=== PATIENT | female | born 1935 | race Caucasian/White ===

== ENCOUNTER → 2016-09-13 | Outpatient (CLI) | payer MEDICARE ==
[2016-09-13 12:56] LABS: Basophils % (A) 0 %; CH 30.6; CHCM 32.6; Eosinophils # (A) 0.5 k/uL (0-0.7); Eosinophils % (A) 7 %; HDW 2.84; HGB 13.4 gm/dL (11.4-16.0); Luc # (Auto) 0.17; Luc % (Auto) 2; Lymphocytes # (A) 2.9 k/uL (1.0-4.8); Lymphocytes % (A) 38 %; MCH 30.2 pg (25.0-35.0); MCV 94.4 fL (80.0-100.0); Mean Platelet Volume 7.4; Monocytes # (A) 0.5 k/uL (0-1.0); Monocytes % (A) 6 %; Neutrophils # (A) 3.5 k/uL (1.3-7.7); Neutrophils % (A) 46 %; RBC 4.44 m/uL (3.80-5.40); WBC 7.7 k/uL (3.8-10.6); WBC (Perox) 7.49
[2016-09-13 13:12] LABS: ALT 44 U/L (9-52); AST 44 U/L (14-36); Alkaline Phosphatase 81 U/L (38-126); Anion Gap 9 mmol/L; Blood Urea Nitrogen 12 mg/dL (7-17); Calcium 9.5 mg/dL (8.4-10.2); Carbon Dioxide 31 mmol/L (22-30); Chloride 104 mmol/L (98-107); Cholesterol 264 mg/dL (<200); Glucose 112 mg/dL (74-99); HDL Cholesterol 65 mg/dL (40-60); Non-African American GFR(MDRD) 53 (>60 ml/min/1.73 sqM); Potassium 3.4 mmol/L (3.5-5.1); Sodium 144 mmol/L (137-145); Total Bilirubin 0.5 mg/dL (0.2-1.3); Total Protein 7.5 g/dL (6.3-8.2); Triglycerides 211 mg/dL (<150)
[2016-09-13 13:15] LABS: Rheumatoid Factor, Qnt <9 IU/mL (<12)
[2016-09-13 14:01] LABS: Erythrocyte Sedimentation Rate 25 mm/hr (0-20)
== END | disposition home or self-care (01) ==
LOC: LABWHC1 12:06
PROVIDERS: ATTEND Internal Medicine
DX: E78.5 Hyperlipidemia, unspecified (principal); I10 Essential (primary) hypertension; M19.90 Unspecified osteoarthritis, unspecified site
CPT/HCPCS: 36415; 80053; 80061; 84439; 84443; 85025; 85610; 85652; 86038; 86431

== ENCOUNTER → 2016-11-18 | Outpatient (CLI) | payer MEDICARE ==
--- NOTE | 2016-11-18 15:48 | US ---
EXAMINATION TYPE: US abdomen complete DATE OF EXAM: 11/18/2016 2:48 PM COMPARISON: Exams 25 July 2014 ultrasound abdomen CLINICAL HISTORY: RUQ pain R10.11. Abdomen pain and nausea, bloating. EXAM MEASUREMENTS: Liver Length: 16.7 cm Gallbladder Wall: 0.2 cm CBD: 0.4 cm Spleen: n/a Right Kidney: 9.2 x 4.4 x 4.5 cm Left Kidney: 9.3 x 4.8 x 5.2 cm TECHNOLOGIST IMPRESSION: Technically difficult and limited study due to patient body habitus Pancreas: visualized portions wnl, limited by overlying midline bowel gas Liver: visualized portions show a coarse echotexture, limited by rib shadowing and overlying bowel g as Gallbladder: wnl Evidence for sonographic Flores's sign: yes CBD: visualized portions wnl, limited by overlying bowel gas Spleen: obscured by overlying bowel gas Right Kidney: 0.6cm echogenic focus inferior pole of questionable significance Left Kidney: wnl Upper IVC: wnl Abd Aorta: visualized portions wnl, limited by overlying midline bowel gas There is no ascites. IMPRESSION: Exam is markedly limited. May be fatty infiltration of the liver versus hepatocellular disease. Echog enic focus within the right kidney may represent normal medullary fat.
== END | disposition home or self-care (01) ==
LOC: RADUSWWP 14:12
DX: R10.11 Right upper quadrant pain (principal)
CPT/HCPCS: 76700

== ENCOUNTER → 2017-09-15 | Outpatient (CLI) | payer MEDICARE ==
[2017-09-15 12:01] LABS: INR 1.7 (<1.2); Prothrombin Time 15.3 sec (9.0-12.0)
[2017-09-15 12:06] LABS: Calcium 9.4 mg/dL (8.4-10.2); Total Bilirubin 0.5 mg/dL (0.2-1.3); Total Protein 7.4 g/dL (6.3-8.2)
[2017-09-15 12:14] LABS: T4, Free (Free Thyroxine) 0.75 ng/dL (0.78-2.19)
[2017-09-15 12:19] LABS: Basophils % (A) 0 %; Eosinophils # (A) 0.6 k/uL (0-0.7); Eosinophils % (A) 9 %; HCT 42.3 % (34.0-46.0); HGB 13.3 gm/dL (11.4-16.0); Hypochromasia Slight; Lymphocytes # (A) 3.4 k/uL (1.0-4.8); Lymphocytes % (A) 47 %; MCH 28.8 pg (25.0-35.0); MCHC 31.4 g/dL (31.0-37.0); MCV 91.8 fL (80.0-100.0); Mean Platelet Volume 7.6; Monocytes # (A) 0.5 k/uL (0-1.0); Monocytes % (A) 7 %; Neutrophils # (A) 2.5 k/uL (1.3-7.7); Neutrophils % (A) 35 %; Platelet Count 265 k/uL (150-450); RDW 15.7 % (11.5-15.5); WBC 7.2 k/uL (3.8-10.6)
== END | disposition home or self-care (01) ==
LOC: LABWHC1 11:00
PROVIDERS: ATTEND Internal Medicine
DX: E78.5 Hyperlipidemia, unspecified (principal); I10 Essential (primary) hypertension; R53.1 Weakness; I26.99 Other pulmonary embolism without acute cor pulmonale
CPT/HCPCS: 36415; 80053; 80061; 82607; 84439; 84443; 85025; 85610

== ENCOUNTER → 2018-01-23 | Outpatient (CLI) | payer MEDICARE ==
[2018-01-23 11:02] LABS: INR 3.3 (<1.2); Prothrombin Time 29.5 sec (9.0-12.0)
[2018-01-23 11:06] LABS: Calcium 9.3 mg/dL (8.4-10.2); Potassium 3.6 mmol/L (3.5-5.1)
[2018-01-23 11:23] LABS: T4, Free (Free Thyroxine) 0.95 ng/dL (0.78-2.19)
== END | disposition home or self-care (01) ==
LOC: LABWHC1 10:22
PROVIDERS: ATTEND Internal Medicine
DX: E03.9 Hypothyroidism, unspecified (principal); K58.9 Irritable bowel syndrome, unspecified; I10 Essential (primary) hypertension; J45.909 Unspecified asthma, uncomplicated; Z86.2 Personal history of diseases of the blood and blood-forming organs and certain disorders involving the immune mechanism
CPT/HCPCS: 36415; 80048; 84439; 84443; 85610

== ENCOUNTER → 2018-06-05 | Outpatient (CLI) | payer MEDICARE ==
[2018-06-05 16:30] LABS: Basophils % (A) 0 %; Eosinophils # (A) 0.3 k/uL (0-0.7); Eosinophils % (A) 4 %; HCT 42.3 % (34.0-46.0); HGB 13.2 gm/dL (11.4-16.0); Lymphocytes # (A) 3.8 k/uL (1.0-4.8); Lymphocytes % (A) 47 %; MCHC 31.2 g/dL (31.0-37.0); MCV 89.6 fL (80.0-100.0); Mean Platelet Volume 7.4; Monocytes # (A) 0.5 k/uL (0-1.0); Monocytes % (A) 6 %; Neutrophils # (A) 3.3 k/uL (1.3-7.7); Neutrophils % (A) 41 %; Platelet Count 320 k/uL (150-450); RBC 4.72 m/uL (3.80-5.40); RDW 14.6 % (11.5-15.5); WBC 8.2 k/uL (3.8-10.6)
[2018-06-05 18:50] LABS: Erythrocyte Sedimentation Rate 30 mm/hr (0-20)
[2018-06-06 04:10] LABS: Rheumatoid Factor <4 IU/mL (0-15)
== END ==
LOC: LABWHC1 15:25
PROVIDERS: ATTEND Internal Medicine
DX: M31.6 Other giant cell arteritis (principal)
CPT/HCPCS: 36415; 85025; 85652; 86038; 86235; 86431

== ENCOUNTER 2018-07-14 12:41 | Emergency (ER) | payer MEDICARE ==
--- NOTE | 2018-07-14 13:28 | ED ---
General Adult HPI - General Chief complaint: Recheck/Abnormal Lab/Rx Stated complaint: Hemorrhage from inside Time Seen by Provider: 07/14/18 12:51 Source: patient, RN notes reviewed Mode of arrival: ambulatory Limitations: no limitations - History of Present Illness Initial comments: 83-year-old female presents emergency department presents emergency Department chief complaint of elevated INR. Patient states she had lab work done yesterday which showed an INR 5. She did not take her dose last night with states that she's continued to have a headache so they're concerned that she may have some bleeding. Patient was sent here for evaluation. Patient states is diffuse headache for one week states that she just feels ill. She initially was told that maybe some sinus issues was started on prednisone. Patient denies fever, chills, neck pain or neck stiffness. Denies any abdominal pain, chest pain or shortness of breath. Patient states she is on Coumadin for blood clots in which she has been on this in the past. Patient has no dysuria no hematuria denies any melena or hematochezia. - Related Data Home Medications Medication Instructions Recorded Confirmed Acetaminophen with Codeine 1 tab PO Q4H PRN 06/14/14 11/29/15 [Tylenol w/codeine #3] Budesonide-Formot 160-4.5 Mcg 2 puff INHALATION RT-BID PRN 06/14/14 11/29/15 [Symbicort 160-4.5 Mcg Inhaler] Potassium Chloride [Klor-Con 20] 20 meq PO DAILY 06/14/14 11/29/15 FLUoxetine HCL [Fluoxetine HCl] 20 mg PO DAILY 07/18/15 11/29/15 Metolazone [Zaroxolyn] 2.5 mg PO DAILY PRN 07/18/15 11/29/15 Multivitamins, Thera [Multivitamin 1 tab PO DAILY 07/18/15 11/29/15 (formulary)] Clotrimazole/Betamethasone Dip 1 applic TOPICAL BID 11/29/15 11/29/15 [Lotrisone Cream] Propylene Glycol/Peg 400/Pf 1 drop BOTH EYES DAILY PRN 11/29/15 11/29/15 [Systane 0.3-0.4% Eye Drops] Previous Rx's Medication Instructions Recorded Rivaroxaban [Xarelto] 15 mg PO BID-W/MEALS #42 tab 12/02/15 amLODIPine [Norvasc] 5 mg PO BID #60 tab 12/02/15 Allergies Allergy/AdvReac Type Severity Reaction Status Date / Time iodine AdvReac Anaphylaxis Verified 07/14/18 12:50 morphine AdvReac Hallucinati Verified 07/14/18 12:50 ons TAPE Allergy Rash/Hives Uncoded 07/14/18 12:50 Review of Systems ROS Statement: Those systems with pertinent positive or pertinent negative responses have been documented in the HPI. ROS Other: All systems not noted in ROS Statement are negative. Past Medical History Past Medical History: Asthma, GERD/Reflux, Hyperlipidemia, Hypertension, Liver Disease, Osteoarthritis (OA), Pneumonia, Pulmonary Embolus (PE) Additional Past Medical History / Comment(s): Chronic asthma, bilateral pulmonary embolism diagnosed in 2010 and she was taken off the coumadin by Dr Andersen, pneumonia's, IBS, colitis, esophageal stricture, hepatitis B infection 1971, hiatal hernia, history of Chowdary's palsy, severe osteoarthritis, DJD, cervical pain, seasonal allergies and sinus problems. History of Any Multi-Drug Resistant Organisms: None Reported Past Surgical History: Appendectomy, Section, Hernia Repair, Joint Replacement, Tonsillectomy, Tubal Ligation Additional Past Surgical History / Comment(s): 07/25/15 Total R shoulderin , cataracts bilaterally, x 2, hiatal hernia repair, EGDs, esophageal dilations, colonoscopy, bronchoscopies, pain clinic procedures. Past Anesthesia/Blood Transfusion Reactions: No Reported Reaction Past Psychological History: No Psychological Hx Reported Smoking Status: Former smoker Past Alcohol Use History: Rare Past Drug Use History: None Reported - Past Family History Daughter(s) Family Medical History: Coronary Artery Disease (CAD) (in the mother and she had also CABG), Diabetes Mellitus, Deep Vein Thrombosis (DVT) (in the mother) Brother(s) Family Medical History: CVA/TIA Mother Family Medical History: Coronary Artery Disease (CAD), Diabetes Mellitus Additional Family Medical History / Comment(s): cabg Father Family Medical History: No Reported History General Exam Limitations: no limitations General appearance: alert, in no apparent distress Head exam: Present: atraumatic, normocephalic, normal inspection Eye exam: Present: normal appearance, PERRL (Slightly sluggish left), EOMI. Absent: scleral icterus, conjunctival injection, periorbital swelling ENT exam: Present: normal exam, normal oropharynx, mucous membranes moist Neck exam: Present: normal inspection, full ROM. Absent: tenderness, meningismus, lymphadenopathy Respiratory exam: Present: normal lung sounds bilaterally. Absent: respiratory distress, wheezes, rales, rhonchi, stridor Cardiovascular Exam: Present: regular rate, normal rhythm, normal heart sounds. Absent: systolic murmur, diastolic murmur, rubs, gallop, clicks Neurological exam: Present: alert, oriented X3, CN II-XII intact, reflexes normal, other (Finger to nose intact bilaterally without shooting). Absent: motor sensory deficit Skin exam: Present: warm, dry, intact, normal color. Absent: rash Course Vital Signs 07/14/18 12:48 Temperature 98.3 F Pulse Rate 76 Respiratory 20 Rate Blood Pressure 149/78 O2 Sat by Pulse 98 Oximetry Medical Decision Making - Medical Decision Making 83-year-old female presents emergency Department chief complaint of elevated INR and a headache. CT was obtained no acute intracranial hemorrhage. CT has been consistent for 1 week. Patient has no neurological deficits. Patient has an INR of 4.7 down from 5 yesterday. Patient will hold her Coumadin for 2 more days and have her recheck. Patient has no noted bleeding. She has no abdominal pain. No melena med she is a. Patient has been bleeding of her gums and no abnormal bruising at this time. We did discuss strict return parameters. - Lab Data Result diagrams: 07/14/18 13:15 07/14/18 13:15 Lab Results 07/14/18 07/14/18 07/14/18 Range/Units 13:15 13:15 13:15 WBC 8.3 (3.8-10.6) k/uL RBC 4.45 (3.80-5.40) m/uL Hgb 12.8 (11.4-16.0) gm/dL Hct 38.5 (34.0-46.0) % MCV 86.5 (80.0-100.0) fL MCH 28.7 (25.0-35.0) pg MCHC 33.2 (31.0-37.0) g/dL RDW 15.2 (11.5-15.5) % Plt Count 229 (150-450) k/uL Neutrophils % 37 % Lymphocytes % 52 % Monocytes % 6 % Eosinophils % 2 % Basophils % 0 % Neutrophils # 3.1 (1.3-7.7) k/uL Lymphocytes # 4.3 (1.0-4.8) k/uL Monocytes # 0.5 (0-1.0) k/uL Eosinophils # 0.2 (0-0.7) k/uL Basophils # 0.0 (0-0.2) k/uL PT 41.9 H (9.0-12.0) sec INR 4.7 H (<1.2) Sodium 139 (137-145) mmol/L Potassium 3.3 L (3.5-5.1) mmol/L Chloride 106 (98-107) mmol/L Carbon Dioxide 27 (22-30) mmol/L Anion Gap 6 mmol/L BUN 18 H (7-17) mg/dL Creatinine 0.87 (0.52-1.04) mg/dL Est GFR (CKD-EPI)AfAm 72 (>60 ml/min/1.73 sqM) Est GFR (CKD-EPI)NonAf 63 (>60 ml/min/1.73 sqM) Glucose 106 H (74-99) mg/dL Calcium 8.9 (8.4-10.2) mg/dL Disposition Clinical Impression: Warfarin-induced coagulopathy, Headache Disposition: HOME SELF-CARE Condition: Stable Instructions: Elevated INR (ED) Additional Instructions: Please return to the Emergency Department if symptoms worsen or any other concerns. Hold Coumadin for 2 days and have recheck. Is patient prescribed a controlled substance at d/c from ED?: No Referrals: González Andersen MD [Primary Care Provider] - 1-2 days Time of Disposition: 14:08
[2018-07-14 13:39] LABS: Basophils % (A) 0 %; Eosinophils # (A) 0.2 k/uL (0-0.7); Eosinophils % (A) 2 %; HCT 38.5 % (34.0-46.0); HGB 12.8 gm/dL (11.4-16.0); INR 4.7 (<1.2); Lymphocytes # (A) 4.3 k/uL (1.0-4.8); Lymphocytes % (A) 52 %; MCH 28.7 pg (25.0-35.0); MCHC 33.2 g/dL (31.0-37.0); MCV 86.5 fL (80.0-100.0); Mean Platelet Volume 7.3; Monocytes # (A) 0.5 k/uL (0-1.0); Monocytes % (A) 6 %; Neutrophils # (A) 3.1 k/uL (1.3-7.7); Neutrophils % (A) 37 %; Platelet Count 229 k/uL (150-450); Prothrombin Time 41.9 sec (9.0-12.0); RBC 4.45 m/uL (3.80-5.40); RDW 15.2 % (11.5-15.5); WBC 8.3 k/uL (3.8-10.6)
[2018-07-14 13:46] LABS: Calcium 8.9 mg/dL (8.4-10.2); Potassium 3.3 mmol/L (3.5-5.1)
--- NOTE | 2018-07-14 13:55 | CT ---
EXAMINATION TYPE: CT brain wo con DATE OF EXAM: 07/14/2018 HISTORY: Pt had abnormal INR results, sent by physician. Prior in PACS. No contrast. Headache per ord er. CT DLP: 976.4 mGycm. Automated Exposure Control for Dose Reduction was Utilized. TECHNIQUE: CT scan of the head is performed without contrast. COMPARISON: CT brain September 23, 2014. FINDINGS: There is no acute intracranial hemorrhage or midline shift identified. There is diffuse v entricular and sulcal prominence consistent with diffuse age-related cerebral atrophy. There is low- attenuation in the periventricular white matter consistent with chronic small vessel ischemic change. The globes are intact and the visualized sinuses are clear. IMPRESSION: No acute intracranial hemorrhage or midline shift. There is mild diffuse age-related ce rebral atrophy and advanced probable chronic small vessel ischemic change redemonstrated. No signifi cant change from prior CT.
[2018-07-14 14:36] VITALS: BP 134/75; PULSE 68; RESP 18; TEMP 97.1
== END 2018-07-14 14:36 | disposition home or self-care (01) ==
LOC: EC 12:41
DX: D68.9 Coagulation defect, unspecified (principal); T45.515A Adverse effect of anticoagulants, initial encounter; R51 Headache; J45.909 Unspecified asthma, uncomplicated; I10 Essential (primary) hypertension; M19.90 Unspecified osteoarthritis, unspecified site; Z79.01 Long term (current) use of anticoagulants; Z79.899 Other long term (current) drug therapy; Z88.5 Allergy status to narcotic agent; Z91.048 Other nonmedicinal substance allergy status; Z87.891 Personal history of nicotine dependence; Z96.611 Presence of right artificial shoulder joint; Z86.711 Personal history of pulmonary embolism
CPT/HCPCS: 36415; 70450; 80048; 85025; 85610; 99284

== ENCOUNTER 2018-09-14 11:38 | Day surgery (SDC) | payer MEDICARE ==
[2018-09-04 13:14] VITALS: BMI 28.8
[~2018-09-14 11:38] MED LIST: LACTATED RINGERS 1,000 ML IV SCH
[2018-09-14 12:01] VITALS: TEMP 98.2
[2018-09-14] MEDS ORDERED: PROPOFOL 10 MG/ML 20 ML VIAL IV ONE (12:15)
[2018-09-14] MEDS ORDERED: LIDOCAINE 1% INJ 10MG/ML (20 ML MDV) ONE (12:15)
[2018-09-14] MEDS ORDERED: GLYCOPYRROLATE 0.2 MG/ML 2 ML VIAL ONE (12:15)
[2018-09-14] MEDS ORDERED: LACTATED RINGERS 1,000 ML IV ONE (12:33)
--- NOTE | 2018-09-14 12:41 | P.PCN ---
Date of Procedure: 09/14/18 Procedure(s) Performed: Procedure: Esophagogastroduodenoscopy and biopsy. Preoperative diagnosis: Dysphagia. Postoperative diagnosis: 1. Hiatal hernia and esophagitis with no strictures or obstructing to the advancement of the endoscope. 2. Antral gastritis. 3. Multiple biopsies obtained from the antrum and esophagus. Preparation and sedation: Was provided by anesthesia. Brief clinical history: The patient is an 83-year-old female who is scheduled for this evaluation the cause of issues with dysphagia. She had an upper endoscopy in 2013 that revealed evidence of eosinophilic esophagitis on biopsies. The patient has history of asthma and reflux. This evaluation is to assess for possible strictures or other pathology. Procedure: With the patient on her left lateral decubitus position and after informed consent and adequate sedation, I passed the Olympus-GIF 190 video upper endoscope through the cricopharyngeus down the esophagus. GE junction was around 36 cm from the incisors and there was a hiatal hernia measuring around 2 cm. The esophagus showed multiple punctated erosions and superficial ulcerations consistent with LA grade C esophagitis. There were no restricting strictures. The endoscope was then passed into the stomach which was insufflated with air and inspected in detail including the retroflex view in the cardia. There was mottling and erythema in the antrum and an isolated erosion or 2 but no ulcers or bleeding. Pyloric channel, duodenal bulb, post bulbar area and descending duodenum appeared within normal limits. I obtained biopsies from the antrum and esophagus then the endoscope was withdrawn. No dilation was indicated on this exam today. The patient tolerated the procedure well. Plan: The patient was reassured. She will follow-up with you as planned and I will see her in follow-up and make additional recommendations based on her course and biopsy results.
[2018-09-14 13:31] VITALS: BP 151/83; PULSE 81; RESP 20
== END 2018-09-14 13:59 | disposition home or self-care (01) ==
LOC: ORWHC2ENDO 11:38
DX: K29.50 Unspecified chronic gastritis without bleeding (principal); K20.0 Eosinophilic esophagitis; K44.9 Diaphragmatic hernia without obstruction or gangrene; R13.10 Dysphagia, unspecified; K21.9 Gastro-esophageal reflux disease without esophagitis; M19.90 Unspecified osteoarthritis, unspecified site; K58.9 Irritable bowel syndrome, unspecified; Z86.711 Personal history of pulmonary embolism; Z86.19 Personal history of other infectious and parasitic diseases; J45.909 Unspecified asthma, uncomplicated; K76.9 Liver disease, unspecified; I10 Essential (primary) hypertension; E78.5 Hyperlipidemia, unspecified; Z86.718 Personal history of other venous thrombosis and embolism; Z79.01 Long term (current) use of anticoagulants; Z79.51 Long term (current) use of inhaled steroids; Z79.899 Other long term (current) drug therapy; Z88.5 Allergy status to narcotic agent; Z91.048 Other nonmedicinal substance allergy status; Z91.09 Other allergy status, other than to drugs and biological substances
CPT/HCPCS: 88305; 43239; J2001; J2704

== ENCOUNTER → 2018-11-26 | Outpatient (CLI) | payer MEDICARE ==
[2018-11-26 12:39] LABS: Prothrombin Time 19.8 sec (9.0-12.0)
[2018-11-26 12:54] LABS: Basophils % (A) 1 %; Eosinophils # (A) 0.5 k/uL (0-0.7); Eosinophils % (A) 8 %; HCT 41.9 % (34.0-46.0); Hypochromasia Slight; Lymphocytes # (A) 3.2 k/uL (1.0-4.8); Lymphocytes % (A) 48 %; MCH 28.1 pg (25.0-35.0); MCHC 31.1 g/dL (31.0-37.0); MCV 90.6 fL (80.0-100.0); Mean Platelet Volume 6.9; Monocytes # (A) 0.4 k/uL (0-1.0); Monocytes % (A) 6 %; Neutrophils # (A) 2.4 k/uL (1.3-7.7); Neutrophils % (A) 36 %; Platelet Count 290 k/uL (150-450); RBC 4.63 m/uL (3.80-5.40); RDW 15.9 % (11.5-15.5); WBC 6.8 k/uL (3.8-10.6)
[2018-11-26 18:55] LABS: Albumin 4.3 g/dL (3.80-4.90); Albumin/Globulin Ratio 1.48 (1.60-3.17); Anion Gap 6.6 mmol/L (4.00-12.00); Calcium 9.3 mg/dL (8.7-10.3); Carbon Dioxide 27.4 mmol/L (21.6-31.8); Globulin 2.9 g/dL (1.6-3.3); Potassium 3.9 mmol/L (3.5-5.5); Total Bilirubin 0.3 mg/dL (0.3-1.2); Total Protein 7.2 g/dL (6.2-8.2)
[2018-11-26 20:52] LABS: T4, Free (Free Thyroxine) 0.8 ng/dL (0.80-1.80)
== END | disposition home or self-care (01) ==
LOC: LABWHC1 11:30
PROVIDERS: ATTEND Internal Medicine
DX: R53.1 Weakness (principal); I26.99 Other pulmonary embolism without acute cor pulmonale; R53.83 Other fatigue; Z51.81 Encounter for therapeutic drug level monitoring; Z79.01 Long term (current) use of anticoagulants
CPT/HCPCS: 36415; 80053; 82607; 84439; 84443; 85025; 85610

== ENCOUNTER 2019-04-24 15:47 | Emergency (ER) | payer MEDICARE ==
[2019-04-24] MEDS ORDERED: IPRATROPIUM-ALBUTEROL 3 ML NEB INHALATION STA (16:07)
[2019-04-24] MEDS ORDERED: methylPREDNISolone SOD SUCCI 125 MG/2 ML VIAL IV STA (16:08)
--- NOTE | 2019-04-24 16:11 | ED ---
URI HPI - General Chief Complaint: Upper Respiratory Infection Stated Complaint: Sob/cough Time Seen by Provider: 04/24/19 16:06 Source: patient, RN notes reviewed, old records reviewed Mode of arrival: ambulatory Limitations: no limitations - History of Present Illness Initial Comments: This is an 83-year-old female the ER for evaluation. Patient presents today for shortness of breath has history of asthma history of COPD recent travel history [place] current fevers. Nurse sick contacts. No significant recent hospitalizations. No chest pain MD Complaint: cough, nasal congestion -: days(s) Severity: mild Severity scale (1-10): 3 Consistency: constant Improves With: nothing Worsens With: nothing Associated Symptoms: fever, myalgias, nasal congestion, cough Treatments Prior to Arrival: none - Related Data Home Medications Medication Instructions Recorded Confirmed Multivitamin,Therapeutic [Thera] 1 tab PO DAILY 07/14/18 04/24/19 amLODIPine [Norvasc] 5 mg PO DAILY 07/14/18 04/24/19 Budesonide-Formot 160-4.5 Mcg 2 puff INHALATION RT-BID 09/04/18 04/24/19 [Symbicort 160-4.5 Mcg Inhaler] Warfarin [Coumadin] 2.5 mg PO TH 09/04/18 04/24/19 Albuterol Nebulized [Ventolin 2.5 mg INHALATION RT-Q6H PRN 04/24/19 04/24/19 Nebulized] Oxybutynin Chloride 5 mg PO BID 04/24/19 04/24/19 Warfarin [Coumadin] 5 mg PO SUMOTUWESA 04/24/19 04/24/19 Previous Rx's Medication Instructions Recorded Albuterol Nebulized [Ventolin 2.5 mg INHALATION Q4H #25 nebu 04/24/19 Nebulized] Albuterol Sulfate [Proair Hfa] 1 - 2 puff INHALATION Q4H PRN #1 04/24/19 inhaler Azithromycin [Zithromax Z-pack] 0 mg PO DIRECTED #1 pack 04/24/19 predniSONE 50 mg PO DAILY #5 tab 04/24/19 Allergies Allergy/AdvReac Type Severity Reaction Status Date / Time iodine Allergy Anaphylaxis Verified 04/24/19 17:23 morphine AdvReac Hallucinati Verified 04/24/19 17:23 ons TAPE Allergy Rash/Hives Uncoded 09/04/18 13:02 Review of Systems ROS Statement: Those systems with pertinent positive or pertinent negative responses have been documented in the HPI. ROS Other: All systems not noted in ROS Statement are negative. Past Medical History Past Medical History: Asthma, GERD/Reflux, GI Bleed, Hyperlipidemia, Hypertension, Liver Disease, Osteoarthritis (OA), Pneumonia, Pulmonary Embolus (PE) Additional Past Medical History / Comment(s): bilateral pulmonary embolism 2010, IBS, colitis, esophageal stricture, hepatitis B infection 1971, hiatal hernia, history of Chowdary's palsy, severe osteoarthritis, sinus problems. poor circulation in eliseo feet, GI bleed years ago History of Any Multi-Drug Resistant Organisms: None Reported Past Surgical History: Appendectomy, Section, Hernia Repair, Hysterectomy, Joint Replacement, Tonsillectomy, Tubal Ligation Additional Past Surgical History / Comment(s): Rt shoulder replacement, cataracts bilaterally, x 2, hiatal hernia repair, EGDs with esophageal dilations, colonoscopy, bronchoscopies Past Anesthesia/Blood Transfusion Reactions: Motion Sickness Past Psychological History: No Psychological Hx Reported Smoking Status: Never smoker Past Alcohol Use History: None Reported Past Drug Use History: None Reported - Past Family History Daughter(s) Family Medical History: Coronary Artery Disease (CAD), Diabetes Mellitus, Deep Vein Thrombosis (DVT) Brother(s) Family Medical History: CVA/TIA Mother Family Medical History: Deep Vein Thrombosis (DVT) Additional Family Medical History / Comment(s): . Father Family Medical History: No Reported History General Exam Limitations: no limitations General appearance: alert, in no apparent distress Head exam: Present: atraumatic, normocephalic, normal inspection Eye exam: Present: normal appearance, PERRL, EOMI. Absent: scleral icterus, conjunctival injection, periorbital swelling ENT exam: Present: normal exam, mucous membranes moist Neck exam: Present: normal inspection. Absent: tenderness, meningismus, lympha denopathy Respiratory exam: Present: wheezes. Absent: respiratory distress, rales, rhonchi, stridor Cardiovascular Exam: Present: regular rate, normal rhythm, normal heart sounds. Absent: systolic murmur, diastolic murmur, rubs, gallop, clicks GI/Abdominal exam: Present: soft, normal bowel sounds. Absent: distended, tend erness, guarding, rebound, rigid Extremities exam: Present: normal inspection, full ROM, normal capillary refill. Absent: tenderness, pedal edema, joint swelling, calf tenderness Back exam: Present: normal inspection Neurological exam: Present: alert, oriented X3, CN II-XII intact Psychiatric exam: Present: normal affect, normal mood Skin exam: Present: warm, dry, intact, normal color. Absent: rash Course Vital Signs 04/24/19 04/24/19 04/24/19 15:51 16:29 16:41 Temperature 98 F Pulse Rate 81 80 83 Respiratory 18 Rate Blood Pressure 172/77 O2 Sat by Pulse 96 Oximetry 04/24/19 04/24/19 17:32 17:44 Temperature Pulse Rate 80 82 Respiratory Rate Blood Pressure O2 Sat by Pulse Oximetry Medical Decision Making - Medical Decision Making 83 female the ER for evaluation cough congestion shortness of breath mild asthma exacerbation. Patient can be discharged home - Lab Data Result diagrams: 04/24/19 16:15 04/24/19 16:15 Lab Results 04/24/19 04/24/19 04/24/19 Range/Units 16:15 16:15 16:15 WBC 8.6 (3.8-10.6) k/uL RBC 4.46 (3.80-5.40) m/uL Hgb 13.0 (11.4-16.0) gm/dL Hct 39.8 (34.0-46.0) % MCV 89.2 (80.0-100.0) fL MCH 29.2 (25.0-35.0) pg MCHC 32.8 (31.0-37.0) g/dL RDW 16.5 H (11.5-15.5) % Plt Count 311 (150-450) k/uL Neutrophils % 82 % Lymphocytes % 13 % Monocytes % 3 % Eosinophils % 1 % Basophils % 0 % Neutrophils # 7.0 (1.3-7.7) k/uL Lymphocytes # 1.1 (1.0-4.8) k/uL Monocytes # 0.3 (0-1.0) k/uL Eosinophils # 0.1 (0-0.7) k/uL Basophils # 0.0 (0-0.2) k/uL Anisocytosis Slight PT (9.0-12.0) sec INR (<1.2) APTT (22.0-30.0) sec Sodium 142 (137-145) mmol/L Potassium 3.3 L (3.5-5.1) mmol/L Chloride 107 (98-107) mmol/L Carbon Dioxide 26 (22-30) mmol/L Anion Gap 9 mmol/L BUN 16 (7-17) mg/dL Creatinine 1.09 H (0.52-1.04) mg/dL Est GFR (CKD-EPI)AfAm 55 (>60 ml/min/1.73 sqM) Est GFR (CKD-EPI)NonAf 48 (>60 ml/min/1.73 sqM) Glucose 136 H (74-99) mg/dL Calcium 9.0 (8.4-10.2) mg/dL Magnesium 1.8 (1.6-2.3) mg/dL Total Bilirubin 0.3 (0.2-1.3) mg/dL AST 54 H (14-36) U/L ALT 48 (9-52) U/L Alkaline Phosphatase 76 (38-126) U/L Creatine Kinase 163 H (30-135) U/L Troponin I (0.000-0.034) ng/mL NT-Pro-B Natriuret Pep 228 pg/mL Total Protein 7.5 (6.3-8.2) g/dL Albumin 4.1 (3.5-5.0) g/dL 04/24/19 04/24/19 Range/Units 16:15 16:15 WBC (3.8-10.6) k/uL RBC (3.80-5.40) m/uL Hgb (11.4-16.0) gm/dL Hct (34.0-46.0) % MCV (80.0-100.0) fL MCH (25.0-35.0) pg MCHC (31.0-37.0) g/dL RDW (11.5-15.5) % Plt Count (150-450) k/uL Neutrophils % % Lymphocytes % % Monocytes % % Eosinophils % % Basophils % % Neutrophils # (1.3-7.7) k/uL Lymphocytes # (1.0-4.8) k/uL Monocytes # (0-1.0) k/uL Eosinophils # (0-0.7) k/uL Basophils # (0-0.2) k/uL Anisocytosis PT 20.6 H (9.0-12.0) sec INR 2.1 H (<1.2) APTT 26.7 (22.0-30.0) sec Sodium (137-145) mmol/L Potassium (3.5-5.1) mmol/L Chloride (98-107) mmol/L Carbon Dioxide (22-30) mmol/L Anion Gap mmol/L BUN (7-17) mg/dL Creatinine (0.52-1.04) mg/dL Est GFR (CKD-EPI)AfAm (>60 ml/min/1.73 sqM) Est GFR (CKD-EPI)NonAf (>60 ml/min/1.73 sqM) Glucose (74-99) mg/dL Calcium (8.4-10.2) mg/dL Magnesium (1.6-2.3) mg/dL Total Bilirubin (0.2-1.3) mg/dL AST (14-36) U/L ALT (9-52) U/L Alkaline Phosphatase (38-126) U/L Creatine Kinase (30-135) U/L Troponin I <0.012 (0.000-0.034) ng/mL NT-Pro-B Natriuret Pep pg/mL Total Protein (6.3-8.2) g/dL Albumin (3.5-5.0) g/dL - EKG Data -: EKG Interpreted by Me (EKG shows sinus rhythm rate of 73, WI 170, QRS 80, QTC 464) - Radiology Data Radiology results: report reviewed (cxr negative for acute disease), image revi ewed Disposition Clinical Impression: Asthmatic bronchitis Disposition: HOME SELF-CARE Condition: Good Instructions (If sedation given, give patient instructions): Asthma (ED), COPD (Chronic Obstructive Pulmonary Disease) (ED) Prescriptions: predniSONE 50 mg PO DAILY #5 tab Albuterol Sulfate [Proair Hfa] 1 - 2 puff INHALATION Q4H PRN #1 inhaler PRN Reason: Shortness Of Breath Albuterol Nebulized [Ventolin Nebulized] 2.5 mg INHALATION Q4H #25 nebu Azithromycin [Zithromax Z-pack] 0 mg PO DIRECTED #1 pack Is patient prescribed a controlled substance at d/c from ED?: No Referrals: Rochelle,Aliza, MD [STAFF PHYSICIAN] - 1-2 days
[2019-04-24 16:24] LABS: Anisocytosis Slight; Basophils % (A) 0 %; Eosinophils # (A) 0.1 k/uL (0-0.7); Eosinophils % (A) 1 %; HCT 39.8 % (34.0-46.0); Lymphocytes # (A) 1.1 k/uL (1.0-4.8); Lymphocytes % (A) 13 %; MCH 29.2 pg (25.0-35.0); MCHC 32.8 g/dL (31.0-37.0); MCV 89.2 fL (80.0-100.0); Mean Platelet Volume 7.4; Monocytes # (A) 0.3 k/uL (0-1.0); Monocytes % (A) 3 %; Neutrophils % (A) 82 %; Platelet Count 311 k/uL (150-450); RBC 4.46 m/uL (3.80-5.40); RDW 16.5 % (11.5-15.5); WBC 8.6 k/uL (3.8-10.6)
[2019-04-24 16:35] LABS: INR 2.1 (<1.2); Partial Thromboplastin Time 26.7 sec (22.0-30.0); Prothrombin Time 20.6 sec (9.0-12.0)
[2019-04-24 16:37] LABS: Albumin 4.1 g/dL (3.5-5.0); Magnesium 1.8 mg/dL (1.6-2.3); Potassium 3.3 mmol/L (3.5-5.1); Total Bilirubin 0.3 mg/dL (0.2-1.3); Total Protein 7.5 g/dL (6.3-8.2)
--- NOTE | 2019-04-24 17:01 | XR ---
EXAMINATION TYPE: XR chest 2V DATE OF EXAM: 04/24/2019 COMPARISON: 11/26/2018 HISTORY: Cough and short of breath TECHNIQUE: Frontal and lateral views of the chest are obtained. FINDINGS: Heart size is normal. Lungs are clear infiltrate. There is rounded density at the left betsy phragm related to small diaphragmatic hernia that contains fat evident on the CT scan of 11/29/2015. T here are surgical clips at the gastroesophageal junction. There is small hiatal hernia. There is no heart failure. There is no pleural effusion. Bony thorax is intact. IMPRESSION: No active cardiopulmonary disease. No change.
[2019-04-24] MEDS ORDERED: ALBUTEROL NEBULIZED 2.5 MG/3 ML INHALATION STA (17:22)
[2019-04-24] MEDS ORDERED: SODIUM CHLORIDE 0.9% 500 ML 500 ML IV STA (17:22)
[2019-04-24] MEDS ORDERED: IPRATROPIUM 0.5 MG/2.5 ML NEBU INHALATION STA (17:22)
[2019-04-24] MEDS ORDERED: ACET/COD 240MG/24MG LIQ 10 ML SYRG PO ONE (17:23)
[2019-04-24 18:29] VITALS: BP 152/73; PULSE 72; RESP 17; TEMP 98.7
== END 2019-04-24 18:20 | disposition home or self-care (01) ==
LOC: EC 15:47
DX: J45.909 Unspecified asthma, uncomplicated (principal); I10 Essential (primary) hypertension; M19.90 Unspecified osteoarthritis, unspecified site; Z79.01 Long term (current) use of anticoagulants; Z79.51 Long term (current) use of inhaled steroids; Z79.899 Other long term (current) drug therapy; Z88.5 Allergy status to narcotic agent; Z91.048 Other nonmedicinal substance allergy status; Z96.611 Presence of right artificial shoulder joint; Z86.711 Personal history of pulmonary embolism
CPT/HCPCS: 36415; 94640 ×2; 83880; 80053; 82550; 83735; 84484; 85025; 85610; 85730; 71046; 99285; 96374; 96361; J2930; 93005

== ENCOUNTER 2020-02-24 19:46 | Emergency (ER) | payer MEDICARE ==
[2020-02-24 19:55] VITALS: TEMP 98.8
[2020-02-24 21:02] LABS: Basophils % (A) 0 %; Eosinophils # (A) 0.6 k/uL (0-0.7); Eosinophils % (A) 8 %; HCT 36.9 % (34.0-46.0); HGB 11.8 gm/dL (11.4-16.0); Hypochromasia Slight; Lymphocytes # (A) 2.9 k/uL (1.0-4.8); Lymphocytes % (A) 38 %; MCH 27.7 pg (25.0-35.0); MCHC 32.1 g/dL (31.0-37.0); MCV 86.4 fL (80.0-100.0); Mean Platelet Volume 7.7; Monocytes # (A) 0.4 k/uL (0-1.0); Monocytes % (A) 5 %; Neutrophils # (A) 3.4 k/uL (1.3-7.7); Neutrophils % (A) 45 %; Platelet Count 254 k/uL (150-450); RBC 4.27 m/uL (3.80-5.40); RDW 15.3 % (11.5-15.5); WBC 7.5 k/uL (3.8-10.6)
[2020-02-24 21:10] LABS: INR 1.6 (<1.2); Partial Thromboplastin Time 25.2 sec (22.0-30.0); Prothrombin Time 15.7 sec (9.0-12.0)
[2020-02-24 21:11] LABS: Albumin 3.9 g/dL (3.5-5.0); Calcium 9.1 mg/dL (8.4-10.2); Potassium 3.1 mmol/L (3.5-5.1); Total Bilirubin 0.2 mg/dL (0.2-1.3); Total Protein 7.2 g/dL (6.3-8.2)
--- NOTE | 2020-02-24 21:35 | US ---
EXAMINATION TYPE: US venous doppler duplex LE LT DATE OF EXAM: 02/24/2020 9:20 PM COMPARISON: US CLINICAL HISTORY: Left leg swelling and pain. Left leg swelling and pain. Hx PE. Patient on coumadin. SIDE PERFORMED: Left TECHNIQUE: The lower extremity deep venous system is examined utilizing real time linear array sonog yolis with graded compression, doppler sonography and color-flow sonography. VESSELS IMAGED: External Iliac Vein (EIV) Common Femoral Vein Deep Femoral Vein Greater Saphenous Vein * Femoral Vein Popliteal Vein Small Saphenous Vein * Proximal Calf Veins (* superficial vessels) Left Leg: There appear to be internal echoes along the cespedes of the mid segment of the femoral vein. This vein appears to compress completely and show color flow. Possible thrombus. No evidence of DVT in remaining vessels imaged. 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 No evidence of acute deep vein thrombosis.
[2020-02-24] MEDS ORDERED: POTASSIUM CHLORIDE ER 20 MEQ TAB.ER PO STA (21:43)
--- NOTE | 2020-02-24 22:11 | ED ---
General Adult HPI - General Source: patient Mode of arrival: ambulatory Limitations: no limitations <Rosalie Shoemaker - Last Filed: 02/25/20 01:08> <Maricarmen Darnell - Last Filed: 02/28/20 01:13> - General Chief complaint: Extremity Problem,Nontraumatic Stated complaint: Leg Swelling/Pain Time Seen by Provider: 02/24/20 20:21 - History of Present Illness Initial comments: 84-year-old female patient presents to the emergency department today for evaluation of bilateral lower extremity swelling. Patient states that the swelling worsened over the last 24 hours. States that she is having some pain to the left posterior knee as well. Patient does have history of pulmonary embolisms and does take Coumadin. States she did have her INR checked yesterday and was fine. Denies any numbness or tingling in the legs. Denies any fever or chills. Denies any redness over the legs. She denies any orthopnea, dry cough, or increased shortness of breath. Patient does take Lasix on Friday, Friday, and Friday. Patient denies any recent rash, chest pain, abdominal pain, nausea, vomiting, diarrhea, constipation, back pain, numbness, tingling, dizziness, weakness, hematuria, dysuria, urinary urgency, urinary frequency, headache, visual changes, or any other complaints. (Rosalie Shoemaker) - Related Data Home Medications Medication Instructions Recorded Confirmed Multivitamin,Therapeutic [Thera] 1 tab PO DAILY 07/14/18 04/24/19 amLODIPine [Norvasc] 5 mg PO DAILY 07/14/18 04/24/19 Budesonide-Formot 160-4.5 Mcg 2 puff INHALATION RT-BID 09/04/18 04/24/19 [Symbicort 160-4.5 Mcg Inhaler] Warfarin [Coumadin] 2.5 mg PO TH 09/04/18 04/24/19 Albuterol Nebulized [Ventolin 2.5 mg INHALATION RT-Q6H PRN 04/24/19 04/24/19 Nebulized] Oxybutynin Chloride 5 mg PO BID 04/24/19 04/24/19 Warfarin [Coumadin] 5 mg PO SUMOTUWESA 04/24/19 04/24/19 Previous Rx's Medication Instructions Recorded Albuterol Nebulized [Ventolin 2.5 mg INHALATION Q4H #25 nebu 04/24/19 Nebulized] Albuterol Sulfate [Proair Hfa] 1 - 2 puff INHALATION Q4H PRN #1 04/24/19 inhaler Azithromycin [Zithromax Z-pack] 0 mg PO DIRECTED #1 pack 04/24/19 predniSONE 50 mg PO DAILY #5 tab 04/24/19 Allergies Allergy/AdvReac Type Severity Reaction Status Date / Time iodine Allergy Anaphylaxis Verified 02/24/20 19:55 morphine AdvReac Hallucinati Verified 02/24/20 19:55 ons TAPE Allergy Rash/Hives Uncoded 02/24/20 19:55 Review of Systems ROS Other: All systems not noted in ROS Statement are negative. <Rosalie Shoemaker - Last Filed: 02/25/20 01:08> ROS Other: All systems not noted in ROS Statement are negative. <Maricarmen Darnell - Last Filed: 02/28/20 01:13> ROS Statement: Those systems with pertinent positive or pertinent negative responses have been documented in the HPI. Past Medical History Past Medical History: Asthma, GERD/Reflux, GI Bleed, Hyperlipidemia, Hypertension, Liver Disease, Osteoarthritis (OA), Pneumonia, Pulmonary Embolus (PE) Additional Past Medical History / Comment(s): bilateral pulmonary embolism 2010, IBS, colitis, esophageal stricture, hepatitis B infection 1971, hiatal hernia, history of Hcowdary's palsy, severe osteoarthritis, sinus problems. poor cir culation in eliseo feet, GI bleed years ago History of Any Multi-Drug Resistant Organisms: None Reported Past Surgical History: Appendectomy, Section, Hernia Repair, Hysterectomy, Joint Replacement, Tonsillectomy, Tubal Ligation Additional Past Surgical History / Comment(s): Rt shoulder replacement, cataracts bilaterally, x 2, hiatal hernia repair, EGDs with esophageal dilations, colonoscopy, bronchoscopies Past Anesthesia/Blood Transfusion Reactions: Motion Sickness Past Psychological History: No Psychological Hx Reported Smoking Status: Never smoker Past Alcohol Use History: Occasional Past Drug Use History: None Reported - Past Family History Daughter(s) Family Medical History: Coronary Artery Disease (CAD), Diabetes Mellitus, Deep Vein Thrombosis (DVT) Brother(s) Family Medical History: CVA/TIA Mother Family Medical History: Deep Vein Thrombosis (DVT) Additional Family Medical History / Comment(s): . Father Family Medical History: No Reported History <Rosalie Shoemaker Last Filed: 02/25/20 01:08> General Exam Limitations: no limitations General appearance: alert, in no apparent distress, other (This is a well- developed, well-nourished adult female patient in no acute distress. Vital signs upon presentation are temperature 98.8F, pulse 83, respirations 22, blood pressure 181/89, pulse ox 96% on room air.) Eye exam: Present: normal appearance, PERRL, EOMI. Absent: scleral icterus, conjunctival injection, periorbital swelling ENT exam: Present: normal exam, normal oropharynx, mucous membranes moist Respiratory exam: Present: normal lung sounds bilaterally. Absent: respiratory distress, wheezes, rales, rhonchi, stridor Cardiovascular Exam: Present: regular rate, normal rhythm, normal heart sounds. Absent: systolic murmur, diastolic murmur, rubs, gallop, clicks GI/Abdominal exam: Present: soft, normal bowel sounds. Absent: distended, tenderness, guarding, rebound, rigid Extremities exam: Present: full ROM, normal capillary refill, other (There is generalized swelling of the bilateral lower extremities. They are equal in size . Edema is nonpitting. There is no erythema. Skin is warm and dry. Cap refills less than 3 seconds. Pedal and posttibial pulses are 2+ and equal bilaterally.). Absent: normal inspection, tenderness, pedal edema, joint swelling, calf tenderness Neurological exam: Present: alert, oriented X3, CN II-XII intact Psychiatric exam: Present: normal affect, normal mood Skin exam: Present: warm, dry, intact, normal color. Absent: rash <Rosalie Shoemaker - Last Filed: 02/25/20 01:08> Course Vital Signs 02/24/20 02/24/20 19:51 21:30 Temperature 98.8 F Pulse Rate 83 90 Respiratory 22 18 Rate Blood Pressure 181/89 150/83 O2 Sat by Pulse 96 99 Oximetry Medical Decision Making - Lab Data Result diagrams: 02/24/20 20:50 02/24/20 20:50 - Radiology Data Radiology results: report reviewed, image reviewed <Rosalie Shoemaker - Last Filed: 02/25/20 01:08> - Lab Data Result diagrams: 02/24/20 20:50 02/24/20 20:50 <Maricarmen Darnell - Last Filed: 02/28/20 01:13> - Medical Decision Making 84-year-old female patient presents to the emergency department today for evaluation of bilateral lower extremity swelling. She is reporting left posterior knee pain. Physical examination did reveal swelling of the bilateral lower extremities, no erythema noted. Edema is nonpitting. Labs reviewed and revealed normal white blood cell count. Decreased potassium. Normal BNP. INR is 1.6. Ultrasound of the left lower extremity was obtained and showed evidence for chronic DVT in the femoral vein but no other evidence for acute DVT. We did replace patient's potassium. I did discuss her chronic DVT with her. She is instructed to contact her physician for further instructions regarding her INR. She is instructed to take additional Lasix Friday and Friday and contact her physician on Friday morning for further instructions. She is educated regarding elevation of her legs. Return parameters were discussed in detail. She verbalizes understanding and agrees with this plan. (Rosalie Shoemaker) I was available for consultation in the emergency department. The history and physical exam were done by the midlevel provider. I was consulted for this patients care. I reviewed the case with the midlevel provider and based on their presentation of the patient, I agree with the assessment, medical decision making and plan of care as documented. Chart was dictated using [employer] dictation software. Attempts were made to correct any dictation errors however some typographical errors may persist. Patient was seen during a national state of emergency due to the Covid-19 pandemic. (Maricarmen Darnell) - Lab Data Lab Results 02/24/20 02/24/20 02/24/20 Range/Units 20:50 20:50 20:50 WBC 7.5 (3.8-10.6) k/uL RBC 4.27 (3.80-5.40) m/uL Hgb 11.8 (11.4-16.0) gm/dL Hct 36.9 (34.0-46.0) % MCV 86.4 (80.0-100.0) fL MCH 27.7 (25.0-35.0) pg MCHC 32.1 (31.0-37.0) g/dL RDW 15.3 (11.5-15.5) % Plt Count 254 (150-450) k/uL Neutrophils % 45 % Lymphocytes % 38 % Monocytes % 5 % Eosinophils % 8 % Basophils % 0 % Neutrophils # 3.4 (1.3-7.7) k/uL Lymphocytes # 2.9 (1.0-4.8) k/uL Monocytes # 0.4 (0-1.0) k/uL Eosinophils # 0.6 (0-0.7) k/uL Basophils # 0.0 (0-0.2) k/uL Hypochromasia Slight PT 15.7 H (9.0-12.0) sec INR 1.6 H (<1.2) APTT 25.2 (22.0-30.0) sec Sodium 138 (137-145) mmol/L Potassium 3.1 L (3.5-5.1) mmol/L Chloride 105 (98-107) mmol/L Carbon Dioxide 26 (22-30) mmol/L Anion Gap 7 mmol/L BUN 13 (7-17) mg/dL Creatinine 0.85 (0.52-1.04) mg/dL Est GFR (CKD-EPI)AfAm 74 (>60 ml/min/1.73 sqM) Est GFR (CKD-EPI)NonAf 64 (>60 ml/min/1.73 sqM) Glucose 125 H (74-99) mg/dL Calcium 9.1 (8.4-10.2) mg/dL Total Bilirubin 0.2 (0.2-1.3) mg/dL AST 36 (14-36) U/L ALT 20 (4-34) U/L Alkaline Phosphatase 78 (38-126) U/L NT-Pro-B Natriuret Pep pg/mL Total Protein 7.2 (6.3-8.2) g/dL Albumin 3.9 (3.5-5.0) g/dL 02/24/20 Range/Units 20:50 WBC (3.8-10.6) k/uL RBC (3.80-5.40) m/uL Hgb (11.4-16.0) gm/dL Hct (34.0-46.0) % MCV (80.0-100.0) fL MCH (25.0-35.0) pg MCHC (31.0-37.0) g/dL RDW (11.5-15.5) % Plt Count (150-450) k/uL Neutrophils % % Lymphocytes % % Monocytes % % Eosinophils % % Basophils % % Neutrophils # (1.3-7.7) k/uL Lymphocytes # (1.0-4.8) k/uL Monocytes # (0-1.0) k/uL Eosinophils # (0-0.7) k/uL Basophils # (0-0.2) k/uL Hypochromasia PT (9.0-12.0) sec INR (<1.2) APTT (22.0-30.0) sec Sodium (137-145) mmol/L Potassium (3.5-5.1) mmol/L Chloride (98-107) mmol/L Carbon Dioxide (22-30) mmol/L Anion Gap mmol/L BUN (7-17) mg/dL Creatinine (0.52-1.04) mg/dL Est GFR (CKD-EPI)AfAm (>60 ml/min/1.73 sqM) Est GFR (CKD-EPI)NonAf (>60 ml/min/1.73 sqM) Glucose (74-99) mg/dL Calcium (8.4-10.2) mg/dL Total Bilirubin (0.2-1.3) mg/dL AST (14-36) U/L ALT (4-34) U/L Alkaline Phosphatase (38-126) U/L NT-Pro-B Natriuret Pep 128 pg/mL Total Protein (6.3-8.2) g/dL Albumin (3.5-5.0) g/dL - Radiology Data Ultrasound venous Doppler duplex of the left lower extremity is obtained. Report was reviewed in its entirety. Impression by Dr. Gordon shows evidence of limited chronic the pain thrombosis in the femoral vein. No evidence of acute deep pain thrombosis. 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 Take an additional Lasix on Friday and Friday. Call your doctor first thing Friday for further instructions regarding your Lasix and Coumadin, your INR was 1.6. Follow-up with your doctor for recheck as soon as possible. Return to the emergency department immediately for any new, worsening, or concerning symptoms. Referrals: González Andersen MD [Primary Care Provider] - 1-2 days
[2020-02-24 22:34] VITALS: BP 150/83; PULSE 90; RESP 18
== END 2020-02-24 22:34 | disposition home or self-care (01) ==
LOC: EC 19:46
DX: I82.512 Chronic embolism and thrombosis of left femoral vein (principal); I10 Essential (primary) hypertension; M19.90 Unspecified osteoarthritis, unspecified site; J45.909 Unspecified asthma, uncomplicated; Z79.51 Long term (current) use of inhaled steroids; Z79.01 Long term (current) use of anticoagulants; Z79.899 Other long term (current) drug therapy; Z88.5 Allergy status to narcotic agent; Z91.048 Other nonmedicinal substance allergy status; Z96.611 Presence of right artificial shoulder joint; Z86.711 Personal history of pulmonary embolism
CPT/HCPCS: 36415; 80053; 83880; 85025; 85610; 85730; 99284

== ENCOUNTER 2020-03-17 10:38 | Outpatient (CLI) | payer MEDICARE | END 2020-03-17 12:47 | disposition home or self-care (01) | LOC: LABWHC1 10:38 | PROVIDERS: ATTEND Internal Medicine | DX: Z53.9 Procedure and treatment not carried out, unspecified reason (principal) ==

== ENCOUNTER → 2020-03-22 | Outpatient (CLI) | payer MEDICARE ==
[2020-03-22 11:50] LABS: Basophils % (A) 1 %; Eosinophils # (A) 0.6 k/uL (0-0.7); Eosinophils % (A) 7 %; HCT 40.2 % (34.0-46.0); HGB 12.2 gm/dL (11.4-16.0); Hypochromasia Slight; Lymphocytes # (A) 2.9 k/uL (1.0-4.8); Lymphocytes % (A) 37 %; MCH 25.8 pg (25.0-35.0); MCHC 30.4 g/dL (31.0-37.0); MCV 84.9 fL (80.0-100.0); Mean Platelet Volume 7.6; Monocytes # (A) 0.6 k/uL (0-1.0); Monocytes % (A) 8 %; Neutrophils # (A) 3.6 k/uL (1.3-7.7); Neutrophils % (A) 45 %; Platelet Count 248 k/uL (150-450); RBC 4.73 m/uL (3.80-5.40); RDW 15.5 % (11.5-15.5); WBC 7.9 k/uL (3.8-10.6)
[2020-03-22 20:15] LABS: INR 1.54 (0.90-1.11); Prothrombin Time 16.2 sec (9.9-11.9)
[2020-03-22 20:48] LABS: African American GFR (CKD) 60.8 (60.0-200.0); Albumin 3.9 g/dL (3.80-4.90); Albumin/Globulin Ratio 1.5 (1.60-3.17); Anion Gap 9.4 mmol/L (4.00-12.00); Calcium 9.2 mg/dL (8.7-10.3); Carbon Dioxide 28.6 mmol/L (21.6-31.8); Chol/HDL Ratio 4.44; Globulin 2.6 g/dL (1.6-3.3); LDL Cholesterol,Calculated 134.2 mg/dL (0.0-131.0); Non-African American GFR(CKD) 52.4 (60.0-200.0); Potassium 3.8 mmol/L (3.5-5.5); Total Bilirubin 0.4 mg/dL (0.3-1.2); Total Protein 6.5 g/dL (6.2-8.2); VLDL Calculation 44.8 mg/dL (5.00-40.00)
== END | disposition home or self-care (01) ==
LOC: LABWHC1 11:11
PROVIDERS: ATTEND Internal Medicine
DX: Z00.00 Encounter for general adult medical examination without abnormal findings (principal); J45.909 Unspecified asthma, uncomplicated; I10 Essential (primary) hypertension; Z86.718 Personal history of other venous thrombosis and embolism; K58.9 Irritable bowel syndrome, unspecified; E03.9 Hypothyroidism, unspecified; I27.81 Cor pulmonale (chronic); I26.99 Other pulmonary embolism without acute cor pulmonale
CPT/HCPCS: 36415; 80053; 80061; 84439; 84443; 85025; 85610

== ENCOUNTER → 2021-02-27 | Outpatient (CLI) | payer MEDICARE ==
[2021-02-27 16:06] LABS: Basophils # (A) 0.02 X 10*3/uL (0.00-0.10); Basophils % (A) 0.2 %; Eosinophils # (A) 0.36 X 10*3/uL (0.04-0.35); Eosinophils % (A) 4.3 %; HCT 32.8 % (37.2-46.3); HGB 10.2 g/dL (12.0-15.0); Lymphocytes # (A) 2.72 X 10*3/uL (0.90-5.00); Lymphocytes % (A) 32.5 %; MCH 24.9 pg (27.0-32.0); MCHC 31.1 g/dL (32.0-37.0); MCV 80.2 fL (80.0-97.0); Mean Platelet Volume 11.3 fL (9.5-12.2); Monocytes # (A) 0.72 X 10*3/uL (0.20-1.00); Monocytes % (A) 8.6 %; Neutrophils # (A) 4.53 X 10*3/uL (1.80-7.70); Neutrophils % (A) 54.2 %; Platelet Count 285 X 10*3/uL (140-440); RBC 4.09 X 10*6/uL (4.10-5.20); WBC 8.37 X 10*3/uL (4.50-10.00)
[2021-02-27 16:53] LABS: INR 8.83 (0.90-1.11); Prothrombin Time 83.5 sec (9.9-11.9)
[2021-02-28 00:37] LABS: African American GFR (CKD) 43.9 (60.0-200.0); Albumin 3.9 g/dL (3.80-4.90); Albumin/Globulin Ratio 1.34 (1.60-3.17); Anion Gap 11.6 mmol/L (4.00-12.00); BUN/Creat Ratio 17.69 Ratio (12.00-20.00); Calcium 8.7 mg/dL (8.7-10.3); Carbon Dioxide 22.4 mmol/L (21.6-31.8); Chol/HDL Ratio 4.3; Globulin 2.9 g/dL (1.6-3.3); LDL Cholesterol,Calculated 115.2 mg/dL (0.0-131.0); Non-African American GFR(CKD) 37.9 (60.0-200.0); Potassium 2.9 mmol/L (3.5-5.5); T4, Free (Free Thyroxine) 0.9 ng/dL (0.80-1.80); Total Bilirubin 0.2 mg/dL (0.2-1.2); Total Protein 6.8 g/dL (6.2-8.2); VLDL Calculation 29.8 mg/dL (5.00-40.00)
== END | disposition home or self-care (01) ==
LOC: LABWHC1 08:41
PROVIDERS: ATTEND Internal Medicine
DX: Z00.00 Encounter for general adult medical examination without abnormal findings (principal); Z87.09 Personal history of other diseases of the respiratory system
CPT/HCPCS: 36415; 80053; 80061; 83036; 84439; 84443; 85025; 85610

== ENCOUNTER 2021-03-23 05:35 | Emergency (ER) | payer MEDICARE ==
[2021-03-23 05:41] VITALS: TEMP 97.7
[2021-03-23] MEDS ORDERED: MORPHINE SULFATE 2 MG/ML SYRINGE IVP STA (06:11)
[2021-03-23] MEDS ORDERED: HYDROmorphone 0.5 MG/0.5 ML SYRINGE IVP STA (06:13)
[2021-03-23] MEDS ORDERED: methylPREDNISolone SOD SUCCI 125 MG/2 ML VIAL IV STA (06:17)
[2021-03-23] MEDS ORDERED: diphenhydrAMINE 50 MG/ML 1 ML VIAL IVP STA (06:17)
--- NOTE | 2021-03-23 06:20 | ED ---
General Adult HPI - General Chief complaint: Fall Stated complaint: Fall, LT rib pain Time Seen by Provider: 03/23/21 06:00 Source: patient Mode of arrival: ambulatory Limitations: no limitations - History of Present Illness Initial comments: 85-year-old female with a past medical history of asthma, GERD, GI bleed, hyperlipidemia, hypertension, PE currently on Coumadin presents to the emergency room for a chief complaint of fall. Patient fell out of bed about 3:30 AM onto her left side. Patient states she is having pain in the left chest wall and side. Patient did not hit her head. No loss of consciousness. Patient denies any extremity injury. States that standing actually improves the pain. Patient has no other complaints at this time including shortness of breath, chest pain, abdominal pain, nausea or vomiting, headache, or visual changes. - Related Data Home Medications Medication Instructions Recorded Confirmed Multivitamin,Therapeutic [Thera] 1 tab PO DAILY 07/14/18 04/24/19 amLODIPine [Norvasc] 5 mg PO DAILY 07/14/18 04/24/19 Budesonide-Formot 160-4.5 Mcg 2 puff INHALATION RT-BID 09/04/18 04/24/19 [Symbicort 160-4.5 Mcg Inhaler] Warfarin [Coumadin] 2.5 mg PO TH 09/04/18 04/24/19 Albuterol Nebulized [Ventolin 2.5 mg INHALATION RT-Q6H PRN 04/24/19 04/24/19 Nebulized] Oxybutynin Chloride 5 mg PO BID 04/24/19 04/24/19 Warfarin [Coumadin] 5 mg PO SUMOTUWESA 04/24/19 04/24/19 Previous Rx's Medication Instructions Recorded Albuterol Nebulized [Ventolin 2.5 mg INHALATION Q4H #25 nebu 04/24/19 Nebulized] Albuterol Sulfate [Proair Hfa] 1 - 2 puff INHALATION Q4H PRN #1 04/24/19 inhaler Azithromycin [Zithromax Z-pack (6 0 mg PO DIRECTED #1 pack 04/24/19 tabs)] predniSONE 50 mg PO DAILY #5 tab 04/24/19 Cephalexin [Keflex] 500 mg PO Q6HR 10 Days #40 cap 03/23/21 Allergies Allergy/AdvReac Type Severity Reaction Status Date / Time iodine Allergy Anaphylaxis Verified 03/23/21 05:41 morphine AdvReac Hallucinati Verified 03/23/21 05:41 ons TAPE Allergy Rash/Hives Uncoded 03/23/21 05:41 Review of Systems ROS Statement: Those systems with pertinent positive or pertinent negative responses have been documented in the HPI. ROS Other: All systems not noted in ROS Statement are negative. Past Medical History Past Medical History: Asthma, GERD/Reflux, GI Bleed, Hyperlipidemia, Hypertension, Liver Disease, Osteoarthritis (OA), Pneumonia, Pulmonary Embolus (PE) Additional Past Medical History / Comment(s): bilateral pulmonary embolism 2010, IBS, colitis, esophageal stricture, hepatitis B infection 1971, hiatal hernia, history of Chowdary's palsy, severe osteoarthritis, sinus problems. poor circulation in eliseo feet, GI bleed years ago History of Any Multi-Drug Resistant Organisms: None Reported Past Surgical History: Appendectomy, Section, Hernia Repair, Hysterectomy, Joint Replacement, Tonsillectomy, Tubal Ligation Additional Past Surgical History / Comment(s): Rt shoulder replacement, cataracts bilaterally, x 2, hiatal hernia repair, EGDs with esophageal dilations, colonoscopy, bronchoscopies Past Anesthesia/Blood Transfusion Reactions: Motion Sickness Past Psychological History: No Psychological Hx Reported Smoking Status: Never smoker Past Alcohol Use History: Occasional Past Drug Use History: None Reported - Past Family History Daughter(s) Family Medical History: Coronary Artery Disease (CAD), Diabetes Mellitus, Deep Vein Thrombosis (DVT) Brother(s) Family Medical History: CVA/TIA Mother Family Medical History: Deep Vein Thrombosis (DVT) Additional Family Medical History / Comment(s): . Father Family Medical History: No Reported History General Exam Limitations: no limitations General appearance: alert, in no apparent distress Head exam: Present: atraumatic, normocephalic, normal inspection Eye exam: Present: normal appearance, PERRL, EOMI. Absent: scleral icterus, conjunctival injection, periorbital swelling ENT exam: Present: normal exam, mucous membranes moist Neck exam: Present: normal inspection, full ROM. Absent: tenderness, meningism us, lymphadenopathy Respiratory exam: Present: normal lung sounds bilaterally, chest wall tenderness (L-Sided chest wall tenderness. Minimal ecchymosis of the left ribs.). A bsent: respiratory distress, wheezes, rales, rhonchi, stridor Cardiovascular Exam: Present: regular rate, normal rhythm, normal heart sounds. Absent: systolic murmur, diastolic murmur, rubs, gallop, clicks GI/Abdominal exam: Present: soft, normal bowel sounds. Absent: distended, tenderness, guarding, rebound, rigid Back exam: Absent: CVA tenderness (R), CVA tenderness (L) Course Vital Signs 03/23/21 03/23/21 05:37 07:57 Temperature 97.7 F Pulse Rate 70 62 Respiratory 20 17 Rate Blood Pressure 174/77 177/77 O2 Sat by Pulse 97 98 Oximetry - Reevaluation(s) Reevaluation #1: 03/23/21 06:21 Patient seen at 604 on my arrival to the emergency room. Subsequently seen immediately by Dr. Win. Medical Decision Making - Medical Decision Making Vitals are stable. Patient is well-appearing. Patient is ambulatory and states her pain is better with standing. Patient does have tenderness to the left side of the chest wall. Minimal ecchymosis present. CBC unremarkable hemoglobin is stable. INR 2.8, therapeutic for PE. CMP does show mild hypokalemia, replaced orally. Urinalysis does not show any evidence of blood however there is evidence of infection, patient will be treated. Given a dose of IV antibiotics here in the emergency room. CT brain and C-spine shows no acute fracture or intracranial hemorrhage. CT abdomen and pelvis shows an acute fracture of the lateral left ninth rib. Incidental finding of esophagus fluid- filled, discussed with patient as well as distended gallbladder. - Lab Data Result diagrams: 03/23/21 06:28 03/23/21 06:28 Lab Results 03/23/21 03/23/21 03/23/21 Range/Units 06:27 06:28 06:28 WBC 8.3 (3.8-10.6) k/uL RBC 4.09 (3.80-5.40) m/uL Hgb 10.7 L (11.4-16.0) gm/dL Hct 32.5 L (34.0-46.0) % MCV 79.3 L (80.0-100.0) fL MCH 26.1 (25.0-35.0) pg MCHC 32.9 (31.0-37.0) g/dL RDW 17.4 H (11.5-15.5) % Plt Count 285 (150-450) k/uL MPV 8.4 Neutrophils % 41 % Lymphocytes % 43 % Monocytes % 6 % Eosinophils % 7 % Basophils % 0 % Neutrophils # 3.4 (1.3-7.7) k/uL Lymphocytes # 3.6 (1.0-4.8) k/uL Monocytes # 0.5 (0-1.0) k/uL Eosinophils # 0.6 (0-0.7) k/uL Basophils # 0.0 (0-0.2) k/uL Hypochromasia Slight Anisocytosis Slight Microcytosis Slight PT 27.1 H (9.0-12.0) sec INR 2.8 H (<1.2) APTT 30.4 H (22.0-30.0) sec Sodium (137-145) mmol/L Potassium (3.5-5.1) mmol/L Chloride (98-107) mmol/L Carbon Dioxide (22-30) mmol/L Anion Gap mmol/L BUN (7-17) mg/dL Creatinine (0.52-1.04) mg/dL Est GFR (CKD-EPI)AfAm (>60 ml/min/1.73 sqM) Est GFR (CKD-EPI)NonAf (>60 ml/min/1.73 sqM) Glucose (74-99) mg/dL POC Glucose (mg/dL) 110 H (75-99) mg/dL POC Glu Cable Installer Repairer Helper ID Gregoria Orellana Calcium (8.4-10.2) mg/dL Total Bilirubin (0.2-1.3) mg/dL AST (14-36) U/L ALT (4-34) U/L Alkaline Phosphatase (38-126) U/L Total Protein (6.3-8.2) g/dL Albumin (3.5-5.0) g/dL Urine Color Urine Appearance (Clear) Urine pH (5.0-8.0) Ur Specific [place] (1.001-1.035) Urine Protein (Negative) Urine Glucose (UA) (Negative) Urine Ketones (Negative) Urine Blood (Negative) Urine Nitrite (Negative) Urine Bilirubin (Negative) Urine Urobilinogen (<2.0) mg/dL Ur Leukocyte Esterase (Negative) Urine WBC (0-5) /hpf Urine WBC Clumps (None) /hpf Ur Squamous Epith Cells (0-4) /hpf Urine Mucus (None) /hpf Blood Type Blood Type Confirm Blood Type Recheck Bld Type Recheck Status Antibody Screen Spec Expiration Date 03/23/21 03/23/21 03/23/21 Range/Units 06:28 06:28 06:28 WBC (3.8-10.6) k/uL RBC (3.80-5.40) m/uL Hgb (11.4-16.0) gm/dL Hct (34.0-46.0) % MCV (80.0-100.0) fL MCH (25.0-35.0) pg MCHC (31.0-37.0) g/dL RDW (11.5-15.5) % Plt Count (150-450) k/uL MPV Neutrophils % % Lymphocytes % % Monocytes % % Eosinophils % % Basophils % % Neutrophils # (1.3-7.7) k/uL Lymphocytes # (1.0-4.8) k/uL Monocytes # (0-1.0) k/uL Eosinophils # (0-0.7) k/uL Basophils # (0-0.2) k/uL Hypochromasia Anisocytosis Microcytosis PT (9.0-12.0) sec INR (<1.2) APTT (22.0-30.0) sec Sodium 138 (137-145) mmol/L Potassium 3.2 L (3.5-5.1) mmol/L Chloride 102 (98-107) mmol/L Carbon Dioxide 27 (22-30) mmol/L Anion Gap 9 mmol/L BUN 13 (7-17) mg/dL Creatinine 1.03 (0.52-1.04) mg/dL Est GFR (CKD-EPI)AfAm 58 (>60 ml/min/1.73 sqM) Est GFR (CKD-EPI)NonAf 50 (>60 ml/min/1.73 sqM) Glucose 116 H (74-99) mg/dL POC Glucose (mg/dL) (75-99) mg/dL POC Glu Cable Installer Repairer Helper ID Calcium 9.2 (8.4-10.2) mg/dL Total Bilirubin 0.2 (0.2-1.3) mg/dL AST 40 H (14-36) U/L ALT 20 (4-34) U/L Alkaline Phosphatase 97 (38-126) U/L Total Protein 7.4 (6.3-8.2) g/dL Albumin 4.1 (3.5-5.0) g/dL Urine Color Light Yellow Urine Appearance Cloudy H (Clear) Urine pH 5.5 (5.0-8.0) Ur Specific [place] 1.015 (1.001-1.035) Urine Protein Negative (Negative) Urine Glucose (UA) Negative (Negative) Urine Ketones Negative (Negative) Urine Blood Negative (Negative) Urine Nitrite Negative (Negative) Urine Bilirubin Negative (Negative) Urine Urobilinogen <2.0 (<2.0) mg/dL Ur Leukocyte Esterase Large H (Negative) Urine WBC 182 H (0-5) /hpf Urine WBC Clumps Many H (None) /hpf Ur Squamous Epith Cells 1 (0-4) /hpf Urine Mucus Rare H (None) /hpf Blood Type B Positive Blood Type Confirm Blood Type Recheck No Previous Record Bld Type Recheck Status CABO Indicated Antibody Screen NEGATIVE Spec Expiration Date 03/26/2021 - 232703/23/21 Range/Units 07:03 WBC (3.8-10.6) k/uL RBC (3.80-5.40) m/uL Hgb (11.4-16.0) gm/dL Hct (34.0-46.0) % MCV (80.0-100.0) fL MCH (25.0-35.0) pg MCHC (31.0-37.0) g/dL RDW (11.5-15.5) % Plt Count (150-450) k/uL MPV Neutrophils % % Lymphocytes % % Monocytes % % Eosinophils % % Basophils % % Neutrophils # (1.3-7.7) k/uL Lymphocytes # (1.0-4.8) k/uL Monocytes # (0-1.0) k/uL Eosinophils # (0-0.7) k/uL Basophils # (0-0.2) k/uL Hypochromasia Anisocytosis Microcytosis PT (9.0-12.0) sec INR (<1.2) APTT (22.0-30.0) sec Sodium (137-145) mmol/L Potassium (3.5-5.1) mmol/L Chloride (98-107) mmol/L Carbon Dioxide (22-30) mmol/L Anion Gap mmol/L BUN (7-17) mg/dL Creatinine (0.52-1.04) mg/dL Est GFR (CKD-EPI)AfAm (>60 ml/min/1.73 sqM) Est GFR (CKD-EPI)NonAf (>60 ml/min/1.73 sqM) Glucose (74-99) mg/dL POC Glucose (mg/dL) (75-99) mg/dL POC Glu Cable Installer Repairer Helper ID Calcium (8.4-10.2) mg/dL Total Bilirubin (0.2-1.3) mg/dL AST (14-36) U/L ALT (4-34) U/L Alkaline Phosphatase (38-126) U/L Total Protein (6.3-8.2) g/dL Albumin (3.5-5.0) g/dL Urine Color Urine Appearance (Clear) Urine pH (5.0-8.0) Ur Specific [place] (1.001-1.035) Urine Protein (Negative) Urine Glucose (UA) (Negative) Urine Ketones (Negative) Urine Blood (Negative) Urine Nitrite (Negative) Urine Bilirubin (Negative) Urine Urobilinogen (<2.0) mg/dL Ur Leukocyte Esterase (Negative) Urine WBC (0-5) /hpf Urine WBC Clumps (None) /hpf Ur Squamous Epith Cells (0-4) /hpf Urine Mucus (None) /hpf Blood Type Blood Type Confirm B Positive Blood Type Recheck Bld Type Recheck Status Antibody Screen Spec Expiration Date Disposition Clinical Impression: Fall, Left rib fracture, UTI (urinary tract infection) Disposition: HOME SELF-CARE Condition: Good Instructions (If sedation given, give patient instructions): Urinary Tract Infection in Women (ED), Rib Fracture (ED) Additional Instructions: Take Tylenol for pain. Pain is severe take Tylenol 3. Use incentive spirometer. Take antibiotic as directed. Follow-up with your doctor soon as possible. Return to the emergency room for worsening symptoms such as pain, fever/cough, shortness of breath, or any other concerning symptoms. Prescriptions: Cephalexin [Keflex] 500 mg PO Q6HR 10 Days #40 cap Is patient prescribed a controlled substance at d/c from ED?: No Referrals: González Andersen MD [Primary Care Provider] - 1-2 days Time of Disposition: 08:40
[2021-03-23 06:41] LABS: Glucose,Whole Blood 110 mg/dL (75-99)
[2021-03-23 06:45] LABS: Anisocytosis Slight; Basophils % (A) 0 %; Eosinophils # (A) 0.6 k/uL (0-0.7); Eosinophils % (A) 7 %; HCT 32.5 % (34.0-46.0); HGB 10.7 gm/dL (11.4-16.0); Hypochromasia Slight; Lymphocytes # (A) 3.6 k/uL (1.0-4.8); Lymphocytes % (A) 43 %; MCH 26.1 pg (25.0-35.0); MCHC 32.9 g/dL (31.0-37.0); MCV 79.3 fL (80.0-100.0); Mean Platelet Volume 8.4; Microcytosis Slight; Monocytes # (A) 0.5 k/uL (0-1.0); Monocytes % (A) 6 %; Neutrophils # (A) 3.4 k/uL (1.3-7.7); Neutrophils % (A) 41 %; Platelet Count 285 k/uL (150-450); RBC 4.09 m/uL (3.80-5.40); RDW 17.4 % (11.5-15.5); WBC 8.3 k/uL (3.8-10.6)
[2021-03-23 06:52] LABS: Albumin 4.1 g/dL (3.5-5.0); Calcium 9.2 mg/dL (8.4-10.2); Potassium 3.2 mmol/L (3.5-5.1); Total Bilirubin 0.2 mg/dL (0.2-1.3); Total Protein 7.4 g/dL (6.3-8.2)
[2021-03-23 06:59] LABS: INR 2.8 (<1.2); Partial Thromboplastin Time 30.4 sec (22.0-30.0); Prothrombin Time 27.1 sec (9.0-12.0)
--- NOTE | 2021-03-23 07:14 | XR ---
EXAMINATION TYPE: XR chest 1V portable DATE OF EXAM: 03/23/2021 COMPARISON: 04/24/2019 HISTORY: Fell out of bed with left-sided pain TECHNIQUE: Single frontal view of the chest is obtained. FINDINGS: There is no focal air space opacity, pleural effusion, or pneumothorax seen. The cardiac silhouette size is within normal limits. The osseous structures are intact. IMPRESSION: No acute process.
--- NOTE | 2021-03-23 07:29 | CT ---
EXAMINATION TYPE: CT brain syl carranza DATE OF EXAM: 03/23/2021 COMPARISON: 07/14/2018 HISTORY: Fall CT DLP: 1360.6 mGycm Automated exposure control for dose reduction was used. TECHNIQUE: CT scan of the head and cervical spine are performed without contrast. FINDINGS: There is no acute intracranial hemorrhage, mass effect, or midline shift identified. The ventricles and sulci are enlarged, most with age-related cortical atrophy. There is periventricular and subcortical white matter disease which is nonspecific but most commonly seen with chronic small v essel ischemic disease. The globes are intact and the visualized sinuses are clear. There is partial opacification of the left maxillary sinus no known gallbladder Cervical spine: Vertebral body heights are preserved. There is mild anterolisthesis of C3 on 4 and C4 on 5 measuring approximately 3 mm at each level. There is mild anterolisthesis of C6 on 7 and C7 on T1 measuring bong roximately 5 mm. There is reversal of the normal cervical lordosis. Multilevel endplate degenerative changes and osteoarthritic changes are seen in the cervical spine. IMPRESSION: 1. There is no acute fracture or dislocation evident in the cervical spine. 2. No acute intracranial hemorrhage, mass effect, or midline shift is seen. 3. Chronic changes, as described.
--- NOTE | 2021-03-23 07:42 | CT ---
EXAMINATION TYPE: CT ChestAbdPelvis w con DATE OF EXAM: 03/23/2021 COMPARISON: 11/29/2015 HISTORY: Fall, left rib pain CT DLP: 1236 mGycm Automated exposure control for dose reduction was used. CONTRAST: CT scan of the chest, abdomen and pelvis is performed without Oral Contrast and with IV Contrast, pat ient injected with 80 mL of Isovue 300. FINDINGS: LUNGS: The lungs are grossly clear, there is no concerning parenchymal mass or nodule identified. T here is no pleural effusion or pneumothorax seen. The tracheobronchial tree is patent. MEDIASTINUM: There are no greater than 1 cm hilar or mediastinal lymph nodes. No pericardial effusi on is seen. Atherosclerotic calcifications are present. OTHER: There is a fluid-filled esophagus which can predispose to aspiration with surgical clips at t he gastroesophageal junction. Left-sided Bochdalek hernia is present. LIVER/GB: The liver is unremarkable. The gallbladder is distended. PANCREAS: No significant abnormality is seen. SPLEEN: No significant abnormality is seen. ADRENALS: No significant abnormality is seen. KIDNEYS: No significant abnormality is seen. BOWEL: No significant abnormality is seen. LYMPH NODES: No greater than 1 cm abdominal or pelvic lymph nodes are appreciated. OSSEOUS STRUCTURES: Degenerative changes are seen in the bones. There is a fracture of the lateral le ft ninth rib. Patient is status post right shoulder replacement which creates streak artifact. There is mild anterolisthesis of L5 on S1. OTHER: None IMPRESSION: 1. Acute fracture of the lateral left ninth rib. 2. The esophagus is fluid-filled which can predispose to aspiration with surgical clips at the gastro esophageal junction. 3. Distended gallbladder, of uncertain etiology. 4. Chronic changes, as described.
[2021-03-23 07:58] VITALS: BP 177/77; PULSE 62; RESP 17
[2021-03-23 08:11] LABS: Appearance,Urine Cloudy (Clear); Bilirubin,Urine Negative (Negative); Blood,Urine Negative (Negative); Color,Urine Light Yellow; Glucose,Urine (UA) Negative (Negative); Ketones,Urine Negative (Negative); Leukocyte Esterase,Urine Large (Negative); Mucus,Urine Rare /hpf; Nitrite,Urine Negative (Negative); PH, Urine 5.5 (5.0-8.0); Protein,Urine Negative (Negative); Specific Gravity,Urine 1.015 (1.001-1.035); Squamous Epithelial Cell,Urine 1 /hpf (0-4); Urobilinogen,Urine <2.0 mg/dL (<2.0); WBC,Urine 182 /hpf (0-5)
[2021-03-23] MEDS ORDERED: amLODIPine 5 MG TAB PO STA (08:14)
[2021-03-23] MEDS ORDERED: POTASSIUM CHLORIDE ER 20 MEQ TAB.ER PO STA (08:38)
[2021-03-23] MEDS ORDERED: cefTRIAXone IN SWFI 1,000 MG/10 ML SYRINGE IVP STA (08:38)
[2021-03-23] MEDS ORDERED: ACET/COD 300 MG/30 MG STARTER PACK 6 TAB BTL PO STA (08:49)
[2021-03-23] MEDS ORDERED: FAMOTIDINE 20 MG/2 ML VIAL IV SCH (09:00)
== END 2021-03-23 09:30 | disposition home or self-care (01) ==
LOC: EC 05:35
DX: S22.32XA Fracture of one rib, left side, initial encounter for closed fracture (principal); N39.0 Urinary tract infection, site not specified; J45.909 Unspecified asthma, uncomplicated; I10 Essential (primary) hypertension; Z79.899 Other long term (current) drug therapy; Z91.09 Other allergy status, other than to drugs and biological substances; Z79.51 Long term (current) use of inhaled steroids; Z88.5 Allergy status to narcotic agent; Z79.01 Long term (current) use of anticoagulants; W06.XXXA Fall from bed, initial encounter; Y92.009 Unspecified place in unspecified non-institutional (private) residence as the place of occurrence of the external cause
CPT/HCPCS: 36415; 86900; 86901; 80053; 85025; 85610; 85730; 86850; 81001; 87086; 71045; 72125; 70450; 71260; 74177; 96374; 96375; 99285; J1200; J2930; J0696; J1170; Q9967; 87077; 87186

== ENCOUNTER → 2021-04-02 | Outpatient (CLI) | payer MEDICARE ==
[2021-04-02 18:49] LABS: Basophils # (A) 0.02 X 10*3/uL (0.00-0.10); Basophils % (A) 0.2 %; Eosinophils # (A) 0.19 X 10*3/uL (0.04-0.35); Eosinophils % (A) 1.9 %; HCT 32.5 % (37.2-46.3); HGB 9.9 g/dL (12.0-15.0); Lymphocytes # (A) 3.72 X 10*3/uL (0.90-5.00); Lymphocytes % (A) 37.4 %; MCH 24.6 pg (27.0-32.0); MCHC 30.5 g/dL (32.0-37.0); MCV 80.8 fL (80.0-97.0); Mean Platelet Volume 11.3 fL (9.5-12.2); Monocytes % (A) 9.1 %; Neutrophils # (A) 5.07 X 10*3/uL (1.80-7.70); Platelet Count 363 X 10*3/uL (140-440); RBC 4.02 X 10*6/uL (4.10-5.20); RDW 18.6 % (11.5-14.5); WBC 9.94 X 10*3/uL (4.50-10.00)
== END | disposition home or self-care (01) ==
LOC: LABWHC1 14:04
PROVIDERS: ATTEND Internal Medicine
DX: D64.9 Anemia, unspecified (principal)
CPT/HCPCS: 36415; 85025

== ENCOUNTER → 2021-04-06 | Outpatient (CLI) | payer MEDICARE ==
[2021-04-07 05:05] LABS: % Iron Saturation 6.48 (12.00-45.00)
== END | disposition home or self-care (01) ==
LOC: LABWHC1 11:56
PROVIDERS: ATTEND Internal Medicine
DX: D64.9 Anemia, unspecified (principal)
CPT/HCPCS: 36415; 82728; 83540; 83550

== ENCOUNTER → 2021-04-19 | Outpatient (CLI) | payer MEDICARE ==
[2021-04-19 20:13] LABS: Basophils # (A) 0.03 X 10*3/uL (0.00-0.10); Basophils % (A) 0.4 %; Eosinophils # (A) 0.42 X 10*3/uL (0.04-0.35); Eosinophils % (A) 6.3 %; HCT 27.3 % (37.2-46.3); HGB 8.3 g/dL (12.0-15.0); Lymphocytes # (A) 4.07 X 10*3/uL (0.90-5.00); Lymphocytes % (A) 60.9 %; MCH 25.6 pg (27.0-32.0); MCHC 30.4 g/dL (32.0-37.0); MCV 84.3 fL (80.0-97.0); Mean Platelet Volume 10.9 fL (9.5-12.2); Monocytes # (A) 0.58 X 10*3/uL (0.20-1.00); Monocytes % (A) 8.7 %; Neutrophils # (A) 1.57 X 10*3/uL (1.80-7.70); Neutrophils % (A) 23.6 %; Platelet Count 390 X 10*3/uL (140-440); RBC 3.24 X 10*6/uL (4.10-5.20); RDW 18.6 % (11.5-14.5); WBC 6.68 X 10*3/uL (4.50-10.00)
== END | disposition home or self-care (01) ==
LOC: LABWHC1 13:59
PROVIDERS: ATTEND Internal Medicine
DX: D64.9 Anemia, unspecified (principal)
CPT/HCPCS: 36415; 85025

== ENCOUNTER 2021-05-08 09:15 | Day surgery (SDC) | payer MEDICARE ==
[2021-05-07 10:28] VITALS: BMI 26.2
[2021-05-08 10:06] VITALS: TEMP 97.4
[2021-05-08] MEDS ORDERED: PROPOFOL 10 MG/ML 20 ML VIAL IV ONE (10:39)
[2021-05-08] MEDS ORDERED: LIDOCAINE 1% INJ 10MG/ML (20 ML MDV) ONE (10:39)
[2021-05-08] MEDS ORDERED: GLYCOPYRROLATE 0.2 MG/ML 2 ML VIAL ONE (10:39)
--- NOTE | 2021-05-08 10:43 | P.GSHP ---
History of Present Illness H&P Date: 05/08/21 Chief Complaint: Anemia, blood in stool Patient recently found to be anemic. Hemoglobin 9.9, iron low at 21. Patient had a stool test which showed occult blood. Patient does not have any visible rectal bleeding or melena. No abdominal pain. Mild dysphagia at times. His tory of hiatal hernia. Last EGD 2018, last colonoscopy 2013. Past Medical History Past Medical History: Asthma, GERD/Reflux, GI Bleed, Hyperlipidemia, Hyperten dawn, Liver Disease, Osteoarthritis (OA), Pneumonia, Pulmonary Embolus (PE) Additional Past Medical History / Comment(s): bilateral pulmonary embolism 2010, IBS, colitis, esophageal stricture, hepatitis B infection 1971, hiatal hernia, history of Chowdary's palsy, severe osteoarthritis, sinus problems. poor circulation in eliseo feet, GI bleed years ago History of Any Multi-Drug Resistant Organisms: None Reported Past Surgical History: Appendectomy, Section, Hernia Repair, Hysterectomy, Joint Replacement, Tonsillectomy, Tubal Ligation Additional Past Surgical History / Comment(s): Rt shoulder replacement, cataracts bilaterally, x 2, hiatal hernia repair, EGDs with esophageal dilations, colonoscopy, bronchoscopies Past Anesthesia/Blood Transfusion Reactions: Motion Sickness Smoking Status: Never smoker - Past Family History Daughter(s) Family Medical History: Coronary Artery Disease (CAD), Diabetes Mellitus, Deep Vein Thrombosis (DVT) Brother(s) Family Medical History: CVA/TIA Mother Family Medical History: Deep Vein Thrombosis (DVT) Additional Family Medical History / Comment(s): . Father Family Medical History: No Reported History Medications and Allergies Home Medications Medication Instructions Recorded Confirmed Type Multivitamin,Therapeutic [Thera] 1 tab PO DAILY 07/14/18 05/07/21 History Budesonide-Formot 160-4.5 Mcg 2 puff INHALATION RT-BID 09/04/18 05/07/21 History [Symbicort 160-4.5 Mcg Inhaler] predniSONE 50 mg PO DAILY #5 tab 04/24/19 05/07/21 Rx Losartan-Hctz 50-12.5 mg [Hyzaar 1 tab PO DAILY 05/07/21 05/07/21 History 50-12.5] Lovastatin [Mevacor] 20 mg PO DAILY 05/07/21 05/07/21 History Allergies Allergy/AdvReac Type Severity Reaction Status Date / Time iodine Allergy Anaphylaxis Verified 05/08/21 09:52 morphine AdvReac Hallucinati Verified 05/08/21 09:52 ons TAPE Allergy SKIN Uncoded 05/08/21 09:52 BLISTERS Surgical - Exam Vital Signs Temp Pulse Resp BP Pulse Ox 97.4 F L 85 17 160/69 97 05/08/21 10:02 05/08/21 10:02 05/08/21 10:02 05/08/21 10:02 05/08/21 10:02 Physical exam: General: Well-developed, well-nourished HEENT: Normocephalic, sclerae nonicteric Abdomen: Nontender, nondistended Extremities: No edema Neuro: Alert and oriented Assessment and Plan (1) Blood in stool Narrative/Plan: Will proceed with upper and lower endoscopy Current Visit: Yes Status: Acute Code(s): K92.1 - MELENA SNOMED Code(s): 204688673
--- NOTE | 2021-05-08 11:06 | P.PCN ---
Date of Procedure: 05/08/21 Procedure(s) Performed: PREOPERATIVE DIAGNOSIS: Dysphagia, anemia, blood in stool POSTOPERATIVE DIAGNOSIS: Minimal gastritis, small hiatal hernia, diverticulosis PROCEDURE: 1. EGD with biopsy 2. Colonoscopy ANESTHESIA: MAC SURGEON: Selvin Posadas M.D. SPECIMENS: Antrum ENDOSCOPIC PROCEDURE: The patient was on the endoscopy table in the left decubitus position. The Olympus gastroscope was inserted into the oropharynx and passed under direct visualization to the region of the third portion of the duodenum. From that point the scope was slowly withdrawn inspecting all surfaces carefully. There were no neoplastic inflammatory or polypoid lesions throughout the duodenum. The pylorus was widely patent. The stomach was carefully inspected. There was minimal gastritis present. A biopsy of the antrum took place to rule out H. pylori. Retroflexion revealed a small sliding hiatal hernia. There was no stricture formation seen throughout the esophagus or inflammatory changes. The patient was kept on the endoscopy table in the left decubitus position. The Olympus colonoscope was inserted into the anus and passed under direct visualization to the base of the cecum. The appendiceal orifice was visualized. From that point the scope was slowly withdrawn inspecting all surfaces caref ully. There were no neoplastic inflammatory or polypoid lesions throughout the cecum, ascending, transverse, descending, sigmoid and rectum. There was mild scattered diverticulosis noted. Digital rectal examination was normal. The patient was taken to the recovery room in stable condition per anesthesia guidelines. RECOMMENDATIONS: Await biopsy results. Continue anemia workup.
[2021-05-08 11:29] VITALS: BP 155/72; PULSE 78; RESP 18
== END 2021-05-08 11:51 | disposition home or self-care (01) ==
LOC: ORWHC2ENDO 09:15
PROVIDERS: ATTEND Surgery
DX: K29.50 Unspecified chronic gastritis without bleeding (principal); K44.9 Diaphragmatic hernia without obstruction or gangrene; D64.9 Anemia, unspecified; K92.1 Melena; K57.90 Diverticulosis of intestine, part unspecified, without perforation or abscess without bleeding; K22.2 Esophageal obstruction; E78.5 Hyperlipidemia, unspecified; I10 Essential (primary) hypertension; M19.90 Unspecified osteoarthritis, unspecified site; Z86.711 Personal history of pulmonary embolism; Z79.899 Other long term (current) drug therapy; Z88.5 Allergy status to narcotic agent; Z91.041 Radiographic dye allergy status; Z86.19 Personal history of other infectious and parasitic diseases; Z86.718 Personal history of other venous thrombosis and embolism; K21.9 Gastro-esophageal reflux disease without esophagitis; K58.9 Irritable bowel syndrome, unspecified
CPT/HCPCS: 88305; 45378; 43239; J2001; J2704

== ENCOUNTER → 2021-06-25 | Outpatient (CLI) | payer MEDICARE | END | disposition home or self-care (01) | LOC: LABWHC1 12:50 | PROVIDERS: ATTEND Internal Medicine | DX: Z53.9 Procedure and treatment not carried out, unspecified reason (principal) ==

== ENCOUNTER → 2021-08-29 | Outpatient (CLI) | payer MEDICARE ==
[2021-08-29 18:16] LABS: Basophils # (A) 0.04 X 10*3/uL (0.00-0.10); Basophils % (A) 0.5 %; Eosinophils # (A) 0.43 X 10*3/uL (0.04-0.35); Eosinophils % (A) 5.7 %; HGB 9.3 g/dL (12.0-15.0); Lymphocytes % (A) 45.2 %; MCHC 29.1 g/dL (32.0-37.0); Mean Platelet Volume 10.7 fL (9.5-12.2); Monocytes # (A) 0.69 X 10*3/uL (0.20-1.00); Monocytes % (A) 9.2 %; Neutrophils # (A) 2.95 X 10*3/uL (1.80-7.70); Neutrophils % (A) 39.1 %; Platelet Count 353 X 10*3/uL (140-440); RBC 4.05 X 10*6/uL (4.10-5.20); RDW 19.9 % (11.5-14.5); WBC 7.53 X 10*3/uL (4.50-10.00)
== END | disposition home or self-care (01) ==
LOC: LABWHC1 11:18
PROVIDERS: ATTEND Internal Medicine
DX: D50.9 Iron deficiency anemia, unspecified (principal)
CPT/HCPCS: 36415; 85025

== ENCOUNTER → 2021-09-13 | Outpatient (CLI) | payer MEDICARE ==
--- NOTE | 2021-09-13 13:03 | XR ---
EXAMINATION TYPE: XR Hip Complete 2 views RT, XR femur 2 views RT DATE OF EXAM: 09/13/2021 Comparison: None Clinical History: 86-year-old female M25.551 R hip pain Findings: Right hip: Mild marginal spurring at the right hip. Some enthesopathy or corticated densities noted at the anter ior-inferior iliac spine and also at the anterior superior iliac spine. No acute fracture, subluxatio n, dislocation. Right femur: There is tricompartmental degenerative change of the knee, probably at least moderate at the medial a nd patellofemoral compartments. If knee pain, dedicated imaging can be performed. Otherwise, no acute fracture. Vascular calcifications. IMPRESSION: 1. Right hip: Some densities at both the ASIS and AIIS suggesting either chronic tendinopathy or sequ maverick of prior avulsion injuries. Mild degenerative change of the right hip. No acute osseous abnormali ty seen. 2. Right femur: Tricompartmental OA, probably moderate in the medial and patellofemoral compartments. No acute osseous abnormality seen.
== END | disposition home or self-care (01) ==
LOC: RADXRMAIN 12:02
PROVIDERS: ATTEND Internal Medicine
DX: M16.11 Unilateral primary osteoarthritis, right hip (principal)
CPT/HCPCS: 73502

== ENCOUNTER → 2021-12-04 | Outpatient (CLI) | payer MEDICARE ==
[2021-12-04 17:23] LABS: Basophils # (A) 0.02 X 10*3/uL (0.00-0.10); Basophils % (A) 0.3 %; Eosinophils # (A) 0.76 X 10*3/uL (0.04-0.35); Eosinophils % (A) 10.3 %; HCT 34.2 % (37.2-46.3); HGB 9.9 g/dL (12.0-15.0); Immature Grans, Automated 0.3 %; Lymphocytes # (A) 3.28 X 10*3/uL (0.90-5.00); Lymphocytes % (A) 44.3 %; MCH 23.5 pg (27.0-32.0); MCHC 28.9 g/dL (32.0-37.0); Mean Platelet Volume 10.7 fL (9.5-12.2); Monocytes # (A) 0.74 X 10*3/uL (0.20-1.00); NRBC Per 100 WBC 0 /100 WBCS (0.0-0.0); Neutrophils # (A) 2.59 X 10*3/uL (1.80-7.70); Neutrophils % (A) 34.8 %; Platelet Count 363 X 10*3/uL (140-440); RBC 4.22 X 10*6/uL (4.10-5.20); WBC 7.41 X 10*3/uL (4.50-10.00)
[2021-12-04 17:45] LABS: ALT 12 U/L (8-44); AST 23 U/L (13-35); African American GFR (CKD) 59.9 (60.0-200.0); Albumin/Globulin Ratio 1.21 (1.60-3.17); Alkaline Phosphatase 77 U/L (41-126); Blood Urea Nitrogen 9.7 mg/dL (9.0-27.0); Calcium 9.2 mg/dL (8.7-10.3); Carbon Dioxide 25.6 mmol/L (20.0-27.5); Chloride 103 mmol/L (96-109); Chol/HDL Ratio 4.19 Ratio; Globulin 3.3 g/dL (1.6-3.3); Glucose 99 mg/dL (70-110); Non-African American GFR(CKD) 51.7 (60.0-200.0); Potassium 3.5 mmol/L (3.5-5.5); Sodium 139 mmol/L (135-145); Total Protein 7.3 g/dL (6.2-8.2)
== END | disposition home or self-care (01) ==
LOC: LABWHC1 10:06
PROVIDERS: ATTEND Internal Medicine
DX: E78.5 Hyperlipidemia, unspecified (principal); I10 Essential (primary) hypertension
CPT/HCPCS: 36415; 80053; 80061; 84439; 84443; 85025

== ENCOUNTER 2022-03-26 17:48 | Emergency (ER) | payer MEDICARE ==
[2022-03-26 18:10] VITALS: RESP 16
--- NOTE | 2022-03-26 19:20 | CT ---
EXAMINATION TYPE: CT brain syl wo con DATE OF EXAM: 03/26/2022 COMPARISON: 03/23/2021 HISTORY: fal CT DLP: combined DLP 1157.9 mGycm Automated exposure control for dose reduction was used. Images obtained of the brain and cervical spine with no contrast. There is mild diffuse cerebral cortical atrophy. There is patchy hypodensity in the periventricular w fernando matter. There is no mass effect or midline shift. No sign of intracranial hemorrhage. The calvar ium is intact. Skull base is intact. The cervical vertebra have fairly normal spacing and alignment for the patient's age. No compression fracture. There is small posterior disc herniation at C4-5 and C5-6. The facet joints are intact. Pre vertebral soft tissues are intact. No cervical paraspinal mass. There is ligamentous calcification po steriorly in the spinal canal. IMPRESSION: Cerebral atrophy and chronic small vessel ischemia. No acute intracranial abnormality. Spondylotic mild changes in the cervical spine. No fractures seen
--- NOTE | 2022-03-26 19:25 | CT ---
EXAMINATION TYPE: CT facial bones wo con DATE OF EXAM: 03/26/2022 COMPARISON: None HISTORY: fall CT DLP: combined DLP 1157.9 mGycm Automated exposure control for dose reduction was used. Images obtained from the bottom of the mandible to the top of the frontal sinuses with no contrast. The mandibular ring is intact. Temporomandibular joints appear intact. The zygomatic arches appear no rmal. The maxilla is intact. Nasal bone is intact. There is no evidence of orbital blowout fracture. Orbital margins are intact. No retro-orbital mass. There is fairly normal aeration of the paranasal s inuses. IMPRESSION: No evidence of acute traumatic injury of the facial bones. There is some soft tissue edema anterior to the maxilla at the base of the nose.
--- NOTE | 2022-03-26 19:43 | ED ---
Head Injury HPI - General Chief complaint: Head Injury Stated complaint: Fell, Hit face and lost consciousness Time Seen by Provider: 03/26/22 18:14 Source: patient Mode of arrival: ambulatory Limitations: no limitations - History of Present Illness Initial comments: Patient is an 86-year-old female presenting with chief complaint of fall with head injury. Patient states that she was in her kitchen when she turned around and tripped, she landed on her face. She is complaining of tenderness around the nose and eyes. Patient states that she is not currently on blood thinners, she stopped blood thinners about 9 months ago. Patient states that she is unsure if she lost consciousness. She denies any nausea, vomiting, vision or hearing changes, neck pain or stiffness, chest pain, shortness of breath, numbness, tingling, weakness. - Related Data Home Medications Medication Instructions Recorded Confirmed Multivitamin,Therapeutic [Thera] 1 tab PO DAILY 07/14/18 03/26/22 Budesonide-Formot 160-4.5 Mcg 2 puff INHALATION RT-BID 09/04/18 03/26/22 [Symbicort 160-4.5 Mcg Inhaler] Losartan-Hctz 50-12.5 mg [Hyzaar 1 tab PO DAILY 05/07/21 03/26/22 50-12.5] FLUoxetine HCL 20 mg PO DAILY 03/26/22 03/26/22 Furosemide [Lasix] 10 mg PO DAILY PRN 03/26/22 03/26/22 predniSONE 5 mg PO DAILY 03/26/22 03/26/22 Allergies/Adverse reactions: Allergies Allergy/AdvReac Type Severity Reaction Status Date / Time iodine Allergy Anaphylaxis Verified 03/26/22 19:47 morphine AdvReac Hallucinati Verified 03/26/22 19:47 ons TAPE Allergy SKIN Uncoded 03/26/22 18:06 BLISTERS Review of Systems ROS Statement: Those systems with pertinent positive or pertinent negative responses have been documented in the HPI. ROS Other: All systems not noted in ROS Statement are negative. Past Medical History Past Medical History: Asthma, GERD/Reflux, GI Bleed, Hyperlipidemia, Hypertension, Liver Disease, Osteoarthritis (OA), Pneumonia, Pulmonary Embolus (PE) Additional Past Medical History / Comment(s): bilateral pulmonary embolism 2010, IBS, colitis, esophageal stricture, hepatitis B infection 1971, hiatal hernia, history of Chowdary's palsy, severe osteoarthritis, sinus problems. poor circulation in eliseo feet, GI bleed years ago History of Any Multi-Drug Resistant Organisms: None Reported Past Surgical History: Appendectomy, Section, Hernia Repair, Hysterectomy, Joint Replacement, Tonsillectomy, Tubal Ligation Additional Past Surgical History / Comment(s): Rt shoulder replacement, cataracts bilaterally, x 2, hiatal hernia repair, EGDs with esophageal dilations, colonoscopy, bronchoscopies Past Anesthesia/Blood Transfusion Reactions: Motion Sickness Past Psychological History: No Psychological Hx Reported Smoking Status: Never smoker Past Alcohol Use History: Occasional Past Drug Use History: None Reported - Past Family History Daughter(s) Family Medical History: Coronary Artery Disease (CAD), Diabetes Mellitus, Deep Vein Thrombosis (DVT) Brother(s) Family Medical History: CVA/TIA Mother Family Medical History: Deep Vein Thrombosis (DVT) Additional Family Medical History / Comment(s): . Father Family Medical History: No Reported History General Exam Limitations: no limitations General appearance: alert, in no apparent distress Head exam: Present: normocephalic, normal inspection, other (There is swelling and an abrasion on the bridge of the nose) Eye exam: Present: PERRL, EOMI, periorbital swelling, periorbital tenderness. Absent: scleral icterus Neck exam: Present: normal inspection, full ROM. Absent: tenderness Respiratory exam: Present: normal lung sounds bilaterally. Absent: respiratory distress, wheezes, rales, rhonchi, stridor Cardiovascular Exam: Present: regular rate, normal rhythm, normal heart sounds. Absent: systolic murmur, diastolic murmur, rubs, gallop, clicks Extremities exam: Present: normal inspection, full ROM Neurological exam: Present: alert, oriented X3, CN II-XII intact Expanded Patient oriented to: Present: person, place, time Speech: Present: fluid speech Cranial nerves: EOM's Intact: Normal, Facial Sensation: Normal Cerebellar function: Finger to Nose: Normal, Heel to East: Normal Sensory exam: Upper Extremity Light Touch: Normal, Lower Extremity Light Touch: Normal Motor strength exam: RUE: 5, LUE: 5, RLE: 5, LLE: 5 Eye Response: (4) open spontaneously Motor Response: (6) obeys commands Verbal Response: (5) oriented [place] Total: 15 Psychiatric exam: Present: normal affect, normal mood Skin exam: Present: warm, dry, intact, normal color. Absent: rash Course Vital Signs 03/26/22 03/26/22 03/26/22 18:06 20:15 20:47 Temperature 98.0 F 97.6 F Pulse Rate 73 77 75 Respiratory 16 16 16 Rate Blood Pressure 152/80 194/78 194/73 O2 Sat by Pulse 95 95 96 Oximetry 03/26/22 21:38 Temperature Pulse Rate 76 Respiratory 16 Rate Blood Pressure 180/78 O2 Sat by Pulse 96 Oximetry Medical Decision Making - Medical Decision Making Patient is an 86-year-old female presenting with chief complaint of head injury after tripping and landing on her face in her kitchen. On examination there is tenderness and swelling around the eyes and nose, as well as an abrasion on the nose. Neuro exam shows no focal deficits. CT of the brain and C-spine and facial bones without contrast shows no acute fracture, dislocation, or intracranial process. Patient was given 12.5 mg losartan PO for blood pressure control at discharge. Follow-up with PCP in one to 2 days. Report back to ER with any new or worsening symptoms. I discussed return parameters answered all questions. Patient conveyed verbal understanding and agreed to the plan. I discussed this case with my attending Dr. Matt. Disposition Clinical Impression: Facial abrasion, Head injury Disposition: HOME SELF-CARE Condition: Good Instructions (If sedation given, give patient instructions): Head Injury (ED), Facial Contusion (ED) Additional Instructions: Follow-up with PCP in one to 2 days. Report back to ER with any new or worsening symptoms. Take Motrin and Tylenol as needed for pain control. Icing will help control pain and swelling. Is patient prescribed a controlled substance at d/c from ED?: No Referrals: González Andersen MD [Primary Care Provider] - 1-2 days Time of Disposition: 19:43
[2022-03-26 20:16] VITALS: TEMP 97.6
[2022-03-26] MEDS ORDERED: LOSARTAN 25 MG TAB PO STA (20:37)
[2022-03-26 21:41] VITALS: BP 180/78; PULSE 76
== END 2022-03-26 21:42 | disposition home or self-care (01) ==
LOC: EC 17:48
DX: S00.81XA Abrasion of other part of head, initial encounter (principal); J45.909 Unspecified asthma, uncomplicated; E78.5 Hyperlipidemia, unspecified; I10 Essential (primary) hypertension; M19.90 Unspecified osteoarthritis, unspecified site; Z72.89 Other problems related to lifestyle; Z91.041 Radiographic dye allergy status; Z88.5 Allergy status to narcotic agent; Z91.048 Other nonmedicinal substance allergy status; W01.0XXA Fall on same level from slipping, tripping and stumbling without subsequent striking against object, initial encounter; Y92.090 Kitchen in other non-institutional residence as the place of occurrence of the external cause; Z79.899 Other long term (current) drug therapy
CPT/HCPCS: 70450; 70486; 72125; 99284

== ENCOUNTER → 2022-09-16 | Outpatient (CLI) | payer MEDICARE ==
[2022-09-16 18:45] LABS: ALT 12 U/L (8-44); AST 28 U/L (13-35); African American GFR (CKD) 54.2 (60.0-200.0); Albumin 3.4 g/dL (3.8-4.9); Albumin/Globulin Ratio 1.02 (1.60-3.17); Alkaline Phosphatase 55 U/L (41-126); BUN/Creat Ratio 12.22 Ratio (12.00-20.00); Blood Urea Nitrogen 13.2 mg/dL (9.0-27.0); Calcium 9.3 mg/dL (8.7-10.3); Carbon Dioxide 26.6 mmol/L (20.0-27.5); Chloride 106 mmol/L (96-109); Chol/HDL Ratio 4.42 Ratio; Globulin 3.3 g/dL (1.6-3.3); Glucose 81 mg/dL (70-110); LDL Cholesterol,Calculated 124.8 mg/dL (0.0-131.0); Non-African American GFR(CKD) 46.8 (60.0-200.0); Potassium 3.4 mmol/L (3.5-5.5); Sodium 143 mmol/L (135-145); Total Protein 6.8 g/dL (6.2-8.2)
[2022-09-16 18:51] LABS: Basophils # (A) 0.01 X 10*3/uL (0.00-0.10); Basophils % (A) 0.2 %; Eosinophils # (A) 0.26 X 10*3/uL (0.04-0.35); Eosinophils % (A) 4.3 %; HCT 38.2 % (37.2-46.3); HGB 11.6 g/dL (12.0-15.0); Immature Grans, Automated 0.2 %; Lymphocytes # (A) 2.41 X 10*3/uL (0.90-5.00); Lymphocytes % (A) 39.8 %; MCH 26.5 pg (27.0-32.0); MCHC 30.4 g/dL (32.0-37.0); MCV 87.4 fL (80.0-97.0); Mean Platelet Volume 11.4 fL (9.5-12.2); Monocytes # (A) 0.43 X 10*3/uL (0.20-1.00); Monocytes % (A) 7.1 %; NRBC Per 100 WBC 0 /100 WBCS (0.0-0.0); Neutrophils # (A) 2.93 X 10*3/uL (1.80-7.70); Neutrophils % (A) 48.4 %; Platelet Count 271 X 10*3/uL (140-440); RBC 4.37 X 10*6/uL (4.10-5.20); RDW 18.1 % (11.5-14.5); WBC 6.05 X 10*3/uL (4.50-10.00)
== END | disposition home or self-care (01) ==
LOC: LABWHC1 11:59
PROVIDERS: ATTEND Internal Medicine
DX: Z00.00 Encounter for general adult medical examination without abnormal findings (principal)
CPT/HCPCS: 36415; 80053; 80061; 84439; 84443; 85025

== ENCOUNTER 2023-01-23 04:08 | Inpatient (IN) | payer MEDICARE ==
[2023-01-23 05:07] LABS: Albumin 3.3 g/dL (3.5-5.0); Calcium 8.4 mg/dL (8.4-10.2); Magnesium 1.7 mg/dL (1.6-2.3); Total Bilirubin 0.7 mg/dL (0.2-1.3); Total Protein 6.8 g/dL (6.3-8.2)
[2023-01-23 05:11] LABS: Basophils % (A) 0 %; Eosinophils # (A) 0.1 k/uL (0-0.7); Eosinophils % (A) 1 %; HCT 33.5 % (34.0-46.0); HGB 10.5 gm/dL (11.4-16.0); Hypochromasia Moderate; Lymphocytes # (A) 1.8 k/uL (1.0-4.8); Lymphocytes % (A) 20 %; MCH 25.9 pg (25.0-35.0); MCHC 31.3 g/dL (31.0-37.0); MCV 82.7 fL (80.0-100.0); Mean Platelet Volume 8.6; Monocytes # (A) 0.4 k/uL (0-1.0); Monocytes % (A) 5 %; Neutrophils # (A) 6.5 k/uL (1.3-7.7); Neutrophils % (A) 73 %; Platelet Count 295 k/uL (150-450); RBC 4.05 m/uL (3.80-5.40); RDW 15.9 % (11.5-15.5); WBC 8.9 k/uL (3.8-10.6)
--- NOTE | 2023-01-23 05:12 | ED ---
General Adult HPI - General Chief complaint: Shortness of Breath Stated complaint: SOB Time Seen by Provider: 01/23/23 04:19 Source: patient, EMS Mode of arrival: EMS - History of Present Illness Initial comments: This is an 87-year-old female who presents emergency department via EMS for increasing shortness of breath. The patient stated that over the last 2-3 days she has had intermittent shortness of breath but was worse tonight. The patient a past medical history including hypertension and asthma and did not have any past medical history including CHF. The patient did however take Lasix. The patient on arrival was not any acute distress but was having mild tachypnea. The patient denied any nausea, vomiting, fevers and chills. - Related Data Home Medications Medication Instructions Recorded Confirmed Multivitamin,Therapeutic [Thera] 1 tab PO DAILY 07/14/18 03/26/22 Budesonide-Formot 160-4.5 Mcg 2 puff INHALATION RT-BID 09/04/18 03/26/22 [Symbicort 160-4.5 Mcg Inhaler] Losartan-Hctz 50-12.5 mg [Hyzaar 1 tab PO DAILY 05/07/21 03/26/22 50-12.5] Furosemide [Lasix] 10 mg PO DAILY PRN 03/26/22 03/26/22 RX: FLUoxetine HCL 20 mg PO DAILY 03/26/22 03/26/22 RX: predniSONE 5 mg PO DAILY 03/26/22 03/26/22 Previous Rx's Medication Instructions Recorded Amoxic-Pot Clav 875-125Mg 1 tab PO Q12HR 7 Days #14 tab 11/11/22 [Augmentin 875-125] methylPREDNISolone Dose Pack 4 mg PO DIRECTED #1 packet 11/11/22 [Medrol Dose Pack] Allergies Allergy/AdvReac Type Severity Reaction Status Date / Time iodine Allergy Anaphylaxis Verified 03/26/22 19:47 morphine AdvReac Hallucinati Verified 03/26/22 19:47 ons TAPE Allergy SKIN Uncoded 03/26/22 18:06 BLISTERS Review of Systems ROS Statement: Those systems with pertinent positive or pertinent negative responses have been documented in the HPI. ROS Other: All systems not noted in ROS Statement are negative. Past Medical History Past Medical History: Asthma, GERD/Reflux, GI Bleed, Hyperlipidemia, Hypertension, Liver Disease, Osteoarthritis (OA), Pneumonia, Pulmonary Embolus (PE) Additional Past Medical History / Comment(s): bilateral pulmonary embolism 2010, IBS, colitis, esophageal stricture, hepatitis B infection 1971, hiatal hernia, history of Chowdary's palsy, severe osteoarthritis, sinus problems. poor circulation in eliseo feet, GI bleed years ago History of Any Multi-Drug Resistant Organisms: None Reported Past Surgical History: Appendectomy, Section, Hernia Repair, Hysterectomy, Joint Replacement, Tonsillectomy, Tubal Ligation Additional Past Surgical History / Comment(s): Rt shoulder replacement, cataracts bilaterally, x 2, hiatal hernia repair, EGDs with esophageal dilations, colonoscopy, bronchoscopies Past Anesthesia/Blood Transfusion Reactions: Motion Sickness Past Psychological History: No Psychological Hx Reported Smoking Status: Never smoker Past Alcohol Use History: Rare Past Drug Use History: None Reported - Past Family History Daughter(s) Family Medical History: Coronary Artery Disease (CAD), Diabetes Mellitus, Deep Vein Thrombosis (DVT) Brother(s) Family Medical History: CVA/TIA Mother Family Medical History: Deep Vein Thrombosis (DVT) Additional Family Medical History / Comment(s): . Father Family Medical History: No Reported History General Exam Limitations: no limitations General appearance: alert, in distress (In mild respiratory distress) Head exam: Present: atraumatic, normocephalic, normal inspection Eye exam: Present: normal appearance, PERRL Pupils: Present: normal accommodation ENT exam: Present: normal exam, normal oropharynx, mucous membranes moist Neck exam: Present: normal inspection, full ROM Respiratory exam: Present: normal lung sounds bilaterally Cardiovascular Exam: Present: regular rate, normal rhythm, normal heart sounds GI/Abdominal exam: Present: soft, normal bowel sounds Extremities exam: Present: normal inspection, full ROM, pedal edema Back exam: Present: normal inspection, full ROM Neurological exam: Present: alert, oriented X3, CN II-XII intact Psychiatric exam: Present: normal affect, normal mood Skin exam: Present: warm, dry Course Vital Signs 01/23/23 01/23/23 01/23/23 04:11 04:15 06:00 Temperature 97.9 F Pulse Rate 96 87 Respiratory 24 28 H 16 Rate Blood Pressure 145/100 145/95 O2 Sat by Pulse 95 97 Oximetry EKG Findings - EKG Comments: EKG Findings:: An EKG was obtained and was interpreted by myself showing a rate of 91, MI interval 173, QRS duration of 151 and QTC of 470. This EKG showed a normal sinus rhythm with a left bundle branch block. This was new compared to her previous EKG that was done in 2019. There was however no ST segment elevations or depressions noted. Medical Decision Making - Medical Decision Making Was pt. sent in by a medical professional or institution (ADRYAN Santana, PE TEACHER, urgent care, hospital, or alf...) When possible be specific @ -No Did you speak to anyone other than the patient for history (EMS, parent, family, police, friend...)? What history was obtained from this source @ -No Did you review nursing and triage notes (agree or disagree)? Why? @ -I reviewed and agree with nursing and triage notes Were old charts reviewed (outside hosp., previous admission, EMS record, old EKG, old radiological studies, urgent care reports/EKG's, alf records)? Report findings @ -No old charts were reviewed Differential Diagnosis (chest pain, altered mental status, abdominal pain women, abdominal pain men, vaginal bleeding, weakness, fever, dyspnea, syncope, headache, dizziness, GI bleed, back pain, seizure, CVA, palpatations, mental health)? @ -ACS, CHF exacerbation, pneumonia EKG interpreted by me (3pts min.). @ -As above X-rays interpreted by me (1pt min.). @ -Chest x-ray was obtained however was to pending at this time. CT interpreted by me (1pt min.). @ -None done U/S interpreted by me (1pt. min.). @ -None done What testing was considered but not performed or refused? (CT, X-rays, U/S, labs)? Why? @ -None What meds were considered but not given or refused? Why? @ -None Did you discuss the management of the patient with other professionals (professionals i.e. ADRYAN Santana, PE TEACHER, lab, RT, psych nurse, social human services assistants, hotel maintenance technician, teacher, safety officer, case filler)? Give summary @ -Yes, admitting physician was contacted regarding patient admission. Was smoking cessation discussed for >3mins.? @ -No Was critical care preformed (if so, how long)? @ -No Were there social determinants of health that impacted care today? How? (Homelessness, low income, unemployed, alcoholism, drug addiction, transportation, low edu. Level, literacy, decrease access to med. care, penitentiary, rehab)? @ -No Was there de-escalation of care discussed even if they declined (Discuss DNR or withdrawal of care, Hospice)? DNR status @ -No What co-morbidities impacted this encounter? (DM, HTN, Smoking, COPD, CAD, Canc er, CVA, ARF, Chemo, Hep., AIDS, mental health diagnosis, sleep apnea, morbid obesity)? @ -Hypertension, asthma Was patient admitted / discharged? Hospital course, mention meds given and route, prescriptions, significant lab abnormalities, going to OR and other pertinent info. @ -The patient was seen and evaluated emergency department. On physical exam, the patient was resting in bed in mild shortness of breath. Vital signs admission were stable. Laboratory workup was obtained that showed an elevated troponin as well as elevated proBNP. Chest x-ray was to pending at this time. Due to the patient's significant elevations in the setting of shortness of breath, the patient was started on a heparin drip as well as given Lasix. Due to the sinus, the patient will be admitted for further workup and evaluation. The patient was agreeable to this and all of her questions were answered appropriately. The patient was admitted in stable condition. Undiagnosed new problem with uncertain prognosis? @ -No Drug Therapy requiring intensive monitoring for toxicity (Heparin, Nitro, Insulin, Cardizem)? @ -Heparin Were any procedures done? @ -No Diagnosis/symptom? @ -NSTEMI, CHF exas Acute, or Chronic, or Acute on Chronic? @ -Acute Uncomplicated (without systemic symptoms) or Complicated (systemic symptoms)? @ -Complicated Side effects of treatment? @ -No Exacerbation, Progression, or Severe Exacerbation? @ -No Poses a threat to life or bodily function? How? (Chest pain, USA, NH, pneumonia, PE, COPD, DKA, ARF, appy, cholecystitis, CVA, Diverticulitis, Homicidal, Suicidal, threat to staff... and all critical care pts) @ -Yes, worsening fluid overload and CHF as well as NSTEMI can lead to permanent damage and possible . - Lab Data Result diagrams: 01/23/23 04:36 01/23/23 04:36 Lab Results 01/23/23 01/23/23 01/23/23 Range/Units 04:36 04:36 04:36 WBC 8.9 (3.8-10.6) k/uL RBC 4.05 (3.80-5.40) m/uL Hgb 10.5 L (11.4-16.0) gm/dL Hct 33.5 L (34.0-46.0) % MCV 82.7 (80.0-100.0) fL MCH 25.9 (25.0-35.0) pg MCHC 31.3 (31.0-37.0) g/dL RDW 15.9 H (11.5-15.5) % Plt Count 295 (150-450) k/uL MPV 8.6 Neutrophils % 73 % Lymphocytes % 20 % Monocytes % 5 % Eosinophils % 1 % Basophils % 0 % Neutrophils # 6.5 (1.3-7.7) k/uL Lymphocytes # 1.8 (1.0-4.8) k/uL Monocytes # 0.4 (0-1.0) k/uL Eosinophils # 0.1 (0-0.7) k/uL Basophils # 0.0 (0-0.2) k/uL Hypochromasia Moderate Sodium 136 L (137-145) mmol/L Potassium 3.0 L (3.5-5.1) mmol/L Chloride 101 (98-107) mmol/L Carbon Dioxide 23 (22-30) mmol/L Anion Gap 12 mmol/L BUN 24 H (7-17) mg/dL Creatinine 0.90 (0.52-1.04) mg/dL Est GFR (CKD-EPI)AfAm 68 (>60 ml/min/1.73 sqM) Est GFR (CKD-EPI)NonAf 59 (>60 ml/min/1.73 sqM) Glucose 115 H (74-99) mg/dL Calcium 8.4 (8.4-10.2) mg/dL Magnesium 1.7 (1.6-2.3) mg/dL Total Bilirubin 0.7 (0.2-1.3) mg/dL AST 38 H (14-36) U/L ALT 32 (4-34) U/L Alkaline Phosphatase 81 (38-126) U/L Troponin I 0.100 H* (0.000-0.034) ng/mL NT-Pro-B Natriuret Pep pg/mL Total Protein 6.8 (6.3-8.2) g/dL Albumin 3.3 L (3.5-5.0) g/dL Lipase 61 (23-300) U/L 01/23/23 Range/Units 04:36 WBC (3.8-10.6) k/uL RBC (3.80-5.40) m/uL Hgb (11.4-16.0) gm/dL Hct (34.0-46.0) % MCV (80.0-100.0) fL MCH (25.0-35.0) pg MCHC (31.0-37.0) g/dL RDW (11.5-15.5) % Plt Count (150-450) k/uL MPV Neutrophils % % Lymphocytes % % Monocytes % % Eosinophils % % Basophils % % Neutrophils # (1.3-7.7) k/uL Lymphocytes # (1.0-4.8) k/uL Monocytes # (0-1.0) k/uL Eosinophils # (0-0.7) k/uL Basophils # (0-0.2) k/uL Hypochromasia Sodium (137-145) mmol/L Potassium (3.5-5.1) mmol/L Chloride (98-107) mmol/L Carbon Dioxide (22-30) mmol/L Anion Gap mmol/L BUN (7-17) mg/dL Creatinine (0.52-1.04) mg/dL Est GFR (CKD-EPI)AfAm (>60 ml/min/1.73 sqM) Est GFR (CKD-EPI)NonAf (>60 ml/min/1.73 sqM) Glucose (74-99) mg/dL Calcium (8.4-10.2) mg/dL Magnesium (1.6-2.3) mg/dL Total Bilirubin (0.2-1.3) mg/dL AST (14-36) U/L ALT (4-34) U/L Alkaline Phosphatase (38-126) U/L Troponin I (0.000-0.034) ng/mL NT-Pro-B Natriuret Pep 97368 pg/mL Total Protein (6.3-8.2) g/dL Albumin (3.5-5.0) g/dL Lipase (23-300) U/L Disposition Clinical Impression: NSTEMI (non-ST elevated myocardial infarction), CHF (congestive heart failure) Disposition: ADMITTED IP TO THIS [facility] Condition: Stable Is patient prescribed a controlled substance at d/c from ED?: No Time of Disposition: 06:00 Decision to Admit Reason: Admit from EC Decision Date: 01/23/23 Decision Time: 06:00
[2023-01-23] MEDS ORDERED: fentaNYL (PF) 50 MCG/ML 2 ML AMP IVP STA (05:16)
[2023-01-23] MEDS ORDERED: HEPARIN SODIUM 1,000 UN/ML (10ML VL) IV PRN (06:01)
[2023-01-23] MEDS ORDERED: HEPARIN SODIUM 1,000 UN/ML (10ML VL) IV ONE (06:01)
[2023-01-23] MEDS ORDERED: NALOXONE 0.4 MG/ML 1 ML VIAL IV PRN (06:02)
[2023-01-23] MEDS ORDERED: FUROSEMIDE 10 MG/ML 4 ML VIAL IV STA (06:02)
[2023-01-23] MEDS: HEPARIN SOD,PORK IN 0.45% NACL 25,000 UNIT in 0.45% NACL 1 250ML.BAG IV SCH (06:20)
--- NOTE | 2023-01-23 07:14 | XR ---
EXAMINATION TYPE: XR chest 2V DATE OF EXAM: 01/23/2023 COMPARISON: 12/23/2022 HISTORY: 87-year-old female with chest pain TECHNIQUE: AP and lateral views FINDINGS: Right shoulder requested. Heart mildly enlarged. Small leftward in the right pleural effusions increa sing from prior. Increasing patchy left mid and lower lung opacity. Calcification throughout the aort a. IMPRESSION: 1. Mild cardiomegaly, interstitial changes, increasing small bilateral pleural effusions. Correlate f or CHF with pulmonary vascular congestion. 2. Increasing patchy opacities left mid and lower lung could represent developing pulmonary edema or pneumonia.
[2023-01-23 08:19] LABS: INR 1.3 (<1.2); Partial Thromboplastin Time 52.7 sec (22.0-30.0)
[2023-01-23] MEDS ORDERED: POTASSIUM CHLORIDE ER 20 MEQ TAB.ER PO SCH (08:45)
[2023-01-23] MEDS ORDERED: POTASSIUM CHLORIDE ER 20 MEQ TAB.ER PO STA (10:07)
--- NOTE | 2023-01-23 12:44 | CA ---
Transthoracic Echo Report Name: Chase Min Age: 87 Gender: F : 1935 Exam Date: 01/23/2023 10:25 Exam Location: [place] [facility] Ht (in): Wt (lb): Ordering Physician: Milan Guzman MD ([id number]) Attending/Referring Phys: Megan RAMIREZ Tail Board Man Jai Rocha Procedure CPT: Indications: CHF/positive trop Cardiac Hx: Elevated Troponin Technical Quality: Fair Contrast 1: Total Dose (mL): Contrast 2: Total Dose (mL): MEASUREMENTS (Male / Female) Normal Values 2D ECHO LV Diastolic Diameter PLAX 4.6 cm 4.2 - 5.9 / 3.9 - 5.3 cm LV Systolic Diameter PLAX 3.6 cm IVS Diastolic Thickness 1.5 cm 0.6 - 1.0 / 0.6 - 0.9 cm LVPW Diastolic Thickness 1.2 cm 0.6 - 1.0 / 0.6 - 0.9 cm LV Relative Wall Thickness 0.6 RV Internal Dim ED PLAX 2.4 cm LVOT Diameter 1.7 cm Aortic Root Diameter 2.7 cm LA Systolic Diameter LX 2.2 cm 3.0 - 4.0 / 2.7 - 3.8 cm LV Diastolic Volume MOD BP 82.8 cm??? 67 - 155 / 56 - 104 cm??? LV Systolic Volume MOD BP 56.5 cm??? 22 - 58 / 19 - 49 cm??? LV Ejection Fraction MOD BP 31.8 % >= 55 % LV Diastolic Volume MOD 4C 79.9 cm??? LV Systolic Volume MOD 4C 56.6 cm??? LV Ejection Fraction MOD 4C 29.2 % LV Diastolic Length 4C 7.0 cm LV Systolic Length 4C 6.4 cm LV Diastolic Volume MOD 2C 85.1 cm??? LV Systolic Volume MOD 2C 51.3 cm??? LV Ejection Fraction MOD 2C 39.7 % LV Diastolic Length 2C 7.1 cm LV Systolic Length 2C 5.8 cm DOPPLER AV Peak Velocity 143.7 cm/s AV Peak Gradient 8.3 mmHg MR Peak Velocity 569.3 cm/s MR Peak Gradient 129.6 mmHg Mitral E Point Velocity 112.3 cm/s Mitral A Point Velocity 116.6 cm/s Mitral E to A Ratio 1.0 MV Deceleration Time 179.8 ms MV E' Velocity 3.3 cm/s Mitral E to MV E' Ratio 34.1 TR Peak Velocity 351.0 cm/s TR Peak Gradient 49.3 mmHg Right Ventricular Systolic Press 60.4 mmHg FINDINGS Left Ventricle Left ventricular ejection fraction is estimated at 20-25 %. Right Ventricle Normal right ventricular size. Severe pulmonary hypertension. RVSP= 75mmhg Right Atrium Normal right atrial size. Left Atrium Left atrial dilatation. Mitral Valve Moderate mitral annular calcification. Severe mitral regurgitation. Aortic Valve Aortic valve not well visualized. Thickened aortic valve without stenosis. Tricuspid Valve Structurally normal tricuspid valve. Moderate tricuspid regurgitation. [id number] tricuspid regurgitation. Pulmonic Valve Pulmonic valve not well visualized. Mild pulmonic regurgitation. Pericardium Normal pericardium. Aorta Normal size aortic root and proximal ascending aorta. CONCLUSIONS Left ventricle is at upper limits of normal with the global severe decrease in contractility estimated ejection fraction of about 20-25%. There is mitral annular calcification and aortic valve sclerosis without stenosis. There is severe mitral and tricuspid regurgitation with severe pulmonary hypertension no pericardial effusion Previewed by: Dr. Julianna Pedroza MD (Electronically Signed) Final Date: 23 Jan 2023 12:43
--- NOTE | 2023-01-23 13:22 | P.CNPUL ---
History of Present Illness Consult date: 01/23/23 Requesting physician: Aliza Byrd Reason for consult: dyspnea, abnormal CXR/CT Chief complaint: Chest pain, shortness of breath History of present illness: This is a very pleasant 87-year-old female patient with a known history of moderate persistent chronic bronchial asthma, hypertension, hyperlipidemia, gastroesophageal reflux disease, pulmonary embolism, colitis, esophageal stricture with previous dilatations. Nonsmoker. She presented here to the emergency room early this morning with complaints of shortness of breath and chest discomfort. Chest x-ray revealed mild cardiomegaly with interstitial changes and small bilateral pleural effusions and pulmonary vascular congestion. Increasing patchy opacities in the left mid and lower lung representing pulmonary edema or possibly pneumonia. EKG reveals sinus arrhythmia with left bundle branch block. White count 8.9. Hemoglobin 10.5. Platelets 295. INR 1.3. Sodium 136. Potassium 3.0. Bicarb 23. BUN 24. Creatinine 0.90. G lucose 115. AST 38. ALT 32. Troponin 0.100. NT proBNP 13,300. She is seen in consultation in the emergency department. Currently sitting up in a stretcher. Awake and alert in no acute distress. She is maintaining O2 saturations in the mid 90s on room air. She is afebrile. Hemodynamically s table. Echocardiogram reveals severely impaired left ventricular systolic function with ejection fraction 20-25%. There is also severe pulmonary hypertension with an RVSP of 75 mmHg. Severe mitral regurgitation. Moderate to severe tricuspid regurgitation. She's been initiated on a heparin drip. On IV Lasix 40 mg every 8 hours. Potassium being replaced. Review of Systems REVIEW OF SYSTEMS: CONSTITUTIONAL: Denies any recent significant weight loss or weight gain. EYES: Denies change in vision. EARS, NOSE, MOUTH, THROAT: Denies headaches, denies sore throat. CARDIOVASCULAR: Positive for chest pain, palpitations no syncopal episodes. RESPIRATORY: Positive for shortness of breath, cough, congestion no hemoptysis. GASTROINTESTINAL: Denies change in appetite, denies abdominal pain GENITOURINARY: Denies hematuria, denies infections. MUSKULOSKELETAL: Denies pain, denies swelling. INTEGUMENTARY: Denies rash, denies eczema. NEUROLOGICAL: Denies recent memory loss, no recent seizure activity. PSYCHIATRIC: Denies anxiety, denies depression. HEMATOLOGIC/LYMPHATIC: Denies anemia, denies enlarged lymph nodes. Past Medical History Past Medical History: Asthma, GERD/Reflux, GI Bleed, Hyperlipidemia, Hypertension, Liver Disease, Osteoarthritis (OA), Pneumonia, Pulmonary Embolus (PE) Additional Past Medical History / Comment(s): bilateral pulmonary embolism 2010, IBS, colitis, esophageal stricture, hepatitis B infection 1971, hiatal hernia, history of Chowdary's palsy, severe osteoarthritis, sinus problems. poor circulation in eliseo feet, GI bleed years ago History of Any Multi-Drug Resistant Organisms: None Reported Past Surgical History: Appendectomy, Section, Hernia Repair, Hysterectomy, Joint Replacement, Tonsillectomy, Tubal Ligation Additional Past Surgical History / Comment(s): Rt shoulder replacement, cataracts bilaterally, x 2, hiatal hernia repair, EGDs with esophageal dilations, colonoscopy, bronchoscopies Past Anesthesia/Blood Transfusion Reactions: Motion Sickness Past Psychological History: No Psychological Hx Reported Smoking Status: Never smoker Past Alcohol Use History: Rare Past Drug Use History: None Reported - Past Family History Daughter(s) Family Medical History: Coronary Artery Disease (CAD), Diabetes Mellitus, Deep Vein Thrombosis (DVT) Brother(s) Family Medical History: CVA/TIA Mother Family Medical History: Deep Vein Thrombosis (DVT) Additional Family Medical History / Comment(s): . Father Family Medical History: No Reported History Medications and Allergies Home Medications Medication Instructions Recorded Confirmed Type Budesonide-Formot 160-4.5 Mcg 2 puff INHALATION RT-BID 09/04/18 01/23/23 History [Symbicort 160-4.5 Mcg Inhaler] Furosemide [Lasix] 20 mg PO DAILY 03/26/22 01/23/23 History Albuterol Inhaler [Ventolin Hfa 2 puff INHALATION RT-QID PRN 01/23/23 01/23/23 History Inhaler] Losartan/Hydrochlorothiazide 1 tab PO DAILY 01/23/23 01/23/23 History [Hyzaar 100-25 Tablet] Allergies Allergy/AdvReac Type Severity Reaction Status Date / Time adhesive tape Allergy skin Verified 01/23/23 11:16 blisters iodine Allergy Anaphylaxis Verified 01/23/23 11:16 morphine AdvReac Hallucinati Verified 01/23/23 11:16 ons Physical Exam Vitals: Vital Signs Temp Pulse Resp BP Pulse Ox 01/23/23 09:54 98.1 F 84 24 148/84 97 01/23/23 06:00 87 16 145/95 97 01/23/23 04:15 28 H 01/23/23 04:11 97.9 F 96 24 145/100 95 Intake and Output 01/22/23 01/23/23 01/23/23 22:59 06:59 14:59 Output Total 1000 Balance -1000 Output: Urine 1000 Other: Weight 60.781 kg GENERAL EXAM: Alert, anxious, frail 87-year-old female, on room air, fairly comfortable in no apparent distress. HEAD: Normocephalic. EYES: Normal reaction of pupils, equal size. NOSE: Clear with pink turbinates. THROAT: No erythema or exudates. NECK: No masses, no JVD. CHEST: No chest wall deformity. LUNGS: Equal air entry with crackles in the bilateral bases. CVS: S1 and S2 normal with an audible murmur, regular rhythm. ABDOMEN: No hepatosplenomegaly, normal bowel sounds, no guarding or rigidity. SPINE: No scoliosis or deformity SKIN: No rashes CENTRAL NERVOUS SYSTEM: No focal deficits, tone is normal in all 4 extremities. EXTREMITIES: There is no peripheral edema. No clubbing, no cyanosis. Peripheral pulses are intact. Results - Laboratory Findings CBC and BMP: 01/23/23 04:36 01/23/23 04:36 PT/INR, D-dimer PT 13.0 sec (9.0-12.0) H 01/23/23 07:15 INR 1.3 (<1.2) H 01/23/23 07:15 Abnormal lab findings: Abnormal Labs 01/23/23 01/23/23 01/23/23 04:36 04:36 04:36 Hgb 10.5 L Hct 33.5 L RDW 15.9 H PT INR APTT Sodium 136 L Potassium 3.0 L BUN 24 H Glucose 115 H AST 38 H Troponin I 0.100 H* Albumin 3.3 L 01/23/23 07:15 Hgb Hct RDW PT 13.0 H INR 1.3 H APTT 52.7 H Sodium Potassium BUN Glucose AST Troponin I Albumin - Diagnostic Findings Chest x-ray: image reviewed Assessment and Plan Assessment: Chest discomfort and shortness of breath secondary to an acute exacerbation of systolic congestive heart failure in a patient found to have severely impaired left ventricular systolic function ejection fraction of 20% along with severe mitral and tricuspid regurgitation with severe pulmonary hypertension with an RSVP of 75 mmHg. Troponin leak, and initiated on a heparin drip Bilateral pleural effusions left greater than right Hypokalemia, potassium being replaced Left lower extremity edema History of moderate persistent chronic bronchial asthma Hyperlipidemia Hypertension Osteoarthritis Previous history of bilateral pulmonary embolism in 2010 History of GI bleed and has been off anticoagulation since 2020 and declined to resume History of esophageal strictures with previous dilatation Plan: The patient was seen and evaluated Chest x-ray, echocardiogram, labs reviewed Continue with IV Lasix 40 mg every 8 hours Continue heparin drip Obtain an ultrasound of the chest Obtain Doppler of the lower extremities Resume her Symbicort, Ventolin HFA Prognosis is guarded We will continue to follow and make further recommendations based on her clinical status I have personally seen and examined the patient, performed the documentation and the assessment and plan as written. Number of minutes spent on the visit: 20.
[2023-01-23] MEDS: FUROSEMIDE 10 MG/ML 4 ML VIAL IV SCH ×2 (13:34→22:19)
--- NOTE | 2023-01-23 15:47 | US ---
EXAMINATION TYPE: US venous doppler duplex LE DATE OF EXAM: 01/23/2023 10:22 AM COMPARISON: NONE CLINICAL INDICATION: Female, 87 years old with history of Edema; pitting edema bilat, rt lower leg pa in SIDE PERFORMED: Bilateral TECHNIQUE: The lower extremity deep venous system is examined utilizing real time linear array sonog yolis with graded compression, doppler sonography and color-flow sonography. VESSELS IMAGED: Common Femoral Vein Deep Femoral Vein Greater Saphenous Vein * Femoral Vein Popliteal Vein Small Saphenous Vein * Proximal Calf Veins (* superficial vessels) Right Leg: Negative for DVT Left Leg: Negative for DVT IMPRESSION: No evidence for DVT within the bilateral lower extremities imaged from the groin to the knees. Somewh at limited assessment of the upper calf veins due to presence of pitting edema.
--- NOTE | 2023-01-23 15:49 | US ---
EXAMINATION TYPE: US chest DATE OF EXAM: 01/23/2023 COMPARISON: Radiograph earlier today CLINICAL INDICATION: Female, 87 years old with history of Left pleural effusion; difficulty breathing , pleural effusion TECHNIQUE: Targeted ultrasound of the posterior lower bilateral hemithoraces EXAM MEASUREMENTS: Right Pleural Effusion pocket size: 1 cm Right skin surface to fluid distance: Not assessed due to small size Left Pleural Effusion pocket size: 7.7 cm Left skin surface to fluid distance: 2.8 cm Left side marked for possible thoracentesis outside the dept. Pulmonologists are able to review the images in the patient?s EMR. IMPRESSIONS: Small to moderate left pleural effusion and trace on the right.
[2023-01-23] MEDS ORDERED: ALBUTEROL NEBULIZED 2.5 MG/3 ML INHALATION PRN (16:12)
--- NOTE | 2023-01-23 17:09 | P.HPIM ---
History of Present Illness H&P Date: 01/23/23 Chase Min, is an 87-year-old female, who presented to [facility] emergency room with a chief complaint of worsening shortness of breath She was evaluated in the emergency room vital examination on presentation revealed a temperature of 97.9 pulse 96 respiration 24 blood pressure 145/100 pulse ox 95% on room air Laboratory data revealed a white blood count of 8.9 hemoglobin 10.5 platelet count 295 sodium 136 potassium 3.0 chloride 101 CO2 23 BUN 24 creatinine 0.9 AST 38 ALT 32 troponin 0.1 Testing in the emergency room revealed EKG done in the emergency room revealed sinus rhythm with occasional PVC left bundle branch block, chest x-ray done in the emergency room revealed mild cardiomegaly and increasing patchy opacity in the left mid and lower lung. Patient was admitted to medical floor for further evaluation and treatment, cardiology consultation and pulmonary consultation were requested. Past Medical History Past Medical History: Asthma, GERD/Reflux, GI Bleed, Hyperlipidemia, Hypertension, Liver Disease, Osteoarthritis (OA), Pneumonia, Pulmonary Embolus (PE) Additional Past Medical History / Comment(s): bilateral pulmonary embolism 2010, IBS, colitis, esophageal stricture, hepatitis B infection 1971, hiatal hernia, history of Chowdary's palsy, severe osteoarthritis, sinus problems. poor circulation in eliseo feet, GI bleed years ago History of Any Multi-Drug Resistant Organisms: None Reported Past Surgical History: Appendectomy, Section, Hernia Repair, Hysterectomy, Joint Replacement, Tonsillectomy, Tubal Ligation Additional Past Surgical History / Comment(s): Rt shoulder replacement, cataracts bilaterally, x 2, hiatal hernia repair, EGDs with esophageal dilations, colonoscopy, bronchoscopies Past Anesthesia/Blood Transfusion Reactions: Motion Sickness Past Psychological History: No Psychological Hx Reported Smoking Status: Never smoker Past Alcohol Use History: Rare Past Drug Use History: None Reported - Past Family History Daughter(s) Family Medical History: Coronary Artery Disease (CAD), Diabetes Mellitus, Deep Vein Thrombosis (DVT) Brother(s) Family Medical History: CVA/TIA Mother Family Medical History: Deep Vein Thrombosis (DVT) Additional Family Medical History / Comment(s): . Father Family Medical History: No Reported History Medications and Allergies Home Medications Medication Instructions Recorded Confirmed Type Budesonide-Formot 160-4.5 Mcg 2 puff INHALATION RT-BID 09/04/18 01/23/23 History [Symbicort 160-4.5 Mcg Inhaler] Furosemide [Lasix] 20 mg PO DAILY 03/26/22 01/23/23 History Albuterol Inhaler [Ventolin Hfa 2 puff INHALATION RT-QID PRN 01/23/23 01/23/23 History Inhaler] Losartan/Hydrochlorothiazide 1 tab PO DAILY 01/23/23 01/23/23 History [Hyzaar 100-25 Tablet] Allergies Allergy/AdvReac Type Severity Reaction Status Date / Time adhesive tape Allergy skin Verified 01/23/23 11:16 blisters iodine Allergy Anaphylaxis Verified 01/23/23 11:16 morphine AdvReac Hallucinati Verified 01/23/23 11:16 ons Physical Exam Vitals: Vital Signs Temp Pulse Resp BP Pulse Ox 01/23/23 06:00 87 16 145/95 97 01/23/23 04:15 28 H 01/23/23 04:11 97.9 F 96 24 145/100 95 Intake and Output 01/22/23 01/23/23 01/23/23 22:59 06:59 14:59 Other: Weight 60.781 kg In general patient is alert and oriented x 3 in no distress HEENT head normocephalic and atraumatic Neck is supple no JVD no goiter no lymphadenopathy no carotid bruit Chest examination reveals a scattered crackles bilaterally no wheezing Cardiac exam reveals regular heart sounds S1 and S2 no gallops no murmurs Abdomen is soft nontender no organomegaly with normal bowel sounds Extremity exam reveals mild lower extremity edema left worse than right no cyanosis or clubbing Neurological examination reveals no gross focal deficits Results CBC & Chem 7: 01/23/23 04:36 01/23/23 04:36 Labs: Abnormal Lab Results - Last 24 Hours (Table) 01/23/23 01/23/23 01/23/23 Range/Units 04:36 04:36 04:36 Hgb 10.5 L (11.4-16.0) gm/dL Hct 33.5 L (34.0-46.0) % RDW 15.9 H (11.5-15.5) % PT (9.0-12.0) sec INR (<1.2) APTT (22.0-30.0) sec Sodium 136 L (137-145) mmol/L Potassium 3.0 L (3.5-5.1) mmol/L BUN 24 H (7-17) mg/dL Glucose 115 H (74-99) mg/dL AST 38 H (14-36) U/L Troponin I 0.100 H* (0.000-0.034) ng/mL Albumin 3.3 L (3.5-5.0) g/dL 01/23/23 Range/Units 07:15 Hgb (11.4-16.0) gm/dL Hct (34.0-46.0) % RDW (11.5-15.5) % PT 13.0 H (9.0-12.0) sec INR 1.3 H (<1.2) APTT 52.7 H (22.0-30.0) sec Sodium (137-145) mmol/L Potassium (3.5-5.1) mmol/L BUN (7-17) mg/dL Glucose (74-99) mg/dL AST (14-36) U/L Troponin I (0.000-0.034) ng/mL Albumin (3.5-5.0) g/dL Assessment and Plan Plan: Shortness of breath, likely related to acute exacerbation of congestive heart failure Chest discomfort was elevated troponin, likely non-ST elevation myocardial infarction, patient was started on IV heparin cardiology consultation was requested Bilateral pleural effusion Hypokalemia on presentation Left lower extremity edema lower extremity venous Doppler was ordered Underlying history of hypertension Underlying history of hyperlipidemia Underlying history of osteoarthritis Remote history of pulmonary embolism History of gastrointestinal bleeding History of esophageal stricture, with previous history of dilatation At this time patient is admitted to telemetry floor Home medications reviewed and reordered She was started on IV heparin and IV Lasix Echocardiogram ordered Cardiology and pulmonary consultation requested Will follow closely
[2023-01-23] MEDS: POTASSIUM CHLORIDE ER 20 MEQ TAB.ER PO SCH ×2 (17:15→23:44)
[2023-01-23] MEDS: SYMBICORT 160-4.5 MCG INHALER INHALATION SCH (20:05)
--- NOTE | 2023-01-23 20:59 | CONS ---
CONSULTATION CHIEF COMPLAINT: Shortness of breath. HISTORY OF PRESENT ILLNESS: Chase is an 87-year-old lady with history of asthma, who presented to hospital with progressively worsening shortness of breath of 3 days' duration. She also had bilateral moderate leg edema. The patient was taking Lasix, but her symptoms have gotten worse. She presents to hospital and is admitted. She does not have any chest pain. There is no history of PND or orthopnea. Her history is significant for hypertension, dyslipidemia, arthritis, and prior history of pulmonary embolism. An EKG on this admission revealed sinus rhythm with left bundle-branch block. Her troponin is elevated at 0.1. BNP is elevated at 13,300, and hemoglobin is 10. Chest x-ray on this admission revealed changes consistent with congestive heart failure. The patient's clinical presentation is consistent with a combination of exacerbation of asthma and her underlying congestive heart failure. I will obtain a 2D echo to evaluate her LV function. PAST MEDICAL HISTORY: Significant for asthma and hypertension. CURRENT MEDICATIONS: Include: 1. Medrol Dosepak. 2. Hyzaar. 3. Lasix. 4. Augmentin. ALLERGIES: 1. Iodine. 2. Morphine. 3. Tape. FAMILY HISTORY: Negative for premature coronary artery disease. SOCIAL HISTORY: Negative for current smoking, EtOH abuse, or drug abuse. REVIEW OF SYSTEMS: HEENT: Unremarkable. CARDIAC: As described above. RESPIRATORY: As described above. GI: Negative. GENITOURINARY: Negative. ALLERGY/IMMUNOLOGY: Negative. SKIN: Negative. MUSCULOSKELETAL: Significant for arthritis. PSYCHOSOCIAL: Negative. DERM: Negative. CONSTITUTIONAL: Negative. ONCOLOGICAL: Negative. FINANCIAL PLANNING CONSULTANT: Negative. Rest of the system review is not relevant. PHYSICAL EXAMINATION: GENERAL: The patient is comfortable at rest. VITAL SIGNS: Stable. CHEST: Reveals bilateral wheezing. HEART: Reveals first and second heart sounds and systolic murmur at the apex. ABDOMEN: Soft. EXTREMITIES: Exam of extremities reveals moderate bilateral pitting edema. Peripheral pulses are palpable. LABORATORY DATA: Show a hemoglobin of 10.5, platelet count is 295. Potassium is low at 3, creatinine is 0.9. BNP is elevated. ASSESSMENT: 1. Acute exacerbation of chronic congestive heart failure. 2. Exacerbation of asthma. PLAN: I will obtain a 2D echo to evaluate her LV function. Treat the patient with intravenous diuretics. Give her a dose of 40 mEq of potassium now and 20 mEq t.i.d., to go with the Barry. BASHIR / ROSLYNN: [id number] /
--- NOTE | 2023-01-24 03:28 | CONS ---
CONSULTATION CHIEF COMPLAINT: Shortness of breath. HISTORY OF PRESENT ILLNESS: Chase is an 87-year-old lady with history of COPD, hypertension, dyslipidemia, prior history of pulmonary embolism, who presented to hospital complaining of shortness of breath and chest discomfort. She has a combination of CHF and COPD exacerbations and is currently being treated for the same. She may also have possible pneumonia. EKG shows sinus rhythm with left bundle-branch block. An echocardiogram revealed severe LV systolic dysfunction with ejection fraction 125%. Labs showed that the troponin is elevated as is the BNP. We only have one set of troponin and subsequent tropes have not been done. The patient is being treated with intravenous heparin and IV Lasix, which I am going to continue. We will resume the losartan. PAST MEDICAL HISTORY: Significant for COPD, hypertension, dyslipidemia, and congestive heart failure. MEDICATIONS: As charted. ALLERGIES: As charted. FAMILY HISTORY: Negative for premature coronary artery disease. SOCIAL HISTORY: Negative for current smoking, EtOH abuse or drug abuse. REVIEW OF SYSTEMS: A review of systems has been performed, pertinence are as documented. PHYSICAL EXAMINATION: GENERAL: She appears comfortable at rest. VITAL SIGNS: Stable. CHEST: Reveals bilateral rhonchi and diminished air entry at the bases. HEART: Reveals first and second heart sounds and systolic murmur at the left lower sternal border. ABDOMEN: Soft. EXTREMITIES: Reveals 1+ edema bilaterally. LABS: Show a hemoglobin of 10.5, platelet count is 295, creatinine is 0.9. BNP is elevated. ASSESSMENT: 1. Acute onset congestive heart failure, probably systolic. 2. COPD exacerbation. 3. Elevated troponin, rule out myocardial infarction. PLAN: Will follow serially troponins. Continue the IV heparin. We will decide on further course of action based on how her symptoms evolve and what happens to her troponin. MMODL / IJN: [id number] /
[2023-01-24] MEDS: FUROSEMIDE 10 MG/ML 4 ML VIAL IV SCH ×3 (06:01→20:17)
[2023-01-24 07:09] LABS: Anisocytosis Slight; Basophils % (A) 0 %; Eosinophils % (A) 0 %; HCT 35.5 % (34.0-46.0); HGB 11.1 gm/dL (11.4-16.0); Hypochromasia Moderate; Lymphocytes % (A) 18 %; MCH 26.1 pg (25.0-35.0); MCHC 31.2 g/dL (31.0-37.0); MCV 83.8 fL (80.0-100.0); Mean Platelet Volume 9.3; Monocytes # (A) 0.5 k/uL (0-1.0); Monocytes % (A) 4 %; Neutrophils # (A) 8.7 k/uL (1.3-7.7); Neutrophils % (A) 77 %; Platelet Count 289 k/uL (150-450); RBC 4.24 m/uL (3.80-5.40); RDW 16.3 % (11.5-15.5); WBC 11.3 k/uL (3.8-10.6)
[2023-01-24 07:25] LABS: INR 1.2 (<1.2); Prothrombin Time 12.7 sec (9.0-12.0)
[2023-01-24] MEDS: SYMBICORT 160-4.5 MCG INHALER INHALATION SCH ×2 (07:56→21:14)
[2023-01-24] MEDS: LOSARTAN-HCTZ 50-12.5 MG 1 EACH TAB PO SCH (08:23)
[2023-01-24] MEDS: ASPIRIN 81 MG PO SCH (08:32)
[2023-01-24] MEDS: ISOSORBIDE MONONITRATE ER 30 MG TAB.ER.24H PO SCH (08:32)
--- NOTE | 2023-01-24 09:29 | P.PN ---
Subjective Progress Note Date: 01/24/23 Chase Min, is an 87-year-old female, who presented to [facility] emergency room with a chief complaint of worsening shortness of breath She was evaluated in the emergency room vital examination on presentation revealed a temperature of 97.9 pulse 96 respiration 24 blood pressure 145/100 pulse ox 95% on room air Laboratory data revealed a white blood count of 8.9 hemoglobin 10.5 platelet count 295 sodium 136 potassium 3.0 chloride 101 CO2 23 BUN 24 creatinine 0.9 AST 38 ALT 32 troponin 0.1 Testing in the emergency room revealed EKG done in the emergency room revealed sinus rhythm with occasional PVC left bundle branch block, chest x-ray done in the emergency room revealed mild cardiomegaly and increasing patchy opacity in the left mid and lower lung. Patient was admitted to medical floor for further evaluation and treatment, cardiology consultation and pulmonary consultation were requested. On 01/24/2023 patient is alert and oriented 3 currently resting in the inte nsive care unit. 2-D echo was completed showing global severe decrease in contractility estimated ejection fraction about 20-25%. Patient remains on IV heparin and IV Lasix. Cardiology and pulmonary services are following. Ultrasound completed for pleural effusion showing a small to moderate left pleural effusion and trace on the right. Current vital signs temp 98, heart rate 92, respiratory rate 18, blood pressure 124/87, pulse ox 98% on room air Objective - Vital Signs Vital signs: Vital Signs Temp 98 F 01/24/23 08:00 Pulse 92 01/24/23 08:00 Resp 18 01/24/23 08:00 BP 124/87 01/24/23 08:00 Pulse Ox 98 01/24/23 08:00 FiO2 Intake & Output 01/23/23 01/24/23 01/24/23 18:59 06:59 18:59 Intake Total 189.766 Output Total 1800 625 Balance -1800 -625 189.766 Intake: Intake, IV Titration 189.766 Amount Heparin Sod,Pork in 0.45% 189.766 NaCl 25,000 unit In 0.45 % NaCl 1 250ml.bag @ 12 UNITS/KG/HR 7.294 mls/hr IV .Q24H [facility] Rx#: [id number] Output: Urine 1800 625 - Exam In general patient is alert and oriented x 3 in no distress HEENT head normocephalic and atraumatic Neck is supple no JVD no goiter no lymphadenopathy no carotid bruit Chest examination reveals a scattered crackles bilaterally no wheezing Cardiac exam reveals regular heart sounds S1 and S2 no gallops no murmurs Abdomen is soft nontender no organomegaly with normal bowel sounds Extremity exam reveals mild lower extremity edema left worse than right no cyanosis or clubbing Neurological examination reveals no gross focal deficits - Labs CBC & Chem 7: 01/24/23 05:37 01/23/23 04:36 Labs: Abnormal Lab Results - Last 24 Hours (Table) 01/23/23 01/23/23 01/24/23 Range/Units 17:38 23:33 05:37 WBC 11.3 H (3.8-10.6) k/uL Hgb 11.1 L (11.4-16.0) gm/dL RDW 16.3 H (11.5-15.5) % Neutrophils # 8.7 H (1.3-7.7) k/uL PT (9.0-12.0) sec INR (<1.2) Troponin I 0.101 H* 0.084 H* (0.000-0.034) ng/mL 01/24/23 01/24/23 Range/Units 05:37 05:37 WBC (3.8-10.6) k/uL Hgb (11.4-16.0) gm/dL RDW (11.5-15.5) % Neutrophils # (1.3-7.7) k/uL PT 12.7 H (9.0-12.0) sec INR 1.2 H (<1.2) Troponin I 0.058 H* (0.000-0.034) ng/mL Assessment and Plan Assessment: Shortness of breath, likely related to acute exacerbation of congestive heart failure New-onset decreased EF 20-25%. Cardiology services following Chest discomfort was elevated troponin, likely non-ST elevation myocardial infarction, patient was started on IV heparin cardiology consultation was requested Bilateral pleural effusion Hypokalemia on presentation Left lower extremity edema. Venous Doppler negative for DVT Underlying history of hypertension Underlying history of hyperlipidemia Underlying history of osteoarthritis Remote history of pulmonary embolism History of gastrointestinal bleeding History of esophageal stricture, with previous history of dilatation At this time patient is admitted to telemetry floor Home medications reviewed and reordered She was started on IV heparin and IV Lasix Cardiology and pulmonary consultation requested Will follow closely
[2023-01-24 10:51] LABS: Albumin 3.3 g/dL (3.5-5.0); Calcium 8.5 mg/dL (8.4-10.2); Potassium 3.2 mmol/L (3.5-5.1); Total Bilirubin 1.1 mg/dL (0.2-1.3); Total Protein 6.8 g/dL (6.3-8.2)
--- NOTE | 2023-01-24 11:00 | CONS ---
CONSULTATION HISTORY OF PRESENT ILLNESS: Chase is an 87-year-old lady who has a history of COPD, hypertension, dyslipidemia, and has severe LV systolic dysfunction, presented to hospital with COPD exacerbation, chest pain, and has mild troponin elevation suggestive of acute [id number] elevation NE. At the time of my evaluation this morning, she appears comfortable at rest and her chest discomfort has resolved. Shortness of breath has improved. PHYSICAL EXAMINATION: VITAL SIGNS: Heart rate is 90 beats per minute. Blood pressure is 124/80, respiratory rate 18, O2 saturation is 98% on room air. CHEST: Reveals good air entry bilaterally. HEART: Reveals first and second heart sounds and a systolic murmur at the left lower sternal border. ABDOMEN: Soft. EXTREMITIES: Revealed mild edema bilaterally. LABORATORY DATA: Labs show that the hemoglobin is 11.1. Troponin is elevated but flat across at 0.1, 0.1, 0.08, and 0.05, and BNP is elevated. ASSESSMENT AND PLAN: 1. Acute onset systolic heart failure. 2. Elevated troponin, probably due to a combination of congestive heart failure and chronic obstructive pulmonary disease exacerbations and [id number] elevation myocardial infarction. The patient has severe LV systolic dysfunction on the echocardiogram and also has severe pulmonary hypertension with RV systolic pressure of 70 mm. We will manage her with optimal medical therapy at this time with aspirin, intravenous heparin, IV Lasix, LUKE inhibitors, and nitrates. Check a lipid profile and start her on statin. If patient has persistent chest discomfort, we might consider doing invasive angiography on her. I will leave her on heparin for another day. MMODL / IJN: [id number] /
--- NOTE | 2023-01-24 11:24 | P.PN ---
Subjective Progress Note Date: 01/24/23 Chase Min, is an 87-year-old female, who presented to [facility] emergency room with a chief complaint of worsening shortness of breath She was evaluated in the emergency room vital examination on presentation revealed a temperature of 97.9 pulse 96 respiration 24 blood pressure 145/100 pulse ox 95% on room air Laboratory data revealed a white blood count of 8.9 hemoglobin 10.5 platelet count 295 sodium 136 potassium 3.0 chloride 101 CO2 23 BUN 24 creatinine 0.9 AST 38 ALT 32 troponin 0.1 Testing in the emergency room revealed EKG done in the emergency room revealed sinus rhythm with occasional PVC left bundle branch block, chest x-ray done in the emergency room revealed mild cardiomegaly and increasing patchy opacity in the left mid and lower lung. Patient was admitted to medical floor for further evaluation and treatment, cardiology consultation and pulmonary consultation were requested. On 01/24/2023 patient was seen and examined on the telemetry floor she is alert and oriented 3 in no apparent distress, she is still complaining of shortness of breath otherwise she denies any complaints there is no fever or chills no headache or dizziness no chest pain no cough no nausea or vomiting no abdominal pain no diarrhea no blood in the stools no burning with urination no frequency or urgency and no hematuria. 2-D echo was completed showing global severe decre ase in contractility estimated ejection fraction about 20-25%. Patient remains on IV heparin and IV Lasix. Cardiology and pulmonary services are following. Ultrasound completed for pleural effusion showing a small to moderate left pleural effusion and trace on the right. Current vital signs temp 98, heart rate 92, respiratory rate 18, blood pressure 124/87, pulse ox 98% on room air Objective - Vital Signs Vital signs: Vital Signs Temp 98 F 01/24/23 08:00 Pulse 92 01/24/23 08:00 Resp 18 01/24/23 08:00 BP 124/87 01/24/23 08:00 Pulse Ox 98 01/24/23 08:00 FiO2 Intake & Output 01/23/23 01/24/23 01/24/23 18:59 06:59 18:59 Intake Total 189.766 Output Total 1800 625 Balance -1800 -625 189.766 Intake: Intake, IV Titration 189.766 Amount Heparin Sod,Pork in 0.45% 189.766 NaCl 25,000 unit In 0.45 % NaCl 1 250ml.bag @ 12 UNITS/KG/HR 7.294 mls/hr IV .Q24H [facility] Rx#: [id number] Output: Urine 1800 625 - Exam In general patient is alert and oriented x 3 in no distress HEENT head normocephalic and atraumatic Neck is supple no JVD no goiter no lymphadenopathy no carotid bruit Chest examination reveals a scattered crackles bilaterally no wheezing Cardiac exam reveals regular heart sounds S1 and S2 no gallops no murmurs Abdomen is soft nontender no organomegaly with normal bowel sounds Extremity exam reveals mild lower extremity edema left worse than right no cyanosis or clubbing Neurological examination reveals no gross focal deficits - Labs CBC & Chem 7: 01/24/23 05:37 01/24/23 09:26 Labs: Abnormal Lab Results - Last 24 Hours (Table) 01/23/23 01/23/23 01/24/23 Range/Units 17:38 23:33 05:37 WBC 11.3 H (3.8-10.6) k/uL Hgb 11.1 L (11.4-16.0) gm/dL RDW 16.3 H (11.5-15.5) % Neutrophils # 8.7 H (1.3-7.7) k/uL PT (9.0-12.0) sec INR (<1.2) Potassium (3.5-5.1) mmol/L Chloride (98-107) mmol/L BUN (7-17) mg/dL Glucose (74-99) mg/dL AST (14-36) U/L ALT (4-34) U/L Troponin I 0.101 H* 0.084 H* (0.000-0.034) ng/mL Albumin (3.5-5.0) g/dL 01/24/23 01/24/23 01/24/23 Range/Units 05:37 05:37 09:26 WBC (3.8-10.6) k/uL Hgb (11.4-16.0) gm/dL RDW (11.5-15.5) % Neutrophils # (1.3-7.7) k/uL PT 12.7 H (9.0-12.0) sec INR 1.2 H (<1.2) Potassium 3.2 L (3.5-5.1) mmol/L Chloride 97 L (98-107) mmol/L BUN 21 H (7-17) mg/dL Glucose 156 H (74-99) mg/dL AST 51 H (14-36) U/L ALT 45 H (4-34) U/L Troponin I 0.058 H* (0.000-0.034) ng/mL Albumin 3.3 L (3.5-5.0) g/dL Assessment and Plan Plan: Shortness of breath, related to acute exacerbation of systolic congestive heart failure Chest discomfort was elevated troponin, related to non-ST elevation myocardial infarction, patient was started on IV heparin cardiology consultation was requested Bilateral pleural effusion, pulmonary following, chest ultrasound done, small pleural effusions , thoracentesis is not indicated. per pulmonary. Hypokalemia on presentation, correcting Left lower extremity edema lower extremity venous Doppler was ordered Underlying history of hypertension Underlying history of hyperlipidemia Underlying history of osteoarthritis Remote history of pulmonary embolism History of gastrointestinal bleeding History of esophageal stricture, with previous history of dilatation At this time patient is admitted to telemetry floor Home medications reviewed and reordered She was started on IV heparin and IV Lasix Echocardiogram ordered results reviewed, reveals severe decrease in contractility with ejection fraction of 20-25% with severe mitral and tricuspid regurgitation and severe pulmonary hypertension. Cardiology and pulmonary consultation requested Will follow closely
[2023-01-24] MEDS: POTASSIUM CHLORIDE ER 20 MEQ TAB.ER PO SCH ×3 (13:59→23:28)
--- NOTE | 2023-01-24 14:25 | P.PN ---
Subjective Progress Note Date: 01/24/23 Principal diagnosis: Acute onset systolic congestive heart failure This is a very pleasant 87-year-old female patient with a known history of moderate persistent chronic bronchial asthma, hypertension, hyperlipidemia, gastroesophageal reflux disease, pulmonary embolism, colitis, esophageal stricture with previous dilatations. Nonsmoker. She presented here to the emergency room early this morning with complaints of shortness of breath and chest discomfort. Chest x-ray revealed mild cardiomegaly with interstitial changes and small bilateral pleural effusions and pulmonary vascular congestion. Increasing patchy opacities in the left mid and lower lung representing pulmo nary edema or possibly pneumonia. EKG reveals sinus arrhythmia with left bundle branch block. White count 8.9. Hemoglobin 10.5. Platelets 295. INR 1.3. Sodium 136. Potassium 3.0. Bicarb 23. BUN 24. Creatinine 0.90. Glucose 115. AST 38. ALT 32. Troponin 0.100. NT proBNP 13,300. She is seen in consultation in the emergency department. Currently sitting up in a stretcher. Awake and alert in no acute distress. She is maintaining O2 saturations in the mid 90s on room air. She is afebrile. Hemodynamically stable. Echocardiogram reveals severely impaired left ventricular systolic function with ejection fraction 20-25%. There is also severe pulmonary hypertension with an RVSP of 75 mmHg. Severe mitral regurgitation. Moderate to severe tricuspid regurgitation. She's been initiated on a heparin drip. On IV Lasix 40 mg every 8 hours. Potassium being replaced. Reevaluated today on 01/24/2023, patient remains in the ER, patient is feeling better today, breathing easier, does not seem to be in any distress, remains on heparin, she is on room air with O2 sat shave 98%. Blood pressure is stable, O2 sat is 98%, and her heart rate is 92 respirations 18. Patient is still on diuretics as per cardiology, ultrasound of the chest did show evidence of good sized left-sided pleural effusion, however considering the patient is on heparin and she is responding to diuretics, will hold on thoracentesis and if no improvement with medical treatment then will recommend thoracentesis. WBC count today is 11.3 hemoglobin is 11.1 her INR is normal. Electrolytes are normal except for low potassium of 3.2. Troponins were noted to be elevated but seems to be trending down at present echocardiogram showed severe LV dysfunction and pulmonary hypertension. Objective - Vital Signs Vital signs: Vital Signs Temp 98 F 01/24/23 08:00 Pulse 92 01/24/23 08:00 Resp 18 01/24/23 08:00 BP 124/87 01/24/23 08:00 Pulse Ox 98 01/24/23 08:00 FiO2 Intake & Output 01/23/23 01/24/23 01/24/23 18:59 06:59 18:59 Intake Total 240 429.766 Output Total 1800 625 Balance -1560 -625 429.766 Intake: Intake, IV Titration 189.766 Amount Heparin Sod,Pork in 0.45% 189.766 NaCl 25,000 unit In 0.45 % NaCl 1 250ml.bag @ 12 UNITS/KG/HR 7.294 mls/hr IV .Q24H [facility] Rx#: [id number] Oral 240 240 Output: Urine 1800 625 - Exam Physical Exam: Revealed a 87-year-old female in no distress Head: Atraumatic normocephalic. HEENT:[Neck is supple.] [No neck masses.] [No thyromegaly.] [No JVD.] Dry mucous membranes are noted. Chest: [Diminished breath sounds at the left base and dullness. Cardiac Exam: [Normal S1 and S2, no S3 gallop, 2/6 systolic murmur thought the precordium. Abdomen: [Soft, nontender, no megaly, no rebound, no guarding, normal bowel sounds.] Extremities: [No clubbing, trace of bipedal edema, no cyanosis.] Neurological Exam: [No focal neurologic deficit.] Alert and oriented 3 Psychiatric: Normal mood, affect and normal mental status examination. Skin: No rashes - Labs CBC & Chem 7: 01/24/23 05:37 01/24/23 09:26 Labs: Abnormal Lab Results - Last 24 Hours (Table) 01/23/23 01/23/23 01/24/23 Range/Units 17:38 23:33 05:37 WBC 11.3 H (3.8-10.6) k/uL Hgb 11.1 L (11.4-16.0) gm/dL RDW 16.3 H (11.5-15.5) % Neutrophils # 8.7 H (1.3-7.7) k/uL PT (9.0-12.0) sec INR (<1.2) Potassium (3.5-5.1) mmol/L Chloride (98-107) mmol/L BUN (7-17) mg/dL Glucose (74-99) mg/dL AST (14-36) U/L ALT (4-34) U/L Troponin I 0.101 H* 0.084 H* (0.000-0.034) ng/mL Albumin (3.5-5.0) g/dL 01/24/23 01/24/23 01/24/23 Range/Units 05:37 05:37 09:26 WBC (3.8-10.6) k/uL Hgb (11.4-16.0) gm/dL RDW (11.5-15.5) % Neutrophils # (1.3-7.7) k/uL PT 12.7 H (9.0-12.0) sec INR 1.2 H (<1.2) Potassium 3.2 L (3.5-5.1) mmol/L Chloride 97 L (98-107) mmol/L BUN 21 H (7-17) mg/dL Glucose 156 H (74-99) mg/dL AST 51 H (14-36) U/L ALT 45 H (4-34) U/L Troponin I 0.058 H* (0.000-0.034) ng/mL Albumin 3.3 L (3.5-5.0) g/dL Assessment and Plan Assessment: Impression: Acute systolic congestive heart failure, new onset Severe pulmonary hypertension with severe mitral regurgitation and LV dysfunction Left-sided pleural effusion may require thoracentesis if no improvement with diuretics Troponin leak, possible non-ST elevation myocardial infarction Bipedal edema, most likely secondary to cor pulmonale History of moderate persistent chronic bronchial asthma Dyslipidemia Benign essential hypertension History of GI bleeding back in 2020 History of esophageal strictures and previous dilatation. Recommendation: Continue diuretics Continue bronchodilators Continue heparin for now as per cardiology. Consider left-sided thoracentesis if no improvement with diuretics Consider cutting down on the Lasix in the next 24 hours We will continue to follow. Prognosis is guarded. Time with Patient: Less than 30
[2023-01-24] MEDS: HEPARIN SOD,PORK IN 0.45% NACL 25,000 UNIT in 0.45% NACL 1 250ML.BAG IV SCH (17:21)
[2023-01-24] MEDS: ACETAMINOPHEN TAB 325 MG TAB PO PRN (18:42)
[2023-01-25] MEDS: FUROSEMIDE 10 MG/ML 4 ML VIAL IV SCH (05:42)
[2023-01-25] MEDS: HEPARIN SOD,PORK IN 0.45% NACL 25,000 UNIT in 0.45% NACL 1 250ML.BAG IV SCH (05:43)
[2023-01-25 07:34] LABS: Anisocytosis Slight; Basophils % (A) 0 %; Eosinophils # (A) 0.1 k/uL (0-0.7); Eosinophils % (A) 1 %; HCT 35.6 % (34.0-46.0); HGB 11.1 gm/dL (11.4-16.0); Hypochromasia Marked; Lymphocytes % (A) 22 %; MCH 26.4 pg (25.0-35.0); MCHC 31.3 g/dL (31.0-37.0); MCV 84.5 fL (80.0-100.0); Mean Platelet Volume 8.9; Monocytes # (A) 0.3 k/uL (0-1.0); Monocytes % (A) 4 %; Neutrophils # (A) 6.4 k/uL (1.3-7.7); Neutrophils % (A) 72 %; Platelet Count 237 k/uL (150-450); RBC 4.21 m/uL (3.80-5.40); RDW 16.1 % (11.5-15.5); WBC 8.9 k/uL (3.8-10.6)
[2023-01-25 07:38] LABS: Albumin 2.9 g/dL (3.5-5.0); Calcium 8.5 mg/dL (8.4-10.2); Total Bilirubin 0.9 mg/dL (0.2-1.3); Total Protein 6.2 g/dL (6.3-8.2)
[2023-01-25] MEDS: SYMBICORT 160-4.5 MCG INHALER INHALATION SCH ×2 (08:26→20:47)
[2023-01-25] MEDS: LOSARTAN-HCTZ 50-12.5 MG 1 EACH TAB PO SCH (09:15)
[2023-01-25] MEDS: ISOSORBIDE MONONITRATE ER 30 MG TAB.ER.24H PO SCH (09:15)
[2023-01-25] MEDS: POTASSIUM CHLORIDE ER 20 MEQ TAB.ER PO SCH ×5 (09:15→23:40)
[2023-01-25] MEDS: ASPIRIN 81 MG PO SCH (09:15)
[2023-01-25] MEDS ORDERED: Potassium Replacement Protocol 1 EACH MISC MISCELLANE PRN (09:22)
[2023-01-25] MEDS: ACETAMINOPHEN TAB 325 MG TAB PO PRN ×2 (10:33→21:07)
--- NOTE | 2023-01-25 10:53 | P.PN ---
Subjective Progress Note Date: 01/25/23 Chase Min, is an 87-year-old female, who presented to [facility] emergency room with a chief complaint of worsening shortness of breath She was evaluated in the emergency room vital examination on presentation revealed a temperature of 97.9 pulse 96 respiration 24 blood pressure 145/100 pulse ox 95% on room air Laboratory data revealed a white blood count of 8.9 hemoglobin 10.5 platelet count 295 sodium 136 potassium 3.0 chloride 101 CO2 23 BUN 24 creatinine 0.9 AST 38 ALT 32 troponin 0.1 Testing in the emergency room revealed EKG done in the emergency room revealed sinus rhythm with occasional PVC left bundle branch block, chest x-ray done in the emergency room revealed mild cardiomegaly and increasing patchy opacity in the left mid and lower lung. Patient was admitted to medical floor for further evaluation and treatment, cardiology consultation and pulmonary consultation were requested. On 01/24/2023 patient was seen and examined on the telemetry floor she is alert and oriented 3 in no apparent distress, she is still complaining of shortness of breath otherwise she denies any complaints there is no fever or chills no headache or dizziness no chest pain no cough no nausea or vomiting no abdominal pain no diarrhea no blood in the stools no burning with urination no frequency or urgency and no hematuria. 2-D echo was completed showing global severe decre ase in contractility estimated ejection fraction about 20-25%. Patient remains on IV heparin and IV Lasix. Cardiology and pulmonary services are following. Ultrasound completed for pleural effusion showing a small to moderate left pleural effusion and trace on the right. Current vital signs temp 98, heart rate 92, respiratory rate 18, blood pressure 124/87, pulse ox 98% on room air On 01/25/2023 patient was seen and examined on the telemetry floor she is alert and oriented 3 in no apparent distress, she is still complaining of chest tightness and shortness of breath otherwise she denies any complaints there is no fever or chills no headache or dizziness no cough no nausea or vomiting no abdominal pain no diarrhea no blood in the stools no burning with urination no frequency or urgency and no hematuria. At this time patient is improving gradually, cardiology and pulmonary are following. Prognosis remains guarded. Today I am adding Ensure 1 can 3 times a day and adding physical therapy and occupational therapy, will follow closely Objective - Vital Signs Vital signs: Vital Signs Temp 97.7 F 01/25/23 08:10 Pulse 73 01/25/23 08:10 Resp 18 01/25/23 08:10 BP 132/66 01/25/23 08:10 Pulse Ox 96 01/25/23 08:10 FiO2 Intake & Output 01/24/23 01/25/23 01/25/23 18:59 06:59 18:59 Intake Total 610.000 120 Output Total 700 1100 Balance -90.000 -1100 120 Weight 60.781 kg 60.7 kg Intake: Intake, IV Titration 250.000 Amount Heparin Sod,Pork in 0.45% 250.000 NaCl 25,000 unit In 0.45 % NaCl 1 250ml.bag @ 12 UNITS/KG/HR 7.294 mls/hr IV .Q24H [facility] Rx#: [id number] Oral 360 120 Output: Urine 700 1100 Other: Voiding Method External Catheter - Exam In general patient is alert and oriented x 3 in no distress HEENT head normocephalic and atraumatic Neck is supple no JVD no goiter no lymphadenopathy no carotid bruit Chest examination reveals a scattered crackles bilaterally no wheezing Cardiac exam reveals regular heart sounds S1 and S2 no gallops no murmurs Abdomen is soft nontender no organomegaly with normal bowel sounds Extremity exam reveals mild lower extremity edema left worse than right no cyanosis or clubbing Neurological examination reveals no gross focal deficits - Labs CBC & Chem 7: 01/25/23 06:43 01/25/23 06:43 Labs: Abnormal Lab Results - Last 24 Hours (Table) 01/24/23 01/24/23 01/25/23 Range/Units 09:26 23:52 06:43 Hgb 11.1 L (11.4-16.0) gm/dL RDW 16.1 H (11.5-15.5) % APTT 53.3 H (22.0-30.0) sec Sodium (137-145) mmol/L Potassium 3.2 L (3.5-5.1) mmol/L Chloride 97 L (98-107) mmol/L Carbon Dioxide (22-30) mmol/L BUN 21 H (7-17) mg/dL Glucose 156 H (74-99) mg/dL AST 51 H (14-36) U/L ALT 45 H (4-34) U/L Total Protein (6.3-8.2) g/dL Albumin 3.3 L (3.5-5.0) g/dL 01/25/23 01/25/23 Range/Units 06:43 06:43 Hgb (11.4-16.0) gm/dL RDW (11.5-15.5) % APTT 57.2 H (22.0-30.0) sec Sodium 135 L (137-145) mmol/L Potassium 3.0 L (3.5-5.1) mmol/L Chloride 95 L (98-107) mmol/L Carbon Dioxide 36 H (22-30) mmol/L BUN 25 H (7-17) mg/dL Glucose (74-99) mg/dL AST 45 H (14-36) U/L ALT 43 H (4-34) U/L Total Protein 6.2 L (6.3-8.2) g/dL Albumin 2.9 L (3.5-5.0) g/dL Assessment and Plan Plan: Shortness of breath, related to acute exacerbation of systolic congestive heart failure Chest discomfort was elevated troponin, related to non-ST elevation myocardial infarction, patient was started on IV heparin cardiology consultation was requested Bilateral pleural effusion, pulmonary following, chest ultrasound done, small pleural effusions , thoracentesis is not indicated. per pulmonary. Hypokalemia on presentation, correcting Left lower extremity edema lower extremity venous Doppler was ordered Underlying history of hypertension Underlying history of hyperlipidemia Underlying history of osteoarthritis Remote history of pulmonary embolism History of gastrointestinal bleeding History of esophageal stricture, with previous history of dilatation At this time patient is admitted to telemetry floor Home medications reviewed and reordered She was started on IV heparin and IV Lasix Echocardiogram ordered results reviewed, reveals severe decrease in contractility with ejection fraction of 20-25% with severe mitral and tricuspid regurgitation and severe pulmonary hypertension. Cardiology and pulmonary consultation requested Will follow closely
--- NOTE | 2023-01-25 13:23 | P.PN ---
Subjective Progress Note Date: 01/25/23 This is a very pleasant 87-year-old female patient with a known history of moderate persistent chronic bronchial asthma, hypertension, hyperlipidemia, gastroesophageal reflux disease, pulmonary embolism, colitis, esophageal stricture with previous dilatations. Nonsmoker. She presented here to the emergency room early this morning with complaints of shortness of breath and chest discomfort. Chest x-ray revealed mild cardiomegaly with interstitial changes and small bilateral pleural effusions and pulmonary vascular congestion. Increasing patchy opacities in the left mid and lower lung representing pulmonary edema or possibly pneumonia. EKG reveals sinus arrhythmia with left bundle branch block. White count 8.9. Hemoglobin 10.5. Platelets 295. INR 1.3. Sodium 136. Potassium 3.0. Bicarb 23. BUN 24. Creatinine 0.90. Glucose 115. AST 38. ALT 32. Troponin 0.100. NT proBNP 13,300. She is seen in consultation in the emergency department. Currently sitting up in a stretcher. Awake and alert in no acute distress. She is maintaining O2 saturations in the mid 90s on room air. She is afebrile. Hemodynamically stable. Echocardiogram reveals severely impaired left ventricular systolic function with ejection fraction 20-25%. There is also severe pulmonary hypertension with an RVSP of 75 mmHg. Severe mitral regurgitation. Moderate to severe tricuspid regurgitation. She's been initiated on a heparin drip. On IV Lasix 40 mg every 8 hours. Potassium being replaced. Reevaluated today on 01/24/2023, patient remains in the ER, patient is feeling better today, breathing easier, does not seem to be in any distress, remains on heparin, she is on room air with O2 sat shave 98%. Blood pressure is stable, O2 sat is 98%, and her heart rate is 92 respirations 18. Patient is still on diuretics as per cardiology, ultrasound of the chest did show evidence of good sized left-sided pleural effusion, however considering the patient is on heparin and she is responding to diuretics, will hold on thoracentesis and if no improvement with medical treatment then will recommend thoracentesis. WBC count today is 11.3 hemoglobin is 11.1 her INR is normal. Electrolytes are normal except for low potassium of 3.2. Troponins were noted to be elevated but seems to be trending down at present echocardiogram showed severe LV dysfunction and pulmonary hypertension. The patient is seen today 01/25/2023 in follow-up on the selective care unit. She is currently awake and alert in no acute distress. Maintaining O2 saturations in the 90s on room air. She's been afebrile. Hemodynamically stable. White count 8.9. Hemoglobin 11.1. Platelets 237. Sodium 135. Potassium 3.0. Bicarb 36. BUN 25. Creatinine 0.91. AST 45. ALT 43. She is continued on Symbicort, albuterol, diuretics. Currently in a -1.1 L balance. Heparin drip discontinued. Currently on subcu heparin for DVT prophylaxis. Objective - Vital Signs Vital signs: Vital Signs Temp 97.7 F 01/25/23 08:10 Pulse 73 01/25/23 08:10 Resp 18 01/25/23 08:10 BP 132/66 01/25/23 08:10 Pulse Ox 96 01/25/23 08:10 FiO2 Intake & Output 01/24/23 01/25/23 01/25/23 18:59 06:59 18:59 Intake Total 610.000 240 Output Total 700 1100 Balance -90.000 -1100 240 Weight 60.781 kg 60.7 kg Intake: Intake, IV Titration 250.000 Amount Heparin Sod,Pork in 0.45% 250.000 NaCl 25,000 unit In 0.45 % NaCl 1 250ml.bag @ 12 UNITS/KG/HR 7.294 mls/hr IV .Q24H [facility] Rx#: [id number] Oral 360 240 Output: Urine 700 1100 Other: Voiding Method External Catheter - Exam GENERAL EXAM: Alert, pleasant 87-year-old female, on room air, comfortable in no apparent distress. HEAD: Normocephalic. EYES: Normal reaction of pupils, equal size. NOSE: Clear with pink turbinates. THROAT: No erythema or exudates. NECK: No masses, no JVD. CHEST: No chest wall deformity. LUNGS: Equal air entry with faint crackles in the posterior bases. CVS: S1 and S2 normal with an audible murmur, regular rhythm. ABDOMEN: No hepatosplenomegaly, normal bowel sounds, no guarding or rigidity. SPINE: No scoliosis or deformity SKIN: No rashes CENTRAL NERVOUS SYSTEM: No focal deficits, tone is normal in all 4 extremities. EXTREMITIES: There is 1+ peripheral edema. No clubbing, no cyanosis. Peripheral pulses are intact. - Labs CBC & Chem 7: 01/25/23 06:43 01/25/23 06:43 Labs: Abnormal Lab Results - Last 24 Hours (Table) 01/24/23 01/25/23 01/25/23 Range/Units 23:52 06:43 06:43 Hgb 11.1 L (11.4-16.0) gm/dL RDW 16.1 H (11.5-15.5) % APTT 53.3 H (22.0-30.0) sec Sodium 135 L (137-145) mmol/L Potassium 3.0 L (3.5-5.1) mmol/L Chloride 95 L (98-107) mmol/L Carbon Dioxide 36 H (22-30) mmol/L BUN 25 H (7-17) mg/dL AST 45 H (14-36) U/L ALT 43 H (4-34) U/L Total Protein 6.2 L (6.3-8.2) g/dL Albumin 2.9 L (3.5-5.0) g/dL 01/25/23 Range/Units 06:43 Hgb (11.4-16.0) gm/dL RDW (11.5-15.5) % APTT 57.2 H (22.0-30.0) sec Sodium (137-145) mmol/L Potassium (3.5-5.1) mmol/L Chloride (98-107) mmol/L Carbon Dioxide (22-30) mmol/L BUN (7-17) mg/dL AST (14-36) U/L ALT (4-34) U/L Total Protein (6.3-8.2) g/dL Albumin (3.5-5.0) g/dL Assessment and Plan Assessment: Acute exacerbation of systolic congestive heart failure in a patient found to have severely impaired left ventricular systolic function ejection fraction of 20% along with severe mitral and tricuspid regurgitation with severe pulmonary hypertension with an RSVP of 75 mmHg. Troponin leak, initially on a heparin drip Bilateral pleural effusions left greater than right Hypokalemia, potassium being replaced Left lower extremity edema History of moderate persistent chronic bronchial asthma Hyperlipidemia Hypertension Osteoarthritis Previous history of bilateral pulmonary embolism in 2010 History of GI bleed and has been off anticoagulation since 2020 and declined to resume History of esophageal strictures with previous dilatation Plan: The patient was seen and evaluated Medications and labs reviewed Transitioned to oral diuretics Transitioned to heparin subcu Continue Symbicort, Ventolin HFA Prognosis is guarded We will continue to follow I have personally seen and examined the patient, performed the documentation and the assessment and plan as written. Number of minutes spent on the visit: 10.
--- NOTE | 2023-01-25 13:47 | P.PN ---
Subjective Progress Note Date: 01/25/23 History of present illness: This is an 87-year-old female with past medical history of COPD, hypertension, dyslipidemia, severe LV systolic dysfunction presented to the hospital with COPD exacerbation, chest pain, mild troponin elevation suggestive of acute non-ST elevated myocardial infarction. Patient is currently on medical management with no plan for cardiac intervention. Patient does complain of chest pain in the left upper chest area which is very tender to touch. She is on a heparin drip. EF 20-25%, severe mitral and tricuspid regurgitation, severe pulmonary hypertension Physical examination: Gen: This is an 87-year-old female. She is resting in bed and appears to be comfortable and in no acute distress VS: reviewed HEENT: Head is atraumatic, normocephalic. Pupils equal, round. Sclerae is anicteric. NECK: Supple. No JVD. . LUNGS: Clear to auscultation. No wheezes or rhonchi. No intercostal retractions. HEART: First and second heart sounds, systolic murmur at the left sternal border. Left-sided chest wall tenderness ABDOMEN: Soft No tenderness. EXTREMITIES: Minimal pedal edema. No calf tenderness. NEUROLOGICAL: Patient is awake, alert and oriented x3. Assessment: Acute systolic heart failure Elevated troponin secondary to heart failure, COPD exacerbation and non-ST elevated myocardial infarction. Severe LV systolic dysfunction Severe pulmonary hypertension Plan: Continue current cardiac medications including Imdur, Lopressor, aspirin Add atorvastatin Discontinue IV heparin drip and start subcu heparin Transition IV Lasix to oral 40 mg twice daily If patient has persistent chest discomfort might consider invasive angiography. At this time no plan for any other invasive procedures. Further recommendations to follow based upon clinical course Thank you kindly for this consultation. Nurse practitioner note has been reviewed, I agree with documented findings and plan of care. Patient was seen and examined. Objective - Vital Signs Vital signs: Vital Signs Temp 97.7 F 01/25/23 08:10 Pulse 73 01/25/23 08:10 Resp 18 01/25/23 08:10 BP 132/66 01/25/23 08:10 Pulse Ox 96 01/25/23 08:10 FiO2 Intake & Output 01/24/23 01/25/23 01/25/23 18:59 06:59 18:59 Intake Total 610.000 120 Output Total 700 1100 Balance -90.000 -1100 120 Weight 60.781 kg 60.7 kg Intake: Intake, IV Titration 250.000 Amount Heparin Sod,Pork in 0.45% 250.000 NaCl 25,000 unit In 0.45 % NaCl 1 250ml.bag @ 12 UNITS/KG/HR 7.294 mls/hr IV .Q24H [facility] Rx#: [id number] Oral 360 120 Output: Urine 700 1100 Other: Voiding Method External Catheter - Labs CBC & Chem 7: 01/25/23 06:43 01/25/23 06:43 Labs: Abnormal Lab Results - Last 24 Hours (Table) 01/24/23 01/24/23 01/25/23 Range/Units 09:26 23:52 06:43 Hgb 11.1 L (11.4-16.0) gm/dL RDW 16.1 H (11.5-15.5) % APTT 53.3 H (22.0-30.0) sec Sodium (137-145) mmol/L Potassium 3.2 L (3.5-5.1) mmol/L Chloride 97 L (98-107) mmol/L Carbon Dioxide (22-30) mmol/L BUN 21 H (7-17) mg/dL Glucose 156 H (74-99) mg/dL AST 51 H (14-36) U/L ALT 45 H (4-34) U/L Total Protein (6.3-8.2) g/dL Albumin 3.3 L (3.5-5.0) g/dL 01/25/23 01/25/23 Range/Units 06:43 06:43 Hgb (11.4-16.0) gm/dL RDW (11.5-15.5) % APTT 57.2 H (22.0-30.0) sec Sodium 135 L (137-145) mmol/L Potassium 3.0 L (3.5-5.1) mmol/L Chloride 95 L (98-107) mmol/L Carbon Dioxide 36 H (22-30) mmol/L BUN 25 H (7-17) mg/dL Glucose (74-99) mg/dL AST 45 H (14-36) U/L ALT 43 H (4-34) U/L Total Protein 6.2 L (6.3-8.2) g/dL Albumin 2.9 L (3.5-5.0) g/dL
[2023-01-25] MEDS: FUROSEMIDE 40 MG TAB PO SCH (16:11)
[2023-01-25] MEDS: ATORVASTATIN 40 MG TAB PO SCH (21:08)
[2023-01-25] MEDS: HEPARIN SODIUM,PORCINE/PF 5,000 UNIT/0.5 ML SYRINGE SQ SCH (21:08)
[2023-01-25] MEDS: METOPROLOL TARTRATE 12.5 MG TAB PO SCH (21:10)
[2023-01-26] MEDS: SYMBICORT 160-4.5 MCG INHALER INHALATION SCH ×2 (08:31→21:29)
[2023-01-26] MEDS: HEPARIN SODIUM,PORCINE/PF 5,000 UNIT/0.5 ML SYRINGE SQ SCH ×2 (09:22→22:07)
[2023-01-26] MEDS: POTASSIUM CHLORIDE ER 20 MEQ TAB.ER PO SCH ×2 (09:23→15:54)
[2023-01-26] MEDS: LOSARTAN-HCTZ 50-12.5 MG 1 EACH TAB PO SCH (09:23)
[2023-01-26] MEDS: METOPROLOL TARTRATE 12.5 MG TAB PO SCH ×2 (09:23→22:07)
[2023-01-26] MEDS: FUROSEMIDE 40 MG TAB PO SCH ×2 (09:23→15:54)
[2023-01-26] MEDS: ASPIRIN 81 MG PO SCH (09:23)
[2023-01-26] MEDS: ISOSORBIDE MONONITRATE ER 30 MG TAB.ER.24H PO SCH (09:23)
[2023-01-26] MEDS ORDERED: Potassium Replacement Protocol 1 EACH MISC MISCELLANE PRN (09:41)
--- NOTE | 2023-01-26 10:39 | P.PN ---
Subjective Progress Note Date: 01/26/23 Chase Min, is an 87-year-old female, who presented to [facility] emergency room with a chief complaint of worsening shortness of breath She was evaluated in the emergency room vital examination on presentation revealed a temperature of 97.9 pulse 96 respiration 24 blood pressure 145/100 pulse ox 95% on room air Laboratory data revealed a white blood count of 8.9 hemoglobin 10.5 platelet count 295 sodium 136 potassium 3.0 chloride 101 CO2 23 BUN 24 creatinine 0.9 AST 38 ALT 32 troponin 0.1 Testing in the emergency room revealed EKG done in the emergency room revealed sinus rhythm with occasional PVC left bundle branch block, chest x-ray done in the emergency room revealed mild cardiomegaly and increasing patchy opacity in the left mid and lower lung. Patient was admitted to medical floor for further evaluation and treatment, cardiology consultation and pulmonary consultation were requested. On 01/24/2023 patient was seen and examined on the telemetry floor she is alert and oriented 3 in no apparent distress, she is still complaining of shortness of breath otherwise she denies any complaints there is no fever or chills no headache or dizziness no chest pain no cough no nausea or vomiting no abdominal pain no diarrhea no blood in the stools no burning with urination no frequency or urgency and no hematuria. 2-D echo was completed showing global severe decre ase in contractility estimated ejection fraction about 20-25%. Patient remains on IV heparin and IV Lasix. Cardiology and pulmonary services are following. Ultrasound completed for pleural effusion showing a small to moderate left pleural effusion and trace on the right. Current vital signs temp 98, heart rate 92, respiratory rate 18, blood pressure 124/87, pulse ox 98% on room air On 01/25/2023 patient was seen and examined on the telemetry floor she is alert and oriented 3 in no apparent distress, she is still complaining of chest tightness and shortness of breath otherwise she denies any complaints there is no fever or chills no headache or dizziness no cough no nausea or vomiting no abdominal pain no diarrhea no blood in the stools no burning with urination no frequency or urgency and no hematuria. At this time patient is improving gradually, cardiology and pulmonary are following. Prognosis remains guarded. Today I am adding Ensure 1 can 3 times a day and adding physical therapy and occupational therapy, will follow closely. On 01/26/2023 patient was seen and examined on the telemetry floor she is alert and oriented 3 in no apparent distress she is still complaining of chest tightness and shortness of breath with any activity otherwise she denies any complaints there is no fever or chills no headache or dizziness no nausea or vomiting no abdominal pain no diarrhea no blood in the stools no burning with urination no frequency or urgency and no hematuria. Objective - Vital Signs Vital signs: Vital Signs Temp 97.8 F 01/26/23 04:00 Pulse 69 01/26/23 04:00 Resp 20 01/26/23 04:00 BP 105/58 01/26/23 04:00 Pulse Ox 100 01/26/23 08:33 FiO2 Intake & Output 01/25/23 01/26/23 01/26/23 18:59 06:59 18:59 Intake Total 960 Output Total 700 400 Balance 260 -400 Weight 60.2 kg Intake: Oral 960 Output: Urine 700 400 Other: Voiding Method External Catheter External Catheter # Voids 1 # Bowel Movements 1 - Exam In general patient is alert and oriented x 3 in no distress HEENT head normocephalic and atraumatic Neck is supple no JVD no goiter no lymphadenopathy no carotid bruit Chest examination reveals a scattered crackles bilaterally no wheezing Cardiac exam reveals regular heart sounds S1 and S2 no gallops no murmurs Abdomen is soft nontender no organomegaly with normal bowel sounds Extremity exam reveals mild lower extremity edema left worse than right no cyano sis or clubbing Neurological examination reveals no gross focal deficits - Labs CBC & Chem 7: 01/25/23 06:43 01/25/23 06:43 Assessment and Plan Plan: Shortness of breath, related to acute exacerbation of systolic congestive heart failure Chest discomfort was elevated troponin, related to non-ST elevation myocardial infarction, patient was started on IV heparin cardiology consultation was requested Bilateral pleural effusion, pulmonary following, chest ultrasound done, small pleural effusions , thoracentesis is not indicated. per pulmonary. Hypokalemia on presentation, correcting Left lower extremity edema lower extremity venous Doppler was ordered Underlying history of hypertension Underlying history of hyperlipidemia Underlying history of osteoarthritis Remote history of pulmonary embolism History of gastrointestinal bleeding History of esophageal stricture, with previous history of dilatation At this time patient is admitted to telemetry floor Home medications reviewed and reordered She was started on IV heparin and IV Lasix Echocardiogram ordered results reviewed, reveals severe decrease in contractility with ejection fraction of 20-25% with severe mitral and tricuspid regurgitation and severe pulmonary hypertension. Cardiology and pulmonary consultation requested Will follow closely
[2023-01-26 11:17] LABS: ALT 42 U/L (4-34); AST 36 U/L (14-36); African American GFR (CKD) 26 (>60 ml/min/1.73 sqM); Albumin 2.9 g/dL (3.5-5.0); Alkaline Phosphatase 88 U/L (38-126); Blood Urea Nitrogen 38 mg/dL (7-17); Calcium 8.7 mg/dL (8.4-10.2); Chloride 93 mmol/L (98-107); Glucose 123 mg/dL (74-99); Non-African American GFR(CKD) 23 (>60 ml/min/1.73 sqM); Potassium 4.1 mmol/L (3.5-5.1); Sodium 135 mmol/L (137-145); Total Bilirubin 0.4 mg/dL (0.2-1.3); Total Protein 6.2 g/dL (6.3-8.2)
[2023-01-26 11:20] LABS: Anisocytosis Slight; Basophils % (A) 0 %; Eosinophils # (A) 0.1 k/uL (0-0.7); Eosinophils % (A) 1 %; HCT 38.2 % (34.0-46.0); HGB 11.7 gm/dL (11.4-16.0); Hypochromasia Marked; Lymphocytes # (A) 1.2 k/uL (1.0-4.8); Lymphocytes % (A) 14 %; MCHC 30.6 g/dL (31.0-37.0); MCV 84.9 fL (80.0-100.0); Monocytes # (A) 0.4 k/uL (0-1.0); Monocytes % (A) 4 %; Neutrophils # (A) 6.7 k/uL (1.3-7.7); Neutrophils % (A) 79 %; Platelet Count 236 k/uL (150-450); RDW 16.1 % (11.5-15.5); WBC 8.5 k/uL (3.8-10.6)
[2023-01-26 11:24] LABS: Anion Gap 6 mmol/L
[2023-01-26 11:46] LABS: Carbon Dioxide 36 mmol/L (22-30)
[2023-01-26] MEDS: ACETAMINOPHEN TAB 325 MG TAB PO PRN ×2 (11:58→22:07)
--- NOTE | 2023-01-26 12:50 | P.PN ---
Subjective Progress Note Date: 01/26/23 This is a very pleasant 87-year-old female patient with a known history of moderate persistent chronic bronchial asthma, hypertension, hyperlipidemia, gastroesophageal reflux disease, pulmonary embolism, colitis, esophageal stricture with previous dilatations. Nonsmoker. She presented here to the emergency room early this morning with complaints of shortness of breath and chest discomfort. Chest x-ray revealed mild cardiomegaly with interstitial changes and small bilateral pleural effusions and pulmonary vascular congestion. Increasing patchy opacities in the left mid and lower lung representing pulmonary edema or possibly pneumonia. EKG reveals sinus arrhythmia with left bundle branch block. White count 8.9. Hemoglobin 10.5. Platelets 295. INR 1.3. Sodium 136. Potassium 3.0. Bicarb 23. BUN 24. Creatinine 0.90. Glucose 115. AST 38. ALT 32. Troponin 0.100. NT proBNP 13,300. She is seen in consultation in the emergency department. Currently sitting up in a stretcher. Awake and alert in no acute distress. She is maintaining O2 saturations in the mid 90s on room air. She is afebrile. Hemodynamically stable. Echocardiogram reveals severely impaired left ventricular systolic function with ejection fraction 20-25%. There is also severe pulmonary hypertension with an RVSP of 75 mmHg. Severe mitral regurgitation. Moderate to severe tricuspid regurgitation. She's been initiated on a heparin drip. On IV Lasix 40 mg every 8 hours. Potassium being replaced. Reevaluated today on 01/24/2023, patient remains in the ER, patient is feeling better today, breathing easier, does not seem to be in any distress, remains on heparin, she is on room air with O2 sat shave 98%. Blood pressure is stable, O2 sat is 98%, and her heart rate is 92 respirations 18. Patient is still on diuretics as per cardiology, ultrasound of the chest did show evidence of good sized left-sided pleural effusion, however considering the patient is on heparin and she is responding to diuretics, will hold on thoracentesis and if no improvement with medical treatment then will recommend thoracentesis. WBC count today is 11.3 hemoglobin is 11.1 her INR is normal. Electrolytes are normal except for low potassium of 3.2. Troponins were noted to be elevated but seems to be trending down at present echocardiogram showed severe LV dysfunction and pulmonary hypertension. The patient is seen today 01/25/2023 in follow-up on the selective care unit. She is currently awake and alert in no acute distress. Maintaining O2 saturations in the 90s on room air. She's been afebrile. Hemodynamically stable. White count 8.9. Hemoglobin 11.1. Platelets 237. Sodium 135. Potassium 3.0. Bicarb 36. BUN 25. Creatinine 0.91. AST 45. ALT 43. She is continued on Symbicort, albuterol, diuretics. Currently in a -1.1 L balance. Heparin drip discontinued. Currently on subcu heparin for DVT prophylaxis. The patient is seen today 01/26/2023 in follow-up on the selective care unit. S he is currently resting comfortably in bed. Awake and alert in no acute distress. Be a bit easier today compared to yesterday. She is maintaining O2 saturations in the 90s on 2 L/m per nasal cannula. Afebrile. Hemodynamically stable. White count 8.5. Hemoglobin 11.7. Platelets 236. Sodium 135. Potassium 4.1. Bicarb 36. BUN 38. Creatinine 1.97. Glucose 123. She is continued on albuterol, Symbicort. Heparin for DVT prophylaxis. Currently on oral diuretics. Remains in a negative balance. Objective - Vital Signs Vital signs: Vital Signs Temp 97.9 F 01/26/23 12:00 Pulse 71 01/26/23 12:00 Resp 18 01/26/23 12:00 BP 113/70 01/26/23 12:00 Pulse Ox 97 01/26/23 12:00 FiO2 Intake & Output 01/25/23 01/26/23 01/26/23 18:59 06:59 18:59 Intake Total 960 240 Output Total 700 400 Balance 260 -400 240 Weight 60.2 kg Intake: Oral 960 240 Output: Urine 700 400 Other: Voiding Method External Catheter External Catheter External Catheter # Voids 1 # Bowel Movements 1 - Exam GENERAL EXAM: Alert, 87-year-old female, on 2 L nasal cannula, comfortable in no apparent distress. HEAD: Normocephalic. EYES: Normal reaction of pupils, equal size. NOSE: Clear with pink turbinates. THROAT: No erythema or exudates. NECK: No masses, no JVD. CHEST: No chest wall deformity. LUNGS: Equal air entry with faint crackles in the posterior bases. CVS: S1 and S2 normal with an audible murmur, regular rhythm. ABDOMEN: No hepatosplenomegaly, normal bowel sounds, no guarding or rigidity. SPINE: No scoliosis or deformity SKIN: No rashes CENTRAL NERVOUS SYSTEM: No focal deficits, tone is normal in all 4 extremities. EXTREMITIES: There is 1+ peripheral edema. No clubbing, no cyanosis. Peripheral pulses are intact. - Labs CBC & Chem 7: 01/26/23 10:15 01/26/23 10:15 Labs: Abnormal Lab Results - Last 24 Hours (Table) 01/26/23 01/26/23 Range/Units 10:15 10:15 MCHC 30.6 L (31.0-37.0) g/dL RDW 16.1 H (11.5-15.5) % Sodium 135 L (137-145) mmol/L Chloride 93 L (98-107) mmol/L Carbon Dioxide 36 H (22-30) mmol/L BUN 38 H (7-17) mg/dL Creatinine 1.97 H (0.52-1.04) mg/dL Glucose 123 H (74-99) mg/dL ALT 42 H (4-34) U/L Total Protein 6.2 L (6.3-8.2) g/dL Albumin 2.9 L (3.5-5.0) g/dL Assessment and Plan Assessment: Acute exacerbation of systolic congestive heart failure in a patient found to have severely impaired left ventricular systolic function ejection fraction of 20% along with severe mitral and tricuspid regurgitation with severe pulmonary hypertension with an RSVP of 75 mmHg. Troponin leak, initially on a heparin drip Bilateral pleural effusions left greater than right Hypokalemia, potassium being replaced Left lower extremity edema History of moderate persistent chronic bronchial asthma Hyperlipidemia Hypertension Osteoarthritis Previous history of bilateral pulmonary embolism in 2010 History of GI bleed and has been off anticoagulation since 2020 and declined to resume History of esophageal strictures with previous dilatation Plan: The patient was seen and evaluated Medications and labs reviewed Continued on oral diuretics Continue Symbicort, Ventolin HFA Prognosis is guarded We will continue to follow I have personally seen and examined the patient, performed the documentation and the assessment and plan as written. Number of minutes spent on the visit: 10.
--- NOTE | 2023-01-26 13:03 | P.PN ---
Subjective Progress Note Date: 01/26/23 History of present illness: This is an 87-year-old female with past medical history of COPD, hypertension, dyslipidemia, severe LV systolic dysfunction presented to the hospital with COPD exacerbation, chest pain, mild troponin elevation suggestive of acute non-ST elevated myocardial infarction. Patient is currently on medical management with no plan for cardiac intervention. Patient does complain of chest pain in the left upper chest area which is very tender to touch. She is on a heparin drip. EF 20-25%, severe mitral and tricuspid regurgitation, severe pulmonary hypertension 01/26 Patient is seen today in follow-up. Yesterday we took her off IV heparin drip and place her on subcu and also change IV Lasix to oral. She has no lower extremity edema. Heart rate is in the 60s and 70s, blood pressure 105/58. Physical examination: Gen: This is an 87-year-old female. She is resting in bed and appears to be comfortable and in no acute distress VS: reviewed HEENT: Head is atraumatic, normocephalic. Pupils equal, round. Sclerae is anicteric. NECK: Supple. No JVD. . LUNGS: Clear to auscultation. No wheezes or rhonchi. No intercostal retractions. HEART: First and second heart sounds, systolic murmur at the left sternal border. Left-sided chest wall tenderness ABDOMEN: Soft No tenderness. EXTREMITIES: Minimal pedal edema. No calf tenderness. NEUROLOGICAL: Patient is awake, alert and oriented x3. Assessment: Acute systolic heart failure Elevated troponin secondary to heart failure, COPD exacerbation and non-ST elevated myocardial infarction. Severe LV systolic dysfunction Severe pulmonary hypertension Plan: Continue current cardiac medications including Imdur, Lopressor, aspirin and statin Continue subcu heparin Continue Lasix oral 40 mg twice daily If patient has persistent chest discomfort might consider invasive angiography. At this time no plan for any other invasive procedures. Further recommendations to follow based upon clinical course Thank you kindly for this consultation. Nurse practitioner note has been reviewed, I agree with documented findings and plan of care. Patient was seen and examined. Objective - Vital Signs Vital signs: Vital Signs Temp 97.8 F 01/26/23 04:00 Pulse 69 01/26/23 04:00 Resp 20 01/26/23 04:00 BP 105/58 01/26/23 04:00 Pulse Ox 100 01/26/23 08:33 FiO2 Intake & Output 01/25/23 01/26/23 01/26/23 18:59 06:59 18:59 Intake Total 960 Output Total 700 400 Balance 260 -400 Weight 60.2 kg Intake: Oral 960 Output: Urine 700 400 Other: Voiding Method External Catheter External Catheter # Voids 1 # Bowel Movements 1 - Labs CBC & Chem 7: 01/26/23 10:15 01/26/23 10:15
[2023-01-26] MEDS: ATORVASTATIN 40 MG TAB PO SCH (22:06)
[2023-01-26 22:36] LABS: Chol/HDL Ratio 3.94 Ratio; LDL Cholesterol,Calculated 120.6 mg/dL (0.0-131.0)
[2023-01-27] MEDS: POTASSIUM CHLORIDE ER 20 MEQ TAB.ER PO SCH ×4 (00:40→23:12)
[2023-01-27] MEDS: FUROSEMIDE 40 MG TAB PO SCH ×2 (07:36→15:28)
[2023-01-27] MEDS: LOSARTAN-HCTZ 50-12.5 MG 1 EACH TAB PO SCH (07:36)
[2023-01-27] MEDS: ISOSORBIDE MONONITRATE ER 30 MG TAB.ER.24H PO SCH (07:36)
[2023-01-27] MEDS: ASPIRIN 81 MG PO SCH (07:36)
[2023-01-27] MEDS: METOPROLOL TARTRATE 12.5 MG TAB PO SCH ×2 (07:36→21:33)
[2023-01-27] MEDS: HEPARIN SODIUM,PORCINE/PF 5,000 UNIT/0.5 ML SYRINGE SQ SCH ×2 (07:37→21:33)
[2023-01-27 07:53] LABS: Anisocytosis Slight; Basophils % (A) 0 %; Eosinophils # (A) 0.1 k/uL (0-0.7); Eosinophils % (A) 1 %; HCT 40.9 % (34.0-46.0); HGB 12.5 gm/dL (11.4-16.0); Hypochromasia Marked; Lymphocytes # (A) 1.8 k/uL (1.0-4.8); Lymphocytes % (A) 22 %; MCHC 30.5 g/dL (31.0-37.0); MCV 85.4 fL (80.0-100.0); Mean Platelet Volume 8.8; Monocytes # (A) 0.3 k/uL (0-1.0); Monocytes % (A) 4 %; Neutrophils % (A) 71 %; Platelet Count 274 k/uL (150-450); RBC 4.79 m/uL (3.80-5.40); RDW 16.1 % (11.5-15.5); WBC 8.4 k/uL (3.8-10.6)
[2023-01-27 08:09] LABS: Albumin 3.4 g/dL (3.5-5.0); Calcium 9.5 mg/dL (8.4-10.2); Potassium 4.8 mmol/L (3.5-5.1); Total Bilirubin 0.6 mg/dL (0.2-1.3); Total Protein 7.1 g/dL (6.3-8.2)
[2023-01-27] MEDS: SYMBICORT 160-4.5 MCG INHALER INHALATION SCH ×2 (09:26→20:03)
--- NOTE | 2023-01-27 11:52 | P.PN ---
Subjective Progress Note Date: 01/27/23 History of present illness: This is an 87-year-old female with past medical history of COPD, hypertension, dyslipidemia, severe LV systolic dysfunction presented to the hospital with COPD exacerbation, chest pain, mild troponin elevation suggestive of acute non-ST elevated myocardial infarction. Patient is currently on medical management with no plan for cardiac intervention. Patient does complain of chest pain in the left upper chest area which is very tender to touch. She is on a heparin drip. EF 20-25%, severe mitral and tricuspid regurgitation, severe pulmonary hypertension 01/26 Patient is seen today in follow-up. Yesterday we took her off IV heparin drip and place her on subcu and also change IV Lasix to oral. She has no lower extremity edema. Heart rate is in the 60s and 70s, blood pressure 105/58. 01/27 Patient denies any concerns today. She denies any chest pain or shortness of breath. She is found sitting up in a recliner and appears to be comfortable. Repeat blood work reveals hemoglobin of 12.5. Sodium 136, BUN 41 creatinine 1.96. AST 39, ALT 45. Heart rate is in the 70s and 80s, blood pressure 113/67, pulse ox 98% on 2 L nasal cannula. Telemetry has been sinus rhythm. Physical examination: Gen: This is an 87-year-old female. She is resting in bed and appears to be comfortable and in no acute distress VS: reviewed HEENT: Head is atraumatic, normocephalic. Pupils equal, round. Sclerae is anicteric. NECK: Supple. No JVD. . LUNGS: Clear to auscultation. No wheezes or rhonchi. No intercostal retractions. HEART: First and second heart sounds, systolic murmur at the left sternal border. Left-sided chest wall tenderness ABDOMEN: Soft No tenderness. EXTREMITIES: Minimal pedal edema. No calf tenderness. NEUROLOGICAL: Patient is awake, alert and oriented x3. Assessment: Acute systolic heart failure Elevated troponin secondary to heart failure, COPD exacerbation and non-ST elevated myocardial infarction. Severe LV systolic dysfunction Severe pulmonary hypertension Plan: Continue current cardiac medications including Imdur, Lopressor, aspirin and statin Continue subcu heparin Continue Lasix oral 40 mg twice daily If patient has persistent chest discomfort might consider invasive angiography. At this time no plan for any other invasive procedures. Further recommendations to follow based upon clinical course Thank you kindly for this consultation. Nurse practitioner note has been reviewed, I agree with documented findings and plan of care. Patient was seen and examined. Objective - Vital Signs Vital signs: Vital Signs Temp 97.5 F L 01/27/23 04:00 Pulse 71 01/27/23 04:00 Resp 18 01/27/23 04:00 BP 102/60 01/27/23 04:00 Pulse Ox 96 01/27/23 04:00 FiO2 Intake & Output 01/26/23 01/27/23 01/27/23 18:59 06:59 18:59 Intake Total 480 Output Total 400 Balance 480 -400 Weight 60 kg Intake: Oral 480 Output: Urine 400 Other: Voiding Method External Catheter External Catheter # Voids 1 # Bowel Movements 1 - Labs CBC & Chem 7: 01/27/23 07:27 01/27/23 07:27 Labs: Abnormal Lab Results - Last 24 Hours (Table) 01/26/23 01/26/23 01/27/23 Range/Units 10:15 10:15 07:27 MCHC 30.6 L 30.5 L (31.0-37.0) g/dL RDW 16.1 H 16.1 H (11.5-15.5) % Sodium 135 L (137-145) mmol/L Chloride 93 L (98-107) mmol/L Carbon Dioxide 36 H (22-30) mmol/L BUN 38 H (7-17) mg/dL Creatinine 1.97 H (0.52-1.04) mg/dL Glucose 123 H (74-99) mg/dL ALT 42 H (4-34) U/L Total Protein 6.2 L (6.3-8.2) g/dL Albumin 2.9 L (3.5-5.0) g/dL
--- NOTE | 2023-01-27 13:09 | P.PN ---
Subjective Progress Note Date: 01/27/23 Principal diagnosis: Shortness of breath. This is a very pleasant 87-year-old female patient with a known history of moderate persistent chronic bronchial asthma, hypertension, hyperlipidemia, gastroesophageal reflux disease, pulmonary embolism, colitis, esophageal stricture with previous dilatations. Nonsmoker. She presented here to the emergency room early this morning with complaints of shortness of breath and chest discomfort. Chest x-ray revealed mild cardiomegaly with interstitial changes and small bilateral pleural effusions and pulmonary vascular congestion. Increasing patchy opacities in the left mid and lower lung representing pulmonary edema or possibly pneumonia. EKG reveals sinus arrhythmia with left bundle branch block. White count 8.9. Hemoglobin 10.5. Platelets 295. INR 1.3. Sodium 136. Potassium 3.0. Bicarb 23. BUN 24. Creatinine 0.90. Glucose 115. AST 38. ALT 32. Troponin 0.100. NT proBNP 13,300. She is seen in consultation in the emergency department. Currently sitting up in a stretcher. Awake and alert in no acute distress. She is maintaining O2 saturations in the mid 90s on room air. She is afebrile. Hemodynamically stable. Echocardiogram reveals severely impaired left ventricular systolic function with ejection fraction 20-25%. There is also severe pulmonary hypertension with an RVSP of 75 mmHg. Severe mitral regurgitation. Moderate to severe tricuspid regurgitation. She's been initiated on a heparin drip. On IV Lasix 40 mg every 8 hours. Potassium being replaced. Reevaluated today on 01/24/2023, patient remains in the ER, patient is feeling better today, breathing easier, does not seem to be in any distress, remains on heparin, she is on room air with O2 sat shave 98%. Blood pressure is stable, O2 sat is 98%, and her heart rate is 92 respirations 18. Patient is still on diuretics as per cardiology, ultrasound of the chest did show evidence of good sized left-sided pleural effusion, however considering the patient is on heparin and she is responding to diuretics, will hold on thoracentesis and if no improvement with medical treatment then will recommend thoracentesis. WBC count today is 11.3 hemoglobin is 11.1 her INR is normal. Electrolytes are normal except for low potassium of 3.2. Troponins were noted to be elevated but seems to be trending down at present echocardiogram showed severe LV dysfunction and pulmonary hypertension. The patient is seen today 01/25/2023 in follow-up on the selective care unit. She is currently awake and alert in no acute distress. Maintaining O2 saturations in the 90s on room air. She's been afebrile. Hemodynamically stable. White count 8.9. Hemoglobin 11.1. Platelets 237. Sodium 135. Potassium 3.0. Bicarb 36. BUN 25. Creatinine 0.91. AST 45. ALT 43. She is continued on Symbicort, albuterol, diuretics. Currently in a -1.1 L balance. Heparin drip discontinued. Currently on subcu heparin for DVT prophylaxis. The patient is seen today 01/26/2023 in follow-up on the selective care unit. She is currently resting comfortably in bed. Awake and alert in no acute distress. Be a bit easier today compared to yesterday. She is maintaining O2 saturations in the 90s on 2 L/m per nasal cannula. Afebrile. Hemodynamically stable. White count 8.5. Hemoglobin 11.7. Platelets 236. Sodium 135. Potassium 4.1. Bicarb 36. BUN 38. Creatinine 1.97. Glucose 123. She is continued on albuterol, Symbicort. Heparin for DVT prophylaxis. Currently on oral diuretics. Remains in a negative balance. Progress note dated 01/27/2023. The patient is seen today in room 369. She's currently on oxygen at 2 L. She was admitted with a diagnosis of both COPD exacerbation, and CHF. She is clinically doing better. She is much less short of breath. Labs today include a white count 8.4, hemoglobin 12.5, hematocrit 40.9, platelet count 274,000. Sodium 136, potassium 4.8, chlorides 94, CO2 34, BUN 41, and creatinine 1.96. Objective - Vital Signs Vital signs: Vital Signs Temp 97.8 F 01/27/23 11:39 Pulse 72 01/27/23 11:39 Resp 18 01/27/23 11:39 BP 113/67 01/27/23 11:39 Pulse Ox 98 01/27/23 11:39 FiO2 Intake & Output 01/26/23 01/27/23 01/27/23 18:59 06:59 18:59 Intake Total 480 240 Output Total 400 575 Balance 480 -400 -335 Weight 60 kg Intake: Oral 480 240 Output: Urine 400 575 Other: Voiding Method External Catheter External Catheter External Catheter # Voids 1 # Bowel Movements 1 - Exam No acute distress, oriented 3. No obvious respiratory distress. Currently on 2 L of oxygen. No conversational dyspnea. HEENT examination is grossly unremarkable. Mucous membranes are moist. No oral lesions. Neck supple. Full range of motion. No adenopathy thyromegaly or neck vein distention. Cardiovascular examination reveals regular rhythm rate. S1-S2 normal. No S3 or S4. A soft systolic murmurs noted. Heart rate 81 bpm. Lungs reveal bibasilar crackles. No wheezes noted. No rhonchi noted. Saturations are in the mid 90s on 2 L. Abdomen soft bowel sounds are heard. No masses or tenderness. Extremities are intact. No cyanosis or clubbing. Mild edema noted. Skin is without rash or lesion. Neurologic examination is brief but nonfocal. - Labs CBC & Chem 7: 01/27/23 07:27 01/27/23 07:27 Labs: Abnormal Lab Results - Last 24 Hours (Table) 01/27/23 01/27/23 Range/Units 07:27 07:27 MCHC 30.5 L (31.0-37.0) g/dL RDW 16.1 H (11.5-15.5) % Sodium 136 L (137-145) mmol/L Chloride 94 L (98-107) mmol/L Carbon Dioxide 34 H (22-30) mmol/L BUN 41 H (7-17) mg/dL Creatinine 1.96 H (0.52-1.04) mg/dL Glucose 105 H (74-99) mg/dL AST 39 H (14-36) U/L ALT 45 H (4-34) U/L Albumin 3.4 L (3.5-5.0) g/dL Assessment and Plan Assessment: Acute exacerbation of systolic congestive heart failure in a patient found to have severely impaired left ventricular systolic function ejection fraction of 20% along with severe mitral and tricuspid regurgitation with severe pulmonary hypertension with an RSVP of 75 mmHg. Troponin leak, initially on a heparin drip. Bilateral pleural effusions left greater than right. Hypokalemia. Left lower extremity edema. History of moderate persistent chronic bronchial asthma. Hyperlipidemia. Hypertension. Osteoarthritis. Previous history of bilateral pulmonary embolism in 2010. History of GI bleed and has been off anticoagulation since 2020 and declined to resume. History of esophageal strictures with previous dilatation. Plan: Plan dated 01/27/2023. The patient is interviewed and examined, in room 369. She's currently on 2 L of oxygen. She's not manifesting any overt signs of respiratory failure. Labs, x- rays, medications are all reviewed. She continues on Symbicort and Ventolin HFA. She also continues on other medications including oral diuretics. Prognosis is certainly guarded. We will continue to follow and make recommendations along the way. Time with Patient: Less than 30
[2023-01-27] MEDS: ATORVASTATIN 40 MG TAB PO SCH (21:33)
[2023-01-28] MEDS: ISOSORBIDE MONONITRATE ER 30 MG TAB.ER.24H PO SCH (08:31)
[2023-01-28] MEDS: POTASSIUM CHLORIDE ER 20 MEQ TAB.ER PO SCH ×2 (08:31→15:37)
[2023-01-28] MEDS: FUROSEMIDE 40 MG TAB PO SCH ×2 (08:32→15:37)
[2023-01-28] MEDS: ASPIRIN 81 MG PO SCH (08:32)
[2023-01-28] MEDS: METOPROLOL TARTRATE 12.5 MG TAB PO SCH (08:32)
[2023-01-28] MEDS: HEPARIN SODIUM,PORCINE/PF 5,000 UNIT/0.5 ML SYRINGE SQ SCH (08:32)
[2023-01-28] MEDS: LOSARTAN-HCTZ 50-12.5 MG 1 EACH TAB PO SCH (08:32)
[2023-01-28] MEDS: SYMBICORT 160-4.5 MCG INHALER INHALATION SCH (09:26)
--- NOTE | 2023-01-28 11:10 | P.PN ---
Subjective Progress Note Date: 01/28/23 History of present illness: This is an 87-year-old female with past medical history of COPD, hypertension, dyslipidemia, severe LV systolic dysfunction presented to the hospital with COPD exacerbation, chest pain, mild troponin elevation suggestive of acute non-ST elevated myocardial infarction. Patient is currently on medical management with no plan for cardiac intervention. Patient does complain of chest pain in the left upper chest area which is very tender to touch. She is on a heparin drip. EF 20-25%, severe mitral and tricuspid regurgitation, severe pulmonary hypertension 01/26 Patient is seen today in follow-up. Yesterday we took her off IV heparin drip and place her on subcu and also change IV Lasix to oral. She has no lower extremity edema. Heart rate is in the 60s and 70s, blood pressure 105/58. 01/27 Patient denies any concerns today. She denies any chest pain or shortness of breath. She is found sitting up in a recliner and appears to be comfortable. Repeat blood work reveals hemoglobin of 12.5. Sodium 136, BUN 41 creatinine 1.96. AST 39, ALT 45. Heart rate is in the 70s and 80s, blood pressure 113/67, pulse ox 98% on 2 L nasal cannula. Telemetry has been sinus rhythm. 01/28 Patient is seen today in follow-up. She denies chest pain or shortness of breath. She has been on all oral medications. Blood pressure 110/72, heart rate in the 80s. Telemetry is sinus rhythm. Physical examination: Gen: This is an 87-year-old female. She is resting in bed and appears to be comfortable and in no acute distress VS: reviewed HEENT: Head is atraumatic, normocephalic. Pupils equal, round. Sclerae is anicteric. NECK: Supple. No JVD. . LUNGS: Slight crackles in the bases. No intercostal retractions. HEART: First and second heart sounds, systolic murmur at the left sternal border. Left-sided chest wall tenderness ABDOMEN: Soft No tenderness. EXTREMITIES: Minimal pedal edema. No calf tenderness. NEUROLOGICAL: Patient is awake, alert and oriented x3. Assessment: Acute systolic heart failure Elevated troponin secondary to heart failure, COPD exacerbation and non-ST elevated myocardial infarction. Severe LV systolic dysfunction Severe pulmonary hypertension Plan: Continue current cardiac medications including Imdur, Lopressor, aspirin and statin Continue subcu heparin Continue Lasix oral 40 mg twice daily Further recommendations to follow based upon clinical course Thank you kindly for this consultation. Nurse practitioner note has been reviewed, I agree with documented findings and plan of care. Patient was seen and examined. Objective - Vital Signs Vital signs: Vital Signs Temp 97.6 F 01/28/23 04:00 Pulse 81 01/28/23 04:00 Resp 18 01/28/23 04:00 BP 102/58 01/28/23 04:00 Pulse Ox 98 01/28/23 04:00 FiO2 Intake & Output 01/27/23 01/28/23 01/28/23 18:59 06:59 18:59 Intake Total 1017 Output Total 1025 1000 Balance -8 -1000 Weight 58.7 kg Intake: Oral 1017 Output: Urine 1025 1000 Other: Voiding Method External Catheter External Catheter # Voids 1 - Labs CBC & Chem 7: 01/27/23 07:27 01/27/23 07:27 Labs: Abnormal Lab Results - Last 24 Hours (Table) 01/27/23 01/27/23 Range/Units 07:27 07:27 MCHC 30.5 L (31.0-37.0) g/dL RDW 16.1 H (11.5-15.5) % Sodium 136 L (137-145) mmol/L Chloride 94 L (98-107) mmol/L Carbon Dioxide 34 H (22-30) mmol/L BUN 41 H (7-17) mg/dL Creatinine 1.96 H (0.52-1.04) mg/dL Glucose 105 H (74-99) mg/dL AST 39 H (14-36) U/L ALT 45 H (4-34) U/L Albumin 3.4 L (3.5-5.0) g/dL
--- NOTE | 2023-01-28 11:34 | P.PN ---
Subjective Progress Note Date: 01/28/23 This is a very pleasant 87-year-old female patient with a known history of moderate persistent chronic bronchial asthma, hypertension, hyperlipidemia, gastroesophageal reflux disease, pulmonary embolism, colitis, esophageal stricture with previous dilatations. Nonsmoker. She presented here to the emergency room early this morning with complaints of shortness of breath and chest discomfort. Chest x-ray revealed mild cardiomegaly with interstitial changes and small bilateral pleural effusions and pulmonary vascular congestion. Increasing patchy opacities in the left mid and lower lung representing pulmonary edema or possibly pneumonia. EKG reveals sinus arrhythmia with left bundle branch block. White count 8.9. Hemoglobin 10.5. Platelets 295. INR 1.3. Sodium 136. Potassium 3.0. Bicarb 23. BUN 24. Creatinine 0.90. Glucose 115. AST 38. ALT 32. Troponin 0.100. NT proBNP 13,300. She is seen in consultation in the emergency department. Currently sitting up in a stretcher. Awake and alert in no acute distress. She is maintaining O2 saturations in the mid 90s on room air. She is afebrile. Hemodynamically stable. Echocardiogram reveals severely impaired left ventricular systolic function with ejection fraction 20-25%. There is also severe pulmonary hypertension with an RVSP of 75 mmHg. Severe mitral regurgitation. Moderate to severe tricuspid regurgitation. She's been initiated on a heparin drip. On IV Lasix 40 mg every 8 hours. Potassium being replaced. Reevaluated today on 01/24/2023, patient remains in the ER, patient is feeling better today, breathing easier, does not seem to be in any distress, remains on heparin, she is on room air with O2 sat shave 98%. Blood pressure is stable, O2 sat is 98%, and her heart rate is 92 respirations 18. Patient is still on diuretics as per cardiology, ultrasound of the chest did show evidence of good sized left-sided pleural effusion, however considering the patient is on heparin and she is responding to diuretics, will hold on thoracentesis and if no improvement with medical treatment then will recommend thoracentesis. WBC count today is 11.3 hemoglobin is 11.1 her INR is normal. Electrolytes are normal except for low potassium of 3.2. Troponins were noted to be elevated but seems to be trending down at present echocardiogram showed severe LV dysfunction and pulmonary hypertension. The patient is seen today 01/25/2023 in follow-up on the selective care unit. She is currently awake and alert in no acute distress. Maintaining O2 saturations in the 90s on room air. She's been afebrile. Hemodynamically stable. White count 8.9. Hemoglobin 11.1. Platelets 237. Sodium 135. Potassium 3.0. Bicarb 36. BUN 25. Creatinine 0.91. AST 45. ALT 43. She is continued on Symbicort, albuterol, diuretics. Currently in a -1.1 L balance. Heparin drip discontinued. Currently on subcu heparin for DVT prophylaxis. The patient is seen today 01/26/2023 in follow-up on the selective care unit. S he is currently resting comfortably in bed. Awake and alert in no acute distress. Be a bit easier today compared to yesterday. She is maintaining O2 saturations in the 90s on 2 L/m per nasal cannula. Afebrile. Hemodynamically stable. White count 8.5. Hemoglobin 11.7. Platelets 236. Sodium 135. Potassium 4.1. Bicarb 36. BUN 38. Creatinine 1.97. Glucose 123. She is continued on albuterol, Symbicort. Heparin for DVT prophylaxis. Currently on oral diuretics. Remains in a negative balance. The patient is seen today 01/28/2023 in follow-up on the selective care unit. She is up ambulating with assistance. Awake and alert in no acute distress. Maintaining O2 saturations in the 90s on room air. She is continued on albuterol HFA, Symbicort. Heparin for DVT prophylaxis. Oral diuretics. Currently in a -1 L balance. Objective - Vital Signs Vital signs: Vital Signs Temp 98 F 01/28/23 08:00 Pulse 80 01/28/23 08:00 Resp 18 01/28/23 08:00 BP 110/72 01/28/23 08:00 Pulse Ox 98 01/28/23 08:00 FiO2 Intake & Output 01/27/23 01/28/23 01/28/23 18:59 06:59 18:59 Intake Total 1017 240 Output Total 1025 1000 300 Balance - Weight 58.7 kg Intake: Oral 1017 240 Output: Urine 1025 1000 300 Other: Voiding Method External Catheter External Catheter External Catheter # Voids 1 - Exam GENERAL EXAM: Alert, 87-year-old female, on room air, comfortable in no apparent distress. HEAD: Normocephalic. EYES: Normal reaction of pupils, equal size. NOSE: Clear with pink turbinates. THROAT: No erythema or exudates. NECK: No masses, no JVD. CHEST: No chest wall deformity. LUNGS: Equal air entry with faint crackles in the posterior bases. CVS: S1 and S2 normal with an audible murmur, regular rhythm. ABDOMEN: No hepatosplenomegaly, normal bowel sounds, no guarding or rigidity. SPINE: No scoliosis or deformity SKIN: No rashes CENTRAL NERVOUS SYSTEM: No focal deficits, tone is normal in all 4 extremities. EXTREMITIES: There is 1+ peripheral edema. No clubbing, no cyanosis. Peripheral pulses are intact. - Labs CBC & Chem 7: 01/27/23 07:27 01/27/23 07:27 Assessment and Plan Assessment: Acute exacerbation of systolic congestive heart failure in a patient found to have severely impaired left ventricular systolic function ejection fraction of 20% along with severe mitral and tricuspid regurgitation with severe pulmonary hypertension with an RSVP of 75 mmHg. Troponin leak, initially on a heparin drip being followed by cardiology Bilateral pleural effusions left greater than right Hypokalemia, potassium being replaced, improved currently at 4.8 Acute kidney injury Left lower extremity edema History of moderate persistent chronic bronchial asthma Hyperlipidemia Hypertension Osteoarthritis Previous history of bilateral pulmonary embolism in 2010 History of GI bleed and has been off anticoagulation since 2020 and declined to resume History of esophageal strictures with previous dilatation Plan: The patient was seen and evaluated Medications reviewed Continue current treatment plan Stable and on room air Prognosis is guarded We will continue to follow I have personally seen and examined the patient, performed the documentation and the assessment and plan as written. Number of minutes spent on the visit: 10.
[2023-01-28 12:46] VITALS: RESP 20
--- NOTE | 2023-01-28 15:04 | P.PN ---
Subjective Progress Note Date: 01/27/23 Chase Min, is an 87-year-old female, who presented to [facility] emergency room with a chief complaint of worsening shortness of breath She was evaluated in the emergency room vital examination on presentation revealed a temperature of 97.9 pulse 96 respiration 24 blood pressure 145/100 pulse ox 95% on room air Laboratory data revealed a white blood count of 8.9 hemoglobin 10.5 platelet count 295 sodium 136 potassium 3.0 chloride 101 CO2 23 BUN 24 creatinine 0.9 AST 38 ALT 32 troponin 0.1 Testing in the emergency room revealed EKG done in the emergency room revealed sinus rhythm with occasional PVC left bundle branch block, chest x-ray done in the emergency room revealed mild cardiomegaly and increasing patchy opacity in the left mid and lower lung. Patient was admitted to medical floor for further evaluation and treatment, cardiology consultation and pulmonary consultation were requested. On 01/24/2023 patient was seen and examined on the telemetry floor she is alert and oriented 3 in no apparent distress, she is still complaining of shortness of breath otherwise she denies any complaints there is no fever or chills no headache or dizziness no chest pain no cough no nausea or vomiting no abdominal pain no diarrhea no blood in the stools no burning with urination no frequency or urgency and no hematuria. 2-D echo was completed showing global severe decre ase in contractility estimated ejection fraction about 20-25%. Patient remains on IV heparin and IV Lasix. Cardiology and pulmonary services are following. Ultrasound completed for pleural effusion showing a small to moderate left pleural effusion and trace on the right. Current vital signs temp 98, heart rate 92, respiratory rate 18, blood pressure 124/87, pulse ox 98% on room air On 01/25/2023 patient was seen and examined on the telemetry floor she is alert and oriented 3 in no apparent distress, she is still complaining of chest tightness and shortness of breath otherwise she denies any complaints there is no fever or chills no headache or dizziness no cough no nausea or vomiting no abdominal pain no diarrhea no blood in the stools no burning with urination no frequency or urgency and no hematuria. At this time patient is improving gradually, cardiology and pulmonary are following. Prognosis remains guarded. Today I am adding Ensure 1 can 3 times a day and adding physical therapy and occupational therapy, will follow closely. On 01/26/2023 patient was seen and examined on the telemetry floor she is alert and oriented 3 in no apparent distress she is still complaining of chest tightness and shortness of breath with any activity otherwise she denies any complaints there is no fever or chills no headache or dizziness no nausea or vomiting no abdominal pain no diarrhea no blood in the stools no burning with urination no frequency or urgency and no hematuria. On 01/27/2023 patient is alert and oriented 3 in no apparent distress she is still complaining of chest tightness and shortness of breath with any activity otherwise she denies any complaints there is no fever or chills no headache or dizziness no nausea or vomiting no abdominal pain no diarrhea no blood in the stools no burning with urination no frequency or urgency and no hematuria. Objective - Vital Signs Vital signs: Vital Signs Temp 97.5 F L 01/27/23 04:00 Pulse 71 01/27/23 04:00 Resp 18 01/27/23 04:00 BP 102/60 01/27/23 04:00 Pulse Ox 96 01/27/23 04:00 FiO2 Intake & Output 01/26/23 01/27/23 01/27/23 18:59 06:59 18:59 Intake Total 480 Output Total 400 Balance 480 -400 Weight 60 kg Intake: Oral 480 Output: Urine 400 Other: Voiding Method External Catheter External Catheter # Voids 1 # Bowel Movements 1 - Exam In general patient is alert and oriented x 3 in no distress HEENT head normocephalic and atraumatic Neck is supple no JVD no goiter no lymphadenopathy no carotid bruit Chest examination reveals a scattered crackles bilaterally no wheezing Cardiac exam reveals regular heart sounds S1 and S2 no gallops no murmurs Abdomen is soft nontender no organomegaly with normal bowel sounds Extremity exam reveals mild lower extremity edema left worse than right no cyanosis or clubbing Neurological examination reveals no gross focal deficits - Labs CBC & Chem 7: 01/27/23 07:27 01/27/23 07:27 Labs: Abnormal Lab Results - Last 24 Hours (Table) 01/26/23 01/26/23 Range/Units 10:15 10:15 MCHC 30.6 L (31.0-37.0) g/dL RDW 16.1 H (11.5-15.5) % Sodium 135 L (137-145) mmol/L Chloride 93 L (98-107) mmol/L Carbon Dioxide 36 H (22-30) mmol/L BUN 38 H (7-17) mg/dL Creatinine 1.97 H (0.52-1.04) mg/dL Glucose 123 H (74-99) mg/dL ALT 42 H (4-34) U/L Total Protein 6.2 L (6.3-8.2) g/dL Albumin 2.9 L (3.5-5.0) g/dL Assessment and Plan Plan: Shortness of breath, related to acute exacerbation of systolic congestive heart failure Chest discomfort was elevated troponin, related to non-ST elevation myocardial infarction, patient was started on IV heparin cardiology consultation was requested Bilateral pleural effusion, pulmonary following, chest ultrasound done, small pleural effusions , thoracentesis is not indicated. per pulmonary. Hypokalemia on presentation, correcting Left lower extremity edema lower extremity venous Doppler was ordered Underlying history of hypertension Underlying history of hyperlipidemia Underlying history of osteoarthritis Remote history of pulmonary embolism History of gastrointestinal bleeding History of esophageal stricture, with previous history of dilatation At this time patient is admitted to telemetry floor Home medications reviewed and reordered She was started on IV heparin and IV Lasix Echocardiogram ordered results reviewed, reveals severe decrease in contractility with ejection fraction of 20-25% with severe mitral and tricuspid regurgitation and severe pulmonary hypertension. Cardiology and pulmonary consultation requested Will follow closely
[2023-01-28 15:18] VITALS: BMI 22.9
[2023-01-28 15:55] VITALS: BP 91/59; PULSE 78; TEMP 97.6
--- NOTE | 2023-01-28 16:52 | P.DS ---
Providers Date of admission: 01/23/23 06:04 Expected date of discharge: 01/28/23 Attending physician: Aliza Byrd Consults: 01/23/23 06:02 Consult Physician Routine Consulting Provider: [facility] Consult Reason/Comments: NSTEMI, CHF exas Do you want consulting provider notified?: Yes, Notify in am 01/23/23 08:41 Consult Physician Routine Consulting Provider: Johanny Juarez Consult Reason/Comments: shortness of breath Do you want consulting provider notified?: Yes Primary care physician: Aliza [facility] Course: Diagnosis on discharge: Shortness of breath, related to acute exacerbation of systolic congestive heart failure Chest discomfort was elevated troponin, related to non-ST elevation myocardial infarction, patient was started on IV heparin cardiology consultation was requested Bilateral pleural effusion, pulmonary following, chest ultrasound done, small pleural effusions , thoracentesis is not indicated. per pulmonary. Hypokalemia on presentation, correcting Left lower extremity edema lower extremity venous Doppler was ordered Underlying history of hypertension Underlying history of hyperlipidemia Underlying history of osteoarthritis Remote history of pulmonary embolism History of gastrointestinal bleeding History of esophageal stricture, with previous history of dilatation Hospital course: Chase Min, is an 87-year-old female, who presented to [facility] emergency room with a chief complaint of worsening shortness of breath She was evaluated in the emergency room vital examination on presentation revealed a temperature of 97.9 pulse 96 respiration 24 blood pressure 145/100 pulse ox 95% on room air Laboratory data revealed a white blood count of 8.9 hemoglobin 10.5 platelet count 295 sodium 136 potassium 3.0 chloride 101 CO2 23 BUN 24 creatinine 0.9 AST 38 ALT 32 troponin 0.1 Testing in the emergency room revealed EKG done in the emergency room revealed sinus rhythm with occasional PVC left bundle branch block, chest x-ray done in the emergency room revealed mild cardiomegaly and increasing patchy opacity in the left mid and lower lung. Patient was admitted to medical floor for further evaluation and treatment, cardiology consultation and pulmonary consultation were requested. On 01/24/2023 patient was seen and examined on the telemetry floor she is alert and oriented 3 in no apparent distress, she is still complaining of shortness of breath otherwise she denies any complaints there is no fever or chills no headache or dizziness no chest pain no cough no nausea or vomiting no abdominal pain no diarrhea no blood in the stools no burning with urination no frequency or urgency and no hematuria. 2-D echo was completed showing global severe decrease in contractility estimated ejection fraction about 20-25%. Patient remains on IV heparin and IV Lasix. Cardiology and pulmonary services are following. Ultrasound completed for pleural effusion showing a small to moderate left pleural effusion and trace on the right. Current vital signs temp 98, heart rate 92, respiratory rate 18, blood pressure 124/87, pulse ox 98% on room air On 01/25/2023 patient was seen and examined on the telemetry floor she is alert and oriented 3 in no apparent distress, she is still complaining of chest tightness and shortness of breath otherwise she denies any complaints there is no fever or chills no headache or dizziness no cough no nausea or vomiting no abdominal pain no diarrhea no blood in the stools no burning with urination no frequency or urgency and no hematuria. At this time patient is improving gradually, cardiology and pulmonary are following. Prognosis remains guarded. Today I am adding Ensure 1 can 3 times a day and adding physical therapy and occupational therapy, will follow closely. On 01/26/2023 patient was seen and examined on the telemetry floor she is alert and oriented 3 in no apparent distress she is still complaining of chest tightness and shortness of breath with any activity otherwise she denies any complaints there is no fever or chills no headache or dizziness no nausea or vomiting no abdominal pain no diarrhea no blood in the stools no burning with urination no frequency or urgency and no hematuria. On 01/27/2023 patient is alert and oriented 3 in no apparent distress she is still complaining of chest tightness and shortness of breath with any activity otherwise she denies any complaints there is no fever or chills no headache or dizziness no nausea or vomiting no abdominal pain no diarrhea no blood in the stools no burning with urination no frequency or urgency and no hematuria. On 01/28/2023 patient was seen and examined on the telemetry floor she is alert and oriented 3 in no apparent distress, she is feeling better today she denies any chest pain chest tightness or shortness of breath, she is saturating well on room air, there is no fever or chills no headache or dizziness no chest pain no shortness of breath no cough no nausea or vomiting no abdominal pain no diarrhea and no urinary symptoms. She was evaluated by pulmonary and cardiology and was cleared for discharge. Patient will be discharged to home today, she will be followed in our office within 1 week. Patient Condition at Discharge: Stable Plan - Discharge Summary Discharge Rx Participant: No New Discharge Prescriptions: New Isosorbide Mononitrate ER [Imdur] 30 mg PO DAILY tab Furosemide [Lasix] 40 mg PO BID@0900,1600 tab Atorvastatin [Lipitor] 40 mg PO HS tab Metoprolol Tartrate [Lopressor] 12.5 mg PO BID tab Aspirin 81 mg PO DAILY tab Potassium Chloride ER [K-Dur 20] 20 meq PO Q8HR tab Continue Budesonide-Formot 160-4.5 Mcg [Symbicort 160-4.5 Mcg Inhaler] 2 puff INHALATION RT-BID Losartan/Hydrochlorothiazide [Hyzaar 100-25 Tablet] 1 tab PO DAILY Albuterol Inhaler [Ventolin Hfa Inhaler] 2 puff INHALATION RT-QID PRN PRN Reason: Shortness Of Breath Discontinued Furosemide [Lasix] 20 mg PO DAILY Discharge Medication List Budesonide-Formot 160-4.5 Mcg [Symbicort 160-4.5 Mcg Inhaler] 2 puff INHALATION RT-BID 09/04/18 [History] Albuterol Inhaler [Ventolin Hfa Inhaler] 2 puff INHALATION RT-QID PRN 01/23/23 [History] Losartan/Hydrochlorothiazide [Hyzaar 100-25 Tablet] 1 tab PO DAILY 01/23/23 [History] Aspirin 81 mg PO DAILY tab 01/28/23 [Rx] Atorvastatin [Lipitor] 40 mg PO HS tab 01/28/23 [Rx] Furosemide [Lasix] 40 mg PO BID@0900,1600 tab 01/28/23 [Rx] Isosorbide Mononitrate ER [Imdur] 30 mg PO DAILY tab 01/28/23 [Rx] Metoprolol Tartrate [Lopressor] 12.5 mg PO BID tab 01/28/23 [Rx] Potassium Chloride ER [K-Dur 20] 20 meq PO Q8HR tab 01/28/23 [Rx] Follow up Appointment(s)/Referral(s): Abraham Khan MD [STAFF PHYSICIAN] - 1 Week (patient to make own bong) Aliza Byrd MD [Primary Care Provider] - 1 Week (patient to make own bong) Patient Instructions/Handouts: Heart Attack (DC), Heart Failure (DC)
== END 2023-01-28 17:17 | disposition home health service (06) | DRG 280 ==
LOC: EC 04:08 → 3SCARD 06:04
PROVIDERS: ADMIT Internal Medicine; ATTEND Internal Medicine
DX: I21.4 Non-ST elevation (NSTEMI) myocardial infarction (principal); I50.23 Acute on chronic systolic (congestive) heart failure; J44.1 Chronic obstructive pulmonary disease with (acute) exacerbation; N17.9 Acute kidney failure, unspecified; E78.5 Hyperlipidemia, unspecified; E87.6 Hypokalemia; I11.0 Hypertensive heart disease with heart failure; I08.1 Rheumatic disorders of both mitral and tricuspid valves; J45.40 Moderate persistent asthma, uncomplicated; I27.20 Pulmonary hypertension, unspecified; I44.7 Left bundle-branch block, unspecified; M19.90 Unspecified osteoarthritis, unspecified site; Z96.611 Presence of right artificial shoulder joint; Z79.51 Long term (current) use of inhaled steroids; Z79.899 Other long term (current) drug therapy; Z86.711 Personal history of pulmonary embolism; Z82.49 Family history of ischemic heart disease and other diseases of the circulatory system
CPT/HCPCS: 36415; 71046; 76604; 80053; 80061; 83690; 83735; 83880; 84484; 85025; 85610; 85730; 93005; 93306; 93970; 94640; 94760; 96365; 96366; 96375; 96376; 99285

== ENCOUNTER 2023-01-29 09:40 | Inpatient (IN) | payer MEDICARE ==
[2023-01-29] MEDS ORDERED: NITROGLYCERIN SL TABS 0.4 MG TAB SUBLINGUAL STA (10:14)
[2023-01-29] MEDS ORDERED: ASPIRIN 325 MG TAB PO STA (10:14)
--- NOTE | 2023-01-29 10:34 | ED ---
Chest Pain HPI - General Chief Complaint: Chest Pain Stated Complaint: Chest pain Time Seen by Provider: 01/29/23 10:03 Source: EMS Mode of arrival: EMS Limitations: no limitations - History of Present Illness Initial Comments: Patient is a 87-year-old female presenting to the emergency room via EMS with complaints of chest pain sided and pressure-like currently rating her pain a 7 out of 10 with associated shortness of breath with exertion, headache and nausea without vomiting. She was recently hospitalized for similar symptoms and was treated for acute congestive heart failure. There was consideration by cardiology for cardiac catheterization but one was not performed at that time. Her echocardiogram was updated revealing severe LV dysfunction with an ejection fraction of 20-25%. She was discharged approximately 24 hours ago. She reports that several hours after being discharged home her chest pain resumed. She states that she was feeling well when she left the hospital. She denies any shortness of breath at rest, abdominal pain, orthopnea, diaphoresis, headache, fevers or chills. 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 - Related Data Home Medications Medication Instructions Recorded Confirmed Budesonide-Formot 160-4.5 Mcg 2 puff INHALATION RT-BID 09/04/18 01/29/23 [Symbicort 160-4.5 Mcg Inhaler] Albuterol Inhaler [Ventolin Hfa 2 puff INHALATION RT-QID PRN 01/23/23 01/29/23 Inhaler] Losartan/Hydrochlorothiazide 1 tab PO DAILY 01/23/23 01/29/23 [Hyzaar 100-25 Tablet] Previous Rx's Medication Instructions Recorded Aspirin 81 mg PO DAILY tab 01/28/23 Atorvastatin [Lipitor] 40 mg PO HS tab 01/28/23 Furosemide [Lasix] 40 mg PO BID@0900,1600 tab 01/28/23 Isosorbide Mononitrate ER [Imdur] 30 mg PO DAILY tab 01/28/23 Metoprolol Tartrate [Lopressor] 12.5 mg PO BID tab 01/28/23 Potassium Chloride ER [K-Dur 20] 20 meq PO Q8HR tab 01/28/23 Allergies Allergy/AdvReac Type Severity Reaction Status Date / Time adhesive tape Allergy skin Verified 01/29/23 11:44 blisters iodine Allergy Anaphylaxis Verified 01/29/23 11:44 morphine AdvReac Hallucinati Verified 01/29/23 11:44 ons Review of Systems ROS Statement: Those systems with pertinent positive or pertinent negative responses have been documented in the HPI. ROS Other: All systems not noted in ROS Statement are negative. Past Medical History Past Medical History: Asthma, GERD/Reflux, GI Bleed, Hyperlipidemia, Hypertension, Liver Disease, Osteoarthritis (OA), Pneumonia, Pulmonary Embolus (PE) Additional Past Medical History / Comment(s): bilateral pulmonary embolism 2010, IBS, colitis, esophageal stricture, hepatitis B infection 1971, hiatal hernia, history of Chowdary's palsy, severe osteoarthritis, sinus problems. poor circulation in eliseo feet, GI bleed years ago History of Any Multi-Drug Resistant Organisms: None Reported Past Surgical History: Appendectomy, Section, Hernia Repair, Hysterectomy, Joint Replacement, Tonsillectomy, Tubal Ligation Additional Past Surgical History / Comment(s): Rt shoulder replacement, cataracts bilaterally, x 2, hiatal hernia repair, EGDs with esophageal dilations, colonoscopy, bronchoscopies Past Anesthesia/Blood Transfusion Reactions: Motion Sickness Past Psychological History: No Psychological Hx Reported Smoking Status: Never smoker - Past Family History Daughter(s) Family Medical History: Coronary Artery Disease (CAD), Diabetes Mellitus, Deep Vein Thrombosis (DVT) Brother(s) Family Medical History: CVA/TIA Mother Family Medical History: Deep Vein Thrombosis (DVT) Additional Family Medical History / Comment(s): . Father Family Medical History: No Reported History General Exam - General Exam Comments Initial Comments: GENERAL: No acute distress, well developed, well nourished. HEENT: Normocephalic, atraumatic. Pupils equal, round, reactive to light. Lips dry. LUNGS: No respiratory distress. Diminished bibasilar otherwise clear to auscultation, no adventitious sounds, no use of accessory muscles. HEART: Regular rate and rhythm with systolic murmur III/ no rub or gallop. ABDOMEN: Normal bowel sounds. Soft, non-tender, non-distended. BACK: Normal inspection. EXTREMITIES: Bilateral lower extremity edema to left greater than right. No tenderness. Moves all extremities. NEUROLOGIC: Alert & oriented x 3. CN II-XII grossly intact. PSYCHIATRIC: Normal affect and behavior. DERMATOLOGIC: Skin intact, without rashes or lesions noted. Limitations: no limitations Course Vital Signs 01/29/23 01/29/23 01/29/23 09:44 11:36 13:40 Temperature 98.3 F Pulse Rate 98 88 85 Respiratory 19 18 18 Rate Blood Pressure 130/76 115/66 108/61 O2 Sat by Pulse 95 97 98 Oximetry 01/29/23 15:14 Temperature Pulse Rate 83 Respiratory 18 Rate Blood Pressure 103/83 O2 Sat by Pulse 94 L Oximetry Chest Pain MDM - MDM Was pt. sent in by a medical professional or institution (, PA, LEGAL COORDINATOR, urgent care, hospital, or correction...) When possible be specific @ -No Did you speak to anyone other than the patient for history (EMS, parent, family, police, friend...)? What history was obtained from this source @ -Yes, spoke with daughter Joana at the bedside regarding details of present illness and past medical history including most recent hospitalization. Did you review nursing and triage notes (agree or disagree)? Why? @ -I reviewed and agree with nursing and triage notes Were old charts reviewed (outside hosp., previous admission, EMS record, old EKG, old radiological studies, urgent care reports/EKG's, correction records)? Report findings @ -Yes, I reviewed previous EKG on file from 01/23/2023, echocardiogram 01/23/2023 cardiology consult 01/24/2023 and discharge summary. Differential Diagnosis (chest pain, altered mental status, abdominal pain women, abdominal pain men, vaginal bleeding, weakness, fever, dyspnea, syncope, headache, dizziness, GI bleed, back pain, seizure, CVA, palpatations, mental health, musculoskeletal)? @ -Differential Chest Pain: Stable Angina, Unstable Angina, STEMI, NSTEMI Aortic Dissection, Pneumothorax, Musculoskeletal, Esophageal Spasm GERD, Cholecystitis, Pancreatitis, Zoster, this is not meant to be an all-inclusive list. EKG interpreted by me (3pts min.). @ -Sinus rhythm with occasional PACs, left bundle branch block, ventricular rate 91 bpm, WA interval 174 ms, QRS duration 145 ms, QT/QTC 388/437 ms, PRT axes 7, 30, 189. X-rays interpreted by me (1pt min.). @ -Chest x-ray two-view: left pleural effusion with left atelectasis unchanged from most recent x-ray. CT interpreted by me (1pt min.). @ -None done U/S interpreted by me (1pt. min.). @ -None done What testing was considered but not performed or refused? (CT, X-rays, U/S, labs)? Why? @ -None What meds were considered but not given or refused? Why? @ -Morphine considered for chest pain but deferred due to adverse effects/"ALLERGY." Did you discuss the management of the patient with other professionals (professionals i.e. Dr., PA, LEGAL COORDINATOR, lab, RT, psych nurse, social service director, wind turbine engineer, teacher, chief information officer, correctional case records supervisor)? Give summary @ -Yes spoke with Dr. Rochelle sol regarding patient's presentation, workup and recommendation for admission and reevaluation by cardiology. He is accepting of admission and denies any further orders at this time. Was smoking cessation discussed for >3mins.? @ -No Was critical care preformed (if so, how long)? @ -No Were there social determinants of health that impacted care today? How? (Homelessness, low income, unemployed, alcoholism, drug addiction, transportati on, low edu. Level, literacy, decrease access to med. care, custodial, rehab)? @ -No Was there de-escalation of care discussed even if they declined (Discuss DNR or withdrawal of care, Hospice)? DNR status @ -No What co-morbidities impacted this encounter? (DM, HTN, Smoking, COPD, CAD, Cancer, CVA, ARF, Chemo, Hep., AIDS, mental health diagnosis, sleep apnea, morbid obesity)? @ -Hypertension, dyslipidemia and severe LV systolic dysfunction ejection fraction from 01/23/2003 20-25%. Was patient admitted / discharged? Hospital course, mention meds given and route, prescriptions, significant lab abnormalities, going to OR and other pertinent info. @ -87-year-old female presenting to the emergency room complaints of left-sided pressure-like chest pain with associated headache, nausea and shortness of breath with exertion. Recent hospitalization for chest pain and CHF exacerbation. Cardiac catheterization considered during last hospitalization but not completed. Will start workup for ACS with EKG, chest x-ray, CBC, CMP, troponin and magnesium. Will give aspirin and nitroglycerin and apply 2 L nasal cannula for chest pain; morphine deferred due to stated ALLERGY. EKG was sinus rhythm with PACs and left bundle branch block will await laboratory studies to determine need for initiation of heparinization therapy. Laboratory study results CBC increase in white blood cell count to 10.8 with neutrophils elevated 8.4. CMP shows electrolyte abnormalities. Magnesium 1.4 will replete with 2 g of magnesium renal function impaired BUN 44 creatinine 1.1 near renal function from discharge yesterday. Liver enzymes slightly elevated 45 AST, ALP 41 alkaline phosphate normal sodium and chloride low sodium 135, chloride 90 carbon dioxide elevated 34. Troponin indeterminate at 0.022 still trending down downward from hospitalization earlier in the week. Chest x-ray shows left pleural effusion with left atelectasis unchanged from most recent x- ray. Chest pain resolved with nitroglycerin, aspirin and Zofran. Above findings discussed with patient advised given most recent hospitalization with cardiology and recommending possible angiography will plan for admission. With low and downward trending troponin will hold heparinization at this time and defer anticoagulation to primary care provider and cardiology team. Spoke with Dr. Byrd patient's primary care provider regarding return to the emergency room for chest pain, workup and recommendations of admission with reconsult cardiology. He is agreeable to this plan and denies any further orders at this time. Will admit patient in stable condition to medical surgical unit with telemetry for further evaluation and treatment of chest pain under Dr. Byrd. Undiagnosed new problem with uncertain prognosis? @ -No Drug Therapy requiring intensive monitoring for toxicity (Heparin, Nitro, Insulin, Cardizem)? @ -No Were any procedures done? @ -No Diagnosis/symptom? @ -Chest pain Acute, or Chronic, or Acute on Chronic? @ -Acute Uncomplicated (without systemic symptoms) or Complicated (systemic symptoms)? @ -Complicated Side effects of treatment? @ -No Exacerbation, Progression, or Severe Exacerbation? @ -No Poses a threat to life or bodily function? How? (Chest pain, [place], PR, pneumonia, PE, COPD, DKA, ARF, appy, cholecystitis, CVA, Diverticulitis, Homicidal, Suicidal, threat to staff... and all critical care pts) @ -Chest pain with known cardiovascular disease and severe systolic dysfunction at risk for cardiac arrhythmia and myocardial infarction. Case discussed with Dr. Darnell. Disposition Clinical Impression: Chest pain Disposition: ADMITTED IP TO THIS HOSP Condition: Stable Is patient prescribed a controlled substance at d/c from ED?: No Referrals: Aliza Byrd MD [STAFF PHYSICIAN] - 1-2 days Time of Disposition: 12:21
[2023-01-29] MEDS ORDERED: ONDANSETRON 4 MG/2 ML VIAL IVP STA (10:35)
[2023-01-29 11:30] LABS: Basophils % (A) 0 %; Eosinophils # (A) 0.1 k/uL (0-0.7); Eosinophils % (A) 1 %; HCT 39.8 % (34.0-46.0); HGB 12.4 gm/dL (11.4-16.0); Hypochromasia Moderate; Lymphocytes # (A) 1.8 k/uL (1.0-4.8); Lymphocytes % (A) 17 %; MCH 25.4 pg (25.0-35.0); Mean Platelet Volume 8.3; Monocytes # (A) 0.3 k/uL (0-1.0); Monocytes % (A) 3 %; Neutrophils # (A) 8.4 k/uL (1.3-7.7); Neutrophils % (A) 78 %; Platelet Count 241 k/uL (150-450); RBC 4.86 m/uL (3.80-5.40); WBC 10.8 k/uL (3.8-10.6)
[2023-01-29 11:48] LABS: Albumin 3.3 g/dL (3.5-5.0); Calcium 9.3 mg/dL (8.4-10.2); Magnesium 1.4 mg/dL (1.6-2.3); Total Bilirubin 0.7 mg/dL (0.2-1.3); Total Protein 7.3 g/dL (6.3-8.2)
[2023-01-29 11:51] LABS: INR 1.1 (<1.2); Prothrombin Time 11.1 sec (9.0-12.0)
[2023-01-29 12:00] LABS: Partial Thromboplastin Time 19.8 sec (22.0-30.0)
--- NOTE | 2023-01-29 12:07 | XR ---
EXAMINATION TYPE: XR chest 2V DATE OF EXAM: 01/29/2023 COMPARISON: Chest x-ray January 23, 2023 HISTORY: Chest pain. TECHNIQUE: Frontal and lateral views of the chest are obtained. FINDINGS: Cardiomegaly is redemonstrated with small to moderate size left pleural effusion and assoc iated left basilar opacity. Underlying mass is not excluded. Right lung remains clear. Surgical clips near the central diaphragm are redemonstrated. Surgical changes right shoulder is partially imaged. IMPRESSION: Persistent cardiomegaly with small to moderate size left pleural effusion and associated left mid to lower lung atelectasis and/or infiltrate. No significant change from recent x-ray.
[2023-01-29] MEDS: MAGNESIUM SULFATE-D5W PMX 1 GM in DEXTROSE/WATER 1 100ML.BAG IVPB SCH ×2 (12:08→13:39)
[2023-01-29] MEDS ORDERED: NALOXONE 0.4 MG/ML 1 ML VIAL IV PRN (12:21)
[2023-01-29] MEDS: ACETAMINOPHEN TAB 325 MG TAB PO PRN ×2 (14:45→21:02)
--- NOTE | 2023-01-29 16:04 | P.HPIM ---
History of Present Illness H&P Date: 01/29/23 Chase Min, is an 87-year-old female who presented to [facility] emergency room with a chief complaint of left-sided chest pain. Patient was admitted recently with similar symptoms on 01/23/2023, she was discharged on 01/28/2023. During that admission she had evidence of non-ST elevation myocardial infarction and evidence of acute exacerbation of systolic congestive heart failure, with evidence of cardiomyopathy with ejection fraction of 20-25%. Patient was treated medically and was discharged home yesterday, she returned today with worsening chest pain. She was evaluated in the emergency room vital examination on presentation revealed a temperature of 98.3 pulse 98 respiration 19 and blood pressure 130/76 pulse ox 95% on room air Laboratory data revealed a white blood count of 10.8 hemoglobin 12.4 platelet count 241 sodium 135 potassium 4.0 chloride 90 CO2 34 BUN 44 creatinine 1.51 troponin level was 0.0-2 AST and ALT are slightly elevated at 45 and 41 Testing in the emergency room revealed EKG done in the emergency room revealed sinus rhythm with left bundle branch block, chest x-ray done in the emergency room revealed cardiomegaly with small to moderate-sized left pleural effusion and associated left mid to lower lung atelectasis or infiltrate. Patient was admitted to medical floor for further evaluation and treatment. Past medical history is significant for recent history of non-ST elevation myocardial infarction, recent admission was acute systolic congestive heart failure exacerbation, cardiomyopathy with ejection fraction of 20-25%, underly ing history of hypertension,, underlying history of hyperlipidemia, underlying history of osteoarthritis, underlying history of COPD, underlying history of esophageal stricture, underlying history of gastrointestinal bleeding, remote history of pulmonary embolism On review of systems patient was seen and examined in the emergency room she is alert and oriented 3 in no apparent distress there is no fever or chills no headache or dizziness she is still complaining of left sided chest pain no shor tness of breath no cough no palpitation no nausea or vomiting no abdominal pain no diarrhea no blood in the stools no burning with urination no frequency or urgency and no hematuria. Past Medical History Past Medical History: Asthma, GERD/Reflux, GI Bleed, Hyperlipidemia, Hypertension, Liver Disease, Osteoarthritis (OA), Pneumonia, Pulmonary Embolus (PE) Additional Past Medical History / Comment(s): bilateral pulmonary embolism 2010, IBS, colitis, esophageal stricture, hepatitis B infection 1971, hiatal hernia, history of Chowdary's palsy, severe osteoarthritis, sinus problems. poor circulation in eliseo feet, GI bleed years ago History of Any Multi-Drug Resistant Organisms: None Reported Past Surgical History: Appendectomy, Section, Hernia Repair, Hysterectomy, Joint Replacement, Tonsillectomy, Tubal Ligation Additional Past Surgical History / Comment(s): Rt shoulder replacement, cataracts bilaterally, x 2, hiatal hernia repair, EGDs with esophageal dilations, colonoscopy, bronchoscopies Past Anesthesia/Blood Transfusion Reactions: Motion Sickness Past Psychological History: No Psychological Hx Reported Smoking Status: Never smoker - Past Family History Daughter(s) Family Medical History: Coronary Artery Disease (CAD), Diabetes Mellitus, Deep Vein Thrombosis (DVT) Brother(s) Family Medical History: CVA/TIA Mother Family Medical History: Deep Vein Thrombosis (DVT) Additional Family Medical History / Comment(s): . Father Family Medical History: No Reported History Medications and Allergies Home Medications Medication Instructions Recorded Confirmed Type Budesonide-Formot 160-4.5 Mcg 2 puff INHALATION RT-BID 09/04/18 01/29/23 History [Symbicort 160-4.5 Mcg Inhaler] Albuterol Inhaler [Ventolin Hfa 2 puff INHALATION RT-QID PRN 01/23/23 01/29/23 History Inhaler] Losartan/Hydrochlorothiazide 1 tab PO DAILY 01/23/23 01/29/23 History [Hyzaar 100-25 Tablet] Aspirin 81 mg PO DAILY tab 01/28/23 01/29/23 Rx Atorvastatin [Lipitor] 40 mg PO HS tab 01/28/23 01/29/23 Rx Furosemide [Lasix] 40 mg PO BID@0900,1600 tab 01/28/23 01/29/23 Rx Isosorbide Mononitrate ER [Imdur] 30 mg PO DAILY tab 01/28/23 01/29/23 Rx Metoprolol Tartrate [Lopressor] 12.5 mg PO BID tab 01/28/23 01/29/23 Rx Potassium Chloride ER [K-Dur 20] 20 meq PO Q8HR tab 01/28/23 01/29/23 Rx Allergies Allergy/AdvReac Type Severity Reaction Status Date / Time adhesive tape Allergy skin Verified 01/29/23 11:44 blisters iodine Allergy Anaphylaxis Verified 01/29/23 11:44 morphine AdvReac Hallucinati Verified 01/29/23 11:44 ons Physical Exam Vitals: Vital Signs Temp Pulse Resp BP Pulse Ox 01/29/23 15:14 83 18 103/83 94 L 01/29/23 13:40 85 18 108/61 98 01/29/23 11:36 88 18 115/66 97 01/29/23 09:44 98.3 F 98 19 130/76 95 Intake and Output 01/29/23 01/29/23 01/29/23 06:59 14:59 22:59 Other: Weight 59.874 kg In general patient is alert and oriented x 3 in no distress HEENT head normocephalic and atraumatic Neck is supple no JVD no goiter no lymphadenopathy no carotid bruit Chest examination is clear to auscultation no crackles no wheezing Cardiac exam reveals regular heart sounds S1 and S2 no gallops no murmurs Abdomen is soft nontender no organomegaly with normal bowel sounds Extremity exam reveals no edema no cyanosis or clubbing Neurological examination reveals no gross focal deficits Results CBC & Chem 7: 01/29/23 11:15 01/29/23 11:15 Labs: Abnormal Lab Results - Last 24 Hours (Table) 01/29/23 01/29/23 01/29/23 Range/Units 11:15 11:15 11:15 WBC 10.8 H (3.8-10.6) k/uL RDW 16.0 H (11.5-15.5) % Neutrophils # 8.4 H (1.3-7.7) k/uL APTT 19.8 L (22.0-30.0) sec Sodium 135 L (137-145) mmol/L Chloride 90 L (98-107) mmol/L Carbon Dioxide 34 H (22-30) mmol/L BUN 44 H (7-17) mg/dL Creatinine 1.51 H (0.52-1.04) mg/dL Glucose 104 H (74-99) mg/dL Magnesium 1.4 L (1.6-2.3) mg/dL AST 45 H (14-36) U/L ALT 41 H (4-34) U/L Albumin 3.3 L (3.5-5.0) g/dL Assessment and Plan Plan: New episodes of chest pain Recent non-ST elevation myocardial infarction Recent admission was acute exacerbation of congestive heart failure 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 Underlying history of COPD Underlying history of hypertension Underlying history of hyperlipidemia Underlying history of osteoarthritis Previous history of esophageal stricture with history of dilatation Previous history of gastrointestinal bleeding Remote history of pulmonary embolism At this time patient will be readmitted to telemetry floor Home medications reviewed and reordered Cardiology consultation requested For DVT prophylaxis subcu Lovenox Prognosis is guarded will follow closely
[2023-01-30] MEDS: ACETAMINOPHEN TAB 325 MG TAB PO PRN ×4 (03:02→19:42)
[2023-01-30] MEDS ORDERED: IPRATROPIUM-ALBUTEROL 3 ML NEB INHALATION PRN (03:16)
--- NOTE | 2023-01-30 04:46 | P.CNPUL ---
History of Present Illness Consult date: 01/30/23 Reason for consult: chest pain, pleural effusion Chief complaint: Left-sided chest pain History of present illness: I am seeing this patient in new consultation today 01/30/2023 in the emergency room for left sided pleuritic chest pain and effusion. Patient is a 87-year-old white female with past medical history significant for moderate persistent chronic bronchial asthma, hypertension, hyperlipidemia, gastroesophageal reflux disease, pulmonary embolism, colitis, esophageal stricture with previous dilatations, and is a nonsmoker. Patient came back to the emergency room yesterday morning after being just discharged the day prior. Patient was admitted back on January 23 for a non-ST elevation MN and exacerbation of systolic congestive heart failure. She did have a small to moderate left pleural effusion at that time measuring 7.7 cm, and no thoracentesis was performed due to the patient being on heparin. Her symptoms ultimately improved, and she was discharged back to her assisted living center. Apparently, the patient's chest pain worsened after discharge, and she came back to the emergency room. Patient is is currently sitting up on the stretcher, on 2 L nasal cannula, in no acute distress. The left-sided chest pain is painful to palpation and exacerbated by coughing. There is some associated shortness of breath especially on exertion. She denies any infectious symptoms such as fever, chills, cough, hemoptysis. Chest x-ray from yesterday shows persistent cardiomegaly with small to moderate size left pleural effusion and associated left mid to lower lung atelectasis and/or infiltrate, without significant change from previous chest x-ray. Patient's echocardiogram done on her recent admission showed a markedly decreased ejection fraction of 20-25% severe pulmonary hypertension with an RVSP of 75 mmHg, moderate to severe tricuspid regurgitation, and severe mitral regurgitation. CBC from yesterday shows a WBC count of 10.8, hemoglobin 12.4, hematocrit 39.8, platelets 241. BMP shows a sodium 135, potassium 4, chloride 90, serum CO2 34, BUN 44, creatinine 1.51, glucose 104. Troponin was low at 0.022. EKG shows sinus rhythm with a left bundle-branch block. Vital signs are stable at this time. Review of Systems REVIEW OF SYSTEMS: CONSTITUTIONAL: Denies any recent significant weight loss or weight gain. EYES: Denies change in vision. EARS, NOSE, MOUTH, THROAT: Denies headaches, denies sore throat. CARDIOVASCULAR: Denies palpitations or syncopal episodes. Admits left-sided chest pain is reproducible with palpation and coughing. RESPIRATORY: Denies cough, congestion or hemoptysis. Admits shortness of breath especially with exertion GASTROINTESTINAL: Denies change in appetite, abdominal pain, nausea and vomiting, or diarrhea GENITOURINARY: Denies hematuria, denies infections. MUSKULOSKELETAL: Denies pain, denies swelling. INTEGUMENTARY: Denies rash, denies eczema. NEUROLOGICAL: Denies recent memory loss, no recent seizure activity. PSYCHIATRIC: Denies anxiety, denies depression. HEMATOLOGIC/LYMPHATIC: Denies anemia, denies enlarged lymph node Past Medical History Past Medical History: Asthma, GERD/Reflux, GI Bleed, Hyperlipidemia, Hypertension, Liver Disease, Osteoarthritis (OA), Pneumonia, Pulmonary Embolus (PE) Additional Past Medical History / Comment(s): bilateral pulmonary embolism 2010, IBS, colitis, esophageal stricture, hepatitis B infection 1971, hiatal hernia, history of Chowdary's palsy, severe osteoarthritis, sinus problems. poor circulation in eliseo feet, GI bleed years ago History of Any Multi-Drug Resistant Organisms: None Reported Past Surgical History: Appendectomy, Section, Hernia Repair, Hysterectomy, Joint Replacement, Tonsillectomy, Tubal Ligation Additional Past Surgical History / Comment(s): Rt shoulder replacement, ca taracts bilaterally, x 2, hiatal hernia repair, EGDs with esophageal dilations, colonoscopy, bronchoscopies Past Anesthesia/Blood Transfusion Reactions: Motion Sickness Past Psychological History: No Psychological Hx Reported Smoking Status: Never smoker - Past Family History Daughter(s) Family Medical History: Coronary Artery Disease (CAD), Diabetes Mellitus, Deep Vein Thrombosis (DVT) Brother(s) Family Medical History: CVA/TIA Mother Family Medical History: Deep Vein Thrombosis (DVT) Additional Family Medical History / Comment(s): . Father Family Medical History: No Reported History Medications and Allergies Home Medications Medication Instructions Recorded Confirmed Type Budesonide-Formot 160-4.5 Mcg 2 puff INHALATION RT-BID 09/04/18 01/29/23 History [Symbicort 160-4.5 Mcg Inhaler] Albuterol Inhaler [Ventolin Hfa 2 puff INHALATION RT-QID PRN 01/23/23 01/29/23 History Inhaler] Losartan/Hydrochlorothiazide 1 tab PO DAILY 01/23/23 01/29/23 History [Hyzaar 100-25 Tablet] Aspirin 81 mg PO DAILY tab 01/28/23 01/29/23 Rx Atorvastatin [Lipitor] 40 mg PO HS tab 01/28/23 01/29/23 Rx Furosemide [Lasix] 40 mg PO BID@0900,1600 tab 01/28/23 01/29/23 Rx Isosorbide Mononitrate ER [Imdur] 30 mg PO DAILY tab 01/28/23 01/29/23 Rx Metoprolol Tartrate [Lopressor] 12.5 mg PO BID tab 01/28/23 01/29/23 Rx Potassium Chloride ER [K-Dur 20] 20 meq PO Q8HR tab 01/28/23 01/29/23 Rx Allergies Allergy/AdvReac Type Severity Reaction Status Date / Time adhesive tape Allergy skin Verified 01/29/23 11:44 blisters iodine Allergy Anaphylaxis Verified 01/29/23 11:44 morphine AdvReac Hallucinati Verified 01/29/23 11:44 ons Physical Exam Vitals: Vital Signs Temp Pulse Resp BP Pulse Ox 01/30/23 02:05 77 18 113/70 96 01/30/23 01:00 77 18 113/70 96 01/30/23 00:00 74 21 109/65 94 L 01/29/23 20:50 81 18 114/53 98 01/29/23 18:41 84 18 104/59 99 01/29/23 16:36 84 18 96/63 98 01/29/23 15:14 83 18 103/83 94 L 01/29/23 13:40 85 18 108/61 98 01/29/23 11:36 88 18 115/66 97 01/29/23 09:44 98.3 F 98 19 130/76 95 Intake and Output 01/29/23 01/29/23 01/30/23 14:59 22:59 06:59 Other: Weight 59.874 kg GENERAL EXAM: Alert, 87-year-old white female, comfortable in no apparent distress. HEAD: Normocephalic and atraumatic EYES: Normal reaction of pupils, equal size. NOSE: Clear with pink turbinates. THROAT: No erythema or exudates. NECK: No masses, no JVD. CHEST: No chest wall deformity. LUNGS: Equal air entry with diminished left basilar lung sounds and inspiratory crackles. No wheezes or rhonchi. On 2 L nasal cannula. No conversational dyspnea or accessory muscle use.. CVS: S1 and S2 normal with no audible murmur, regular rhythm. No extra heart sounds ABDOMEN: No hepatosplenomegaly, active bowel sounds, no guarding or rigidity. SPINE: No scoliosis or deformity SKIN: No rashes CENTRAL NERVOUS SYSTEM: No focal deficits, tone is normal in all 4 extremities. EXTREMITIES: There is no peripheral edema, clubbing, or cyanosis. Peripheral pulses are intact. Results - Laboratory Findings CBC and BMP: 01/29/23 11:15 01/29/23 11:15 PT/INR, D-dimer PT 11.1 sec (9.0-12.0) 01/29/23 11:15 INR 1.1 (<1.2) 01/29/23 11:15 Abnormal lab findings: Abnormal Labs 01/29/23 01/29/23 01/29/23 11:15 11:15 11:15 WBC 10.8 H RDW 16.0 H Neutrophils # 8.4 H APTT 19.8 L Sodium 135 L Chloride 90 L Carbon Dioxide 34 H BUN 44 H Creatinine 1.51 H Glucose 104 H Magnesium 1.4 L AST 45 H ALT 41 H Albumin 3.3 L - Diagnostic Findings Chest x-ray: image reviewed Assessment and Plan Assessment: Chest pain, possibly pleuritic in nature. ECG shows persistent left bundle branch block. Troponin 0.022. Chest x-ray shows persistent cardiomegaly with small to moderate size left pleural effusion and associated left mid to lower lung atelectasis without significant change from most recent x-ray. Persistent left-sided pleural effusion Acute exacerbation of systolic congestive heart failure, on recent echocardiogram found to have severely impaired left ventricular systolic function ejection fraction of 20% along with severe mitral and tricuspid regurgitation with severe pulmonary hypertension with an RSVP of 75 mmHg. Acute hypoxic respiratory failure secondary to above, currently on 2 L nasal cannula Acute kidney injury, creatinine 1.51 Recent non-ST elevation MN Moderate persistent chronic bronchial asthma, stable Hyperlipidemia Hypertension Osteoarthritis Previous history of bilateral pulmonary embolism in 2010 History of GI bleed and has been off anticoagulation since 2020 and declined to resume History of esophageal strictures with previous dilatation Plan: Medications, labs, chest x-ray reviewed Continue supplemental oxygen to maintain oxygen saturation 92% or greater Start the patient on a combination of bronchodilators and Symbicort inhaler Patient may be candidate for thoracentesis on this admission, not anticoagulated. Will discuss with Dr. Kirkland We will continue to follow I have personally seen and examined the patient, performed the documentation and the assessment and plan as written. Number of minutes spent on the visit:20 Time with Patient: Greater than 30
--- NOTE | 2023-01-30 08:28 | US ---
EXAMINATION TYPE: US chest DATE OF EXAM: 01/30/2023 COMPARISON: Correlation radiograph 01/29/2023 CLINICAL INDICATION: Female, 87 years old with history of left pleural effusion; Left pleural effusio n TECHNIQUE: Targeted ultrasound of the posterior lower bilateral hemithoraces EXAM MEASUREMENTS: Right Pleural Effusion pocket size: no fluid visualized at this time Left Pleural Effusion pocket size: 7.3 cm - appears loculated with multiple thin septations Left skin surface to fluid distance: 2.7 cm Right side NOT marked for possible thoracentesis outside the dept. Left side marked for possible thoracentesis outside the dept. Pulmonologists are able to review the images in the patient?s EMR. IMPRESSIONS: Small to moderate sized mildly complex-appearing left pleural effusion.
[2023-01-30] MEDS: IPRATROPIUM-ALBUTEROL 3 ML NEB INHALATION SCH ×4 (09:39→19:37)
[2023-01-30] MEDS: SYMBICORT 160-4.5 MCG INHALER INHALATION SCH ×2 (09:40→19:37)
--- NOTE | 2023-01-30 11:25 | P.CRDCN ---
History of Present Illness Consult date: 01/30/23 Chief complaint: Chest discomfort History of present illness: This is an 87-year-old female patient who is known to worsen service from before with a past medical history significant for recently diagnosed as of cardiomyopathy was EF around 25% based on echo was performed in January 2023 as well as E echo showed valvular abnormalities with severe mitral regurgitation and severe pulmonary hypertension and severe tricuspid regurgitation. Beside that the patient does have hypertension and dyslipidemia and chronic kidney disease and chronic obstructive pulmonary disease/chronic hypoxic respiratory failure. She also does have history of persistent left pleural effusion. She was admitted to the hospital recently with a chest discomfort and mildly abnormal troponin which was managed medically. At that point she underwent a further investigation including the echo with elbow finding. She presented to the hospital again this time was chest discomfort. The discomfort is on the left side of the chest as a dull/sharp kind of discomfort with radiation to the back. Beside that she was more short of breath. Further investigation was performed including an electrocardiogram which revealed sinus mechanism was L BBB. The first set of troponin came in to be abnormal at 0.22. NT proBNP was not checked. Chest x-ray showed findings consistent of cardiomegaly as well as left small to medium sized pleural effusion. The patient was seen by the pulmonary service. She underwent an ultrasound of the chest and does confirm the small to medium sized left pleural effusion and the pulmonary service believed that the patient might benefit from thoracocentesis. No prior coronary angiogram was performed to evaluate the etiology of the cardiomyopathy. She was on medical treatment for cardiomyopathy. No history of coronary artery disease or coronary revascularization she does have multiple risk factors including hypertension and dyslipidemia. The examination is remarkable for regular rhythm with distant heart sounds and systolic murmur at the apical area as well as diminished breathing sounds bilaterally but mostly on the left side. No lower extremity edema noted Assessment Recurrent left pleural effusion Severe cardiomyopathy, etiology is unknown at this point, ischemic versus nonischemic. 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 Also acute coronary syndrome to be ruled out. Severe CAD also to be ruled out. Follow-up with the serial cardiac enzymes I believe the patient benefit from coronary angiogram down the line Maximize medical treatment for cardiomyopathy Start the patient on small dose of IV diuretics including for a semi-20 mg twice a day Follow-up with the patient Past Medical History Past Medical History: Asthma, GERD/Reflux, GI Bleed, Hyperlipidemia, Hypertension, Liver Disease, Osteoarthritis (OA), Pneumonia, Pulmonary Embolus (PE) Additional Past Medical History / Comment(s): bilateral pulmonary embolism 2010, IBS, colitis, esophageal stricture, hepatitis B infection 1971, hiatal hernia, history of Chowdary's palsy, severe osteoarthritis, sinus problems. poor circulation in eliseo feet, GI bleed years ago History of Any Multi-Drug Resistant Organisms: None Reported Past Surgical History: Appendectomy, Section, Hernia Repair, Hysterectomy, Joint Replacement, Tonsillectomy, Tubal Ligation Additional Past Surgical History / Comment(s): Rt shoulder replacement, cataracts bilaterally, x 2, hiatal hernia repair, EGDs with esophageal dilations, colonoscopy, bronchoscopies Past Anesthesia/Blood Transfusion Reactions: Motion Sickness Past Psychological History: No Psychological Hx Reported Smoking Status: Never smoker - Past Family History Daughter(s) Family Medical History: Coronary Artery Disease (CAD), Diabetes Mellitus, Deep Vein Thrombosis (DVT) Brother(s) Family Medical History: CVA/TIA Mother Family Medical History: Deep Vein Thrombosis (DVT) Additional Family Medical History / Comment(s): . Father Family Medical History: No Reported History Medications and Allergies Home Medications Medication Instructions Recorded Confirmed Type Budesonide-Formot 160-4.5 Mcg 2 puff INHALATION RT-BID 09/04/18 01/29/23 History [Symbicort 160-4.5 Mcg Inhaler] Albuterol Inhaler [Ventolin Hfa 2 puff INHALATION RT-QID PRN 01/23/23 01/29/23 History Inhaler] Losartan/Hydrochlorothiazide 1 tab PO DAILY 01/23/23 01/29/23 History [Hyzaar 100-25 Tablet] Aspirin 81 mg PO DAILY tab 01/28/23 01/29/23 Rx Atorvastatin [Lipitor] 40 mg PO HS tab 01/28/23 01/29/23 Rx Furosemide [Lasix] 40 mg PO BID@0900,1600 tab 01/28/23 01/29/23 Rx Isosorbide Mononitrate ER [Imdur] 30 mg PO DAILY tab 01/28/23 01/29/23 Rx Metoprolol Tartrate [Lopressor] 12.5 mg PO BID tab 01/28/23 01/29/23 Rx Potassium Chloride ER [K-Dur 20] 20 meq PO Q8HR tab 01/28/23 01/29/23 Rx Allergies Allergy/AdvReac Type Severity Reaction Status Date / Time adhesive tape Allergy skin Verified 01/29/23 11:44 blisters iodine Allergy Anaphylaxis Verified 01/29/23 11:44 morphine AdvReac Hallucinati Verified 01/29/23 11:44 ons Physical Exam Vitals: Vital Signs Pulse Resp BP Pulse Ox 01/30/23 09:44 84 01/30/23 09:34 78 01/30/23 05:59 95 01/30/23 05:57 78 01/30/23 05:00 75 22 110/59 94 L 01/30/23 04:00 80 22 109/60 94 L 01/30/23 02:05 77 18 113/70 96 01/30/23 01:00 77 18 113/70 96 01/30/23 00:00 74 21 109/65 94 L 01/29/23 20:50 81 18 114/53 98 01/29/23 18:41 84 18 104/59 99 01/29/23 16:36 84 18 96/63 98 01/29/23 15:14 83 18 103/83 94 L 01/29/23 13:40 85 18 108/61 98 01/29/23 11:36 88 18 115/66 97 Intake and Output 01/29/23 01/30/23 01/30/23 22:59 06:59 14:59 Other: Weight 59.874 kg 56.4 kg Results 01/29/23 11:15 01/29/23 11:15 Cardiac Enzymes 01/29/23 01/29/23 Range/Units 11:15 11:15 AST 45 H (14-36) U/L Troponin I 0.022 (0.000-0.034) ng/mL Coagulation 01/29/23 Range/Units 11:15 PT 11.1 (9.0-12.0) sec APTT 19.8 L (22.0-30.0) sec CBC 01/29/23 Range/Units 11:15 WBC 10.8 H (3.8-10.6) k/uL RBC 4.86 (3.80-5.40) m/uL Hgb 12.4 (11.4-16.0) gm/dL Hct 39.8 (34.0-46.0) % Plt Count 241 (150-450) k/uL Comprehensive Metabolic Panel 01/29/23 Range/Units 11:15 Sodium 135 L (137-145) mmol/L Potassium 4.0 (3.5-5.1) mmol/L Chloride 90 L (98-107) mmol/L Carbon Dioxide 34 H (22-30) mmol/L BUN 44 H (7-17) mg/dL Creatinine 1.51 H (0.52-1.04) mg/dL Glucose 104 H (74-99) mg/dL Calcium 9.3 (8.4-10.2) mg/dL AST 45 H (14-36) U/L ALT 41 H (4-34) U/L Alkaline Phosphatase 95 (38-126) U/L Total Protein 7.3 (6.3-8.2) g/dL Albumin 3.3 L (3.5-5.0) g/dL Current Medications Generic Name Dose Route Start Last Admin Trade Name Freq PRN Reason Stop Dose Admin Acetaminophen 650 mg 01/29/23 14:36 01/30/23 08:05 Acetaminophen Tab 325 Mg Tab PO 650 mg Q6HR PRN Administration Breakthrough Pain Albuterol/Ipratropium 3 ml 01/30/23 03:16 01/30/23 05:55 Ipratropium-Albuterol 3 Ml Neb INHALATION 3 ml RT-Q2H PRN Administration Shortness Of Breath Or Wheezing Albuterol/Ipratropium 3 ml 01/30/23 08:00 01/30/23 09:39 Ipratropium-Albuterol 3 Ml Neb INHALATION 3 ml RT-QID RACIEL Administration Budesonide/Formoterol Fumarate 2 puff 01/30/23 08:00 01/30/23 09:40 Symbicort 160-4.5 Mcg Inhaler INHALATION 2 puff RT-BID RACIEL Administration Naloxone HCl 0.2 mg 01/29/23 12:21 Naloxone 0.4 Mg/Ml 1 Ml Vial IV Q2M PRN Opioid Reversal Intake and Output 01/29/23 01/30/23 01/30/23 22:59 06:59 14:59 Other: Weight 59.874 kg 56.4 kg 01/29/23 11:15 01/29/23 11:15
[2023-01-30] MEDS ORDERED: ALBUTEROL NEBULIZED 2.5 MG/3 ML INHALATION PRN (14:52)
[2023-01-30] MEDS: ISOSORBIDE MONONITRATE ER 30 MG TAB.ER.24H PO SCH (15:46)
[2023-01-30] MEDS: POTASSIUM CHLORIDE ER 20 MEQ TAB.ER PO SCH (15:46)
[2023-01-30] MEDS: ASPIRIN 81 MG PO SCH (15:46)
[2023-01-30] MEDS: FUROSEMIDE 40 MG TAB PO SCH (15:47)
[2023-01-30] MEDS: LOSARTAN-HCTZ 50-12.5 MG 1 EACH TAB PO SCH (17:01)
--- NOTE | 2023-01-30 17:14 | P.PN ---
Subjective Progress Note Date: 01/30/23 Chase Min, is an 87-year-old female who presented to [facility] emergency room with a chief complaint of left-sided chest pain. Patient was admitted recently with similar symptoms on 01/23/2023, she was discharged on 01/28/2023. During that admission she had evidence of non-ST elevation myocardial infarction and evidence of acute exacerbation of systolic congestive heart failure, with evidence of cardiomyopathy with ejection fraction of 20-25%. Patient was treated medically and was discharged home yesterday, she returned today with worsening chest pain. She was evaluated in the emergency room vital examination on presentation revealed a temperature of 98.3 pulse 98 respiration 19 and blood pressure 130/76 pulse ox 95% on room air Laboratory data revealed a white blood count of 10.8 hemoglobin 12.4 platelet count 241 sodium 135 potassium 4.0 chloride 90 CO2 34 BUN 44 creatinine 1.51 troponin level was 0.0-2 AST and ALT are slightly elevated at 45 and 41 Testing in the emergency room revealed EKG done in the emergency room revealed sinus rhythm with left bundle branch block, chest x-ray done in the emergency room revealed cardiomegaly with small to moderate-sized left pleural effusion and associated left mid to lower lung atelectasis or infiltrate. Patient was admitted to medical floor for further evaluation and treatment. Past medical history is significant for recent history of non-ST elevation myocardial infarction, recent admission was acute systolic congestive heart failure exacerbation, cardiomyopathy with ejection fraction of 20-25%, underlying history of hypertension,, underlying history of hyperlipidemia, underlying history of osteoarthritis, underlying history of COPD, underlying history of esophageal stricture, underlying history of gastrointestinal bleeding, remote history of pulmonary embolism On review of systems patient was seen and examined in the emergency room she is alert and oriented 3 in no apparent distress there is no fever or chills no headache or dizziness she is still complaining of left sided chest pain no shortness of breath no cough no palpitation no nausea or vomiting no abdominal pain no diarrhea no blood in the stools no burning with urination no frequency or urgency and no hematuria. On 01/30/2023 patient was seen and examined in the ICU, she is alert and oriented 3 in no apparent distress, she is still complaining of chest pain and shortness of breath and occasional cough otherwise she denies any complaints there is no fever or chills no headache or dizziness no nausea or vomiting no abdominal pain no diarrhea no blood in the stools no burning with urination no frequency or urgency and no hematuria. She is scheduled for thoracentesis today. Prognosis is guarded will continue to follow closely. Objective - Vital Signs Vital signs: Vital Signs Temp 98.3 F 01/29/23 09:44 Pulse 84 01/30/23 09:44 Resp 22 01/30/23 05:00 BP 110/59 01/30/23 05:00 Pulse Ox 95 01/30/23 05:59 FiO2 Intake & Output 01/29/23 01/30/23 01/30/23 18:59 06:59 18:59 Weight 59.874 kg 56.4 kg - Exam In general patient is alert and oriented x 3 in no distress HEENT head normocephalic and atraumatic Neck is supple no JVD no goiter no lymphadenopathy no carotid bruit Chest examination is clear to auscultation no crackles no wheezing Cardiac exam reveals regular heart sounds S1 and S2 no gallops no murmurs Abdomen is soft nontender no organomegaly with normal bowel sounds Extremity exam reveals no edema no cyanosis or clubbing Neurological examination reveals no gross focal deficits - Labs CBC & Chem 7: 01/29/23 11:15 01/29/23 11:15 Labs: Abnormal Lab Results - Last 24 Hours (Table) 01/29/23 01/29/23 01/29/23 Range/Units 11:15 11:15 11:15 WBC 10.8 H (3.8-10.6) k/uL RDW 16.0 H (11.5-15.5) % Neutrophils # 8.4 H (1.3-7.7) k/uL APTT 19.8 L (22.0-30.0) sec Sodium 135 L (137-145) mmol/L Chloride 90 L (98-107) mmol/L Carbon Dioxide 34 H (22-30) mmol/L BUN 44 H (7-17) mg/dL Creatinine 1.51 H (0.52-1.04) mg/dL Glucose 104 H (74-99) mg/dL Magnesium 1.4 L (1.6-2.3) mg/dL AST 45 H (14-36) U/L ALT 41 H (4-34) U/L Albumin 3.3 L (3.5-5.0) g/dL Assessment and Plan Plan: New episodes of chest pain Recent non-ST elevation myocardial infarction Recent admission was acute exacerbation of congestive heart failure 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 Underlying history of COPD Underlying history of hypertension Underlying history of hyperlipidemia Underlying history of osteoarthritis Previous history of esophageal stricture with history of dilatation Previous history of gastrointestinal bleeding Remote history of pulmonary embolism At this time patient will be readmitted to telemetry floor Home medications reviewed and reordered Cardiology consultation requested For DVT prophylaxis subcu Lovenox Prognosis is guarded will follow closely
[2023-01-30] MEDS: HYDROmorphone 0.5 MG/0.5 ML SYRINGE IVP PRN (17:22)
--- NOTE | 2023-01-30 18:34 | CA ---
Transthoracic Echo Report Name: Chase Min Age: 87 Gender: F : 1935 Exam Date: 01/30/2023 10:13 Exam Location: [facility] Ht (in): 63 Wt (lb): 124 Ordering Physician: Abraham Khan MD ([id number]) Attending/Referring Phys: Microbiology Lab Assistant Aaliyah Preston RDCS Procedure CPT: Indications: Effusion Cardiac Hx: Technical Quality: Good Contrast 1: Total Dose (mL): Contrast 2: Total Dose (mL): MEASUREMENTS (Male / Female) Normal Values 2D ECHO LV Diastolic Diameter PLAX 4.3 cm 4.2 - 5.9 / 3.9 - 5.3 cm LV Systolic Diameter PLAX 3.7 cm IVS Diastolic Thickness 1.2 cm 0.6 - 1.0 / 0.6 - 0.9 cm LVPW Diastolic Thickness 1.2 cm 0.6 - 1.0 / 0.6 - 0.9 cm LV Relative Wall Thickness 0.6 RV Internal Dim ED PLAX 3.3 cm LA Systolic Diameter LX 3.9 cm 3.0 - 4.0 / 2.7 - 3.8 cm LV Diastolic Volume MOD 4C 120.5 cm??? LV Systolic Volume MOD 4C 89.8 cm??? LV Ejection Fraction MOD 4C 25.5 % LV Diastolic Length 4C 8.1 cm LV Systolic Length 4C 7.5 cm LV Diastolic Volume MOD 2C 112.8 cm??? LV Systolic Volume MOD 2C 85.6 cm??? LV Ejection Fraction MOD 2C 24.1 % LV Diastolic Length 2C 8.7 cm LV Systolic Length 2C 8.0 cm LA Volume 44.5 cm??? 18 - 58 / 22 - 52 cm??? M-MODE Aortic Root Diameter MM 3.2 cm MV E Point Septal Separation 1.4 cm AV Cusp Separation MM 1.2 cm DOPPLER AV Peak Velocity 171.4 cm/s AV Peak Gradient 11.8 mmHg MV Area PHT 5.8 cm??? Mitral E Point Velocity 100.2 cm/s Mitral A Point Velocity 118.5 cm/s Mitral E to A Ratio 0.8 MV Deceleration Time 130.0 ms MV E' Velocity 3.7 cm/s Mitral E to MV E' Ratio 27.0 TR Peak Velocity 298.5 cm/s TR Peak Gradient 35.6 mmHg Right Ventricular Systolic Press 40.6 mmHg FINDINGS Left Ventricle Left ventricular ejection fraction is estimated at 20-25 %. Left ventricular cavity size normal. Mildly increased septal wall thickness. Mildly increased posterior wall thickness. Severely reduced global left ventricular systolic function. Right Ventricle Mild right ventricular dilatation. Mild pulmonary hypertension. Right Atrium Normal right atrial size. Left Atrium Mildly increased left atrial area. Mitral Valve Mitral valve thickened. Mild mitral annular calcification. Mild mitral regurgitation. Aortic Valve Trileaflet aortic valve. Aortic valve sclerosis. No aortic valve stenosis or regurgitation. Tricuspid Valve Structurally normal tricuspid valve. Mild tricuspid regurgitation. Pulmonic Valve Structurally normal pulmonic valve. No pulmonic regurgitation. Pericardium Normal pericardium. No pericardial effusion. Aorta Normal size aortic root and proximal ascending aorta. CONCLUSIONS Severe LV dysfunction ejection fraction less than 20% Mildly enlarged heart Previewed by: Dr. Aldair Ahmadi MD (Electronically Signed) Final Date: 30 Jan 2023 18:34
--- NOTE | 2023-01-30 18:44 | XR ---
EXAMINATION TYPE: XR chest 1V portable DATE OF EXAM: 01/30/2023 COMPARISON: 01/29/2023 INDICATION: Postthoracentesis TECHNIQUE: Single frontal view of the chest is obtained. FINDINGS: The heart size is mildly prominent. The pulmonary vasculature is normal. There is a small left pleural effusion. This is diminished from comparison. No pneumothorax is eviden t. IMPRESSION: 1. No pneumothorax postthoracentesis.
[2023-01-30] MEDS ORDERED: SYMBICORT 160-4.5 MCG INHALER INHALATION SCH (20:00)
[2023-01-30] MEDS: ATORVASTATIN 40 MG TAB PO SCH (20:57)
[2023-01-30] MEDS: METOPROLOL TARTRATE 12.5 MG TAB PO SCH (20:57)
[2023-01-30] MEDS ORDERED: FUROSEMIDE 10 MG/ML 2 ML VIAL IV SCH (21:00)
[2023-01-31] MEDS: POTASSIUM CHLORIDE ER 20 MEQ TAB.ER PO SCH ×4 (00:03→23:45)
[2023-01-31] MEDS: ACETAMINOPHEN TAB 325 MG TAB PO PRN ×3 (01:29→12:21)
[2023-01-31 02:20] LABS: Glucose, BF Source Pleural Fluid; Glucose, Body Fluid 56 mg/dL; LDH, Body Fluid Source Pleural Fluid; T. Protein, Body Fluid Source Pleural Fluid; Total Protein, Body Fluid 4080 mg/dL
[2023-01-31 02:34] LABS: Appearance,BF Slightly Hazy
--- NOTE | 2023-01-31 08:45 | US ---
EXAMINATION TYPE: US thoracentesis DATE OF EXAM: 01/30/2023 COMPARISON: Radiograph 01/29/2023 and ultrasound earlier today HISTORY: 87-year-old female shortness of breath, complex pleural effusion. SCHOOL PHOTOGRAPHS DETAILER: Dr. Chance PROCEDURE: The procedure was discussed with the patient. The risks, complications, benefits, and alternatives we re discussed and any questions were answered. Informed consent was obtained. Preprocedure preliminary imaging demonstrated a small to moderate sized complex left pleural effusion with internal septations. Maximal barrier technique was utilized. Ultrasound was utilized to determine the precise skin entry site; the skin overlying a suitable pocke t of fluid of the posterior lower left chest was localized and the overlying skin prepped and draped. Lidocaine was used for local anesthesia. Utilizing trocar technique with sterile technique, a 5 Arabic thoracentesis/paracentesis catheter was advanced into the pleural fluid. Approximately 120 mL of clear yellow fluid was labeled and sent for laboratory analysis. Subsequently, a total of 350 mL clear yellow fluid was removed. Catheter was withdrawn and hemostasis achieved. A sterile bandage was applied. Postprocedure ultrasound imaging demonstrated trace to small residual pleural effusion. There is no i mmediate complication. IMPRESSION: 1. Status post ultrasound-guided left-sided thoracentesis of the mildly complex, septated effusion; r emoval of 350 mL of clear yellow fluid. 2. Fluid analysis and post procedure chest x-ray pending.
[2023-01-31] MEDS: SYMBICORT 160-4.5 MCG INHALER INHALATION SCH ×2 (08:49→20:57)
[2023-01-31] MEDS: IPRATROPIUM-ALBUTEROL 3 ML NEB INHALATION SCH ×4 (08:49→20:57)
[2023-01-31] MEDS: ISOSORBIDE MONONITRATE ER 30 MG TAB.ER.24H PO SCH (09:18)
[2023-01-31] MEDS: LOSARTAN-HCTZ 50-12.5 MG 1 EACH TAB PO SCH (09:19)
[2023-01-31] MEDS: ASPIRIN 81 MG PO SCH (09:23)
[2023-01-31] MEDS: FUROSEMIDE 40 MG TAB PO SCH ×2 (09:23→16:01)
[2023-01-31] MEDS: METOPROLOL TARTRATE 12.5 MG TAB PO SCH (09:23)
[2023-01-31] MEDS ORDERED: METOPROLOL TARTRATE 12.5 MG TAB PO STA (09:47)
--- NOTE | 2023-01-31 09:51 | P.PN ---
Subjective Progress Note Date: 01/31/23 Chase Min, is an 87-year-old female who presented to [facility] emergency room with a chief complaint of left-sided chest pain. Patient was admitted recently with similar symptoms on 01/23/2023, she was discharged on 01/28/2023. During that admission she had evidence of non-ST elevation myocardial infarction and evidence of acute exacerbation of systolic congestive heart failure, with evidence of cardiomyopathy with ejection fraction of 20-25%. Patient was treated medically and was discharged home yesterday, she returned today with worsening chest pain. She was evaluated in the emergency room vital examination on presentation revealed a temperature of 98.3 pulse 98 respiration 19 and blood pressure 130/76 pulse ox 95% on room air Laboratory data revealed a white blood count of 10.8 hemoglobin 12.4 platelet count 241 sodium 135 potassium 4.0 chloride 90 CO2 34 BUN 44 creatinine 1.51 troponin level was 0.0-2 AST and ALT are slightly elevated at 45 and 41 Testing in the emergency room revealed EKG done in the emergency room revealed sinus rhythm with left bundle branch block, chest x-ray done in the emergency room revealed cardiomegaly with small to moderate-sized left pleural effusion and associated left mid to lower lung atelectasis or infiltrate. Patient was admitted to medical floor for further evaluation and treatment. Past medical history is significant for recent history of non-ST elevation myocardial infarction, recent admission was acute systolic congestive heart failure exacerbation, cardiomyopathy with ejection fraction of 20-25%, underlying history of hypertension,, underlying history of hyperlipidemia, underlying history of osteoarthritis, underlying history of COPD, underlying history of esophageal stricture, underlying history of gastrointestinal bleeding, remote history of pulmonary embolism On review of systems patient was seen and examined in the emergency room she is alert and oriented 3 in no apparent distress there is no fever or chills no headache or dizziness she is still complaining of left sided chest pain no shortness of breath no cough no palpitation no nausea or vomiting no abdominal pain no diarrhea no blood in the stools no burning with urination no frequency or urgency and no hematuria. On 01/30/2023 patient was seen and examined in the ICU, she is alert and oriented 3 in no apparent distress, she is still complaining of chest pain and shortness of breath and occasional cough otherwise she denies any complaints there is no fever or chills no headache or dizziness no nausea or vomiting no abdominal pain no diarrhea no blood in the stools no burning with urination no frequency or urgency and no hematuria. She is scheduled for thoracentesis today. Prognosis is guarded will continue to follow closely. On 01/31/2023 patient currently in the ICU. Alert and oriented 3. Patient underwent thoracentesis yesterday 350 out. Per nursing staff patient went into atrial fibrillation this AM. This is new for patient. Per nursing staff cardiology was notified. Patient reports minimal improvement. Current signs temp 98.2. Heart rate 80, blood pressure 100/61 and a pulse ox of 96% on 2 L. Cardiology and pulmonary services are following Objective - Vital Signs Vital signs: Vital Signs Temp 98.2 F 01/30/23 16:00 Pulse 80 01/31/23 08:57 Resp 16 01/31/23 08:57 BP 100/61 01/30/23 16:55 Pulse Ox 96 01/31/23 08:49 FiO2 Intake & Output 01/30/23 01/31/23 01/31/23 18:59 06:59 18:59 Intake Total 250 240 Output Total 150 50 Balance 100 190 Weight 57.5 kg Intake: Oral 250 240 Output: Urine 150 50 Other: Voiding Method External Catheter External Catheter # Voids 1 - Exam In general patient is alert and oriented x 3 in no distress HEENT head normocephalic and atraumatic Neck is supple no JVD no goiter no lymphadenopathy no carotid bruit Chest examination is clear to auscultation no crackles no wheezing Cardiac exam reveals regular heart sounds S1 and S2 no gallops no murmurs Abdomen is soft nontender no organomegaly with normal bowel sounds Extremity exam reveals no edema no cyanosis or clubbing Neurological examination reveals no gross focal deficits - Labs CBC & Chem 7: 01/29/23 11:15 01/29/23 11:15 Labs: Microbiology - Last 24 Hours (Table) 01/30/23 16:50 Body Fluid Culture - Preliminary Pleural Fluid 01/30/23 16:50 Anaerobic Culture - Preliminary Pleural Fluid Assessment and Plan Plan: New episodes of chest pain Recent non-ST elevation myocardial infarction Recent admission was acute exacerbation of congestive heart failure 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 New-onset atrial fibrillation Underlying history of COPD Underlying history of hypertension Underlying history of hyperlipidemia Underlying history of osteoarthritis Previous history of esophageal stricture with history of dilatation Previous history of gastrointestinal bleeding Remote history of pulmonary embolism At this time patient will be readmitted to telemetry floor Home medications reviewed and reordered Cardiology consultation requested For DVT prophylaxis subcu Lovenox Prognosis is guarded will follow closely
[2023-01-31] MEDS: APIXABAN 2.5 MG TABLET PO SCH ×2 (10:02→19:43)
--- NOTE | 2023-01-31 10:33 | P.PN ---
Subjective Progress Note Date: 01/31/23 I am seeing this patient in new consultation today 01/30/2023 in the emergency room for left sided pleuritic chest pain and effusion. Patient is a 87-year-old white female with past medical history significant for moderate persistent chronic bronchial asthma, hypertension, hyperlipidemia, gastroesophageal reflux disease, pulmonary embolism, colitis, esophageal stricture with previous dilatations, and is a nonsmoker. Patient came back to the emergency room yesterday morning after being just discharged the day prior. Patient was admitted back on January 23 for a non-ST elevation [place] and exacerbation of systolic congestive heart failure. She did have a small to moderate left pleural effusion at that time measuring 7.7 cm, and no thoracentesis was performed due to the patient being on heparin. Her symptoms ultimately improved, and she was discharged back to her assisted living center. Apparently, the patient's chest pain worsened after discharge, and she came back to the emergency room. Patient is is currently sitting up on the stretcher, on 2 L nasal cannula, in no acute distress. The left-sided chest pain is painful to palpation and exacerbated by coughing. There is some associated shortness of breath especially on exertion. She denies any infectious symptoms such as fever, chills, cough, hemoptysis. Chest x-ray from yesterday shows persistent cardiomegaly with small to moderate size left pleural effusion and associated left mid to lower lung atelectasis and/or infiltrate, without significant change from previous chest x-ray. Patient's echocardiogram done on her recent admission showed a markedly decreased ejection fraction of 20-25% severe pulmonary hypertension with an RVSP of 75 mmHg, moderate to severe tricuspid regurgitation, and severe mitral regurgitation. CBC from yesterday shows a WBC count of 10.8, hemoglobin 12.4, hematocrit 39.8, platelets 241. BMP shows a sodium 135, potassium 4, chloride 90, serum CO2 34, BUN 44, creatinine 1.51, glucose 104. Troponin was low at 0.022. EKG shows sinus rhythm with a left bundle-branch block. Vital signs are stable at this time. The patient is seen today 01/31/2023 in follow-up in the intensive care unit. She is currently resting quite comfortably in bed. Awake and alert in no acute distress. Maintaining good O2 saturations in the 90s on 2 L/m per nasal cannula. No IV fluids. He did undergo an ultrasound-guided thoracentesis by interventional radiology yesterday with 350 ML's of clear yellow fluid removed. Follow-up chest x-ray revealed a repeat remaining small left pleural effusion. No pneumothorax. The fluid is exudative in nature with a total protein of 4.0 and LDH of 415. Cytology pending. She is continued on DuoNeb inhalations, Symbicort. Anticoagulated with Eliquis. Remains on oral diuretics. Objective - Vital Signs Vital signs: Vital Signs Temp 98.2 F 01/30/23 16:00 Pulse 80 01/31/23 08:57 Resp 16 01/31/23 08:57 BP 100/61 01/30/23 16:55 Pulse Ox 96 01/31/23 08:49 FiO2 Intake & Output 01/30/23 01/31/23 01/31/23 18:59 06:59 18:59 Intake Total 250 240 Output Total 150 50 Balance 100 190 Weight 57.5 kg Intake: Oral 250 240 Output: Urine 150 50 Other: Voiding Method External Catheter External Catheter # Voids 1 - Exam Chest pain, possibly pleuritic in nature. ECG shows persistent left bundle branch block. Troponin 0.022. Chest x-ray shows persistent cardiomegaly with small to moderate size left pleural effusion and associated left mid to lower lung atelectasis without significant change from most recent x-ray. Persistent left-sided pleural effusion. Status post ultrasound-guided thoracentesis 01/30/2023 with 350 ML's of yellow fluid return exudative with a protein of 4.0 and an LDH of 415. Cytology pending Acute exacerbation of systolic congestive heart failure, on recent echocardiogram found to have severely impaired left ventricular systolic function ejection fraction of 20% along with severe mitral and tricuspid regurgitation with severe pulmonary hypertension with an RSVP of 75 mmHg. Acute hypoxic respiratory failure secondary to above, currently on 2 L nasal cannula Acute kidney injury, creatinine 1.51 Recent non-ST elevation [place] Moderate persistent chronic bronchial asthma, stable Hyperlipidemia Hypertension Osteoarthritis Previous history of bilateral pulmonary embolism in 2010 History of GI bleed and has been off anticoagulation since 2020 and declined to resume History of esophageal strictures with previous dilatation Plan: The patient was seen and evaluated Currently stable and on 2 L She did undergo a left thoracentesis yesterday Exudative fluid, cytology pending Continue bronchodilators, diuretics Transfer to the regular medical floor We will continue to follow I have personally seen and examined the patient, performed the documentation and the assessment and plan as written. Number of minutes spent on the visit: 10. - Labs CBC & Chem 7: 01/29/23 11:15 01/29/23 11:15 Labs: Microbiology - Last 24 Hours (Table) 01/30/23 16:50 Body Fluid Culture - Preliminary Pleural Fluid 01/30/23 16:50 Anaerobic Culture - Preliminary Pleural Fluid
--- NOTE | 2023-01-31 11:21 | P.PN ---
Subjective Progress Note Date: 01/31/23 Principal diagnosis: Chest discomfort This is an 87-year-old female patient who is known to worsen service from before with a past medical history significant for recently diagnosed as of cardiomyopathy was EF around 25% based on echo was performed in January 2023 as well as E echo showed valvular abnormalities with severe mitral regurgitation and severe pulmonary hypertension and severe tricuspid regurgitation. Beside that the patient does have hypertension and dyslipidemia and chronic kidney disease and chronic obstructive pulmonary disease/chronic hypoxic respiratory failure. She also does have history of persistent left pleural effusion. She was admitted to the hospital recently with a chest discomfort and mildly abnormal troponin which was managed medically. At that point she underwent a further investigation including the echo with elbow finding. She presented to the hospital again this time was chest discomfort. The discomfort is on the left side of the chest as a dull/sharp kind of discomfort with radiation to the back. Beside that she was more short of breath. Further investigation was performed including an electrocardiogram which revealed sinus mechanism was L BBB. The first set of troponin came in to be abnormal at 0.22. NT proBNP was not ch ecked. Chest x-ray showed findings consistent of cardiomegaly as well as left small to medium sized pleural effusion. The patient was seen by the pulmonary service. She underwent an ultrasound of the chest and does confirm the small to medium sized left pleural effusion and the pulmonary service believed that the patient might benefit from thoracocentesis. No prior coronary angiogram was performed to evaluate the etiology of the cardiomyopathy. She was on medical treatment for cardiomyopathy. No history of coronary artery disease or coronary revascularization she does have multiple risk factors including hypertension and dyslipidemia. 01/31/2023 The patient was seen and evaluated this morning. She underwent Seroquel centesis yesterday but she stated that she is feeling somewhat better today. No chest discomfort today. Her pressure has been soft and I'm going to stop losartan/hydrochlorothiazide and continue the rest of the current medical regimen. On the monitor she does have irregular rhythm. I did perform 12 please EKG and that showed atrial fibrillation which is known to her. I'm going to increase the dose of beta jeff and start the patient on oral anticoagulation. The examination is remarkable for irregular rhythm with distant heart sounds and systolic murmur at the apical area as well as diminished breathing sounds bilaterally but mostly on the left side. No lower extremity edema noted Assessment Recurrent left pleural effusion status post thoracocentesis Severe cardiomyopathy, etiology is unknown at this point, ischemic versus nonischemic. 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 Recurrent left pleural effusion Paroxysmal atrial fibrillation which is new to the patient Plan The chest discomfort has resolved Increase the dose of beta jeff to keep the patient in sinus rhythm Start the patient on oral anticoagulation Follow-up with the patient Objective - Vital Signs Vital signs: Vital Signs Temp 98.2 F 01/30/23 16:00 Pulse 80 01/31/23 08:57 Resp 16 01/31/23 08:57 BP 100/61 01/30/23 16:55 Pulse Ox 96 01/31/23 08:49 FiO2 Intake & Output 01/30/23 01/31/23 01/31/23 18:59 06:59 18:59 Intake Total 250 240 Output Total 150 50 Balance 100 190 Weight 57.5 kg Intake: Oral 250 240 Output: Urine 150 50 Other: Voiding Method External Catheter External Catheter External Catheter # Voids 1 - Labs CBC & Chem 7: 01/29/23 11:15 01/29/23 11:15 Labs: Microbiology - Last 24 Hours (Table) 01/30/23 16:50 Body Fluid Culture - Preliminary Pleural Fluid 01/30/23 16:50 Anaerobic Culture - Preliminary Pleural Fluid
[2023-01-31] MEDS: HYDROmorphone 0.5 MG/0.5 ML SYRINGE IVP PRN (14:37)
[2023-01-31] MEDS: ATORVASTATIN 40 MG TAB PO SCH (19:43)
[2023-01-31] MEDS: METOPROLOL TARTRATE 25 MG TAB PO SCH (19:43)
[2023-02-01] MEDS: ACETAMINOPHEN TAB 325 MG TAB PO PRN ×3 (02:13→21:40)
[2023-02-01] MEDS: SYMBICORT 160-4.5 MCG INHALER INHALATION SCH ×2 (07:54→21:59)
[2023-02-01] MEDS: IPRATROPIUM-ALBUTEROL 3 ML NEB INHALATION SCH ×4 (07:55→21:59)
[2023-02-01] MEDS: APIXABAN 2.5 MG TABLET PO SCH ×2 (07:57→20:09)
[2023-02-01] MEDS: POTASSIUM CHLORIDE ER 20 MEQ TAB.ER PO SCH ×3 (07:57→23:42)
[2023-02-01] MEDS: ASPIRIN 81 MG PO SCH (07:58)
[2023-02-01] MEDS: FUROSEMIDE 40 MG TAB PO SCH ×2 (07:58→16:45)
[2023-02-01] MEDS: METOPROLOL TARTRATE 25 MG TAB PO SCH ×2 (07:58→20:09)
[2023-02-01 08:33] LABS: Anisocytosis Slight; Basophils % (A) 0 %; Eosinophils # (A) 0.1 k/uL (0-0.7); Eosinophils % (A) 0 %; HCT 40.1 % (34.0-46.0); HGB 11.8 gm/dL (11.4-16.0); Hypochromasia Marked; Lymphocytes # (A) 2.1 k/uL (1.0-4.8); Lymphocytes % (A) 14 %; MCH 24.9 pg (25.0-35.0); MCHC 29.5 g/dL (31.0-37.0); MCV 84.4 fL (80.0-100.0); Mean Platelet Volume 8.4; Monocytes # (A) 0.6 k/uL (0-1.0); Monocytes % (A) 4 %; Neutrophils # (A) 11.5 k/uL (1.3-7.7); Neutrophils % (A) 80 %; Platelet Count 330 k/uL (150-450); RBC 4.75 m/uL (3.80-5.40); WBC 14.4 k/uL (3.8-10.6)
[2023-02-01 08:54] LABS: Albumin 2.7 g/dL (3.5-5.0); Calcium 8.4 mg/dL (8.4-10.2); Potassium 4.1 mmol/L (3.5-5.1); Total Bilirubin 0.6 mg/dL (0.2-1.3); Total Protein 6.2 g/dL (6.3-8.2)
--- NOTE | 2023-02-01 11:59 | P.PN ---
Subjective Progress Note Date: 02/01/23 Principal diagnosis: Shortness of breath. I am seeing this patient in new consultation today 01/30/2023 in the emergency room for left sided pleuritic chest pain and effusion. Patient is a 87-year-old white female with past medical history significant for moderate persistent ch ronic bronchial asthma, hypertension, hyperlipidemia, gastroesophageal reflux disease, pulmonary embolism, colitis, esophageal stricture with previous dilatations, and is a nonsmoker. Patient came back to the emergency room yesterday morning after being just discharged the day prior. Patient was a dmitted back on January 23 for a non-ST elevation [place] and exacerbation of systolic congestive heart failure. She did have a small to moderate left pleural effusion at that time measuring 7.7 cm, and no thoracentesis was performed due to the patient being on heparin. Her symptoms ultimately improved, and she was discharged back to her assisted living center. Apparently, the patient's chest pain worsened after discharge, and she came back to the emergency room. Patient is is currently sitting up on the stretcher, on 2 L nasal cannula, in no acute distress. The left-sided chest pain is painful to palpation and exacerbated by coughing. There is some associated shortness of breath especially on exertion. She denies any infectious symptoms such as fever, chills, cough, hemoptysis. Chest x-ray from yesterday shows persistent cardiomegaly with small to moderate size left pleural effusion and associated left mid to lower lung atelectasis and/or infiltrate, without significant change from previous chest x-ray. Patient's echocardiogram done on her recent admission showed a markedly decreased ejection fraction of 20-25% severe pulmonary hypertension with an RVSP of 75 mmHg, moderate to severe tricuspid regurgitation, and severe mitral regurgitation. CBC from yesterday shows a WBC count of 10.8, hemoglobin 12.4, hematocrit 39.8, platelets 241. BMP shows a sodium 135, potassium 4, chloride 90, serum CO2 34, BUN 44, creatinine 1.51, glucose 104. Troponin was low at 0.022. EKG shows sinus rhythm with a left bundle-branch block. Vital signs are stable at this time. The patient is seen today 01/31/2023 in follow-up in the intensive care unit. She is currently resting quite comfortably in bed. Awake and alert in no acute distress. Maintaining good O2 saturations in the 90s on 2 L/m per nasal cannula. No IV fluids. He did undergo an ultrasound-guided thoracentesis by interventional radiology yesterday with 350 ML's of clear yellow fluid removed. Follow-up chest x-ray revealed a repeat remaining small left pleural effusion. No pneumothorax. The fluid is exudative in nature with a total protein of 4.0 and LDH of 415. Cytology pending. She is continued on DuoNeb inhalations, Symbicort. Anticoagulated with Eliquis. Remains on oral diuretics. Progress note dated 02/01/2023. The patient is seen today in room 385. She was seen yesterday in the intensive care unit. She was recently discharged from the hospital, with chest pain and shortness of breath. He returned in less than a day, with similar symptoms. Interventional radiology did do a thoracentesis. Currently, she is on 3 L nasal cannula. She's not receiving any IV fluids. She feels much improved, and is hoping to be discharged soon. White count 14.4, hemoglobin 11.8, hematocrit 40.1, and platelet count is normal. Sodium 1:30, potassium 4.1, chlorides 90, CO2 33, BUN 44, and creatinine 1.65. Objective - Vital Signs Vital signs: Vital Signs Temp 98.5 F 02/01/23 07:46 Pulse 79 02/01/23 11:42 Resp 18 02/01/23 11:42 BP 102/52 02/01/23 11:42 Pulse Ox 99 02/01/23 11:42 FiO2 Intake & Output 01/31/23 02/01/23 02/01/23 18:59 06:59 18:59 Intake Total 460 40 20 Output Total 400 Balance 460 -360 20 Weight 57.3 kg Intake: IV 20 40 20 Invasive Line 1 10 20 10 Invasive Line 2 10 20 10 Oral 440 0 Output: Urine 400 Other: Voiding Method Bedside Commode Bedside Commode Bedside Commode # Voids 1 - Exam No acute distress, oriented 3. No respiratory distress. No conversational dyspnea. Currently on 3 L. HEENT examination is grossly unremarkable. Neck supple. Full range of motion. No adenopathy thyromegaly or neck vein distention. Cardiovascular examination reveals regular rhythm rate. S1-S2 normal. No S3 or S4. No discernible murmur noted. Heart rate 79 bpm. Lungs reveal slightly diminished breath sounds in the left chest. Minimal scattered rhonchi. No wheezes or crackles. 3 L saturation is 99%. Abdomen soft bowel sounds are heard. No masses or tenderness. Extremities are intact. No cyanosis clubbing or edema. Skin is without rash or lesion. Neurologic examination is brief but nonfocal. - Labs CBC & Chem 7: 02/01/23 07:13 02/01/23 07:13 Labs: Abnormal Lab Results - Last 24 Hours (Table) 02/01/23 02/01/23 Range/Units 07:13 07:13 WBC 14.4 H (3.8-10.6) k/uL MCH 24.9 L (25.0-35.0) pg MCHC 29.5 L (31.0-37.0) g/dL RDW 16.0 H (11.5-15.5) % Neutrophils # 11.5 H (1.3-7.7) k/uL Sodium 130 L (137-145) mmol/L Chloride 90 L (98-107) mmol/L Carbon Dioxide 33 H (22-30) mmol/L BUN 44 H (7-17) mg/dL Creatinine 1.65 H (0.52-1.04) mg/dL Alkaline Phosphatase 145 H (38-126) U/L Total Protein 6.2 L (6.3-8.2) g/dL Albumin 2.7 L (3.5-5.0) g/dL Microbiology - Last 24 Hours (Table) 01/30/23 16:50 Gram Stain - Preliminary Pleural Fluid Body Fluid Culture - Preliminary Assessment and Plan Assessment: Chest pain, possibly pleuritic in nature. ECG shows persistent left bundle branch block. Troponin 0.022. Chest x-ray shows persistent cardiomegaly with small to moderate size left pleural effusion and associated left mid to lower lung atelectasis without significant change from most recent x-ray. Persistent left-sided pleural effusion. Status post ultrasound-guided thoracentesis 01/30/2023 with 350 ML's of yellow fluid return exudative with a protein of 4.0 and an LDH of 415. Cytology pending. Acute exacerbation of systolic congestive heart failure, on recent echocardiogram found to have severely impaired left ventricular systolic function ejection fraction of 20% along with severe mitral and tricuspid regurgitation with severe pulmonary hypertension with an RSVP of 75 mmHg. Acute hypoxic respiratory failure secondary to above, currently on 2 L nasal cannula. Acute kidney injury, creatinine 1.51. Recent non-ST elevation [place] . Moderate persistent chronic bronchial asthma, stable. Hyperlipidemia. Hypertension. Osteoarthritis. Previous history of bilateral pulmonary embolism in 2010. History of GI bleed and has been off anticoagulation since 2020 and declined to resume. History of esophageal strictures with previous dilatation. Plan: Plan dated 02/01/2023. The patient appears to be very stable. The patient will likely be discharged in the near future. Her saturations on 3 L is 98%. Her oxygen was turned down to 2 L. We will continue to follow. Labs, x-rays, and medications are reviewed. The patient will follow-up with my partner after discharge. Prognosis is guarded. Time with Patient: Less than 30
--- NOTE | 2023-02-01 12:04 | P.PN ---
Subjective Progress Note Date: 02/01/23 Chase Min, is an 87-year-old female who presented to [facility] emergency room with a chief complaint of left-sided chest pain. Patient was admitted recently with similar symptoms on 01/23/2023, she was discharged on 01/28/2023. During that admission she had evidence of non-ST elevation myocardial infarction and evidence of acute exacerbation of systolic congestive heart failure, with evidence of cardiomyopathy with ejection fraction of 20-25%. Patient was treated medically and was discharged home yesterday, she returned today with worsening chest pain. She was evaluated in the emergency room vital examination on presentation revealed a temperature of 98.3 pulse 98 respiration 19 and blood pressure 130/76 pulse ox 95% on room air Laboratory data revealed a white blood count of 10.8 hemoglobin 12.4 platelet count 241 sodium 135 potassium 4.0 chloride 90 CO2 34 BUN 44 creatinine 1.51 troponin level was 0.0-2 AST and ALT are slightly elevated at 45 and 41 Testing in the emergency room revealed EKG done in the emergency room revealed sinus rhythm with left bundle branch block, chest x-ray done in the emergency room revealed cardiomegaly with small to moderate-sized left pleural effusion and associated left mid to lower lung atelectasis or infiltrate. Patient was admitted to medical floor for further evaluation and treatment. Past medical history is significant for recent history of non-ST elevation myocardial infarction, recent admission was acute systolic congestive heart failure exacerbation, cardiomyopathy with ejection fraction of 20-25%, underlying history of hypertension,, underlying history of hyperlipidemia, underlying history of osteoarthritis, underlying history of COPD, underlying history of esophageal stricture, underlying history of gastrointestinal bleeding, remote history of pulmonary embolism On review of systems patient was seen and examined in the emergency room she is alert and oriented 3 in no apparent distress there is no fever or chills no headache or dizziness she is still complaining of left sided chest pain no shortness of breath no cough no palpitation no nausea or vomiting no abdominal pain no diarrhea no blood in the stools no burning with urination no frequency or urgency and no hematuria. On 01/30/2023 patient was seen and examined in the ICU, she is alert and oriented 3 in no apparent distress, she is still complaining of chest pain and shortness of breath and occasional cough otherwise she denies any complaints there is no fever or chills no headache or dizziness no nausea or vomiting no abdominal pain no diarrhea no blood in the stools no burning with urination no frequency or urgency and no hematuria. She is scheduled for thoracentesis today. Prognosis is guarded will continue to follow closely. On 01/31/2023 patient currently in the ICU. Alert and oriented 3. Patient underwent thoracentesis yesterday 350 out. Per nursing staff patient went into atrial fibrillation this AM. This is new for patient. Per nursing staff cardiology was notified. Patient reports minimal improvement. Current signs temp 98.2. Heart rate 80, blood pressure 100/61 and a pulse ox of 96% on 2 L. Cardiology and pulmonary services are following On 02/01/2023 patient was seen and examined on the telemetry floor, she is alert and oriented 3 in no apparent distress, she is still complaining of cough and shortness of breath, she is also complaining of left sided drips pain otherwise she denies any complaints there is no fever or chills no headache or dizziness no chest pain, there is no nausea or vomiting no abdominal pain no diarrhea, no blood in the stools no burning with urination no frequency or urgency and no hematuria, there is no weakness or numbness in any of the extremities there is n o change in vision speech or gait. Objective - Vital Signs Vital signs: Vital Signs Temp 98.5 F 02/01/23 07:46 Pulse 82 02/01/23 08:03 Resp 18 02/01/23 07:46 BP 117/59 02/01/23 07:46 Pulse Ox 99 02/01/23 07:46 FiO2 Intake & Output 01/31/23 02/01/23 02/01/23 18:59 06:59 18:59 Intake Total 460 40 20 Output Total 400 Balance 460 -360 20 Weight 57.3 kg Intake: IV 20 40 20 Invasive Line 1 10 20 10 Invasive Line 2 10 20 10 Oral 440 0 Output: Urine 400 Other: Voiding Method Bedside Commode Bedside Commode Bedside Commode # Voids 1 - Exam In general patient is alert and oriented x 3 in no distress HEENT head normocephalic and atraumatic Neck is supple no JVD no goiter no lymphadenopathy no carotid bruit Chest examination is clear to auscultation no crackles no wheezing Cardiac exam reveals regular heart sounds S1 and S2 no gallops no murmurs Abdomen is soft nontender no organomegaly with normal bowel sounds Extremity exam reveals no edema no cyanosis or clubbing Neurological examination reveals no gross focal deficits - Labs CBC & Chem 7: 02/01/23 07:13 02/01/23 07:13 Labs: Abnormal Lab Results - Last 24 Hours (Table) 02/01/23 02/01/23 Range/Units 07:13 07:13 WBC 14.4 H (3.8-10.6) k/uL MCH 24.9 L (25.0-35.0) pg MCHC 29.5 L (31.0-37.0) g/dL RDW 16.0 H (11.5-15.5) % Neutrophils # 11.5 H (1.3-7.7) k/uL Sodium 130 L (137-145) mmol/L Chloride 90 L (98-107) mmol/L Carbon Dioxide 33 H (22-30) mmol/L BUN 44 H (7-17) mg/dL Creatinine 1.65 H (0.52-1.04) mg/dL Alkaline Phosphatase 145 H (38-126) U/L Total Protein 6.2 L (6.3-8.2) g/dL Albumin 2.7 L (3.5-5.0) g/dL Microbiology - Last 24 Hours (Table) 01/30/23 16:50 Gram Stain - Preliminary Pleural Fluid Body Fluid Culture - Preliminary Assessment and Plan Plan: New episodes of chest pain Recent non-ST elevation myocardial infarction Recent admission was acute exacerbation of congestive heart failure 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 New-onset atrial fibrillation Underlying history of COPD Underlying history of hypertension Underlying history of hyperlipidemia Underlying history of osteoarthritis Previous history of esophageal stricture with history of dilatation Previous history of gastrointestinal bleeding Remote history of pulmonary embolism At this time patient will be readmitted to telemetry floor Home medications reviewed and reordered Cardiology consultation requested For DVT prophylaxis subcu Lovenox Prognosis is guarded will follow closely
--- NOTE | 2023-02-01 12:19 | P.PN ---
Subjective Progress Note Date: 02/01/23 This is Abilio Corrigan NP, I'm dictating on behalf of Dr. Ahmadi's H&P and A&P. Patient was interviewed and examined. Patient is a pleasant 87-year-old female presented to the hospital with complaints of chest pain, and was subsequent founded bilateral pleural effusions. She has underwent thoracentesis and is feeling better. Patient this morning is denying chest pain, shortness of breath, heart palpitations. Patient is in normal sinus rhythm at this time with a controlled heart rate. Patient was recently started on rate control medication as well as anticoagulation, and is tolerating this well. GENERAL: Well-appearing, well-nourished and in no acute distress. NECK: Supple without JVD or thyromegaly. LUNGS: Breath sounds clear to auscultation bilaterally. Respiration equal and unlabored. No wheezes, rales or rhonchi. HEART: Regular rate and rhythm without murmurs, rubs or gallops. S1 and S2 heard. EXTREMITIES: Normal range of motion, no edema. No clubbing or cyanosis. Peripheral pulses intact and strong. VITALS: Temp 98.5, pulse 80, respirations 18, blood pressure 117/59, O2 saturation 99% on 3 L TELEMETRY: Normal sinus rhythm LABS: White count 14.4, 11.8, platelets 330, sodium 1:30, potassium 4.1, B1 44, creatinine 1.65, calcium 8.4 IMPRESSION: 1. Recurrent left pleural effusion status post thoracentesis 2. Severe cardiomyopathy, etiology is unknown at this point, ischemic versus nonischemic 3. Valvular heart disease with severe mitral and tricuspid regurgitation 4. Pulmonary hypertension likely to pulmonary hypertension 5. Paroxysmal atrial fibrillation which is new PLAN: Continue Eliquis. Continue metoprolol 25 mg twice a day. If breathing continues to improve, may change furosemide to oral. Further recommendations based on patient's clinical course. Objective - Vital Signs Vital signs: Vital Signs Temp 98.5 F 02/01/23 07:46 Pulse 79 02/01/23 11:42 Resp 18 02/01/23 11:42 BP 102/52 02/01/23 11:42 Pulse Ox 99 02/01/23 11:42 FiO2 Intake & Output 01/31/23 02/01/23 02/01/23 18:59 06:59 18:59 Intake Total 460 40 20 Output Total 400 Balance 460 -360 20 Weight 57.3 kg Intake: IV 20 40 20 Invasive Line 1 10 20 10 Invasive Line 2 10 20 10 Oral 440 0 Output: Urine 400 Other: Voiding Method Bedside Commode Bedside Commode Bedside Commode # Voids 1 - Labs CBC & Chem 7: 02/01/23 07:13 02/01/23 07:13 Labs: Abnormal Lab Results - Last 24 Hours (Table) 02/01/23 02/01/23 Range/Units 07:13 07:13 WBC 14.4 H (3.8-10.6) k/uL MCH 24.9 L (25.0-35.0) pg MCHC 29.5 L (31.0-37.0) g/dL RDW 16.0 H (11.5-15.5) % Neutrophils # 11.5 H (1.3-7.7) k/uL Sodium 130 L (137-145) mmol/L Chloride 90 L (98-107) mmol/L Carbon Dioxide 33 H (22-30) mmol/L BUN 44 H (7-17) mg/dL Creatinine 1.65 H (0.52-1.04) mg/dL Alkaline Phosphatase 145 H (38-126) U/L Total Protein 6.2 L (6.3-8.2) g/dL Albumin 2.7 L (3.5-5.0) g/dL Microbiology - Last 24 Hours (Table) 01/30/23 16:50 Gram Stain - Preliminary Pleural Fluid Body Fluid Culture - Preliminary
[2023-02-01] MEDS: TOBRAMYCIN 0.3% OPHTH DROPS 5 ML BTL RIGHT EYE SCH ×4 (13:47→23:43)
[2023-02-01] MEDS: ATORVASTATIN 40 MG TAB PO SCH (20:09)
[2023-02-02] MEDS: ACETAMINOPHEN TAB 325 MG TAB PO PRN ×3 (04:31→21:08)
[2023-02-02] MEDS: TOBRAMYCIN 0.3% OPHTH DROPS 5 ML BTL RIGHT EYE SCH ×6 (04:32→23:45)
[2023-02-02 08:33] LABS: Anisocytosis Slight; Basophils % (A) 0 %; Eosinophils # (A) 0.1 k/uL (0-0.7); Eosinophils % (A) 0 %; HCT 38.6 % (34.0-46.0); HGB 11.8 gm/dL (11.4-16.0); Hypochromasia Marked; Lymphocytes # (A) 1.8 k/uL (1.0-4.8); Lymphocytes % (A) 11 %; MCH 25.5 pg (25.0-35.0); MCHC 30.5 g/dL (31.0-37.0); MCV 83.6 fL (80.0-100.0); Mean Platelet Volume 8.5; Monocytes # (A) 0.6 k/uL (0-1.0); Monocytes % (A) 4 %; Neutrophils # (A) 13.8 k/uL (1.3-7.7); Neutrophils % (A) 83 %; Platelet Count 366 k/uL (150-450); RBC 4.62 m/uL (3.80-5.40); RDW 16.1 % (11.5-15.5); WBC 16.6 k/uL (3.8-10.6)
[2023-02-02] MEDS: IPRATROPIUM-ALBUTEROL 3 ML NEB INHALATION SCH ×4 (08:44→20:38)
[2023-02-02] MEDS: SYMBICORT 160-4.5 MCG INHALER INHALATION SCH ×2 (08:44→20:38)
[2023-02-02 08:51] LABS: Albumin 2.6 g/dL (3.5-5.0); Calcium 8.4 mg/dL (8.4-10.2); Potassium 4.1 mmol/L (3.5-5.1); Total Bilirubin 0.8 mg/dL (0.2-1.3); Total Protein 6.1 g/dL (6.3-8.2)
[2023-02-02] MEDS: APIXABAN 2.5 MG TABLET PO SCH ×2 (09:16→21:08)
[2023-02-02] MEDS: ASPIRIN 81 MG PO SCH (09:16)
[2023-02-02] MEDS: POTASSIUM CHLORIDE ER 20 MEQ TAB.ER PO SCH ×3 (09:16→23:45)
[2023-02-02] MEDS: FUROSEMIDE 40 MG TAB PO SCH ×2 (09:16→15:25)
[2023-02-02] MEDS: METOPROLOL TARTRATE 25 MG TAB PO SCH ×2 (09:16→21:08)
--- NOTE | 2023-02-02 09:57 | P.PN ---
Subjective Progress Note Date: 02/02/23 Chase Min, is an 87-year-old female who presented to [facility] emergency room with a chief complaint of left-sided chest pain. Patient was admitted recently with similar symptoms on 01/23/2023, she was discharged on 01/28/2023. During that admission she had evidence of non-ST elevation myocardial infarction and evidence of acute exacerbation of systolic congestive heart failure, with evidence of cardiomyopathy with ejection fraction of 20-25%. Patient was treated medically and was discharged home yesterday, she returned today with worsening chest pain. She was evaluated in the emergency room vital examination on presentation revealed a temperature of 98.3 pulse 98 respiration 19 and blood pressure 130/76 pulse ox 95% on room air Laboratory data revealed a white blood count of 10.8 hemoglobin 12.4 platelet count 241 sodium 135 potassium 4.0 chloride 90 CO2 34 BUN 44 creatinine 1.51 troponin level was 0.0-2 AST and ALT are slightly elevated at 45 and 41 Testing in the emergency room revealed EKG done in the emergency room revealed sinus rhythm with left bundle branch block, chest x-ray done in the emergency room revealed cardiomegaly with small to moderate-sized left pleural effusion and associated left mid to lower lung atelectasis or infiltrate. Patient was admitted to medical floor for further evaluation and treatment. Past medical history is significant for recent history of non-ST elevation myocardial infarction, recent admission was acute systolic congestive heart failure exacerbation, cardiomyopathy with ejection fraction of 20-25%, underlying history of hypertension,, underlying history of hyperlipidemia, underlying history of osteoarthritis, underlying history of COPD, underlying history of esophageal stricture, underlying history of gastrointestinal bleeding, remote history of pulmonary embolism On review of systems patient was seen and examined in the emergency room she is alert and oriented 3 in no apparent distress there is no fever or chills no headache or dizziness she is still complaining of left sided chest pain no shortness of breath no cough no palpitation no nausea or vomiting no abdominal pain no diarrhea no blood in the stools no burning with urination no frequency or urgency and no hematuria. On 01/30/2023 patient was seen and examined in the ICU, she is alert and oriented 3 in no apparent distress, she is still complaining of chest pain and shortness of breath and occasional cough otherwise she denies any complaints there is no fever or chills no headache or dizziness no nausea or vomiting no abdominal pain no diarrhea no blood in the stools no burning with urination no frequency or urgency and no hematuria. She is scheduled for thoracentesis today. Prognosis is guarded will continue to follow closely. On 01/31/2023 patient currently in the ICU. Alert and oriented 3. Patient underwent thoracentesis yesterday 350 out. Per nursing staff patient went into atrial fibrillation this AM. This is new for patient. Per nursing staff cardiology was notified. Patient reports minimal improvement. Current signs temp 98.2. Heart rate 80, blood pressure 100/61 and a pulse ox of 96% on 2 L. Cardiology and pulmonary services are following On 02/01/2023 patient was seen and examined on the telemetry floor, she is alert and oriented 3 in no apparent distress, she is still complaining of cough and shortness of breath, she is also complaining of left sided drips pain otherwise she denies any complaints there is no fever or chills no headache or dizziness no chest pain, there is no nausea or vomiting no abdominal pain no diarrhea, no blood in the stools no burning with urination no frequency or urgency and no hematuria, there is no weakness or numbness in any of the extremities there is n o change in vision speech or gait. On 02/02/2023 patient is alert and oriented 3. Patient has been transitioned to oral Lasix. Respiratory rate 18, blood pressure 100/59. Will consult PT OT and social work services for discharge planning at this time patient denies chest pain or shortness breath. Patient denies nausea vomiting or diarrhea. Patient denies any urinary burning or frequency. Objective - Vital Signs Vital signs: Vital Signs Temp 97.9 F 02/02/23 07:52 Pulse 80 02/02/23 08:54 Resp 18 02/02/23 07:52 BP 100/59 02/02/23 07:52 Pulse Ox 96 02/02/23 08:44 FiO2 Intake & Output 02/01/23 02/02/23 02/02/23 18:59 06:59 18:59 Intake Total 245 Output Total 400 Balance 245 -400 Intake: IV 20 Invasive Line 1 10 Invasive Line 2 10 Oral 225 Output: Urine 400 Other: Voiding Method Bedside Commode External Catheter External Catheter # Voids 1 # Bowel Movements 1 - Exam In general patient is alert and oriented x 3 in no distress HEENT head normocephalic and atraumatic Neck is supple no JVD no goiter no lymphadenopathy no carotid bruit Chest examination is clear to auscultation no crackles no wheezing Cardiac exam reveals regular heart sounds S1 and S2 no gallops no murmurs Abdomen is soft nontender no organomegaly with normal bowel sounds Extremity exam reveals no edema no cyanosis or clubbing Neurological examination reveals no gross focal deficits - Labs CBC & Chem 7: 02/02/23 06:59 02/02/23 06:59 Labs: Abnormal Lab Results - Last 24 Hours (Table) 02/02/23 02/02/23 Range/Units 06:59 06:59 WBC 16.6 H (3.8-10.6) k/uL MCHC 30.5 L (31.0-37.0) g/dL RDW 16.1 H (11.5-15.5) % Neutrophils # 13.8 H (1.3-7.7) k/uL Sodium 131 L (137-145) mmol/L Chloride 90 L (98-107) mmol/L Carbon Dioxide 32 H (22-30) mmol/L BUN 41 H (7-17) mg/dL Creatinine 1.22 H (0.52-1.04) mg/dL Alkaline Phosphatase 206 H (38-126) U/L Total Protein 6.1 L (6.3-8.2) g/dL Albumin 2.6 L (3.5-5.0) g/dL Microbiology - Last 24 Hours (Table) 01/30/23 16:50 Gram Stain - Preliminary Pleural Fluid Body Fluid Culture - Preliminary Assessment and Plan Plan: New episodes of chest pain Recent non-ST elevation myocardial infarction Recent admission was acute exacerbation of congestive heart failure 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 New-onset atrial fibrillation Underlying history of COPD Underlying history of hypertension Underlying history of hyperlipidemia Underlying history of osteoarthritis Previous history of esophageal stricture with history of dilatation Previous history of gastrointestinal bleeding Remote history of pulmonary embolism At this time patient will be readmitted to telemetry floor Home medications reviewed and reordered Cardiology consultation requested PT OT and social media specialist consulted For DVT prophylaxis subcu Lovenox Prognosis is guarded will follow closely
--- NOTE | 2023-02-02 10:43 | P.PN ---
Subjective Progress Note Date: 02/02/23 I am seeing this patient in new consultation today 01/30/2023 in the emergency room for left sided pleuritic chest pain and effusion. Patient is a 87-year-old white female with past medical history significant for moderate persistent chronic bronchial asthma, hypertension, hyperlipidemia, gastroesophageal reflux disease, pulmonary embolism, colitis, esophageal stricture with previous dilatations, and is a nonsmoker. Patient came back to the emergency room yesterday morning after being just discharged the day prior. Patient was admitted back on January 23 for a non-ST elevation MT and exacerbation of systolic congestive heart failure. She did have a small to moderate left pleural effusion at that time measuring 7.7 cm, and no thoracentesis was performed due to the patient being on heparin. Her symptoms ultimately improved, and she was discharged back to her assisted living center. Apparently, the patient's chest pain worsened after discharge, and she came back to the emergency room. Patient is is currently sitting up on the stretcher, on 2 L nasal cannula, in no acute distress. The left-sided chest pain is painful to palpation and exacerbated by coughing. There is some associated shortness of breath especially on exertion. She denies any infectious symptoms such as fever, chills, cough, hemoptysis. Chest x-ray from yesterday shows persistent cardiomegaly with small to moderate size left pleural effusion and associated left mid to lower lung atelectasis and/or infiltrate, without significant change from previous chest x-ray. Patient's echocardiogram done on her recent admission showed a markedly decreased ejection fraction of 20-25% severe pulmonary hypertension with an RVSP of 75 mmHg, moderate to severe tricuspid regurgitation, and severe mitral regurgitation. CBC from yesterday shows a WBC count of 10.8, hemoglobin 12.4, hematocrit 39.8, platelets 241. BMP shows a sodium 135, potassium 4, chloride 90, serum CO2 34, BUN 44, creatinine 1.51, glucose 104. Troponin was low at 0.022. EKG shows sinus rhythm with a left bundle-branch block. Vital signs are stable at this time. The patient is seen today 01/31/2023 in follow-up in the intensive care unit. She is currently resting quite comfortably in bed. Awake and alert in no acute distress. Maintaining good O2 saturations in the 90s on 2 L/m per nasal cannula. No IV fluids. He did undergo an ultrasound-guided thoracentesis by interventional radiology yesterday with 350 ML's of clear yellow fluid removed. Follow-up chest x-ray revealed a repeat remaining small left pleural effusion. No pneumothorax. The fluid is exudative in nature with a total protein of 4.0 and LDH of 415. Cytology pending. She is continued on DuoNeb inhalations, Symbicort. Anticoagulated with Eliquis. Remains on oral diuretics. The patient is seen today 02/02/2023 in follow-up on selective care unit. She is awake and alert in no acute distress. Maintaining O2 saturations in the 90s on 2 L/m per nasal cannula. Afebrile. Hemodynamically stable. Denies any worsening shortness of breath, cough or congestion. Denies any chest pain. White count 16.6. Hemoglobin 11.8. Platelets 366. Sodium 131. Potassium 4.1. Bicarb 32. BUN 41. Creatinine 1.22. Glucose 83. Pleural fluid cultures pending. Cytology pending. She is continued on DuoNeb inhalations, Symbicort. Oral diuretics. Anticoagulated with Eliquis. Objective - Vital Signs Vital signs: Vital Signs Temp 97.9 F 02/02/23 07:52 Pulse 80 02/02/23 08:54 Resp 18 02/02/23 07:52 BP 100/59 02/02/23 07:52 Pulse Ox 96 02/02/23 08:44 FiO2 Intake & Output 02/01/23 02/02/23 02/02/23 18:59 06:59 18:59 Intake Total 245 Output Total 400 100 Balance 245 -400 -100 Intake: IV 20 Invasive Line 1 10 Invasive Line 2 10 Oral 225 Output: Urine 400 100 Other: Voiding Method Bedside Commode External Catheter External Catheter # Voids 1 # Bowel Movements 1 - Exam GENERAL EXAM: Alert, pleasant, frail 87-year-old female, on 2 L nasal cannula, comfortable in no apparent distress. HEAD: Normocephalic. EYES: Normal reaction of pupils, equal size. NOSE: Clear with pink turbinates. THROAT: No erythema or exudates. NECK: No masses, no JVD. CHEST: No chest wall deformity. LUNGS: Equal air entry with bilateral scattered rhonchi. CVS: S1 and S2 normal with no audible murmur, regular rhythm. ABDOMEN: No hepatosplenomegaly, normal bowel sounds, no guarding or rigidity. SPINE: No scoliosis or deformity SKIN: No rashes CENTRAL NERVOUS SYSTEM: No focal deficits, tone is normal in all 4 extremities. EXTREMITIES: There is no peripheral edema. No clubbing, no cyanosis. Peripheral pulses are intact. - Labs CBC & Chem 7: 02/02/23 06:59 02/02/23 06:59 Labs: Abnormal Lab Results - Last 24 Hours (Table) 02/02/23 02/02/23 Range/Units 06:59 06:59 WBC 16.6 H (3.8-10.6) k/uL MCHC 30.5 L (31.0-37.0) g/dL RDW 16.1 H (11.5-15.5) % Neutrophils # 13.8 H (1.3-7.7) k/uL Sodium 131 L (137-145) mmol/L Chloride 90 L (98-107) mmol/L Carbon Dioxide 32 H (22-30) mmol/L BUN 41 H (7-17) mg/dL Creatinine 1.22 H (0.52-1.04) mg/dL Alkaline Phosphatase 206 H (38-126) U/L Total Protein 6.1 L (6.3-8.2) g/dL Albumin 2.6 L (3.5-5.0) g/dL Microbiology - Last 24 Hours (Table) 01/30/23 16:50 Gram Stain - Preliminary Pleural Fluid Body Fluid Culture - Preliminary Assessment and Plan Assessment: Chest pain, possibly pleuritic in nature. ECG shows persistent left bundle branch block. Troponin 0.022. Chest x-ray shows persistent cardiomegaly with small to moderate size left pleural effusion and associated left mid to lower lung atelectasis without significant change from most recent x-ray. Persistent left-sided pleural effusion. Status post ultrasound-guided thoracentesis 01/30/2023 with 350 ML's of yellow fluid return exudative with a protein of 4.0 and an LDH of 415. Cytology pending Acute exacerbation of systolic congestive heart failure, on recent echocardiogram found to have severely impaired left ventricular systolic fu nction ejection fraction of 20% along with severe mitral and tricuspid regurgitation with severe pulmonary hypertension with an RSVP of 75 mmHg. Acute hypoxic respiratory failure secondary to above, currently on 2 L nasal cannula Acute kidney injury, creatinine 1.51 Recent non-ST elevation MT Moderate persistent chronic bronchial asthma, stable Hyperlipidemia Hypertension Osteoarthritis Previous history of bilateral pulmonary embolism in 2010 History of GI bleed and has been off anticoagulation since 2020 and declined to resume History of esophageal strictures with previous dilatation Plan: The patient was seen and evaluated Medications and labs reviewed Currently stable and on 2 L She did undergo a left thoracentesis Exudative fluid, cytology pending Continue bronchodilators, diuretics May need subacute rehab at discharge I have personally seen and examined the patient, performed the documentation and the assessment and plan as written. Number of minutes spent on the visit: 10.
--- NOTE | 2023-02-02 12:03 | P.PN ---
Subjective Progress Note Date: 02/02/23 The patient is an 87-year-old female who is admitted to the hospital with chest pain and shortness of breath. She was found to have bilateral pleural effusions and underwent thoracentesis. The patient was interviewed and examined up in the recliner chair. She states her breathing continues to improve. No chest pain. No palpitations. No dizziness GENERAL: Well-appearing, well-nourished and in no acute distress. NECK: Supple without JVD or thyromegaly. LUNGS: Breath sounds diminished to auscultation bilaterally. Respiration equal and unlabored. Bilateral inspiratory wheezes with low lung volume. HEART: Regular rate and rhythm without murmurs, rubs or gallops. S1 and S2 heard. EXTREMITIES: Normal range of motion, no edema. No clubbing or cyanosis. Peripheral pulses intact and strong. TELEMETRY: Sinus rhythm overnight IMPRESSION: Recurrent left pleural effusion status post thoracentesis Severe cardiomyopathy, unknown etiology Valvular heart disease with severe mitral and tricuspid regurgitation Pulmonary hypertension Paroxysmal atrial fibrillation PLAN: Continue current medication regimen Patient may be discharged from the cardiac standpoint Follow-up in 1-2 weeks I am dictating on behalf of Dr Aldair Ahmadi's history/physical and assessment/plan. Objective - Vital Signs Vital signs: Vital Signs Temp 97.9 F 02/02/23 07:52 Pulse 80 02/02/23 08:54 Resp 18 02/02/23 07:52 BP 100/59 02/02/23 07:52 Pulse Ox 96 02/02/23 08:44 FiO2 Intake & Output 02/01/23 02/02/23 02/02/23 18:59 06:59 18:59 Intake Total 245 Output Total 400 100 Balance 245 -400 -100 Intake: IV 20 Invasive Line 1 10 Invasive Line 2 10 Oral 225 Output: Urine 400 100 Other: Voiding Method Bedside Commode External Catheter External Catheter # Voids 1 # Bowel Movements 1 - Labs CBC & Chem 7: 02/02/23 06:59 02/02/23 06:59 Labs: Abnormal Lab Results - Last 24 Hours (Table) 02/02/23 02/02/23 Range/Units 06:59 06:59 WBC 16.6 H (3.8-10.6) k/uL MCHC 30.5 L (31.0-37.0) g/dL RDW 16.1 H (11.5-15.5) % Neutrophils # 13.8 H (1.3-7.7) k/uL Sodium 131 L (137-145) mmol/L Chloride 90 L (98-107) mmol/L Carbon Dioxide 32 H (22-30) mmol/L BUN 41 H (7-17) mg/dL Creatinine 1.22 H (0.52-1.04) mg/dL Alkaline Phosphatase 206 H (38-126) U/L Total Protein 6.1 L (6.3-8.2) g/dL Albumin 2.6 L (3.5-5.0) g/dL Microbiology - Last 24 Hours (Table) 01/30/23 16:50 Gram Stain - Preliminary Pleural Fluid Body Fluid Culture - Preliminary
[2023-02-02] MEDS: ATORVASTATIN 40 MG TAB PO SCH (21:08)
[2023-02-03] MEDS: ACETAMINOPHEN TAB 325 MG TAB PO PRN ×3 (03:32→15:47)
[2023-02-03] MEDS: TOBRAMYCIN 0.3% OPHTH DROPS 5 ML BTL RIGHT EYE SCH ×6 (03:33→23:34)
[2023-02-03] MEDS: IPRATROPIUM-ALBUTEROL 3 ML NEB INHALATION SCH ×4 (08:21→20:23)
[2023-02-03] MEDS: SYMBICORT 160-4.5 MCG INHALER INHALATION SCH ×2 (08:21→20:23)
[2023-02-03] MEDS: POTASSIUM CHLORIDE ER 20 MEQ TAB.ER PO SCH ×3 (08:49→23:34)
[2023-02-03] MEDS: FUROSEMIDE 40 MG TAB PO SCH ×2 (08:49→15:47)
[2023-02-03] MEDS: ASPIRIN 81 MG PO SCH (08:49)
[2023-02-03] MEDS: APIXABAN 2.5 MG TABLET PO SCH ×2 (08:49→19:59)
[2023-02-03] MEDS: METOPROLOL TARTRATE 25 MG TAB PO SCH ×2 (08:50→19:59)
[2023-02-03 09:15] LABS: Albumin 2.6 g/dL (3.5-5.0); Calcium 8.6 mg/dL (8.4-10.2); Potassium 4.8 mmol/L (3.5-5.1); Total Bilirubin 0.7 mg/dL (0.2-1.3); Total Protein 6.3 g/dL (6.3-8.2)
[2023-02-03 09:27] LABS: Basophils % (A) 0 %; Eosinophils # (A) 0.1 k/uL (0-0.7); Eosinophils % (A) 0 %; HCT 39.4 % (34.0-46.0); HGB 11.9 gm/dL (11.4-16.0); Hypochromasia Marked; Lymphocytes # (A) 1.8 k/uL (1.0-4.8); Lymphocytes % (A) 11 %; MCH 25.3 pg (25.0-35.0); MCHC 30.2 g/dL (31.0-37.0); MCV 83.6 fL (80.0-100.0); Mean Platelet Volume 8.8; Monocytes # (A) 0.6 k/uL (0-1.0); Monocytes % (A) 4 %; Neutrophils # (A) 13.6 k/uL (1.3-7.7); Neutrophils % (A) 84 %; Platelet Count 388 k/uL (150-450); RBC 4.71 m/uL (3.80-5.40); WBC 16.3 k/uL (3.8-10.6)
--- NOTE | 2023-02-03 09:51 | P.PN ---
Subjective Progress Note Date: 02/03/23 Chase Min, is an 87-year-old female who presented to [facility] emergency room with a chief complaint of left-sided chest pain. Patient was admitted recently with similar symptoms on 01/23/2023, she was discharged on 01/28/2023. During that admission she had evidence of non-ST elevation myocardial infarction and evidence of acute exacerbation of systolic congestive heart failure, with evidence of cardiomyopathy with ejection fraction of 20-25%. Patient was treated medically and was discharged home yesterday, she returned today with worsening chest pain. She was evaluated in the emergency room vital examination on presentation revealed a temperature of 98.3 pulse 98 respiration 19 and blood pressure 130/76 pulse ox 95% on room air Laboratory data revealed a white blood count of 10.8 hemoglobin 12.4 platelet count 241 sodium 135 potassium 4.0 chloride 90 CO2 34 BUN 44 creatinine 1.51 troponin level was 0.0-2 AST and ALT are slightly elevated at 45 and 41 Testing in the emergency room revealed EKG done in the emergency room revealed sinus rhythm with left bundle branch block, chest x-ray done in the emergency room revealed cardiomegaly with small to moderate-sized left pleural effusion and associated left mid to lower lung atelectasis or infiltrate. Patient was admitted to medical floor for further evaluation and treatment. Past medical history is significant for recent history of non-ST elevation myocardial infarction, recent admission was acute systolic congestive heart failure exacerbation, cardiomyopathy with ejection fraction of 20-25%, underlying history of hypertension,, underlying history of hyperlipidemia, underlying history of osteoarthritis, underlying history of COPD, underlying history of esophageal stricture, underlying history of gastrointestinal bleeding, remote history of pulmonary embolism On review of systems patient was seen and examined in the emergency room she is alert and oriented 3 in no apparent distress there is no fever or chills no headache or dizziness she is still complaining of left sided chest pain no shortness of breath no cough no palpitation no nausea or vomiting no abdominal pain no diarrhea no blood in the stools no burning with urination no frequency or urgency and no hematuria. On 01/30/2023 patient was seen and examined in the ICU, she is alert and oriented 3 in no apparent distress, she is still complaining of chest pain and shortness of breath and occasional cough otherwise she denies any complaints there is no fever or chills no headache or dizziness no nausea or vomiting no abdominal pain no diarrhea no blood in the stools no burning with urination no frequency or urgency and no hematuria. She is scheduled for thoracentesis today. Prognosis is guarded will continue to follow closely. On 01/31/2023 patient currently in the ICU. Alert and oriented 3. Patient underwent thoracentesis yesterday 350 out. Per nursing staff patient went into atrial fibrillation this AM. This is new for patient. Per nursing staff cardiology was notified. Patient reports minimal improvement. Current signs temp 98.2. Heart rate 80, blood pressure 100/61 and a pulse ox of 96% on 2 L. Cardiology and pulmonary services are following On 02/01/2023 patient was seen and examined on the telemetry floor, she is alert and oriented 3 in no apparent distress, she is still complaining of cough and shortness of breath, she is also complaining of left sided drips pain otherwise she denies any complaints there is no fever or chills no headache or dizziness no chest pain, there is no nausea or vomiting no abdominal pain no diarrhea, no blood in the stools no burning with urination no frequency or urgency and no hematuria, there is no weakness or numbness in any of the extremities there is n o change in vision speech or gait. On 02/02/2023 patient is alert and oriented 3. Patient has been transitioned to oral Lasix. Respiratory rate 18, blood pressure 100/59. Will consult PT OT and social work services for discharge planning at this time patient denies chest pain or shortness breath. Patient denies nausea vomiting or diarrhea. Patient denies any urinary burning or frequency. On 02/03/2023 patient was seen and examined on the telemetry floor she is alert and oriented 3 in no apparent distress she is complaining of generalized weakness otherwise she denies any complaints shortness of breath improved at rest she is still having some shortness of breath with activity she is maintained on oxygen 2 L nasal cannula otherwise she denies any complaints there is no fever or chills no headache or dizziness no chest pain no cough no nausea or vomiting no abdominal pain no diarrhea and no urinary symptoms. Patient is improving gradually will assess possibility of discharge to rehab tomorrow versus going back to home. Objective - Vital Signs Vital signs: Vital Signs Temp 98.0 F 02/03/23 08:47 Pulse 86 02/03/23 08:47 Resp 20 02/03/23 08:47 BP 119/65 02/03/23 08:47 Pulse Ox 97 02/03/23 08:47 FiO2 Intake & Output 02/02/23 02/03/23 02/03/23 18:59 06:59 18:59 Intake Total 330 Output Total 100 Balance 230 Intake: Oral 330 Output: Urine 100 Other: Voiding Method External Catheter External Catheter # Voids 1 - Exam In general patient is alert and oriented x 3 in no distress HEENT head normocephalic and atraumatic Neck is supple no JVD no goiter no lymphadenopathy no carotid bruit Chest examination is clear to auscultation no crackles no wheezing Cardiac exam reveals regular heart sounds S1 and S2 no gallops no murmurs Abdomen is soft nontender no organomegaly with normal bowel sounds Extremity exam reveals no edema no cyanosis or clubbing Neurological examination reveals no gross focal deficits - Labs CBC & Chem 7: 02/03/23 07:25 02/03/23 07:25 Labs: Abnormal Lab Results - Last 24 Hours (Table) 02/03/23 02/03/23 Range/Units 07:25 07:25 WBC 16.3 H (3.8-10.6) k/uL MCHC 30.2 L (31.0-37.0) g/dL RDW 16.0 H (11.5-15.5) % Neutrophils # 13.6 H (1.3-7.7) k/uL Sodium 132 L (137-145) mmol/L Chloride 94 L (98-107) mmol/L Carbon Dioxide 31 H (22-30) mmol/L BUN 40 H (7-17) mg/dL Creatinine 1.13 H (0.52-1.04) mg/dL AST 52 H (14-36) U/L Alkaline Phosphatase 286 H (38-126) U/L Albumin 2.6 L (3.5-5.0) g/dL Microbiology - Last 24 Hours (Table) 01/30/23 16:50 Gram Stain - Preliminary Pleural Fluid Body Fluid Culture - Preliminary 01/30/23 16:50 Anaerobic Culture - Preliminary Pleural Fluid Assessment and Plan Plan: New episodes of chest pain Recent non-ST elevation myocardial infarction Recent admission was acute exacerbation of congestive heart failure 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 New-onset atrial fibrillation Underlying history of COPD Underlying history of hypertension Underlying history of hyperlipidemia Underlying history of osteoarthritis Previous history of esophageal stricture with history of dilatation Previous history of gastrointestinal bleeding Remote history of pulmonary embolism At this time patient will be readmitted to telemetry floor Home medications reviewed and reordered Cardiology consultation requested PT OT and social worker assistant consulted For DVT prophylaxis subcu Lovenox Prognosis is guarded will follow closely
--- NOTE | 2023-02-03 12:13 | P.PN ---
Subjective Progress Note Date: 02/03/23 Principal diagnosis: Shortness of breath. I am seeing this patient in new consultation today 01/30/2023 in the emergency room for left sided pleuritic chest pain and effusion. Patient is a 87-year-old white female with past medical history significant for moderate persistent ch ronic bronchial asthma, hypertension, hyperlipidemia, gastroesophageal reflux disease, pulmonary embolism, colitis, esophageal stricture with previous dilatations, and is a nonsmoker. Patient came back to the emergency room yesterday morning after being just discharged the day prior. Patient was a dmitted back on January 23 for a non-ST elevation MS and exacerbation of systolic congestive heart failure. She did have a small to moderate left pleural effusion at that time measuring 7.7 cm, and no thoracentesis was performed due to the patient being on heparin. Her symptoms ultimately improved, and she was discharged back to her assisted living center. Apparently, the patient's chest pain worsened after discharge, and she came back to the emergency room. Patient is is currently sitting up on the stretcher, on 2 L nasal cannula, in no acute distress. The left-sided chest pain is painful to palpation and exacerbated by coughing. There is some associated shortness of breath especially on exertion. She denies any infectious symptoms such as fever, chills, cough, hemoptysis. Chest x-ray from yesterday shows persistent cardiomegaly with small to moderate size left pleural effusion and associated left mid to lower lung atelectasis and/or infiltrate, without significant change from previous chest x-ray. Patient's echocardiogram done on her recent admission showed a markedly decreased ejection fraction of 20-25% severe pulmonary hypertension with an RVSP of 75 mmHg, moderate to severe tricuspid regurgitation, and severe mitral regurgitation. CBC from yesterday shows a WBC count of 10.8, hemoglobin 12.4, hematocrit 39.8, platelets 241. BMP shows a sodium 135, potassium 4, chloride 90, serum CO2 34, BUN 44, creatinine 1.51, glucose 104. Troponin was low at 0.022. EKG shows sinus rhythm with a left bundle-branch block. Vital signs are stable at this time. The patient is seen today 01/31/2023 in follow-up in the intensive care unit. She is currently resting quite comfortably in bed. Awake and alert in no acute distress. Maintaining good O2 saturations in the 90s on 2 L/m per nasal cannula. No IV fluids. He did undergo an ultrasound-guided thoracentesis by interventional radiology yesterday with 350 ML's of clear yellow fluid removed. Follow-up chest x-ray revealed a repeat remaining small left pleural effusion. No pneumothorax. The fluid is exudative in nature with a total protein of 4.0 and LDH of 415. Cytology pending. She is continued on DuoNeb inhalations, Symbicort. Anticoagulated with Eliquis. Remains on oral diuretics. Progress note dated 02/01/2023. The patient is seen today in room 385. She was seen yesterday in the intensive care unit. She was recently discharged from the hospital, with chest pain and shortness of breath. He returned in less than a day, with similar symptoms. Interventional radiology did do a thoracentesis. Currently, she is on 3 L nasal cannula. She's not receiving any IV fluids. She feels much improved, and is hoping to be discharged soon. White count 14.4, hemoglobin 11.8, hematocrit 40.1, and platelet count is normal. Sodium 1:30, potassium 4.1, chlorides 90, CO2 33, BUN 44, and creatinine 1.65. Progress note dated 02/03/2023. The patient is seen today in room 385. She's been weaned down to 2 L. She's not receiving any IV fluids. Clinically, she's very stable. Labs reveal a white count of 16.3, hemoglobin 11.9, hematocrit 39.4, and a platelet count of 388,000. Sodium 132, potassium 4.8, chlorides 94, CO2 31, anion gap normal, BUN 40, creatinine 1.13. Albumin is 2.6. Objective - Vital Signs Vital signs: Vital Signs Temp 97.4 F L 02/03/23 11:51 Pulse 68 02/03/23 11:51 Resp 18 02/03/23 11:51 BP 112/72 02/03/23 11:51 Pulse Ox 95 02/03/23 11:51 FiO2 Intake & Output 02/02/23 02/03/23 02/03/23 18:59 06:59 18:59 Intake Total 330 Output Total 100 Balance 230 Intake: Oral 330 Output: Urine 100 Other: Voiding Method External Catheter External Catheter # Voids 1 - Exam No acute distress, oriented 3. No respiratory distress. No conversational dyspnea. Currently on 2 L. HEENT examination is grossly unremarkable. Neck supple. Full range of motion. No adenopathy thyromegaly or neck vein distention. Cardiovascular examination reveals regular rhythm rate. S1-S2 normal. No S3 or S4. No discernible murmur noted. Heart rate 68 bpm. Lungs reveal slightly diminished breath sounds in the left chest. Minimal scattered rhonchi. No wheezes or crackles. 2 L saturation is 95%. Abdomen soft bowel sounds are heard. No masses or tenderness. Extremities are intact. No cyanosis clubbing or edema. Skin is without rash or lesion. Neurologic examination is brief but nonfocal. - Labs CBC & Chem 7: 02/03/23 07:25 02/03/23 07:25 Labs: Abnormal Lab Results - Last 24 Hours (Table) 02/03/23 02/03/23 Range/Units 07:25 07:25 WBC 16.3 H (3.8-10.6) k/uL MCHC 30.2 L (31.0-37.0) g/dL RDW 16.0 H (11.5-15.5) % Neutrophils # 13.6 H (1.3-7.7) k/uL Sodium 132 L (137-145) mmol/L Chloride 94 L (98-107) mmol/L Carbon Dioxide 31 H (22-30) mmol/L BUN 40 H (7-17) mg/dL Creatinine 1.13 H (0.52-1.04) mg/dL AST 52 H (14-36) U/L Alkaline Phosphatase 286 H (38-126) U/L Albumin 2.6 L (3.5-5.0) g/dL Microbiology - Last 24 Hours (Table) 01/30/23 16:50 Gram Stain - Preliminary Pleural Fluid Body Fluid Culture - Preliminary 01/30/23 16:50 Anaerobic Culture - Preliminary Pleural Fluid Assessment and Plan Assessment: Chest pain, possibly pleuritic in nature. ECG shows persistent left bundle branch block. Troponin 0.022. Chest x-ray shows persistent cardiomegaly with small to moderate size left pleural effusion and associated left mid to lower lung atelectasis without significant change from most recent x-ray. Persistent left-sided pleural effusion. Status post ultrasound-guided thoracentesis 01/30/2023 with 350 ML's of yellow fluid return exudative with a protein of 4.0 and an LDH of 415. Cytology pending. Acute exacerbation of systolic congestive heart failure, on recent echocardiogram found to have severely impaired left ventricular systolic function ejection fraction of 20% along with severe mitral and tricuspid regurgitation with severe pulmonary hypertension with an RSVP of 75 mmHg. Acute hypoxic respiratory failure secondary to above, currently on 2 L nasal cannula. Acute kidney injury, creatinine 1.51. Recent non-ST elevation MS . Moderate persistent chronic bronchial asthma, stable. Hyperlipidemia. Hypertension. Osteoarthritis. Previous history of bilateral pulmonary embolism in 2010. History of GI bleed and has been off anticoagulation since 2020 and declined to resume. History of esophageal strictures with previous dilatation. Plan: Plan dated 02/01/2023. The patient appears to be very stable. The patient will likely be discharged in the near future. Her saturations on 3 L is 98%. Her oxygen was turned down to 2 L. We will continue to follow. Labs, x-rays, and medications are reviewed. The patient will follow-up with my partner after discharge. Prognosis is guarded. Plan dated 02/03/2023. The patient has been going on with this. Her respiratory status is stable. Labs, x-rays, and medications are reviewed. The patient's hoping to be discharged in the next day or so. We will continue to follow. Prognosis is guarded. The patient sees my partner as a primary, and will follow-up with him. No additional recommendations at this time. Time with Patient: Less than 30
[2023-02-03] MEDS: ATORVASTATIN 40 MG TAB PO SCH (19:59)
[2023-02-04] MEDS: ACETAMINOPHEN TAB 325 MG TAB PO PRN ×2 (01:40→20:58)
[2023-02-04] MEDS: TOBRAMYCIN 0.3% OPHTH DROPS 5 ML BTL RIGHT EYE SCH ×5 (03:06→21:00)
[2023-02-04] MEDS: SYMBICORT 160-4.5 MCG INHALER INHALATION SCH ×2 (07:46→20:24)
[2023-02-04] MEDS: IPRATROPIUM-ALBUTEROL 3 ML NEB INHALATION SCH ×4 (07:46→20:24)
[2023-02-04] MEDS: METOPROLOL TARTRATE 25 MG TAB PO SCH ×2 (08:42→20:58)
[2023-02-04] MEDS: APIXABAN 2.5 MG TABLET PO SCH ×2 (08:42→20:57)
[2023-02-04] MEDS: ASPIRIN 81 MG PO SCH (08:42)
[2023-02-04] MEDS: FUROSEMIDE 40 MG TAB PO SCH ×2 (08:42→16:02)
[2023-02-04] MEDS: POTASSIUM CHLORIDE ER 20 MEQ TAB.ER PO SCH ×2 (08:42→16:02)
[2023-02-04] MEDS: NYSTATIN 100,000 UNIT/ML SUSP 500,000 UNIT/5 ML CUP PO SCH ×3 (13:22→21:00)
--- NOTE | 2023-02-04 13:45 | P.PN ---
Subjective Progress Note Date: 02/04/23 I am seeing this patient in new consultation today 01/30/2023 in the emergency room for left sided pleuritic chest pain and effusion. Patient is a 87-year-old white female with past medical history significant for moderate persistent chronic bronchial asthma, hypertension, hyperlipidemia, gastroesophageal reflux disease, pulmonary embolism, colitis, esophageal stricture with previous dilatations, and is a nonsmoker. Patient came back to the emergency room yesterday morning after being just discharged the day prior. Patient was admitted back on January 23 for a non-ST elevation [place] and exacerbation of systolic congestive heart failure. She did have a small to moderate left pleural effusion at that time measuring 7.7 cm, and no thoracentesis was performed due to the patient being on heparin. Her symptoms ultimately improved, and she was discharged back to her assisted living center. Apparently, the patient's chest pain worsened after discharge, and she came back to the emergency room. Patient is is currently sitting up on the stretcher, on 2 L nasal cannula, in no acute distress. The left-sided chest pain is painful to palpation and exacerbated by coughing. There is some associated shortness of breath especially on exertion. She denies any infectious symptoms such as fever, chills, cough, hemoptysis. Chest x-ray from yesterday shows persistent cardiomegaly with small to moderate size left pleural effusion and associated left mid to lower lung atelectasis and/or infiltrate, without significant change from previous chest x-ray. Patient's echocardiogram done on her recent admission showed a markedly decreased ejection fraction of 20-25% severe pulmonary hypertension with an RVSP of 75 mmHg, moderate to severe tricuspid regurgitation, and severe mitral regurgitation. CBC from yesterday shows a WBC count of 10.8, hemoglobin 12.4, hematocrit 39.8, platelets 241. BMP shows a sodium 135, potassium 4, chloride 90, serum CO2 34, BUN 44, creatinine 1.51, glucose 104. Troponin was low at 0.022. EKG shows sinus rhythm with a left bundle-branch block. Vital signs are stable at this time. The patient is seen today 01/31/2023 in follow-up in the intensive care unit. She is currently resting quite comfortably in bed. Awake and alert in no acute distress. Maintaining good O2 saturations in the 90s on 2 L/m per nasal cannula. No IV fluids. He did undergo an ultrasound-guided thoracentesis by interventional radiology yesterday with 350 ML's of clear yellow fluid removed. Follow-up chest x-ray revealed a repeat remaining small left pleural effusion. No pneumothorax. The fluid is exudative in nature with a total protein of 4.0 and LDH of 415. Cytology pending. She is continued on DuoNeb inhalations, Symbicort. Anticoagulated with Eliquis. Remains on oral diuretics. Progress note dated 02/01/2023. The patient is seen today in room 385. She was seen yesterday in the intensive care unit. She was recently discharged from the hospital, with chest pain and shortness of breath. He returned in less than a day, with similar symptoms. Interventional radiology did do a thoracentesis. Currently, she is on 3 L nasal cannula. She's not receiving any IV fluids. She feels much improved, and is hoping to be discharged soon. White count 14.4, hemoglobin 11.8, hematocrit 40.1, and platelet count is normal. Sodium 1:30, potassium 4.1, chlorides 90, CO2 33, BUN 44, and creatinine 1.65. Progress note dated 02/03/2023. The patient is seen today in room 385. She's been weaned down to 2 L. She's not receiving any IV fluids. Clinically, she's very stable. Labs reveal a white count of 16.3, hemoglobin 11.9, hematocrit 39.4, and a platelet count of 388,000. Sodium 132, potassium 4.8, chlorides 94, CO2 31, anion gap normal, BUN 40, creatinine 1.13. Albumin is 2.6. Objective - Vital Signs Vital signs: Vital Signs Temp 98.6 F 02/04/23 07:43 Pulse 76 02/04/23 07:58 Resp 17 02/04/23 07:43 BP 108/59 02/04/23 07:43 Pulse Ox 93 L 02/04/23 07:48 FiO2 Intake & Output 02/03/23 02/04/23 02/04/23 18:59 06:59 18:59 Intake Total 90 Balance 90 Weight 50 kg Intake: Oral 90 Other: Voiding Method Toilet Toilet Bedside Commode Bedside Commode # Voids 3 1 # Bowel Movements 2 1 - Exam No acute distress, oriented 3. No respiratory distress. No conversational dyspnea. Currently on 2 L. HEENT examination is grossly unremarkable. Neck supple. Full range of motion. No adenopathy thyromegaly or neck vein distention. Cardiovascular examination reveals regular rhythm rate. S1-S2 normal. No S3 or S4. No discernible murmur noted. Heart rate 68 bpm. Lungs reveal slightly diminished breath sounds in the left chest. Minimal scattered rhonchi. No wheezes or crackles. 2 L saturation is 95%. Abdomen soft bowel sounds are heard. No masses or tenderness. Extremities are intact. No cyanosis clubbing or edema. Skin is without rash or lesion. Neurologic examination is brief but nonfocal. - Labs CBC & Chem 7: 02/03/23 07:25 02/03/23 07:25 Labs: Microbiology - Last 24 Hours (Table) 01/30/23 16:50 Gram Stain - Preliminary Pleural Fluid Body Fluid Culture - Preliminary Assessment and Plan Plan: Chest pain, possibly pleuritic in nature. ECG shows persistent left bundle branch block. Troponin 0.022. Chest x-ray shows persistent cardiomegaly with small to moderate size left pleural effusion and associated left mid to lower lung atelectasis without significant change from most recent x-ray. Persistent left-sided pleural effusion. Status post ultrasound-guided thoracentesis 01/30/2023 with 350 ML's of yellow fluid return exudative with a protein of 4.0 and an LDH of 415. Cytology pending. Acute exacerbation of systolic congestive heart failure, on recent echocardiogram found to have severely impaired left ventricular systolic function ejection fraction of 20% along with severe mitral and tricuspid regurgitation with severe pulmonary hypertension with an RSVP of 75 mmHg. Acute hypoxic respiratory failure secondary to above, currently on 2 L nasal cannula. Acute kidney injury, creatinine is improved Recent non-ST elevation [place] . Moderate persistent chronic bronchial asthma, stable. Hyperlipidemia. Hypertension. Osteoarthritis. Previous history of bilateral pulmonary embolism in 2010. History of GI bleed and has been off anticoagulation since 2020 and declined to resume. History of esophageal strictures with previous dilatation. Plan Awaiting pleural fluid cytology Continue same treatment Renal function continues to improve Clinically stable
--- NOTE | 2023-02-04 15:21 | XR ---
EXAMINATION TYPE: XR chest 2V DATE OF EXAM: 02/04/2023 2:44 PM COMPARISON: Chest radiographs from 01/30/2023. TECHNIQUE: XR chest 2V Frontal and lateral views of the chest. CLINICAL INDICATION:Female, 87 years old with history of leukocytosis; FINDINGS: Lungs/Pleura: There is a left pleural effusion similar prior. No focal airspace consolidation or pneu mothorax. Pulmonary vascularity: Unremarkable. Heart/mediastinum: Cardiomediastinal silhouette is unremarkable. Musculoskeletal: No acute osseous pathology. Right shoulder arthroplasty changes. IMPRESSION: Cardiomegaly with left pleural effusion. Findings are similar to 01/30/2023.
--- NOTE | 2023-02-04 19:02 | P.PN ---
Subjective Progress Note Date: 02/04/23 Chase Min, is an 87-year-old female who presented to [facility] emergency room with a chief complaint of left-sided chest pain. Patient was admitted recently with similar symptoms on 01/23/2023, she was discharged on 01/28/2023. During that admission she had evidence of non-ST elevation myocardial infarction and evidence of acute exacerbation of systolic congestive heart failure, with evidence of cardiomyopathy with ejection fraction of 20-25%. Patient was treated medically and was discharged home yesterday, she returned today with worsening chest pain. She was evaluated in the emergency room vital examination on presentation revealed a temperature of 98.3 pulse 98 respiration 19 and blood pressure 130/76 pulse ox 95% on room air Laboratory data revealed a white blood count of 10.8 hemoglobin 12.4 platelet count 241 sodium 135 potassium 4.0 chloride 90 CO2 34 BUN 44 creatinine 1.51 troponin level was 0.0-2 AST and ALT are slightly elevated at 45 and 41 Testing in the emergency room revealed EKG done in the emergency room revealed sinus rhythm with left bundle branch block, chest x-ray done in the emergency room revealed cardiomegaly with small to moderate-sized left pleural effusion and associated left mid to lower lung atelectasis or infiltrate. Patient was admitted to medical floor for further evaluation and treatment. Past medical history is significant for recent history of non-ST elevation myocardial infarction, recent admission was acute systolic congestive heart failure exacerbation, cardiomyopathy with ejection fraction of 20-25%, underlying history of hypertension,, underlying history of hyperlipidemia, underlying history of osteoarthritis, underlying history of COPD, underlying history of esophageal stricture, underlying history of gastrointestinal bleeding, remote history of pulmonary embolism On review of systems patient was seen and examined in the emergency room she is alert and oriented 3 in no apparent distress there is no fever or chills no headache or dizziness she is still complaining of left sided chest pain no shortness of breath no cough no palpitation no nausea or vomiting no abdominal pain no diarrhea no blood in the stools no burning with urination no frequency or urgency and no hematuria. On 01/30/2023 patient was seen and examined in the ICU, she is alert and oriented 3 in no apparent distress, she is still complaining of chest pain and shortness of breath and occasional cough otherwise she denies any complaints there is no fever or chills no headache or dizziness no nausea or vomiting no abdominal pain no diarrhea no blood in the stools no burning with urination no frequency or urgency and no hematuria. She is scheduled for thoracentesis today. Prognosis is guarded will continue to follow closely. On 01/31/2023 patient currently in the ICU. Alert and oriented 3. Patient underwent thoracentesis yesterday 350 out. Per nursing staff patient went into atrial fibrillation this AM. This is new for patient. Per nursing staff cardiology was notified. Patient reports minimal improvement. Current signs temp 98.2. Heart rate 80, blood pressure 100/61 and a pulse ox of 96% on 2 L. Cardiology and pulmonary services are following On 02/01/2023 patient was seen and examined on the telemetry floor, she is alert and oriented 3 in no apparent distress, she is still complaining of cough and shortness of breath, she is also complaining of left sided drips pain otherwise she denies any complaints there is no fever or chills no headache or dizziness no chest pain, there is no nausea or vomiting no abdominal pain no diarrhea, no blood in the stools no burning with urination no frequency or urgency and no hematuria, there is no weakness or numbness in any of the extremities there is n o change in vision speech or gait. On 02/02/2023 patient is alert and oriented 3. Patient has been transitioned to oral Lasix. Respiratory rate 18, blood pressure 100/59. Will consult PT OT and social work services for discharge planning at this time patient denies chest pain or shortness breath. Patient denies nausea vomiting or diarrhea. Patient denies any urinary burning or frequency. On 02/03/2023 patient was seen and examined on the telemetry floor she is alert and oriented 3 in no apparent distress she is complaining of generalized weakness otherwise she denies any complaints shortness of breath improved at rest she is still having some shortness of breath with activity she is maintained on oxygen 2 L nasal cannula otherwise she denies any complaints there is no fever or chills no headache or dizziness no chest pain no cough no nausea or vomiting no abdominal pain no diarrhea and no urinary symptoms. Patient is improving gradually will assess possibility of discharge to rehab tomorrow versus going back to home. On 02/04/2023 patient was seen and examined on the medical floor she is alert and oriented in no distress she is still complaining of generalized weakness and complaining of occasional cough or shortness of breath has there is no fever or chills no headache or dizziness no chest pain no nausea or vomiting no abdominal pain no diarrhea and no urinary symptoms. White blood count is 16.5 with recheck chest x-ray, no clear evidence of infection at this time infectious disease consultation was requested. Objective - Vital Signs Vital signs: Vital Signs Temp 98.6 F 02/04/23 07:43 Pulse 76 02/04/23 07:58 Resp 17 02/04/23 07:43 BP 108/59 02/04/23 07:43 Pulse Ox 93 L 02/04/23 07:48 FiO2 Intake & Output 02/03/23 02/04/23 02/04/23 18:59 06:59 18:59 Intake Total 90 Balance 90 Weight 50 kg Intake: Oral 90 Other: Voiding Method Toilet Toilet Bedside Commode Bedside Commode # Voids 3 1 # Bowel Movements 2 1 - Exam In general patient is alert and oriented x 3 in no distress HEENT head normocephalic and atraumatic Neck is supple no JVD no goiter no lymphadenopathy no carotid bruit Chest examination is clear to auscultation no crackles no wheezing Cardiac exam reveals regular heart sounds S1 and S2 no gallops no murmurs Abdomen is soft nontender no organomegaly with normal bowel sounds Extremity exam reveals no edema no cyanosis or clubbing Neurological examination reveals no gross focal deficits - Labs CBC & Chem 7: 02/03/23 07:25 02/03/23 07:25 Labs: Microbiology - Last 24 Hours (Table) 01/30/23 16:50 Gram Stain - Preliminary Pleural Fluid Body Fluid Culture - Preliminary Assessment and Plan Plan: New episodes of chest pain Recent non-ST elevation myocardial infarction Recent admission was acute exacerbation of congestive heart failure 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 New-onset atrial fibrillation Underlying history of COPD Underlying history of hypertension Underlying history of hyperlipidemia Underlying history of osteoarthritis Previous history of esophageal stricture with history of dilatation Previous history of gastrointestinal bleeding Remote history of pulmonary embolism At this time patient will be readmitted to telemetry floor Home medications reviewed and reordered Cardiology consultation requested PT OT and social worker assistant consulted For DVT prophylaxis subcu Lovenox Prognosis is guarded will follow closely
--- NOTE | 2023-02-04 19:45 | P.CONS ---
History of Present Illness - Reason for Consult Consult date: 02/04/23 - History of Present Illness Patient is a 87-year-old female with multiple comorbidities including asthma reflux hyperlipidemia hypertension history of hepatitis B PE irritable bowel syndrome Chowdary's palsy patient also have a history of severe LV dysfunction with EF of 20-25% presenting to the hospital on 01/29/2023 for evaluation of left-sided chest pain patient describes the pain to be more of a pressure-like a bout 7 out of 10 with associated shortness of breath on exertion the patient also have minimal cough but no sputum production patient denies any nausea vomiting abdominal pain or any diarrhea patient on presentation to the hospital was afebrile and did have a low-grade fever 99.4 on 02/02/2023 however no fever since then patient did have a normal white count of 10 on admission however the vitals up to 16.3 today with a left shift BUN/creatinine has been mildly elevated patient did have a chest x-ray with evidence of moderate left-sided effusion s/p thoracocentesis on 01/30/2023 fluid white count only 2508 protein of 4080 culture has been negative so far infectious disease was consulted today b ecause of her elevated white count patient has been complaining of feeling weak left-sided chest pain has decreased in intensity denies any worsening cough or sputum production no nausea no vomiting no abdominal pain has been complaining of diarrhea with about 3 loose stools today , Past Medical History Past Medical History: Asthma, GERD/Reflux, GI Bleed, Hyperlipidemia, Hypertension, Liver Disease, Osteoarthritis (OA), Pneumonia, Pulmonary Embolus (PE) Additional Past Medical History / Comment(s): bilateral pulmonary embolism 2010, IBS, colitis, esophageal stricture, hepatitis B infection 1971, hiatal hernia, history of Chowdary's palsy, severe osteoarthritis, sinus problems. poor circulation in eliseo feet, GI bleed years ago History of Any Multi-Drug Resistant Organisms: None Reported Past Surgical History: Appendectomy, Section, Hernia Repair, Hysterectomy, Joint Replacement, Tonsillectomy, Tubal Ligation Additional Past Surgical History / Comment(s): Rt shoulder replacement, cataracts bilaterally, x 2, hiatal hernia repair, EGDs with esophageal dilations, colonoscopy, bronchoscopies Past Anesthesia/Blood Transfusion Reactions: Motion Sickness Past Psychological History: No Psychological Hx Reported Smoking Status: Never smoker - Past Family History Daughter(s) Family Medical History: Coronary Artery Disease (CAD), Diabetes Mellitus, Deep Vein Thrombosis (DVT) Brother(s) Family Medical History: CVA/TIA Mother Family Medical History: Deep Vein Thrombosis (DVT) Additional Family Medical History / Comment(s): . Father Family Medical History: No Reported History Medications and Allergies Home Medications Medication Instructions Recorded Confirmed Type Budesonide-Formot 160-4.5 Mcg 2 puff INHALATION RT-BID 09/04/18 01/29/23 History [Symbicort 160-4.5 Mcg Inhaler] Albuterol Inhaler [Ventolin Hfa 2 puff INHALATION RT-QID PRN 01/23/23 01/29/23 History Inhaler] Losartan/Hydrochlorothiazide 1 tab PO DAILY 01/23/23 01/29/23 History [Hyzaar 100-25 Tablet] Aspirin 81 mg PO DAILY tab 01/28/23 01/29/23 Rx Atorvastatin [Lipitor] 40 mg PO HS tab 01/28/23 01/29/23 Rx Furosemide [Lasix] 40 mg PO BID@0900,1600 tab 01/28/23 01/29/23 Rx Isosorbide Mononitrate ER [Imdur] 30 mg PO DAILY tab 01/28/23 01/29/23 Rx Metoprolol Tartrate [Lopressor] 12.5 mg PO BID tab 01/28/23 01/29/23 Rx Potassium Chloride ER [K-Dur 20] 20 meq PO Q8HR tab 01/28/23 01/29/23 Rx Allergies Allergy/AdvReac Type Severity Reaction Status Date / Time adhesive tape Allergy skin Verified 01/29/23 11:44 blisters iodine Allergy Anaphylaxis Verified 01/29/23 11:44 morphine AdvReac Hallucinati Verified 01/29/23 11:44 ons Physical Exam Vitals: Vital Signs Temp Pulse Pulse Resp BP BP Pulse Ox 02/04/23 07:58 76 02/04/23 07:48 80 93 L 02/04/23 07:43 98.6 F 83 17 108/59 92 L 02/04/23 00:42 98.7 F 92 18 102/62 90 L 02/03/23 21:09 97.5 F L 80 20 105/67 92 L 02/03/23 20:00 98.5 F 84 18 117/70 97 02/03/23 15:45 98.4 F 74 18 106/65 97 02/03/23 11:51 97.4 F L 68 18 112/72 95 Intake and Output 02/03/23 02/04/23 02/04/23 22:59 06:59 14:59 Intake Total 90 Balance 90 Intake: Oral 90 Other: Voiding Method Toilet Bedside Commode # Voids 3 1 # Bowel Movements 2 1 Weight 50 kg Results CBC & Chem 7: 02/05/23 06:22 02/03/23 07:25 Labs: Microbiology - Last 24 Hours (Table) 01/30/23 16:50 Gram Stain - Preliminary Pleural Fluid Body Fluid Culture - Preliminary Assessment and Plan Plan: 1patient with elevated white count and this patient presented to hospital about a week ago with left-sided chest pain noticed to have left-sided effusion status post thoracocentesis however does culture has been negative patient did not have any fever during this admission and has not received any steroids patient complaining of diarrhea source of elevated white count possible C. difficile versus thrush 2-we will check a stool for C. difficile 3-check a CRP and a procalcitonin 4-we will add nystatin swish and swallow and Diflucan for thrush and possible oropharyngeal candidasis We will follow on clinical condition and cultures to further adjust medication if needed Thank you for this consultation we will follow the patient along with you Time with Patient: Greater than 30
[2023-02-04] MEDS: FLUCONAZOLE 100 MG TAB PO SCH (20:58)
[2023-02-04] MEDS: ATORVASTATIN 40 MG TAB PO SCH (20:58)
[2023-02-05] MEDS: POTASSIUM CHLORIDE ER 20 MEQ TAB.ER PO SCH ×4 (00:40→23:55)
[2023-02-05] MEDS: TOBRAMYCIN 0.3% OPHTH DROPS 5 ML BTL RIGHT EYE SCH ×6 (01:37→22:17)
[2023-02-05] MEDS: IPRATROPIUM-ALBUTEROL 3 ML NEB INHALATION SCH ×4 (08:56→21:20)
[2023-02-05] MEDS: SYMBICORT 160-4.5 MCG INHALER INHALATION SCH ×2 (08:56→21:20)
[2023-02-05] MEDS: HYDROmorphone 0.5 MG/0.5 ML SYRINGE IVP PRN (09:29)
[2023-02-05] MEDS: METOPROLOL TARTRATE 25 MG TAB PO SCH ×2 (09:32→21:20)
[2023-02-05] MEDS: ASPIRIN 81 MG PO SCH (09:32)
[2023-02-05] MEDS: FUROSEMIDE 40 MG TAB PO SCH ×2 (09:32→15:53)
[2023-02-05] MEDS: FLUCONAZOLE 100 MG TAB PO SCH (09:32)
[2023-02-05] MEDS: APIXABAN 2.5 MG TABLET PO SCH ×2 (09:32→21:20)
--- NOTE | 2023-02-05 10:02 | P.PN ---
Subjective Progress Note Date: 02/05/23 Chase Min, is an 87-year-old female who presented to [facility] emergency room with a chief complaint of left-sided chest pain. Patient was admitted recently with similar symptoms on 01/23/2023, she was discharged on 01/28/2023. During that admission she had evidence of non-ST elevation myocardial infarction and evidence of acute exacerbation of systolic congestive heart failure, with evidence of cardiomyopathy with ejection fraction of 20-25%. Patient was treated medically and was discharged home yesterday, she returned today with worsening chest pain. She was evaluated in the emergency room vital examination on presentation revealed a temperature of 98.3 pulse 98 respiration 19 and blood pressure 130/76 pulse ox 95% on room air Laboratory data revealed a white blood count of 10.8 hemoglobin 12.4 platelet count 241 sodium 135 potassium 4.0 chloride 90 CO2 34 BUN 44 creatinine 1.51 troponin level was 0.0-2 AST and ALT are slightly elevated at 45 and 41 Testing in the emergency room revealed EKG done in the emergency room revealed sinus rhythm with left bundle branch block, chest x-ray done in the emergency room revealed cardiomegaly with small to moderate-sized left pleural effusion and associated left mid to lower lung atelectasis or infiltrate. Patient was admitted to medical floor for further evaluation and treatment. Past medical history is significant for recent history of non-ST elevation myocardial infarction, recent admission was acute systolic congestive heart failure exacerbation, cardiomyopathy with ejection fraction of 20-25%, underlying history of hypertension,, underlying history of hyperlipidemia, underlying history of osteoarthritis, underlying history of COPD, underlying history of esophageal stricture, underlying history of gastrointestinal bleeding, remote history of pulmonary embolism On review of systems patient was seen and examined in the emergency room she is alert and oriented 3 in no apparent distress there is no fever or chills no headache or dizziness she is still complaining of left sided chest pain no shortness of breath no cough no palpitation no nausea or vomiting no abdominal pain no diarrhea no blood in the stools no burning with urination no frequency or urgency and no hematuria. On 01/30/2023 patient was seen and examined in the ICU, she is alert and oriented 3 in no apparent distress, she is still complaining of chest pain and shortness of breath and occasional cough otherwise she denies any complaints there is no fever or chills no headache or dizziness no nausea or vomiting no abdominal pain no diarrhea no blood in the stools no burning with urination no frequency or urgency and no hematuria. She is scheduled for thoracentesis today. Prognosis is guarded will continue to follow closely. On 01/31/2023 patient currently in the ICU. Alert and oriented 3. Patient underwent thoracentesis yesterday 350 out. Per nursing staff patient went into atrial fibrillation this AM. This is new for patient. Per nursing staff cardiology was notified. Patient reports minimal improvement. Current signs temp 98.2. Heart rate 80, blood pressure 100/61 and a pulse ox of 96% on 2 L. Cardiology and pulmonary services are following On 02/01/2023 patient was seen and examined on the telemetry floor, she is alert and oriented 3 in no apparent distress, she is still complaining of cough and shortness of breath, she is also complaining of left sided drips pain otherwise she denies any complaints there is no fever or chills no headache or dizziness no chest pain, there is no nausea or vomiting no abdominal pain no diarrhea, no blood in the stools no burning with urination no frequency or urgency and no hematuria, there is no weakness or numbness in any of the extremities there is n o change in vision speech or gait. On 02/02/2023 patient is alert and oriented 3. Patient has been transitioned to oral Lasix. Respiratory rate 18, blood pressure 100/59. Will consult PT OT and social work services for discharge planning at this time patient denies chest pain or shortness breath. Patient denies nausea vomiting or diarrhea. Patient denies any urinary burning or frequency. On 02/03/2023 patient was seen and examined on the telemetry floor she is alert and oriented 3 in no apparent distress she is complaining of generalized weakness otherwise she denies any complaints shortness of breath improved at rest she is still having some shortness of breath with activity she is maintained on oxygen 2 L nasal cannula otherwise she denies any complaints there is no fever or chills no headache or dizziness no chest pain no cough no nausea or vomiting no abdominal pain no diarrhea and no urinary symptoms. Patient is improving gradually will assess possibility of discharge to rehab tomorrow versus going back to home. On 02/04/2023 patient was seen and examined on the medical floor she is alert and oriented in no distress she is still complaining of generalized weakness and complaining of occasional cough or shortness of breath has there is no fever or chills no headache or dizziness no chest pain no nausea or vomiting no abdominal pain no diarrhea and no urinary symptoms. White blood count is 16.5 with recheck chest x-ray, no clear evidence of infection at this time infectious disease consultation was requested. On 02/05/2023 patient is alert and oriented 3. Patient was started on Diflucan and nystatin per infectious disease. Labwork currently pending. Chest x-ray completed showing cardiomegaly with left pleural effusion findings modified 01/30/2023. Stool for C. diff negative. Cardiology pulmonary and infectious disease services are following Objective - Vital Signs Vital signs: Vital Signs Temp 99.1 F 02/05/23 07:36 Pulse 100 02/05/23 09:41 Resp 18 02/05/23 09:41 BP 116/63 02/05/23 09:41 Pulse Ox 97 02/05/23 09:41 FiO2 Intake & Output 02/04/23 02/05/23 02/05/23 18:59 06:59 18:59 Output Total 1 Balance -1 Weight 50 kg Output: Stool 1 Other: Voiding Method Toilet Diaper # Voids 2 # Bowel Movements 1 - Exam In general patient is alert and oriented x 3 in no distress HEENT head normocephalic and atraumatic Neck is supple no JVD no goiter no lymphadenopathy no carotid bruit Chest examination is clear to auscultation no crackles no wheezing Cardiac exam reveals regular heart sounds S1 and S2 no gallops no murmurs Abdomen is soft nontender no organomegaly with normal bowel sounds Extremity exam reveals no edema no cyanosis or clubbing Neurological examination reveals no gross focal deficits - Labs CBC & Chem 7: 02/03/23 07:25 02/03/23 07:25 Labs: Abnormal Lab Results - Last 24 Hours (Table) 02/04/23 02/04/23 Range/Units 10:24 12:38 C-Reactive Protein 40.4 H (<1.0) mg/dL Procalcitonin 0.42 H (0.02-0.09) ng/mL Microbiology - Last 24 Hours (Table) 01/30/23 16:50 Anaerobic Culture - Final Pleural Fluid 01/30/23 16:50 Gram Stain - Final Pleural Fluid Body Fluid Culture - Final Assessment and Plan Plan: New episodes of chest pain Recent non-ST elevation myocardial infarction Recent admission was acute exacerbation of congestive heart failure Cardiomyopathy likely ischemic, with ejection fraction of 20-25% Leukocytosis. Infectious disease service is consulted Thrush. Patient started on nystatin and Diflucan Small bilateral pleural effusion, patient was evaluated by pulmonary during the last admission, no intervention was necessary. New-onset atrial fibrillation Underlying history of COPD Underlying history of hypertension Underlying history of hyperlipidemia Underlying history of osteoarthritis Previous history of esophageal stricture with history of dilatation Previous history of gastrointestinal bleeding Remote history of pulmonary embolism At this time patient will be readmitted to telemetry floor Home medications reviewed and reordered Cardiology, pulmonary and infectious disease services following PT OT and social security assessor consulted For DVT prophylaxis subcu Lovenox Prognosis is guarded will follow closely
--- NOTE | 2023-02-05 12:26 | P.PN ---
Subjective Progress Note Date: 02/05/23 I am seeing this patient in new consultation today 01/30/2023 in the emergency room for left sided pleuritic chest pain and effusion. Patient is a 87-year-old white female with past medical history significant for moderate persistent chronic bronchial asthma, hypertension, hyperlipidemia, gastroesophageal reflux disease, pulmonary embolism, colitis, esophageal stricture with previous dilatations, and is a nonsmoker. Patient came back to the emergency room yesterday morning after being just discharged the day prior. Patient was admitted back on January 23 for a non-ST elevation NE and exacerbation of systolic congestive heart failure. She did have a small to moderate left pleural effusion at that time measuring 7.7 cm, and no thoracentesis was performed due to the patient being on heparin. Her symptoms ultimately improved, and she was discharged back to her assisted living center. Apparently, the patient's chest pain worsened after discharge, and she came back to the emergency room. Patient is is currently sitting up on the stretcher, on 2 L nasal cannula, in no acute distress. The left-sided chest pain is painful to palpation and exacerbated by coughing. There is some associated shortness of breath especially on exertion. She denies any infectious symptoms such as fever, chills, cough, hemoptysis. Chest x-ray from yesterday shows persistent cardiomegaly with small to moderate size left pleural effusion and associated left mid to lower lung atelectasis and/or infiltrate, without significant change from previous chest x-ray. Patient's echocardiogram done on her recent admission showed a markedly decreased ejection fraction of 20-25% severe pulmonary hypertension with an RVSP of 75 mmHg, moderate to severe tricuspid regurgitation, and severe mitral regurgitation. CBC from yesterday shows a WBC count of 10.8, hemoglobin 12.4, hematocrit 39.8, platelets 241. BMP shows a sodium 135, potassium 4, chloride 90, serum CO2 34, BUN 44, creatinine 1.51, glucose 104. Troponin was low at 0.022. EKG shows sinus rhythm with a left bundle-branch block. Vital signs are stable at this time. The patient is seen today 01/31/2023 in follow-up in the intensive care unit. She is currently resting quite comfortably in bed. Awake and alert in no acute distress. Maintaining good O2 saturations in the 90s on 2 L/m per nasal cannula. No IV fluids. He did undergo an ultrasound-guided thoracentesis by interventional radiology yesterday with 350 ML's of clear yellow fluid removed. Follow-up chest x-ray revealed a repeat remaining small left pleural effusion. No pneumothorax. The fluid is exudative in nature with a total protein of 4.0 and LDH of 415. Cytology pending. She is continued on DuoNeb inhalations, Symbicort. Anticoagulated with Eliquis. Remains on oral diuretics. Progress note dated 02/01/2023. The patient is seen today in room 385. She was seen yesterday in the intensive care unit. She was recently discharged from the hospital, with chest pain and shortness of breath. He returned in less than a day, with similar symptoms. Interventional radiology did do a thoracentesis. Currently, she is on 3 L nasal cannula. She's not receiving any IV fluids. She feels much improved, and is hoping to be discharged soon. White count 14.4, hemoglobin 11.8, hematocrit 40.1, and platelet count is normal. Sodium 1:30, potassium 4.1, chlorides 90, CO2 33, BUN 44, and creatinine 1.65. Progress note dated 02/03/2023. The patient is seen today in room 385. She's been weaned down to 2 L. She's not receiving any IV fluids. Clinically, she's very stable. Labs reveal a white count of 16.3, hemoglobin 11.9, hematocrit 39.4, and a platelet count of 388,000. Sodium 132, potassium 4.8, chlorides 94, CO2 31, anion gap normal, BUN 40, creatinine 1.13. Albumin is 2.6. On today's evaluation of 02/05/2023, the patient's condition is stable. The [facility] ient is not having any specific complaints. She is alert and oriented 3. The patient is being treated for CHF and left sided pleural effusion. The patient underwent thoracentesis. The fluid cytology came back negative for malignancy. Meanwhile, the patient was having some limited diarrhea and stools for C. diff came back negative. Her overall respiratory status is stable. The patient is currently on 2 L of oxygen by nasal cannula with a pulse ox of 97%. No pleurisy. No hemoptysis. No chest pain. She is on long-term and cognition without liquids to 0.5 mg twice a day. Her baseline creatinine is at 1.4 with a BUN of 40 and his sodium level is at 132 and this is based on the blood work that was obtained on 02/03/2023. Objective - Vital Signs Vital signs: Vital Signs Temp 99.1 F 02/05/23 07:36 Pulse 100 02/05/23 09:41 Resp 18 02/05/23 09:41 BP 116/63 02/05/23 09:41 Pulse Ox 97 02/05/23 09:41 FiO2 Intake & Output 02/04/23 02/05/23 02/05/23 18:59 06:59 18:59 Output Total 1 Balance -1 Weight 50 kg Output: Stool 1 Other: Voiding Method Toilet Diaper # Voids 2 # Bowel Movements 1 - Exam No acute distress, oriented 3. No respiratory distress. No conversational dyspnea. Currently on 2 L. HEENT examination is grossly unremarkable. Neck supple. Full range of motion. No adenopathy thyromegaly or neck vein distention. Cardiovascular examination reveals regular rhythm rate. S1-S2 normal. No S3 or S4. No discernible murmur noted. Heart rate 68 bpm. Lungs reveal slightly diminished breath sounds in the left chest. Minimal scattered rhonchi. No wheezes or crackles. 2 L saturation is 95%. Abdomen soft bowel sounds are heard. No masses or tenderness. Extremities are intact. No cyanosis clubbing or edema. Skin is without rash or lesion. Neurologic examination is brief but nonfocal. - Labs CBC & Chem 7: 02/03/23 07:25 02/03/23 07:25 Labs: Abnormal Lab Results - Last 24 Hours (Table) 02/04/23 02/04/23 Range/Units 10:24 12:38 C-Reactive Protein 40.4 H (<1.0) mg/dL Procalcitonin 0.42 H (0.02-0.09) ng/mL Microbiology - Last 24 Hours (Table) 01/30/23 16:50 Anaerobic Culture - Final Pleural Fluid 01/30/23 16:50 Gram Stain - Final Pleural Fluid Body Fluid Culture - Final Assessment and Plan Plan: Chest pain, possibly pleuritic in nature. ECG shows persistent left bundle branch block. Troponin 0.022. Chest x-ray shows persistent cardiomegaly with small to moderate size left pleural effusion and associated left mid to lower lung atelectasis without significant change from most recent x-ray. The patient underwent a thoracentesis and the fluid cytology came back negative for malignancy. The protein was 4 g and the LDH was 4:15 indicating more so than exudate. Consider the possibility of parapneumonic left-sided pleural effusion. CHF cannot be completely excluded. Most recent chest x-ray from 02/04/2023 showed cardiomegaly with a small left-sided pleural effusion. No focal airspace disease of consolidation. Persistent left-sided pleural effusion. Status post ultrasound-guided thoracentesis 01/30/2023 with 350 ML's of yellow fluid return exudative with a protein of 4.0 and an LDH of 415. Cytology is negative for malignancy. The pleural fluid is for a follow-up chest x-rays. Acute exacerbation of systolic congestive heart failure, on recent echocardiogram found to have severely impaired left ventricular systolic fu nction ejection fraction of 20% along with severe mitral and tricuspid regurgitation with severe pulmonary hypertension with an RSVP of 75 mmHg. Acute hypoxic respiratory failure secondary to above, currently on 2 L nasal cannula. Acute kidney injury, creatinine is improved Recent non-ST elevation NE . Moderate persistent chronic bronchial asthma, stable. Hyperlipidemia. Hypertension. Osteoarthritis. Previous history of bilateral pulmonary embolism in 2010. History of GI bleed and has been off anticoagulation since 2020 and declined to resume. History of esophageal strictures with previous dilatation. Plan The pleural fluid cytology was negative for malignancy Patient is currently on 2 L of oxygen by nasal cannula Continue anticoagulation with Eliquis 2.5 mg twice a day Monitor electrolytes and repeat the blood work Diflucan for oropharyngeal candidiasis Continue same treatment Renal function continues to improve Clinically stable
[2023-02-05 13:54] LABS: Basophils # (A) 0.04 X 10*3/uL (0.00-0.10); Basophils % (A) 0.2 %; Eosinophils # (A) 0.06 X 10*3/uL (0.04-0.35); Eosinophils % (A) 0.3 %; HGB 11.2 g/dL (12.0-15.0); Immature Grans, Automated 1.2 %; Lymphocytes # (A) 2.92 X 10*3/uL (0.90-5.00); Lymphocytes % (A) 12.9 %; MCH 24.2 pg (27.0-32.0); MCHC 29.5 g/dL (32.0-37.0); MCV 82.3 fL (80.0-97.0); Mean Platelet Volume 10.6 fL (9.5-12.2); Monocytes # (A) 1.08 X 10*3/uL (0.20-1.00); Monocytes % (A) 4.8 %; NRBC Per 100 WBC 0 /100 WBCS (0.0-0.0); Neutrophils # (A) 18.22 X 10*3/uL (1.80-7.70); Neutrophils % (A) 80.6 %; Platelet Count 611 X 10*3/uL (140-440); RBC 4.62 X 10*6/uL (4.10-5.20); RDW 17.2 % (11.5-14.5); WBC 22.58 X 10*3/uL (4.50-10.00)
--- NOTE | 2023-02-05 14:02 | P.PN ---
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 patient also have a history of severe LV dysfunction with EF of 20-25% presenting to the hospital on 01/29/2023 for evaluation of left-sided chest pain,atient did have a chest x-ray with evidence of moderate left-sided effusion s/p thoracocentesis on 01/30/2023 , fluid culture had been negative so far did have elevated white count prompting this infectious disease consultation On today's evaluation her that is 02/05/2023 the patient remains to be afebrile, the basal complaining of left-sided chest pain she did have minimal cough not being up any sputum no nausea no vomiting no abdominal pain or any worsening diarrhea reported by the nursing staff Objective - Vital Signs Vital signs: Vital Signs Temp 99.1 F 02/05/23 07:36 Pulse 100 02/05/23 09:41 Resp 18 02/05/23 09:41 BP 116/63 02/05/23 09:41 Pulse Ox 97 02/05/23 09:41 FiO2 Intake & Output 02/04/23 02/05/23 02/05/23 18:59 06:59 18:59 Output Total 1 Balance -1 Weight 50 kg Output: Stool 1 Other: Voiding Method Toilet Diaper # Voids 2 # Bowel Movements 1 - Exam GENERAL DESCRIPTION: An elderly female lying in bed in no distress RESPIRATORY SYSTEM: Unlabored breathing , coarse breath sounds at bases HEART: S1 S2 regular rate and rhythm , ABDOMEN: Soft , no tenderness EXTREMITIES: No edema feet - Labs CBC & Chem 7: 02/05/23 06:22 02/03/23 07:25 Labs: Abnormal Lab Results - Last 24 Hours (Table) 02/04/23 02/04/23 Range/Units 10:24 12:38 C-Reactive Protein 40.4 H (<1.0) mg/dL Procalcitonin 0.42 H (0.02-0.09) ng/mL Microbiology - Last 24 Hours (Table) 01/30/23 16:50 Anaerobic Culture - Final Pleural Fluid 01/30/23 16:50 Gram Stain - Final Pleural Fluid Body Fluid Culture - Final Assessment and Plan (1) Leukocytosis Current Visit: Yes Status: Acute Code(s): D72.829 - ELEVATED WHITE BLOOD CELL COUNT, UNSPECIFIED SNOMED Code(s): 585095304 Plan: 1patient with elevated white count and this patient presented to hospital about a week ago with left-sided chest pain noticed to have left-sided effusion status post thoracocentesis however does culture has been negative patient did not have any fever during this admission and has not received any steroids patient complaining of diarrhea source of elevated white count possible C. difficile versus thrush 2-patient stool for C. difficile came back negative 3Patient did have elevated CRP and a procalcitonin 4-patient to continue nystatin swish and swallow and Diflucan for thrush and possible oropharyngeal candidasis 5-we will empirically add cefepime as the white count has further trended up to 22,000 today and see clinical response Time with Patient: Less than 30
[2023-02-05 15:47] LABS: African American GFR (CKD) 59.5 (60.0-200.0); Albumin 2.7 g/dL (3.8-4.9); Albumin/Globulin Ratio 0.64 (1.60-3.17); BUN/Creat Ratio 34.9 Ratio (12.00-20.00); Blood Urea Nitrogen 34.9 mg/dL (9.0-27.0); Calcium 9.4 mg/dL (8.7-10.3); Globulin 4.2 g/dL (1.6-3.3); Non-African American GFR(CKD) 51.3 (60.0-200.0); Potassium 5.7 mmol/L (3.5-5.5); Total Bilirubin 0.6 mg/dL (0.30-1.20); Total Protein 6.9 g/dL (6.2-8.2)
[2023-02-05] MEDS: CEFEPIME 2 GM in SODIUM CHLORIDE 0.9% 100 ML IVPB SCH ×2 (15:52→21:20)
[2023-02-05] MEDS: NYSTATIN 100,000 UNIT/ML SUSP 500,000 UNIT/5 ML CUP PO SCH ×4 (15:53→21:21)
[2023-02-05] MEDS: ACETAMINOPHEN TAB 325 MG TAB PO PRN (17:41)
[2023-02-05] MEDS: ATORVASTATIN 40 MG TAB PO SCH (21:20)
--- NOTE | 2023-02-05 23:05 | P.CONS ---
History of Present Illness - Reason for Consult Consult date: 02/04/23 Rehab needs - History of Present Illness Renay is an 87 yo F who presented to the hospital with chest pain. She recently had an admission and was found to have nSTEMI and CHF exacerbation with EF of 20-25%. In ED, CXR showed cardiomegaly with moderate left pleural effusion and EKG with LBBB. She lives at home in an apartment complex on [address] [facility] with elevator access, no LUCA. She lives with her who is currently in a ELIJAH. She was previously independent- did her own laundry, cooking, driving. She was using a 4ww with seat as needed. She does have support from her daughter and could stay at her daughter'=s house briefly if needed with bed/bath on main floor. Luckily, her housing complex offers aids for help with ADLs that she can set up and utilize. Currently she feels tired/sleepy. She endorses some SOB. She is on NC now, but is not on supplemental oxygen at home. Past Medical History Past Medical History: Asthma, GERD/Reflux, GI Bleed, Hyperlipidemia, Hyperte nsion, Liver Disease, Osteoarthritis (OA), Pneumonia, Pulmonary Embolus (PE) Additional Past Medical History / Comment(s): bilateral pulmonary embolism 2010, IBS, colitis, esophageal stricture, hepatitis B infection 1971, hiatal hernia, history of Chowdary's palsy, severe osteoarthritis, sinus problems. poor circulation in eliseo feet, GI bleed years ago History of Any Multi-Drug Resistant Organisms: None Reported Past Surgical History: Appendectomy, Section, Hernia Repair, Hysterectomy, Joint Replacement, Tonsillectomy, Tubal Ligation Additional Past Surgical History / Comment(s): Rt shoulder replacement, cataracts bilaterally, x 2, hiatal hernia repair, EGDs with esophageal dilations, colonoscopy, bronchoscopies Past Anesthesia/Blood Transfusion Reactions: Motion Sickness Past Psychological History: No Psychological Hx Reported Smoking Status: Never smoker - Past Family History Daughter(s) Family Medical History: Coronary Artery Disease (CAD), Diabetes Mellitus, Deep Vein Thrombosis (DVT) Brother(s) Family Medical History: CVA/TIA Mother Family Medical History: Deep Vein Thrombosis (DVT) Additional Family Medical History / Comment(s): . Father Family Medical History: No Reported History Medications and Allergies Home Medications Medication Instructions Recorded Confirmed Type Budesonide-Formot 160-4.5 Mcg 2 puff INHALATION RT-BID 09/04/18 01/29/23 History [Symbicort 160-4.5 Mcg Inhaler] Albuterol Inhaler [Ventolin Hfa 2 puff INHALATION RT-QID PRN 01/23/23 01/29/23 History Inhaler] Losartan/Hydrochlorothiazide 1 tab PO DAILY 01/23/23 01/29/23 History [Hyzaar 100-25 Tablet] Aspirin 81 mg PO DAILY tab 01/28/23 01/29/23 Rx Atorvastatin [Lipitor] 40 mg PO HS tab 01/28/23 01/29/23 Rx Furosemide [Lasix] 40 mg PO BID@0900,1600 tab 01/28/23 01/29/23 Rx Isosorbide Mononitrate ER [Imdur] 30 mg PO DAILY tab 01/28/23 01/29/23 Rx Metoprolol Tartrate [Lopressor] 12.5 mg PO BID tab 01/28/23 01/29/23 Rx Potassium Chloride ER [K-Dur 20] 20 meq PO Q8HR tab 01/28/23 01/29/23 Rx Allergies Allergy/AdvReac Type Severity Reaction Status Date / Time adhesive tape Allergy skin Verified 01/29/23 11:44 blisters iodine Allergy Anaphylaxis Verified 01/29/23 11:44 morphine AdvReac Hallucinati Verified 01/29/23 11:44 ons Physical Exam Vitals: Vital Signs Temp Pulse Pulse Resp BP Pulse Ox 02/04/23 20:32 77 02/04/23 20:27 76 02/04/23 19:40 97.9 F 106 H 16 115/60 97 02/04/23 15:24 76 02/04/23 15:14 80 02/04/23 13:59 98.7 F 80 18 102/63 97 02/04/23 07:58 76 02/04/23 07:48 80 93 L 02/04/23 07:43 98.6 F 83 17 108/59 92 L 02/04/23 00:42 98.7 F 92 18 102/62 90 L Intake and Output 02/04/23 02/04/23 02/05/23 14:59 22:59 06:59 Other: Voiding Method Toilet Diaper # Voids 2 # Bowel Movements 1 Weight 50 kg General: The patient appears stated age, comfortable, NAD, sitting up in bed HEENT: Nc/AT Neck: Supple. Cardiac: Calves supple, non tender, +pitting edema Lungs: Breathing comfortably on nasal cannula Abdomen: Soft, nontender, nondistended Neurological: Alert. Follows commands. Cranial nerves: CN II-XII: intact. Sensation: Intact to light touch in b/l upper and lower extremities Musculoskeletal: ROM WFL in the RUE and RLE MMT UE Sh Abd EE EF FABD WE HG Right 4 5 5 5 5 5 Left 4 5 5 5 5 5 MMT LE HF KE DF EHL Right 4 5 5 Left 4 5 4 Reflexes Biceps Triceps Brachioradialis Patella Achilles Babinski Hoffmans Right 2 2 2 0 0 - - Left 2 2 2 0 0 - - Skin: Skin intact where visible to head, neck, and bilateral upper and lower extremities Psych: Calm, cooperative Results CBC & Chem 7: 02/05/23 06:22 02/05/23 06:22 Labs: Abnormal Lab Results - Last 24 Hours (Table) 02/04/23 02/04/23 Range/Units 10:24 12:38 C-Reactive Protein 40.4 H (<1.0) mg/dL Procalcitonin 0.42 H (0.02-0.09) ng/mL Microbiology - Last 24 Hours (Table) 01/30/23 16:50 Anaerobic Culture - Final Pleural Fluid 01/30/23 16:50 Gram Stain - Final Pleural Fluid Body Fluid Culture - Final Assessment and Plan Assessment: # Debility secondary to pleural effusion s/p thoracentesis; cytology negative for malignancy -Continue PT / OT evals -Patient lives in assisted living. She will be able to go [facility] with [facility] and assistance at her living facility. # Pleuritic chest pain # Acute CHF exacerbation # Bowel/ Bladder: nursing to monitor # Diet: NPO at this time, CHARGER TESTER to assess # Skin- per nursing # Pain Management- per MAR # DVT Prophylaxis- # Comorbidities: HTN, HLD, CHF, GI bleed, hx of PE # Your medical dx and management Goals: Modified Independent mobility and ADLS both basic and advanced; increased functional mobility/strength; increased balance, safety, endurance. Improvement in medical issues through your care. Barriers: endurance, weakness Discharge recommendation: Likely home with home health care
[2023-02-06] MEDS: TOBRAMYCIN 0.3% OPHTH DROPS 5 ML BTL RIGHT EYE SCH ×7 (00:21→23:21)
[2023-02-06] MEDS: DIPHENOX-ATROP 2.5-0.025 MG 1 EACH TAB PO PRN ×2 (03:20→20:58)
[2023-02-06] MEDS: HYDROmorphone 0.5 MG/0.5 ML SYRINGE IVP PRN (03:21)
[2023-02-06] MEDS: SYMBICORT 160-4.5 MCG INHALER INHALATION SCH ×2 (07:42→19:37)
[2023-02-06] MEDS: IPRATROPIUM-ALBUTEROL 3 ML NEB INHALATION SCH ×4 (07:42→19:37)
[2023-02-06] MEDS: POTASSIUM CHLORIDE ER 20 MEQ TAB.ER PO SCH (09:03)
[2023-02-06] MEDS: FLUCONAZOLE 100 MG TAB PO SCH (09:17)
[2023-02-06] MEDS: APIXABAN 2.5 MG TABLET PO SCH ×2 (09:18→19:42)
[2023-02-06] MEDS: FUROSEMIDE 40 MG TAB PO SCH ×2 (09:18→16:47)
[2023-02-06] MEDS: CEFEPIME 2 GM in SODIUM CHLORIDE 0.9% 100 ML IVPB SCH ×2 (09:18→19:42)
[2023-02-06] MEDS: ASPIRIN 81 MG PO SCH (09:18)
[2023-02-06] MEDS: NYSTATIN 100,000 UNIT/ML SUSP 500,000 UNIT/5 ML CUP PO SCH ×4 (09:40→19:42)
[2023-02-06] MEDS: METOPROLOL TARTRATE 25 MG TAB PO SCH ×2 (09:41→19:42)
[2023-02-06 10:53] LABS: HCT 35.6 % (37.2-46.3); HGB 10.7 g/dL (12.0-15.0); MCH 25.1 pg (27.0-32.0); MCHC 30.1 g/dL (32.0-37.0); MCV 83.4 fL (80.0-97.0); Mean Platelet Volume 10.5 fL (9.5-12.2); NRBC Per 100 WBC 0 /100 WBCS (0.0-0.0); Platelet Count 560 X 10*3/uL (140-440); RBC 4.27 X 10*6/uL (4.10-5.20); RDW 17.4 % (11.5-14.5); WBC 23.89 X 10*3/uL (4.50-10.00)
[2023-02-06 11:22] LABS: Albumin 2.5 g/dL (3.8-4.9); Albumin/Globulin Ratio 0.61 (1.60-3.17); Anion Gap 12.7 mmol/L (10.00-18.00); BUN/Creat Ratio 35.45 Ratio (12.00-20.00); Calcium 9.1 mg/dL (8.7-10.3); Carbon Dioxide 20.3 mmol/L (20.0-27.5); Globulin 4.1 g/dL (1.6-3.3); Non-African American GFR(CKD) 45.7 (60.0-200.0); Potassium 6.2 mmol/L (3.5-5.5); Total Bilirubin 0.6 mg/dL (0.30-1.20); Total Protein 6.6 g/dL (6.2-8.2)
[2023-02-06 11:35] LABS: Basophils # (A) 0.05 X 10*3/uL (0.00-0.10); Basophils % (A) 0.2 %; Eosinophils # (A) 0.06 X 10*3/uL (0.04-0.35); Eosinophils % (A) 0.3 %; Hypochromasia (M) 2+; Immature Grans, Automated 0.9 %; Lymphocytes % (A) 7.1 %; Microcytosis (M) 2+; Monocytes # (A) 0.95 X 10*3/uL (0.20-1.00); Neutrophils # (A) 20.91 X 10*3/uL (1.80-7.70); Neutrophils % (A) 87.5 %
[2023-02-06] MEDS ORDERED: SODIUM POLYSTYRENE SULFONATE 15 GM/60 ML BOTTLE PO STA (11:57)
--- NOTE | 2023-02-06 12:04 | CDI ---
Documentation Clarification Form Date: 02/06/2023 11:35:50 AM From: Amy Waddell RN CCDS Phone: [phone] Admit Date: 01/29/2023 03:52:00 PM Patient Name: Chase Min Visit Number: [id number] Discharge Date: ATTENTION: The Clinical Documentation Specialists (CDI) and [facility] Coding Staff appreciate your assistance in clarifying documentation. Please respond to the clarification below the line at the bottom and electronically sign. The CDI & [facility] Coding staff will review the response and follow-up if needed. Please note: Queries are made part of the Legal Health Record. If you have any questions, please contact the author of this message via ITS. Dr. Aliza Byrd Acute exacerbation systolic heart failure is documented pulmonary consult, 01/30, but is not noted in subsequent documentation. Clarification is requested. History/Risk Factors: 87-year-old female presents with left sided chest pain. Recent admission with evidence of [id number] myocardial infarction and evidence of acute exacerbation of systolic congestive heart failure. Clinical Indicators: 01/30 ECHO: Severe LV dysfunction ejection fraction less than 20% Mildly enlarged heart. 01/29 CXR: Persistent cardiomegaly with small to moderate size left pleural effusion and associated left to mid lower lung atelectasis. 01/30 Chest Ultra sound: Right Pleural Effusion pocket size: no fluid visualized at this time Left Pleural Effusion pocket size: 7.3 cm - appears loculated with multiple thin septations. 01/30 Thoracentesis: Mildly complex septated effusion; removal of 350ml of clear yellow fluid 524, H&P chest examination: clear to auscultation Treatment: Thoracentesis ; 01/30 Lasix 40mg po bid; 01/30 Lopressor 12.5mg po bid d/c 01/31; 01/31 Lopressor 12.5mg po x 1; 01/31 Lopressor 25mg po bid; Please clarify if the Acute Systolic congestive heart failure is: [ xxx ] Acute Systolic Exacerbation congestive heart failure confirmed POA. [ ] Acute Systolic Exacerbation congestive heart failure POA, resolved [ ] Acute Systolic Exacerbation congestive heart failure ruled out [ ] Other condition, please specify [ ] Unable to determine (Template Last Revised: November 2020) MTDD
--- NOTE | 2023-02-06 13:02 | XR ---
EXAMINATION TYPE: XR chest 1V portable DATE OF EXAM: 02/06/2023 12:50 PM COMPARISON: Chest radiographs from 02/04/2023 TECHNIQUE: XR chest 1V portable Frontal view of the chest. CLINICAL INDICATION:Female, 87 years old with history of leukocytosis; FINDINGS: Lungs/Pleura: Moderate left pleural effusion with associated atelectasis. There is no evidence of ple ural effusion, focal consolidation, or pneumothorax. Pulmonary vascularity: Unremarkable. Heart/mediastinum: Cardiomediastinal silhouette is enlarged and stable. Musculoskeletal: No acute osseous pathology. Right shoulder arthroplasty changes. IMPRESSION: Stable exam with moderate left pleural effusion and cardiomegaly.
--- NOTE | 2023-02-06 14:09 | P.PN ---
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 patient also have a history of severe LV dysfunction with EF of 20-25% presenting to the hospital on 01/29/2023 for evaluation of left-sided chest pain,atient did have a chest x-ray with evidence of moderate left-sided effusion s/p thoracocentesis on 01/30/2023 , fluid culture had been negative so far did have elevated white count prompting this infectious disease consultation On today's evaluation her that is 02/06/2023 the patient continues to be afebrile, the patient is breathing comfortably and mentioned denies any chest pain has improved, denies any nausea no vomiting no abdominal pain or any worsening diarrhea Objective - Vital Signs Vital signs: Vital Signs Temp 98.7 F 02/06/23 07:16 Pulse 80 02/06/23 11:08 Resp 18 02/06/23 07:16 BP 116/70 02/06/23 07:16 Pulse Ox 98 02/06/23 10:19 FiO2 Intake & Output 02/05/23 02/06/23 02/06/23 18:59 06:59 18:59 Intake Total 440 Balance 440 Intake: Intake, IV Titration 100 Amount Cefepime 2 gm In Sodium 100 Chloride 0.9% 100 ml @ 25 mls/hr IVPB Q12HR [facility] Rx #:[id number] Oral 340 Other: Voiding Method Incontinent Incontinent # Voids 2 3 # Bowel Movements 1 3 - Exam GENERAL DESCRIPTION: An elderly female lying in bed in no distress RESPIRATORY SYSTEM: Unlabored breathing , coarse breath sounds at bases HEART: S1 S2 regular rate and rhythm , ABDOMEN: Soft , no tenderness EXTREMITIES: No edema feet - Labs CBC & Chem 7: 02/06/23 07:03 02/06/23 07:03 Labs: Abnormal Lab Results - Last 24 Hours (Table) 02/05/23 02/05/23 02/06/23 Range/Units 06:22 06:22 07:03 WBC 22.58 H 23.89 H (4.50-10.00) X 10*3/uL Hgb 11.2 L 10.7 L (12.0-15.0) g/dL Hct 35.6 L (37.2-46.3) % MCH 24.2 L 25.1 L (27.0-32.0) pg MCHC 29.5 L 30.1 L (32.0-37.0) g/dL RDW 17.2 H 17.4 H (11.5-14.5) % Plt Count 611 H 560 H (140-440) X 10*3/uL Immature Gran # 0.26 H (0.00-0.04) X 10*3/uL Neutrophils # 18.22 H (1.80-7.70) X 10*3/uL Monocytes # 1.08 H (0.20-1.00) X 10*3/uL Sodium 131 L (135-145) mmol/L Potassium 5.7 H (3.5-5.5) mmol/L Chloride 90 L (96-109) mmol/L BUN 34.9 H (9.0-27.0) mg/dL Est GFR (CKD-EPI)AfAm 59.5 L (60.0-200.0) Est GFR (CKD-EPI)NonAf 51.3 L (60.0-200.0) BUN/Creatinine Ratio 34.90 H (12.00-20.00) Ratio AST 145 H (13-35) U/L ALT 49 H (8-44) U/L Alkaline Phosphatase 354 H (41-126) U/L Albumin 2.7 L (3.8-4.9) g/dL Globulin 4.2 H (1.6-3.3) g/dL Albumin/Globulin Ratio 0.64 L (1.60-3.17) g/dL 02/06/23 Range/Units 07:03 WBC (4.50-10.00) X 10*3/uL Hgb (12.0-15.0) g/dL Hct (37.2-46.3) % MCH (27.0-32.0) pg MCHC (32.0-37.0) g/dL RDW (11.5-14.5) % Plt Count (140-440) X 10*3/uL Immature Gran # (0.00-0.04) X 10*3/uL Neutrophils # (1.80-7.70) X 10*3/uL Monocytes # (0.20-1.00) X 10*3/uL Sodium 129 L (135-145) mmol/L Potassium 6.2 H* (3.5-5.5) mmol/L Chloride (96-109) mmol/L BUN 39.0 H (9.0-27.0) mg/dL Est GFR (CKD-EPI)AfAm 53.0 L (60.0-200.0) Est GFR (CKD-EPI)NonAf 45.7 L (60.0-200.0) BUN/Creatinine Ratio 35.45 H (12.00-20.00) Ratio AST 167 H (13-35) U/L ALT 54 H (8-44) U/L Alkaline Phosphatase 300 H (41-126) U/L Albumin 2.5 L (3.8-4.9) g/dL Globulin 4.1 H (1.6-3.3) g/dL Albumin/Globulin Ratio 0.61 L (1.60-3.17) g/dL Microbiology - Last 24 Hours (Table) 02/04/23 12:38 Blood Culture - Preliminary Blood Assessment and Plan (1) Leukocytosis Current Visit: Yes Status: Acute Code(s): D72.829 - ELEVATED WHITE BLOOD CELL COUNT, UNSPECIFIED SNOMED Code(s): 357498368 Plan: 1patient with elevated white count and this patient presented to hospital about a week ago with left-sided chest pain noticed to have left-sided effusion status post thoracocentesis however does culture has been negative patient did not have any fever during this admission and has not received any steroids patient complaining of diarrhea source of elevated white count possible C. difficile versus thrush 2-patient stool for C. difficile came back negative 3Patient did have elevated CRP and a mildly elevated procalcitonin 4-patient to continue nystatin swish and swallow and Diflucan for thrush and possible oropharyngeal candidasis 5-patient still have elevated white count however seemed to have some clinical improvement continue with cefepime on waiting for the cultures to finalize Time with Patient: Less than 30
--- NOTE | 2023-02-06 15:45 | P.PN ---
Subjective Progress Note Date: 02/06/23 I am seeing this patient in new consultation today 01/30/2023 in the emergency room for left sided pleuritic chest pain and effusion. Patient is a 87-year-old white female with past medical history significant for moderate persistent chronic bronchial asthma, hypertension, hyperlipidemia, gastroesophageal reflux disease, pulmonary embolism, colitis, esophageal stricture with previous dilatations, and is a nonsmoker. Patient came back to the emergency room yesterday morning after being just discharged the day prior. Patient was admitted back on January 23 for a non-ST elevation CA and exacerbation of systolic congestive heart failure. She did have a small to moderate left pleural effusion at that time measuring 7.7 cm, and no thoracentesis was performed due to the patient being on heparin. Her symptoms ultimately improved, and she was discharged back to her assisted living center. Apparently, the patient's chest pain worsened after discharge, and she came back to the emergency room. Patient is is currently sitting up on the stretcher, on 2 L nasal cannula, in no acute distress. The left-sided chest pain is painful to palpation and exacerbated by coughing. There is some associated shortness of breath especially on exertion. She denies any infectious symptoms such as fever, chills, cough, hemoptysis. Chest x-ray from yesterday shows persistent cardiomegaly with small to moderate size left pleural effusion and associated left mid to lower lung atelectasis and/or infiltrate, without significant change from previous chest x-ray. Patient's echocardiogram done on her recent admission showed a markedly decreased ejection fraction of 20-25% severe pulmonary hypertension with an RVSP of 75 mmHg, moderate to severe tricuspid regurgitation, and severe mitral regurgitation. CBC from yesterday shows a WBC count of 10.8, hemoglobin 12.4, hematocrit 39.8, platelets 241. BMP shows a sodium 135, potassium 4, chloride 90, serum CO2 34, BUN 44, creatinine 1.51, glucose 104. Troponin was low at 0.022. EKG shows sinus rhythm with a left bundle-branch block. Vital signs are stable at this time. The patient is seen today 01/31/2023 in follow-up in the intensive care unit. She is currently resting quite comfortably in bed. Awake and alert in no acute distress. Maintaining good O2 saturations in the 90s on 2 L/m per nasal cannula. No IV fluids. He did undergo an ultrasound-guided thoracentesis by interventional radiology yesterday with 350 ML's of clear yellow fluid removed. Follow-up chest x-ray revealed a repeat remaining small left pleural effusion. No pneumothorax. The fluid is exudative in nature with a total protein of 4.0 and LDH of 415. Cytology pending. She is continued on DuoNeb inhalations, Symbicort. Anticoagulated with Eliquis. Remains on oral diuretics. Progress note dated 02/01/2023. The patient is seen today in room 385. She was seen yesterday in the intensive care unit. She was recently discharged from the hospital, with chest pain and shortness of breath. He returned in less than a day, with similar symptoms. Interventional radiology did do a thoracentesis. Currently, she is on 3 L nasal cannula. She's not receiving any IV fluids. She feels much improved, and is hoping to be discharged soon. White count 14.4, hemoglobin 11.8, hematocrit 40.1, and platelet count is normal. Sodium 1:30, potassium 4.1, chlorides 90, CO2 33, BUN 44, and creatinine 1.65. Progress note dated 02/03/2023. The patient is seen today in room 385. She's been weaned down to 2 L. She's not receiving any IV fluids. Clinically, she's very stable. Labs reveal a white count of 16.3, hemoglobin 11.9, hematocrit 39.4, and a platelet count of 388,000. Sodium 132, potassium 4.8, chlorides 94, CO2 31, anion gap normal, BUN 40, creatinine 1.13. Albumin is 2.6. On today's evaluation of 02/05/2023, the patient's condition is stable. The [facility] ient is not having any specific complaints. She is alert and oriented 3. The patient is being treated for CHF and left sided pleural effusion. The patient underwent thoracentesis. The fluid cytology came back negative for malignancy. Meanwhile, the patient was having some limited diarrhea and stools for C. diff came back negative. Her overall respiratory status is stable. The patient is currently on 2 L of oxygen by nasal cannula with a pulse ox of 97%. No pleurisy. No hemoptysis. No chest pain. She is on long-term and cognition without liquids to 0.5 mg twice a day. Her baseline creatinine is at 1.4 with a BUN of 40 and his sodium level is at 132 and this is based on the blood work that was obtained on 02/03/2023. On today's evaluation of 02/06/2023, the patient is stable. Nevertheless, the white cell count remains elevated at 23. At the same time, the patient's potassium is up to 6.2 and the patient has been treated for his hyperkalemia by the primary care team. Clinically however the patient is stable. She has no specific complaints. Pro-calcitonin level was 0.4. Stool for C. diff was negative. She is known to have CHF and a left-sided pleural effusion was also noted and the patient has undergone diuresis and she also had a left-sided thoracentesis and the fluid cytology is negative for malignancy. She remains on 2 L of O2 nasal cannula. She is on long-term anticoagulants with Eliquis. She is currently on IV cefepime. Objective - Vital Signs Vital signs: Vital Signs Temp 98.7 F 02/06/23 07:16 Pulse 80 02/06/23 11:08 Resp 18 02/06/23 07:16 BP 116/70 02/06/23 07:16 Pulse Ox 98 02/06/23 10:19 FiO2 Intake & Output 02/05/23 02/06/23 02/06/23 18:59 06:59 18:59 Intake Total 440 Balance 440 Intake: Intake, IV Titration 100 Amount Cefepime 2 gm In Sodium 100 Chloride 0.9% 100 ml @ 25 mls/hr IVPB Q12HR [facility] Rx #:[id number] Oral 340 Other: Voiding Method Incontinent Incontinent # Voids 2 3 # Bowel Movements 1 3 - Exam No acute distress, oriented 3. No respiratory distress. No conversational dyspnea. Currently on 2 L. HEENT examination is grossly unremarkable. Neck supple. Full range of motion. No adenopathy thyromegaly or neck vein distention. Cardiovascular examination reveals regular rhythm rate. S1-S2 normal. No S3 or S4. No discernible murmur noted. Heart rate 68 bpm. Lungs reveal slightly diminished breath sounds in the left chest. Minimal scattered rhonchi. No wheezes or crackles. 2 L saturation is 95%. Abdomen soft bowel sounds are heard. No masses or tenderness. Extremities are intact. No cyanosis clubbing or edema. Skin is without rash or lesion. Neurologic examination is brief but nonfocal. - Labs CBC & Chem 7: 02/06/23 07:03 02/06/23 07:03 Labs: Abnormal Lab Results - Last 24 Hours (Table) 02/05/23 02/05/23 02/06/23 Range/Units 06:22 06:22 07:03 WBC 22.58 H 23.89 H (4.50-10.00) X 10*3/uL Hgb 11.2 L 10.7 L (12.0-15.0) g/dL Hct 35.6 L (37.2-46.3) % MCH 24.2 L 25.1 L (27.0-32.0) pg MCHC 29.5 L 30.1 L (32.0-37.0) g/dL RDW 17.2 H 17.4 H (11.5-14.5) % Plt Count 611 H 560 H (140-440) X 10*3/uL Immature Gran # 0.26 H (0.00-0.04) X 10*3/uL Neutrophils # 18.22 H (1.80-7.70) X 10*3/uL Monocytes # 1.08 H (0.20-1.00) X 10*3/uL Sodium 131 L (135-145) mmol/L Potassium 5.7 H (3.5-5.5) mmol/L Chloride 90 L (96-109) mmol/L BUN 34.9 H (9.0-27.0) mg/dL Est GFR (CKD-EPI)AfAm 59.5 L (60.0-200.0) Est GFR (CKD-EPI)NonAf 51.3 L (60.0-200.0) BUN/Creatinine Ratio 34.90 H (12.00-20.00) Ratio AST 145 H (13-35) U/L ALT 49 H (8-44) U/L Alkaline Phosphatase 354 H (41-126) U/L Albumin 2.7 L (3.8-4.9) g/dL Globulin 4.2 H (1.6-3.3) g/dL Albumin/Globulin Ratio 0.64 L (1.60-3.17) g/dL 02/06/23 Range/Units 07:03 WBC (4.50-10.00) X 10*3/uL Hgb (12.0-15.0) g/dL Hct (37.2-46.3) % MCH (27.0-32.0) pg MCHC (32.0-37.0) g/dL RDW (11.5-14.5) % Plt Count (140-440) X 10*3/uL Immature Gran # (0.00-0.04) X 10*3/uL Neutrophils # (1.80-7.70) X 10*3/uL Monocytes # (0.20-1.00) X 10*3/uL Sodium 129 L (135-145) mmol/L Potassium 6.2 H* (3.5-5.5) mmol/L Chloride (96-109) mmol/L BUN 39.0 H (9.0-27.0) mg/dL Est GFR (CKD-EPI)AfAm 53.0 L (60.0-200.0) Est GFR (CKD-EPI)NonAf 45.7 L (60.0-200.0) BUN/Creatinine Ratio 35.45 H (12.00-20.00) Ratio AST 167 H (13-35) U/L ALT 54 H (8-44) U/L Alkaline Phosphatase 300 H (41-126) U/L Albumin 2.5 L (3.8-4.9) g/dL Globulin 4.1 H (1.6-3.3) g/dL Albumin/Globulin Ratio 0.61 L (1.60-3.17) g/dL Assessment and Plan Plan: Chest pain, possibly pleuritic in nature. ECG shows persistent left bundle branch block. Troponin 0.022. Chest x-ray shows persistent cardiomegaly with small to moderate size left pleural effusion and associated left mid to lower lung atelectasis without significant change from most recent x-ray. The patient underwent a thoracentesis and the fluid cytology came back negative for malignancy. The protein was 4 g and the LDH was 4:15 indicating more so than exudate. Consider the possibility of parapneumonic left-sided pleural effusion. CHF cannot be completely excluded. Most recent chest x-ray from 02/04/2023 showed cardiomegaly with a small left-sided pleural effusion. No focal airspace disease of consolidation. Persistent left-sided pleural effusion. Status post ultrasound-guided thoracentesis 01/30/2023 with 350 ML's of yellow fluid return exudative with a protein of 4.0 and an LDH of 415. Cytology is negative for malignancy. The pleural fluid is for a follow-up chest x-rays. Acute leukocytosis, consider parapneumonic effusion on the left and the patient is currently on IV cefepime. Clinically stable on 2 L of Oxymizer nasal cannula Acute hypoxic respiratory failure currently on 2 L O2 nasal cannula Acute exacerbation of systolic congestive heart failure, on recent echocardiogram found to have severely impaired left ventricular systolic function ejection fraction of 20% along with severe mitral and tricuspid regurgitation with severe pulmonary hypertension with an RSVP of 75 mmHg. Acute hypoxic respiratory failure secondary to above, currently on 2 L nasal cannula. Acute kidney injury, creatinine is improved Recent non-ST elevation CA . Moderate persistent chronic bronchial asthma, stable. Hyperlipidemia. Hypertension. Osteoarthritis. Previous history of bilateral pulmonary embolism in 2010. History of GI bleed and has been off anticoagulation since 2020 and declined to resume. History of esophageal strictures with previous dilatation. Plan Continue IV cefepime Monitor white count Date hyperkalemia per medicine The pleural fluid cytology was negative for malignancy Patient is currently on 2 L of oxygen by nasal cannula Continue anticoagulation with Eliquis 2.5 mg twice a day Monitor electrolytes and repeat the blood work Diflucan for oropharyngeal candidiasis, in addition to IV cefepime Continue same treatment Renal function continues to improve Clinically stable
[2023-02-06] MEDS: ACETAMINOPHEN TAB 325 MG TAB PO PRN (16:47)
--- NOTE | 2023-02-06 17:25 | P.PN ---
Subjective Progress Note Date: 02/06/23 Chase Min, is an 87-year-old female who presented to [facility] emergency room with a chief complaint of left-sided chest pain. Patient was admitted recently with similar symptoms on 01/23/2023, she was discharged on 01/28/2023. During that admission she had evidence of non-ST elevation myocardial infarction and evidence of acute exacerbation of systolic congestive heart failure, with evidence of cardiomyopathy with ejection fraction of 20-25%. Patient was treated medically and was discharged home yesterday, she returned today with worsening chest pain. She was evaluated in the emergency room vital examination on presentation revealed a temperature of 98.3 pulse 98 respiration 19 and blood pressure 130/76 pulse ox 95% on room air Laboratory data revealed a white blood count of 10.8 hemoglobin 12.4 platelet count 241 sodium 135 potassium 4.0 chloride 90 CO2 34 BUN 44 creatinine 1.51 troponin level was 0.0-2 AST and ALT are slightly elevated at 45 and 41 Testing in the emergency room revealed EKG done in the emergency room revealed sinus rhythm with left bundle branch block, chest x-ray done in the emergency room revealed cardiomegaly with small to moderate-sized left pleural effusion and associated left mid to lower lung atelectasis or infiltrate. Patient was admitted to medical floor for further evaluation and treatment. Past medical history is significant for recent history of non-ST elevation myocardial infarction, recent admission was acute systolic congestive heart failure exacerbation, cardiomyopathy with ejection fraction of 20-25%, underlying history of hypertension,, underlying history of hyperlipidemia, underlying history of osteoarthritis, underlying history of COPD, underlying history of esophageal stricture, underlying history of gastrointestinal bleeding, remote history of pulmonary embolism On review of systems patient was seen and examined in the emergency room she is alert and oriented 3 in no apparent distress there is no fever or chills no headache or dizziness she is still complaining of left sided chest pain no shortness of breath no cough no palpitation no nausea or vomiting no abdominal pain no diarrhea no blood in the stools no burning with urination no frequency or urgency and no hematuria. On 01/30/2023 patient was seen and examined in the ICU, she is alert and oriented 3 in no apparent distress, she is still complaining of chest pain and shortness of breath and occasional cough otherwise she denies any complaints there is no fever or chills no headache or dizziness no nausea or vomiting no abdominal pain no diarrhea no blood in the stools no burning with urination no frequency or urgency and no hematuria. She is scheduled for thoracentesis today. Prognosis is guarded will continue to follow closely. On 01/31/2023 patient currently in the ICU. Alert and oriented 3. Patient underwent thoracentesis yesterday 350 out. Per nursing staff patient went into atrial fibrillation this AM. This is new for patient. Per nursing staff cardiology was notified. Patient reports minimal improvement. Current signs temp 98.2. Heart rate 80, blood pressure 100/61 and a pulse ox of 96% on 2 L. Cardiology and pulmonary services are following On 02/01/2023 patient was seen and examined on the telemetry floor, she is alert and oriented 3 in no apparent distress, she is still complaining of cough and shortness of breath, she is also complaining of left sided drips pain otherwise she denies any complaints there is no fever or chills no headache or dizziness no chest pain, there is no nausea or vomiting no abdominal pain no diarrhea, no blood in the stools no burning with urination no frequency or urgency and no hematuria, there is no weakness or numbness in any of the extremities there is n o change in vision speech or gait. On 02/02/2023 patient is alert and oriented 3. Patient has been transitioned to oral Lasix. Respiratory rate 18, blood pressure 100/59. Will consult PT OT and social work services for discharge planning at this time patient denies chest pain or shortness breath. Patient denies nausea vomiting or diarrhea. Patient denies any urinary burning or frequency. On 02/03/2023 patient was seen and examined on the telemetry floor she is alert and oriented 3 in no apparent distress she is complaining of generalized weakness otherwise she denies any complaints shortness of breath improved at rest she is still having some shortness of breath with activity she is maintained on oxygen 2 L nasal cannula otherwise she denies any complaints there is no fever or chills no headache or dizziness no chest pain no cough no nausea or vomiting no abdominal pain no diarrhea and no urinary symptoms. Patient is improving gradually will assess possibility of discharge to rehab tomorrow versus going back to home. On 02/04/2023 patient was seen and examined on the medical floor she is alert and oriented in no distress she is still complaining of generalized weakness and complaining of occasional cough or shortness of breath has there is no fever or chills no headache or dizziness no chest pain no nausea or vomiting no abdominal pain no diarrhea and no urinary symptoms. White blood count is 16.5 with recheck chest x-ray, no clear evidence of infection at this time infectious disease consultation was requested. On 02/05/2023 patient is alert and oriented 3. Patient was started on Diflucan and nystatin per infectious disease. Labwork currently pending. Chest x-ray completed showing cardiomegaly with left pleural effusion findings modified 01/30/2023. Stool for C. diff negative. Cardiology pulmonary and infectious disease services are following. On 02/06/2023 patient was seen and examined on the telemetry floor she is alert and oriented 3 in no apparent distress there is no fever or chills no headache or dizziness no chest pain no shortness of breath no cough no nausea or vomiting no abdominal pain no diarrhea and no urinary symptoms. Her white blood count continues to increase, cause is not totally clear, infectious disease is following. Patient is not ready for discharge, will continue to follow closely. Potassium was elevated this morning, potassium supplement were discontinued and patient was given 1 dose of Kayexalate, will recheck labs in a.m. Objective - Vital Signs Vital signs: Vital Signs Temp 98.7 F 02/06/23 07:16 Pulse 80 02/06/23 07:56 Resp 18 02/06/23 07:16 BP 116/70 02/06/23 07:16 Pulse Ox 98 02/06/23 07:43 FiO2 Intake & Output 02/05/23 02/06/23 02/06/23 18:59 06:59 18:59 Intake Total 440 Balance 440 Intake: Intake, IV Titration 100 Amount Cefepime 2 gm In Sodium 100 Chloride 0.9% 100 ml @ 25 mls/hr IVPB Q12HR [facility] Rx #:[id number] Oral 340 Other: Voiding Method Incontinent Incontinent # Voids 2 3 # Bowel Movements 1 3 - Exam In general patient is alert and oriented x 3 in no distress HEENT head normocephalic and atraumatic Neck is supple no JVD no goiter no lymphadenopathy no carotid bruit Chest examination is clear to auscultation no crackles no wheezing Cardiac exam reveals regular heart sounds S1 and S2 no gallops no murmurs Abdomen is soft nontender no organomegaly with normal bowel sounds Extremity exam reveals no edema no cyanosis or clubbing Neurological examination reveals no gross focal deficits - Labs CBC & Chem 7: 02/06/23 07:03 02/06/23 07:03 Labs: Abnormal Lab Results - Last 24 Hours (Table) 02/05/23 02/05/23 Range/Units 06:22 06:22 WBC 22.58 H (4.50-10.00) X 10*3/uL Hgb 11.2 L (12.0-15.0) g/dL MCH 24.2 L (27.0-32.0) pg MCHC 29.5 L (32.0-37.0) g/dL RDW 17.2 H (11.5-14.5) % Plt Count 611 H (140-440) X 10*3/uL Immature Gran # 0.26 H (0.00-0.04) X 10*3/uL Neutrophils # 18.22 H (1.80-7.70) X 10*3/uL Monocytes # 1.08 H (0.20-1.00) X 10*3/uL Sodium 131 L (135-145) mmol/L Potassium 5.7 H (3.5-5.5) mmol/L Chloride 90 L (96-109) mmol/L BUN 34.9 H (9.0-27.0) mg/dL Est GFR (CKD-EPI)AfAm 59.5 L (60.0-200.0) Est GFR (CKD-EPI)NonAf 51.3 L (60.0-200.0) BUN/Creatinine Ratio 34.90 H (12.00-20.00) Ratio AST 145 H (13-35) U/L ALT 49 H (8-44) U/L Alkaline Phosphatase 354 H (41-126) U/L Albumin 2.7 L (3.8-4.9) g/dL Globulin 4.2 H (1.6-3.3) g/dL Albumin/Globulin Ratio 0.64 L (1.60-3.17) g/dL Assessment and Plan Plan: New episodes of chest pain Recent non-ST elevation myocardial infarction Recent admission was acute exacerbation of congestive heart failure Cardiomyopathy likely ischemic, with ejection fraction of 20-25% Leukocytosis. Infectious disease service is consulted Thrush. Patient started on nystatin and Diflucan Small bilateral pleural effusion, patient was evaluated by pulmonary during the last admission, no intervention was necessary. New-onset atrial fibrillation Underlying history of COPD Underlying history of hypertension Underlying history of hyperlipidemia Underlying history of osteoarthritis Previous history of esophageal stricture with history of dilatation Previous history of gastrointestinal bleeding Remote history of pulmonary embolism At this time patient will be readmitted to telemetry floor Home medications reviewed and reordered Cardiology, pulmonary and infectious disease services following PT OT and secondary social studies teacher consulted For DVT prophylaxis subcu Lovenox Prognosis is guarded will follow closely
[2023-02-06] MEDS: ATORVASTATIN 40 MG TAB PO SCH (19:42)
[2023-02-07] MEDS: TOBRAMYCIN 0.3% OPHTH DROPS 5 ML BTL RIGHT EYE SCH ×5 (03:03→23:18)
[2023-02-07] MEDS: HYDROmorphone 0.5 MG/0.5 ML SYRINGE IVP PRN ×2 (07:24→21:07)
[2023-02-07] MEDS: IPRATROPIUM-ALBUTEROL 3 ML NEB INHALATION SCH ×4 (07:40→21:06)
[2023-02-07] MEDS: SYMBICORT 160-4.5 MCG INHALER INHALATION SCH ×2 (07:40→21:06)
[2023-02-07] MEDS: APIXABAN 2.5 MG TABLET PO SCH ×2 (09:27→21:09)
[2023-02-07] MEDS: CEFEPIME 2 GM in SODIUM CHLORIDE 0.9% 100 ML IVPB SCH ×2 (09:27→21:08)
[2023-02-07] MEDS: METOPROLOL TARTRATE 25 MG TAB PO SCH ×2 (09:27→21:08)
[2023-02-07] MEDS: NYSTATIN 100,000 UNIT/ML SUSP 500,000 UNIT/5 ML CUP PO SCH ×4 (09:28→21:08)
[2023-02-07] MEDS: ASPIRIN 81 MG PO SCH (09:28)
[2023-02-07] MEDS: FUROSEMIDE 40 MG TAB PO SCH ×2 (09:28→16:28)
[2023-02-07] MEDS: FLUCONAZOLE 100 MG TAB PO SCH (09:28)
--- NOTE | 2023-02-07 09:30 | P.PN ---
Subjective Progress Note Date: 02/07/23 Chase Min, is an 87-year-old female who presented to [facility] emergency room with a chief complaint of left-sided chest pain. Patient was admitted recently with similar symptoms on 01/23/2023, she was discharged on 01/28/2023. During that admission she had evidence of non-ST elevation myocardial infarction and evidence of acute exacerbation of systolic congestive heart failure, with evidence of cardiomyopathy with ejection fraction of 20-25%. Patient was treated medically and was discharged home yesterday, she returned today with worsening chest pain. She was evaluated in the emergency room vital examination on presentation revealed a temperature of 98.3 pulse 98 respiration 19 and blood pressure 130/76 pulse ox 95% on room air Laboratory data revealed a white blood count of 10.8 hemoglobin 12.4 platelet count 241 sodium 135 potassium 4.0 chloride 90 CO2 34 BUN 44 creatinine 1.51 troponin level was 0.0-2 AST and ALT are slightly elevated at 45 and 41 Testing in the emergency room revealed EKG done in the emergency room revealed sinus rhythm with left bundle branch block, chest x-ray done in the emergency room revealed cardiomegaly with small to moderate-sized left pleural effusion and associated left mid to lower lung atelectasis or infiltrate. Patient was admitted to medical floor for further evaluation and treatment. Past medical history is significant for recent history of non-ST elevation myocardial infarction, recent admission was acute systolic congestive heart failure exacerbation, cardiomyopathy with ejection fraction of 20-25%, underlying history of hypertension,, underlying history of hyperlipidemia, underlying history of osteoarthritis, underlying history of COPD, underlying history of esophageal stricture, underlying history of gastrointestinal bleeding, remote history of pulmonary embolism On review of systems patient was seen and examined in the emergency room she is alert and oriented 3 in no apparent distress there is no fever or chills no headache or dizziness she is still complaining of left sided chest pain no shortness of breath no cough no palpitation no nausea or vomiting no abdominal pain no diarrhea no blood in the stools no burning with urination no frequency or urgency and no hematuria. On 01/30/2023 patient was seen and examined in the ICU, she is alert and oriented 3 in no apparent distress, she is still complaining of chest pain and shortness of breath and occasional cough otherwise she denies any complaints there is no fever or chills no headache or dizziness no nausea or vomiting no abdominal pain no diarrhea no blood in the stools no burning with urination no frequency or urgency and no hematuria. She is scheduled for thoracentesis today. Prognosis is guarded will continue to follow closely. On 01/31/2023 patient currently in the ICU. Alert and oriented 3. Patient underwent thoracentesis yesterday 350 out. Per nursing staff patient went into atrial fibrillation this AM. This is new for patient. Per nursing staff cardiology was notified. Patient reports minimal improvement. Current signs temp 98.2. Heart rate 80, blood pressure 100/61 and a pulse ox of 96% on 2 L. Cardiology and pulmonary services are following On 02/01/2023 patient was seen and examined on the telemetry floor, she is alert and oriented 3 in no apparent distress, she is still complaining of cough and shortness of breath, she is also complaining of left sided drips pain otherwise she denies any complaints there is no fever or chills no headache or dizziness no chest pain, there is no nausea or vomiting no abdominal pain no diarrhea, no blood in the stools no burning with urination no frequency or urgency and no hematuria, there is no weakness or numbness in any of the extremities there is n o change in vision speech or gait. On 02/02/2023 patient is alert and oriented 3. Patient has been transitioned to oral Lasix. Respiratory rate 18, blood pressure 100/59. Will consult PT OT and social work services for discharge planning at this time patient denies chest pain or shortness breath. Patient denies nausea vomiting or diarrhea. Patient denies any urinary burning or frequency. On 02/03/2023 patient was seen and examined on the telemetry floor she is alert and oriented 3 in no apparent distress she is complaining of generalized weakness otherwise she denies any complaints shortness of breath improved at rest she is still having some shortness of breath with activity she is maintained on oxygen 2 L nasal cannula otherwise she denies any complaints there is no fever or chills no headache or dizziness no chest pain no cough no nausea or vomiting no abdominal pain no diarrhea and no urinary symptoms. Patient is improving gradually will assess possibility of discharge to rehab tomorrow versus going back to home. On 02/04/2023 patient was seen and examined on the medical floor she is alert and oriented in no distress she is still complaining of generalized weakness and complaining of occasional cough or shortness of breath has there is no fever or chills no headache or dizziness no chest pain no nausea or vomiting no abdominal pain no diarrhea and no urinary symptoms. White blood count is 16.5 with recheck chest x-ray, no clear evidence of infection at this time infectious disease consultation was requested. On 02/05/2023 patient is alert and oriented 3. Patient was started on Diflucan and nystatin per infectious disease. Labwork currently pending. Chest x-ray completed showing cardiomegaly with left pleural effusion findings modified 01/30/2023. Stool for C. diff negative. Cardiology pulmonary and infectious disease services are following. On 02/06/2023 patient was seen and examined on the telemetry floor she is alert and oriented 3 in no apparent distress there is no fever or chills no headache or dizziness no chest pain no shortness of breath no cough no nausea or vomiting no abdominal pain no diarrhea and no urinary symptoms. Her white blood count continues to increase, cause is not totally clear, infectious disease is following. Patient is not ready for discharge, will continue to follow closely. Potassium was elevated this morning, potassium supplement were discontinued and patient was given 1 dose of Kayexalate, will recheck labs in a.m. On 02/07/2023 patient is alert and oriented 3. Patient remains on IV cefepime. Labwork from today currently pending infectious disease services following. Patient denies chest pain or shortness of breath. Patient denies nausea vomiting or diarrhea. Patient denies any urinary burning or frequency. Current vital signs temp 96.8, heart rate 24th rest rate 16, blood pressure 109/56 and pulse ox 99% on 3 L Objective - Vital Signs Vital signs: Vital Signs Temp 96.8 F L 02/07/23 07:37 Pulse 80 02/07/23 07:58 Resp 16 02/07/23 07:37 BP 109/56 02/07/23 07:37 Pulse Ox 97 02/07/23 07:42 FiO2 Intake & Output 02/06/23 02/07/23 02/07/23 18:59 06:59 18:59 Intake Total 100 Balance 100 Intake: Intake, IV Titration 100 Amount Cefepime 2 gm In Sodium 100 Chloride 0.9% 100 ml @ 25 mls/hr IVPB Q12HR [facility] Rx #:[id number] Other: Voiding Method Incontinent Incontinent # Voids 4 1 - Exam In general patient is alert and oriented x 3 in no distress HEENT head normocephalic and atraumatic Neck is supple no JVD no goiter no lymphadenopathy no carotid bruit Chest examination is clear to auscultation no crackles no wheezing Cardiac exam reveals regular heart sounds S1 and S2 no gallops no murmurs Abdomen is soft nontender no organomegaly with normal bowel sounds Extremity exam reveals no edema no cyanosis or clubbing Neurological examination reveals no gross focal deficits - Labs CBC & Chem 7: 02/06/23 07:03 02/06/23 07:03 Labs: Abnormal Lab Results - Last 24 Hours (Table) 02/06/23 02/06/23 Range/Units 07:03 07:03 WBC 23.89 H (4.50-10.00) X 10*3/uL Hgb 10.7 L (12.0-15.0) g/dL Hct 35.6 L (37.2-46.3) % MCH 25.1 L (27.0-32.0) pg MCHC 30.1 L (32.0-37.0) g/dL RDW 17.4 H (11.5-14.5) % Plt Count 560 H (140-440) X 10*3/uL Plt Count Comment INCREASED A Immature Gran # 0.22 H (0.00-0.04) X 10*3/uL Neutrophils # 20.91 H (1.80-7.70) X 10*3/uL Sodium 129 L (135-145) mmol/L Potassium 6.2 H* (3.5-5.5) mmol/L BUN 39.0 H (9.0-27.0) mg/dL Est GFR (CKD-EPI)AfAm 53.0 L (60.0-200.0) Est GFR (CKD-EPI)NonAf 45.7 L (60.0-200.0) BUN/Creatinine Ratio 35.45 H (12.00-20.00) Ratio AST 167 H (13-35) U/L ALT 54 H (8-44) U/L Alkaline Phosphatase 300 H (41-126) U/L Albumin 2.5 L (3.8-4.9) g/dL Globulin 4.1 H (1.6-3.3) g/dL Albumin/Globulin Ratio 0.61 L (1.60-3.17) g/dL Microbiology - Last 24 Hours (Table) 02/04/23 12:38 Blood Culture - Preliminary Blood Assessment and Plan Plan: New episodes of chest pain Recent non-ST elevation myocardial infarction Recent admission was acute exacerbation of congestive heart failure Cardiomyopathy likely ischemic, with ejection fraction of 20-25% Leukocytosis. Infectious disease service is consulted Thrush. Patient started on nystatin and Diflucan Small bilateral pleural effusion, patient was evaluated by pulmonary during the last admission, no intervention was necessary. New-onset atrial fibrillation Underlying history of COPD Underlying history of hypertension Underlying history of hyperlipidemia Underlying history of osteoarthritis Previous history of esophageal stricture with history of dilatation Previous history of gastrointestinal bleeding Remote history of pulmonary embolism At this time patient will be readmitted to telemetry floor Home medications reviewed and reordered Cardiology, pulmonary and infectious disease services following PT OT and high school social studies tutor consulted For DVT prophylaxis subcu Lovenox Prognosis is guarded will follow closely
[2023-02-07 11:12] LABS: Basophils # (A) 0.05 X 10*3/uL (0.00-0.10); Basophils % (A) 0.2 %; Eosinophils # (A) 0.18 X 10*3/uL (0.04-0.35); Eosinophils % (A) 0.9 %; HCT 35.4 % (37.2-46.3); HGB 10.5 g/dL (12.0-15.0); Immature Grans, Automated 1.3 %; Lymphocytes # (A) 1.72 X 10*3/uL (0.90-5.00); Lymphocytes % (A) 8.2 %; MCH 24.6 pg (27.0-32.0); MCHC 29.7 g/dL (32.0-37.0); MCV 83.1 fL (80.0-97.0); Mean Platelet Volume 10.4 fL (9.5-12.2); Monocytes # (A) 0.86 X 10*3/uL (0.20-1.00); Monocytes % (A) 4.1 %; NRBC Per 100 WBC 0 /100 WBCS (0.0-0.0); Neutrophils # (A) 17.91 X 10*3/uL (1.80-7.70); Neutrophils % (A) 85.3 %; Platelet Count 564 X 10*3/uL (140-440); RBC 4.26 X 10*6/uL (4.10-5.20); RDW 17.5 % (11.5-14.5); WBC 20.99 X 10*3/uL (4.50-10.00)
[2023-02-07 11:38] LABS: African American GFR (CKD) 47.7 (60.0-200.0); Albumin 2.3 g/dL (3.8-4.9); Albumin/Globulin Ratio 0.55 (1.60-3.17); Anion Gap 12.6 mmol/L (10.00-18.00); BUN/Creat Ratio 34.33 Ratio (12.00-20.00); Blood Urea Nitrogen 41.2 mg/dL (9.0-27.0); Calcium 8.9 mg/dL (8.7-10.3); Carbon Dioxide 19.4 mmol/L (20.0-27.5); Globulin 4.2 g/dL (1.6-3.3); Non-African American GFR(CKD) 41.2 (60.0-200.0); Potassium 5.9 mmol/L (3.5-5.5); Total Bilirubin 0.6 mg/dL (0.30-1.20); Total Protein 6.5 g/dL (6.2-8.2)
--- NOTE | 2023-02-07 13:32 | CT ---
EXAMINATION TYPE: CT chest wo con DATE OF EXAM: 02/07/2023 COMPARISON: 03/23/2021 HISTORY: pleural effusion CT DLP: 237.[address] of the chest was performed with lung and mediastinal window settings submitted. The la ck of contrast limits evaluation of the vascular, mediastinal and parenchymal structures including th e upper abdomen. LUNGS: There is moderate left lower lobe pleural-parenchymal opacity with focal areas of nonloculated and possibly loculated pleural effusion. Underlying infiltrate and/or atelectasis is difficult to ex clude. Examination limited for underlying neoplasm. Additional pleural-based left upper lobe density may reflect additional atelectasis or infiltrate. Right basilar compressive atelectasis is noted as w ell. MEDIASTINUM/RYAN: Thoracic aorta is of normal caliber with limited evaluation given lack of contrast . The heart is enlarged. Moderate coronary artery calcification seen. No evidence for mediastinal m ass. No lymph nodes greater than 1cm. UPPER ABDOMEN: No significant abnormality is seen. OTHER: No significant other abnormality. IMPRESSION: 1. There is moderate left lower lobe pleural-parenchymal opacity with focal areas of nonloculated an d possibly loculated pleural effusion. Underlying infiltrate and/or atelectasis is difficult to exclu de.
--- NOTE | 2023-02-07 14:15 | P.PN ---
Subjective Progress Note Date: 02/07/23 I am seeing this patient in new consultation today 01/30/2023 in the emergency room for left sided pleuritic chest pain and effusion. Patient is a 87-year-old white female with past medical history significant for moderate persistent chronic bronchial asthma, hypertension, hyperlipidemia, gastroesophageal reflux disease, pulmonary embolism, colitis, esophageal stricture with previous dilatations, and is a nonsmoker. Patient came back to the emergency room yesterday morning after being just discharged the day prior. Patient was admitted back on January 23 for a non-ST elevation OH and exacerbation of systolic congestive heart failure. She did have a small to moderate left pleural effusion at that time measuring 7.7 cm, and no thoracentesis was performed due to the patient being on heparin. Her symptoms ultimately improved, and she was discharged back to her assisted living center. Apparently, the patient's chest pain worsened after discharge, and she came back to the emergency room. Patient is is currently sitting up on the stretcher, on 2 L nasal cannula, in no acute distress. The left-sided chest pain is painful to palpation and exacerbated by coughing. There is some associated shortness of breath especially on exertion. She denies any infectious symptoms such as fever, chills, cough, hemoptysis. Chest x-ray from yesterday shows persistent cardiomegaly with small to moderate size left pleural effusion and associated left mid to lower lung atelectasis and/or infiltrate, without significant change from previous chest x-ray. Patient's echocardiogram done on her recent admission showed a markedly decreased ejection fraction of 20-25% severe pulmonary hypertension with an RVSP of 75 mmHg, moderate to severe tricuspid regurgitation, and severe mitral regurgitation. CBC from yesterday shows a WBC count of 10.8, hemoglobin 12.4, hematocrit 39.8, platelets 241. BMP shows a sodium 135, potassium 4, chloride 90, serum CO2 34, BUN 44, creatinine 1.51, glucose 104. Troponin was low at 0.022. EKG shows sinus rhythm with a left bundle-branch block. Vital signs are stable at this time. The patient is seen today 01/31/2023 in follow-up in the intensive care unit. She is currently resting quite comfortably in bed. Awake and alert in no acute distress. Maintaining good O2 saturations in the 90s on 2 L/m per nasal cannula. No IV fluids. He did undergo an ultrasound-guided thoracentesis by interventional radiology yesterday with 350 ML's of clear yellow fluid removed. Follow-up chest x-ray revealed a repeat remaining small left pleural effusion. No pneumothorax. The fluid is exudative in nature with a total protein of 4.0 and LDH of 415. Cytology pending. She is continued on DuoNeb inhalations, Symbicort. Anticoagulated with Eliquis. Remains on oral diuretics. Progress note dated 02/01/2023. The patient is seen today in room 385. She was seen yesterday in the intensive care unit. She was recently discharged from the hospital, with chest pain and shortness of breath. He returned in less than a day, with similar symptoms. Interventional radiology did do a thoracentesis. Currently, she is on 3 L nasal cannula. She's not receiving any IV fluids. She feels much improved, and is hoping to be discharged soon. White count 14.4, hemoglobin 11.8, hematocrit 40.1, and platelet count is normal. Sodium 1:30, potassium 4.1, chlorides 90, CO2 33, BUN 44, and creatinine 1.65. Progress note dated 02/03/2023. The patient is seen today in room 385. She's been weaned down to 2 L. She's not receiving any IV fluids. Clinically, she's very stable. Labs reveal a white count of 16.3, hemoglobin 11.9, hematocrit 39.4, and a platelet count of 388,000. Sodium 132, potassium 4.8, chlorides 94, CO2 31, anion gap normal, BUN 40, creatinine 1.13. Albumin is 2.6. On today's evaluation of 02/05/2023, the patient's condition is stable. The [facility] ient is not having any specific complaints. She is alert and oriented 3. The patient is being treated for CHF and left sided pleural effusion. The patient underwent thoracentesis. The fluid cytology came back negative for malignancy. Meanwhile, the patient was having some limited diarrhea and stools for C. diff came back negative. Her overall respiratory status is stable. The patient is currently on 2 L of oxygen by nasal cannula with a pulse ox of 97%. No pleurisy. No hemoptysis. No chest pain. She is on long-term and cognition without liquids to 0.5 mg twice a day. Her baseline creatinine is at 1.4 with a BUN of 40 and his sodium level is at 132 and this is based on the blood work that was obtained on 02/03/2023. On today's evaluation of 02/06/2023, the patient is stable. Nevertheless, the white cell count remains elevated at 23. At the same time, the patient's potassium is up to 6.2 and the patient has been treated for his hyperkalemia by the primary care team. Clinically however the patient is stable. She has no specific complaints. Pro-calcitonin level was 0.4. Stool for C. diff was negative. She is known to have CHF and a left-sided pleural effusion was also noted and the patient has undergone diuresis and she also had a left-sided thoracentesis and the fluid cytology is negative for malignancy. She remains on 2 L of O2 nasal cannula. She is on long-term anticoagulants with Eliquis. She is currently on IV cefepime. On today's evaluation of 02.07.2022, the patient remains essentially unchanged. There is a concern of elevated white cell count. The patient's chest x-ray showing a recurrent left-sided pleural effusion and the patient was accompanied elevated at 20.9 with a hemoglobin of 10.5. Sodium level is at 129 potassium level is at 5.9 with a BUN of 41 and a creatinine of 1.2. The patient underwent a left-sided thoracentesis. The fluid was an exudate. The fluid cytology was negative. The patient remains on IV cefepime. Would order a noncontrast CAT scan of the chest to evaluate the left lung findings. The patient otherwise is resting comfortably in bed. No chest pain. No fever. No altered mentation. No other significant events overnight. No worsening in her oxygenation. Objective - Vital Signs Vital signs: Vital Signs Temp 96.8 F L 02/07/23 07:37 Pulse 78 02/07/23 11:33 Resp 16 02/07/23 07:37 BP 109/56 02/07/23 07:37 Pulse Ox 97 02/07/23 07:42 FiO2 Intake & Output 02/06/23 02/07/23 02/07/23 18:59 06:59 18:59 Intake Total 100 Balance 100 Weight 50 kg Intake: Intake, IV Titration 100 Amount Cefepime 2 gm In Sodium 100 Chloride 0.9% 100 ml @ 25 mls/hr IVPB Q12HR [facility] Rx #:[id number] Other: Voiding Method Incontinent Incontinent Incontinent # Voids 4 1 - Exam No acute distress, oriented 3. No respiratory distress. No conversational dyspnea. Currently on 2 L. HEENT examination is grossly unremarkable. Neck supple. Full range of motion. No adenopathy thyromegaly or neck vein distention. Cardiovascular examination reveals regular rhythm rate. S1-S2 normal. No S3 or S4. No discernible murmur noted. Heart rate 68 bpm. Lungs reveal slightly diminished breath sounds in the left chest. Minimal scattered rhonchi. No wheezes or crackles. 2 L saturation is 95%. Abdomen soft bowel sounds are heard. No masses or tenderness. Extremities are intact. No cyanosis clubbing or edema. Skin is without rash or lesion. Neurologic examination is brief but nonfocal. - Labs CBC & Chem 7: 02/07/23 06:20 02/07/23 06:20 Labs: Abnormal Lab Results - Last 24 Hours (Table) 02/07/23 02/07/23 Range/Units 06:20 06:20 WBC 20.99 H (4.50-10.00) X 10*3/uL Hgb 10.5 L (12.0-15.0) g/dL Hct 35.4 L (37.2-46.3) % MCH 24.6 L (27.0-32.0) pg MCHC 29.7 L (32.0-37.0) g/dL RDW 17.5 H (11.5-14.5) % Plt Count 564 H (140-440) X 10*3/uL Immature Gran # 0.27 H (0.00-0.04) X 10*3/uL Neutrophils # 17.91 H (1.80-7.70) X 10*3/uL Sodium 129 L (135-145) mmol/L Potassium 5.9 H (3.5-5.5) mmol/L Carbon Dioxide 19.4 L (20.0-27.5) mmol/L BUN 41.2 H (9.0-27.0) mg/dL Est GFR (CKD-EPI)AfAm 47.7 L (60.0-200.0) Est GFR (CKD-EPI)NonAf 41.2 L (60.0-200.0) BUN/Creatinine Ratio 34.33 H (12.00-20.00) Ratio Glucose 64 L (70-110) mg/dL AST 167 H (13-35) U/L ALT 55 H (8-44) U/L Alkaline Phosphatase 276 H (41-126) U/L Albumin 2.3 L (3.8-4.9) g/dL Globulin 4.2 H (1.6-3.3) g/dL Albumin/Globulin Ratio 0.55 L (1.60-3.17) g/dL Microbiology - Last 24 Hours (Table) 02/04/23 12:38 Blood Culture - Preliminary Blood Assessment and Plan Plan: Chest pain, possibly pleuritic in nature. ECG shows persistent left bundle branch block. Troponin 0.022. Chest x-ray shows persistent cardiomegaly with small to moderate size left pleural effusion and associated left mid to lower lung atelectasis without significant change from most recent x-ray. The patient underwent a thoracentesis and the fluid cytology came back negative for malignancy. The protein was 4 g and the LDH was 4:15 indicating more so than exudate. Consider the possibility of parapneumonic left-sided pleural effusion. CHF cannot be completely excluded. Most recent chest x-ray from 02/04/2023 showed cardiomegaly with a small left-sided pleural effusion. No focal airspace disease of consolidation. Persistent left-sided pleural effusion. Status post ultrasound-guided thoracentesis 01/30/2023 with 350 ML's of yellow fluid return exudative with a protein of 4.0 and an LDH of 415. Cytology is negative for malignancy. The pleural fluid is for a follow-up chest x-rays. Acute leukocytosis, consider parapneumonic effusion on the left and the patient is currently on IV cefepime. Clinically stable on 2 L of Oxymizer nasal cannula, white blood count remains elevated Acute hypoxic respiratory failure currently on 2 L O2 nasal cannula Acute exacerbation of systolic congestive heart failure, on recent echo cardiogram found to have severely impaired left ventricular systolic function ejection fraction of 20% along with severe mitral and tricuspid regurgitation with severe pulmonary hypertension with an RSVP of 75 mmHg. Acute hypoxic respiratory failure secondary to above, currently on 2 L nasal cannula. Acute kidney injury, creatinine is improved Recent non-ST elevation [place] . Moderate persistent chronic bronchial asthma, stable. Hyperlipidemia. Hypertension. Osteoarthritis. Previous history of bilateral pulmonary embolism in 2010. History of GI bleed and has been off anticoagulation since 2020 and declined to resume. History of esophageal strictures with previous dilatation. Plan Continues to have persistent leukocytosis Obtain a noncontrast CAT scan of the chest Continue IV cefepime Monitor white count Treat hyperkalemia per medicine, potassium level today is at 5.9 The pleural fluid cytology was negative for malignancy Patient is currently on 2 L of oxygen by nasal cannula Continue anticoagulation with Eliquis 2.5 mg twice a day Monitor electrolytes and repeat the blood work Diflucan for oropharyngeal candidiasis, in addition to IV cefepime Continue same treatment
--- NOTE | 2023-02-07 15:22 | P.PN ---
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 patient also have a history of severe LV dysfunction with EF of 20-25% presenting to the hospital on 01/29/2023 for evaluation of left-sided chest pain,atient did have a chest x-ray with evidence of moderate left-sided effusion s/p thoracocentesis on 01/30/2023 , fluid culture had been negative so far did have elevated white count prompting this infectious disease consultation On today's evaluation her that is 02/07/2023 the patient remains to be afebrile, the patient is breathing comfortably on 3 L nasal cannula oxygen, the patient chest pain has improved, the patient denies any nausea no vomiting no abdominal pain or any worsening diarrhea Objective - Vital Signs Vital signs: Vital Signs Temp 96.8 F L 02/07/23 07:37 Pulse 78 02/07/23 11:33 Resp 16 02/07/23 07:37 BP 109/56 02/07/23 07:37 Pulse Ox 97 02/07/23 07:42 FiO2 Intake & Output 02/06/23 02/07/23 02/07/23 18:59 06:59 18:59 Intake Total 100 Balance 100 Weight 50 kg Intake: Intake, IV Titration 100 Amount Cefepime 2 gm In Sodium 100 Chloride 0.9% 100 ml @ 25 mls/hr IVPB Q12HR [facility] Rx #:[id number] Other: Voiding Method Incontinent Incontinent Incontinent # Voids 4 1 - Exam GENERAL DESCRIPTION: An elderly female lying in bed in no distress RESPIRATORY SYSTEM: Unlabored breathing , coarse breath sounds at bases HEART: S1 S2 regular rate and rhythm , ABDOMEN: Soft , no tenderness EXTREMITIES: No edema feet - Labs CBC & Chem 7: 02/07/23 06:20 02/07/23 06:20 Labs: Abnormal Lab Results - Last 24 Hours (Table) 02/07/23 02/07/23 Range/Units 06:20 06:20 WBC 20.99 H (4.50-10.00) X 10*3/uL Hgb 10.5 L (12.0-15.0) g/dL Hct 35.4 L (37.2-46.3) % MCH 24.6 L (27.0-32.0) pg MCHC 29.7 L (32.0-37.0) g/dL RDW 17.5 H (11.5-14.5) % Plt Count 564 H (140-440) X 10*3/uL Immature Gran # 0.27 H (0.00-0.04) X 10*3/uL Neutrophils # 17.91 H (1.80-7.70) X 10*3/uL Sodium 129 L (135-145) mmol/L Potassium 5.9 H (3.5-5.5) mmol/L Carbon Dioxide 19.4 L (20.0-27.5) mmol/L BUN 41.2 H (9.0-27.0) mg/dL Est GFR (CKD-EPI)AfAm 47.7 L (60.0-200.0) Est GFR (CKD-EPI)NonAf 41.2 L (60.0-200.0) BUN/Creatinine Ratio 34.33 H (12.00-20.00) Ratio Glucose 64 L (70-110) mg/dL AST 167 H (13-35) U/L ALT 55 H (8-44) U/L Alkaline Phosphatase 276 H (41-126) U/L Albumin 2.3 L (3.8-4.9) g/dL Globulin 4.2 H (1.6-3.3) g/dL Albumin/Globulin Ratio 0.55 L (1.60-3.17) g/dL Microbiology - Last 24 Hours (Table) 02/04/23 12:38 Blood Culture - Preliminary Blood Assessment and Plan (1) Leukocytosis Current Visit: Yes Status: Acute Code(s): D72.829 - ELEVATED WHITE BLOOD CELL COUNT, UNSPECIFIED SNOMED Code(s): 854084374 Plan: 1patient with elevated white count and this patient presented to hospital about a week ago with left-sided chest pain noticed to have left-sided effusion status post thoracocentesis however does culture has been negative patient did not have any fever during this admission and has not received any steroids patient complaining of diarrhea source of elevated white count possible C. difficile versus thrush 2-patient stool for C. difficile came back negative 3Patient did have elevated CRP and a mildly elevated procalcitonin 4-patient to continue nystatin swish and swallow and Diflucan for thrush and possible oropharyngeal candidasis 5-patient white count is trending down, down to 20,000 today and the patient seemed to have some clinical improvement continue with cefepime on waiting for the cultures to finalize Time with Patient: Less than 30
[2023-02-07] MEDS: ATORVASTATIN 40 MG TAB PO SCH (21:08)
[2023-02-08] MEDS: TOBRAMYCIN 0.3% OPHTH DROPS 5 ML BTL RIGHT EYE SCH ×7 (00:14→22:53)
[2023-02-08 04:52] LABS: Anisocytosis Slight; Basophils % (A) 0 %; Eosinophils # (A) 0.1 k/uL (0-0.7); Eosinophils % (A) 1 %; HCT 32.9 % (34.0-46.0); HGB 10.1 gm/dL (11.4-16.0); Hypochromasia Marked; Lymphocytes # (A) 1.4 k/uL (1.0-4.8); Lymphocytes % (A) 8 %; MCH 25.9 pg (25.0-35.0); MCHC 30.7 g/dL (31.0-37.0); MCV 84.1 fL (80.0-100.0); Mean Platelet Volume 7.6; Monocytes # (A) 0.5 k/uL (0-1.0); Monocytes % (A) 3 %; Neutrophils # (A) 15.7 k/uL (1.3-7.7); Neutrophils % (A) 87 %; Platelet Count 546 k/uL (150-450); RBC 3.91 m/uL (3.80-5.40); RDW 16.6 % (11.5-15.5)
[2023-02-08 05:17] LABS: ALT 39 U/L (4-34); AST 84 U/L (14-36); African American GFR (CKD) 46 (>60 ml/min/1.73 sqM); Albumin 2.3 g/dL (3.5-5.0); Albumin/Globulin Ratio 0.6; Alkaline Phosphatase 226 U/L (38-126); Anion Gap 12 mmol/L; Blood Urea Nitrogen 48 mg/dL (7-17); Calcium 8.4 mg/dL (8.4-10.2); Carbon Dioxide 18 mmol/L (22-30); Chloride 100 mmol/L (98-107); Globulin 3.8 g/dL; Glucose 76 mg/dL (74-99); Non-African American GFR(CKD) 39 (>60 ml/min/1.73 sqM); Potassium 4.4 mmol/L (3.5-5.1); Sodium 130 mmol/L (137-145); Total Bilirubin 0.9 mg/dL (0.2-1.3); Total Protein 6.1 g/dL (6.3-8.2)
[2023-02-08] MEDS: HYDROmorphone 0.5 MG/0.5 ML SYRINGE IVP PRN (06:53)
[2023-02-08] MEDS: CEFEPIME 2 GM in SODIUM CHLORIDE 0.9% 100 ML IVPB SCH ×2 (08:26→20:22)
[2023-02-08] MEDS: APIXABAN 2.5 MG TABLET PO SCH ×2 (08:26→20:22)
[2023-02-08] MEDS: ASPIRIN 81 MG PO SCH (08:26)
[2023-02-08] MEDS: FUROSEMIDE 40 MG TAB PO SCH ×2 (08:26→17:31)
[2023-02-08] MEDS: FLUCONAZOLE 100 MG TAB PO SCH (08:26)
[2023-02-08] MEDS: METOPROLOL TARTRATE 25 MG TAB PO SCH ×2 (08:26→20:22)
[2023-02-08] MEDS: NYSTATIN 100,000 UNIT/ML SUSP 500,000 UNIT/5 ML CUP PO SCH ×4 (08:26→20:22)
[2023-02-08] MEDS: IPRATROPIUM-ALBUTEROL 3 ML NEB INHALATION SCH ×4 (09:03→20:52)
[2023-02-08] MEDS: SYMBICORT 160-4.5 MCG INHALER INHALATION SCH ×2 (09:03→20:52)
[2023-02-08] MEDS: ACETAMINOPHEN TAB 325 MG TAB PO PRN (12:05)
--- NOTE | 2023-02-08 12:26 | P.PN ---
Subjective Progress Note Date: 02/08/23 I am seeing this patient in new consultation today 01/30/2023 in the emergency room for left sided pleuritic chest pain and effusion. Patient is a 87-year-old white female with past medical history significant for moderate persistent chronic bronchial asthma, hypertension, hyperlipidemia, gastroesophageal reflux disease, pulmonary embolism, colitis, esophageal stricture with previous dilatations, and is a nonsmoker. Patient came back to the emergency room yesterday morning after being just discharged the day prior. Patient was admitted back on January 23 for a non-ST elevation OR and exacerbation of systolic congestive heart failure. She did have a small to moderate left pleural effusion at that time measuring 7.7 cm, and no thoracentesis was performed due to the patient being on heparin. Her symptoms ultimately improved, and she was discharged back to her assisted living center. Apparently, the patient's chest pain worsened after discharge, and she came back to the emergency room. Patient is is currently sitting up on the stretcher, on 2 L nasal cannula, in no acute distress. The left-sided chest pain is painful to palpation and exacerbated by coughing. There is some associated shortness of breath especially on exertion. She denies any infectious symptoms such as fever, chills, cough, hemoptysis. Chest x-ray from yesterday shows persistent cardiomegaly with small to moderate size left pleural effusion and associated left mid to lower lung atelectasis and/or infiltrate, without significant change from previous chest x-ray. Patient's echocardiogram done on her recent admission showed a markedly decreased ejection fraction of 20-25% severe pulmonary hypertension with an RVSP of 75 mmHg, moderate to severe tricuspid regurgitation, and severe mitral regurgitation. CBC from yesterday shows a WBC count of 10.8, hemoglobin 12.4, hematocrit 39.8, platelets 241. BMP shows a sodium 135, potassium 4, chloride 90, serum CO2 34, BUN 44, creatinine 1.51, glucose 104. Troponin was low at 0.022. EKG shows sinus rhythm with a left bundle-branch block. Vital signs are stable at this time. The patient is seen today 01/31/2023 in follow-up in the intensive care unit. She is currently resting quite comfortably in bed. Awake and alert in no acute distress. Maintaining good O2 saturations in the 90s on 2 L/m per nasal cannula. No IV fluids. He did undergo an ultrasound-guided thoracentesis by interventional radiology yesterday with 350 ML's of clear yellow fluid removed. Follow-up chest x-ray revealed a repeat remaining small left pleural effusion. No pneumothorax. The fluid is exudative in nature with a total protein of 4.0 and LDH of 415. Cytology pending. She is continued on DuoNeb inhalations, Symbicort. Anticoagulated with Eliquis. Remains on oral diuretics. Progress note dated 02/01/2023. The patient is seen today in room 385. She was seen yesterday in the intensive care unit. She was recently discharged from the hospital, with chest pain and shortness of breath. He returned in less than a day, with similar symptoms. Interventional radiology did do a thoracentesis. Currently, she is on 3 L nasal cannula. She's not receiving any IV fluids. She feels much improved, and is hoping to be discharged soon. White count 14.4, hemoglobin 11.8, hematocrit 40.1, and platelet count is normal. Sodium 1:30, potassium 4.1, chlorides 90, CO2 33, BUN 44, and creatinine 1.65. Progress note dated 02/03/2023. The patient is seen today in room 385. She's been weaned down to 2 L. She's not receiving any IV fluids. Clinically, she's very stable. Labs reveal a white count of 16.3, hemoglobin 11.9, hematocrit 39.4, and a platelet count of 388,000. Sodium 132, potassium 4.8, chlorides 94, CO2 31, anion gap normal, BUN 40, creatinine 1.13. Albumin is 2.6. On today's evaluation of 02/05/2023, the patient's condition is stable. The [facility] ient is not having any specific complaints. She is alert and oriented 3. The patient is being treated for CHF and left sided pleural effusion. The patient underwent thoracentesis. The fluid cytology came back negative for malignancy. Meanwhile, the patient was having some limited diarrhea and stools for C. diff came back negative. Her overall respiratory status is stable. The patient is currently on 2 L of oxygen by nasal cannula with a pulse ox of 97%. No pleurisy. No hemoptysis. No chest pain. She is on long-term and cognition without liquids to 0.5 mg twice a day. Her baseline creatinine is at 1.4 with a BUN of 40 and his sodium level is at 132 and this is based on the blood work that was obtained on 02/03/2023. On today's evaluation of 02/06/2023, the patient is stable. Nevertheless, the white cell count remains elevated at 23. At the same time, the patient's potassium is up to 6.2 and the patient has been treated for his hyperkalemia by the primary care team. Clinically however the patient is stable. She has no specific complaints. Pro-calcitonin level was 0.4. Stool for C. diff was negative. She is known to have CHF and a left-sided pleural effusion was also noted and the patient has undergone diuresis and she also had a left-sided thoracentesis and the fluid cytology is negative for malignancy. She remains on 2 L of O2 nasal cannula. She is on long-term anticoagulants with Eliquis. She is currently on IV cefepime. On today's evaluation of 02.07.2022, the patient remains essentially unchanged. There is a concern of elevated white cell count. The patient's chest x-ray showing a recurrent left-sided pleural effusion and the patient was accompanied elevated at 20.9 with a hemoglobin of 10.5. Sodium level is at 129 potassium level is at 5.9 with a BUN of 41 and a creatinine of 1.2. The patient underwent a left-sided thoracentesis. The fluid was an exudate. The fluid cytology was negative. The patient remains on IV cefepime. Would order a noncontrast CAT scan of the chest to evaluate the left lung findings. The patient otherwise is resting comfortably in bed. No chest pain. No fever. No altered mentation. No other significant events overnight. No worsening in her oxygenation. On 02/08/2023 patient is being seen for a follow-up. The patient is stable clinically. A CAT scan of the chest was done yesterday and the patient had low. The pockets of effusion in the left lung base along with some area of infiltration/atelectasis. I suspect that the patient had a left lower lobe pneumonia with parapneumonic effusion. She continues to have some leukocytosis although the white cell count is improved and currently is down to 18. She remains on IV cefepime. Cultures are negative and she is afebrile. Hemoglobin is at 10 with a platelet count of 546. The serum bicarbs of 18 with a BUN of 48 and a creatinine 1.2 and the sodiumis 130. I reviewed the CAT scan of the chest and the patient has some focal areas of loculated pleural effusion left lung base. There is also underlying infiltrate. Based on her age and comorbidities, she may not be able to handle any further surgical interventions regarding this loculated small pockets of effusion. Decided to treat the patient conservatively with antibiotics. Case was discussed with infectious disease. Objective - Vital Signs Vital signs: Vital Signs Temp 98.2 F 02/08/23 07:25 Pulse 74 02/08/23 07:25 Resp 18 02/08/23 07:25 BP 94/57 02/08/23 07:25 Pulse Ox 94 L 02/08/23 09:03 FiO2 Intake & Output 02/07/23 02/08/23 02/08/23 18:59 06:59 18:59 Output Total 1080 Balance -1080 Weight 50 kg Output: Urine 1080 Other: Voiding Method Incontinent Incontinent # Voids 1 2 - Exam No acute distress, oriented 3. No respiratory distress. No conversational dyspnea. Currently on 2 L. HEENT examination is grossly unremarkable. Neck supple. Full range of motion. No adenopathy thyromegaly or neck vein distention. Cardiovascular examination reveals regular rhythm rate. S1-S2 normal. No S3 or S4. No discernible murmur noted. Heart rate 68 bpm. Lungs reveal slightly diminished breath sounds in the left chest. Minimal scattered rhonchi. No wheezes or crackles. 2 L saturation is 95%. Abdomen soft bowel sounds are heard. No masses or tenderness. Extremities are intact. No cyanosis clubbing or edema. Skin is without rash or lesion. Neurologic examination is brief but nonfocal. - Labs CBC & Chem 7: 02/08/23 04:34 02/08/23 04:34 Labs: Abnormal Lab Results - Last 24 Hours (Table) 02/07/23 02/07/23 02/08/23 Range/Units 06:20 06:20 04:34 WBC 20.99 H 18.0 H (4.50-10.00) X 10*3/uL Hgb 10.5 L 10.1 L (12.0-15.0) g/dL Hct 35.4 L 32.9 L (37.2-46.3) % MCH 24.6 L (27.0-32.0) pg MCHC 29.7 L 30.7 L (32.0-37.0) g/dL RDW 17.5 H 16.6 H (11.5-14.5) % Plt Count 564 H 546 H (140-440) X 10*3/uL Immature Gran # 0.27 H (0.00-0.04) X 10*3/uL Neutrophils # 17.91 H 15.7 H (1.80-7.70) X 10*3/uL Sodium 129 L (135-145) mmol/L Potassium 5.9 H (3.5-5.5) mmol/L Carbon Dioxide 19.4 L (20.0-27.5) mmol/L BUN 41.2 H (9.0-27.0) mg/dL Creatinine (0.52-1.04) mg/dL Est GFR (CKD-EPI)AfAm 47.7 L (60.0-200.0) Est GFR (CKD-EPI)NonAf 41.2 L (60.0-200.0) BUN/Creatinine Ratio 34.33 H (12.00-20.00) Ratio Glucose 64 L (70-110) mg/dL AST 167 H (13-35) U/L ALT 55 H (8-44) U/L Alkaline Phosphatase 276 H (41-126) U/L Total Protein (6.3-8.2) g/dL Albumin 2.3 L (3.8-4.9) g/dL Globulin 4.2 H (1.6-3.3) g/dL Albumin/Globulin Ratio 0.55 L (1.60-3.17) g/dL 02/08/23 Range/Units 04:34 WBC (4.50-10.00) X 10*3/uL Hgb (12.0-15.0) g/dL Hct (37.2-46.3) % MCH (27.0-32.0) pg MCHC (32.0-37.0) g/dL RDW (11.5-14.5) % Plt Count (140-440) X 10*3/uL Immature Gran # (0.00-0.04) X 10*3/uL Neutrophils # (1.80-7.70) X 10*3/uL Sodium 130 L (135-145) mmol/L Potassium (3.5-5.5) mmol/L Carbon Dioxide 18 L (20.0-27.5) mmol/L BUN 48 H (9.0-27.0) mg/dL Creatinine 1.25 H (0.52-1.04) mg/dL Est GFR (CKD-EPI)AfAm (60.0-200.0) Est GFR (CKD-EPI)NonAf (60.0-200.0) BUN/Creatinine Ratio (12.00-20.00) Ratio Glucose (70-110) mg/dL AST 84 H (13-35) U/L ALT 39 H (8-44) U/L Alkaline Phosphatase 226 H (41-126) U/L Total Protein 6.1 L (6.3-8.2) g/dL Albumin 2.3 L (3.8-4.9) g/dL Globulin (1.6-3.3) g/dL Albumin/Globulin Ratio (1.60-3.17) g/dL Microbiology - Last 24 Hours (Table) 02/04/23 12:38 Blood Culture - Preliminary Blood Assessment and Plan Plan: Left lower lobe pneumonia with a parapneumonic effusion. The fluid was an exudate and a follow-up CAT scan of the chest is still showing some areas of loculated pockets of small effusion the left. Those effusions are not abdomen for thoracentesis. Not a good candidate for chest tube insertion or pigtail catheter insertion. Decided to treat this patient with antibiotics. The pleural fluid was an exudate. Cultures were negative Chest pain subsided. Acute leukocytosis, consider parapneumonic effusion on the left and the patient is currently on IV cefepime. Clinically stable on 2 L of O2 nasal cannula, white blood count remains elevated. This white cell count is slightly improved compared to yesterday Acute hypoxic respiratory failure currently on 2 L O2 nasal cannula Acute exacerbation of systolic congestive heart failure, on recent echoca rdiogram found to have severely impaired left ventricular systolic function ejection fraction of 20% along with severe mitral and tricuspid regurgitation with severe pulmonary hypertension with an RSVP of 75 mmHg. Acute hypoxic respiratory failure secondary to above, currently on 2 L nasal cannula. Acute kidney injury, creatinine is improved Recent non-ST elevation OR . Moderate persistent chronic bronchial asthma, stable. Hyperlipidemia. Hypertension. Osteoarthritis. Previous history of bilateral pulmonary embolism in 2010. History of GI bleed and has been off anticoagulation since 2020 and declined to resume. History of esophageal strictures with previous dilatation. Plan Reviewed the CAT scan of the chest Medical candidate for chest tube insertion Continue with antibiotics White cell count is slightly improved compared to yesterday Reviewed the CAT scan of the chest Continue IV cefepime Monitor white count The pleural fluid cytology was negative for malignancy Patient is currently on 2 L of oxygen by nasal cannula Continue anticoagulation with Eliquis 2.5 mg twice a day Monitor electrolytes and repeat the blood work Diflucan for oropharyngeal candidiasis, in addition to IV cefepime Continue same treatment
--- NOTE | 2023-02-08 13:41 | P.PN ---
Subjective Progress Note Date: 02/08/23 Chase Min, is an 87-year-old female who presented to [facility] emergency room with a chief complaint of left-sided chest pain. Patient was admitted recently with similar symptoms on 01/23/2023, she was discharged on 01/28/2023. During that admission she had evidence of non-ST elevation myocardial infarction and evidence of acute exacerbation of systolic congestive heart failure, with evidence of cardiomyopathy with ejection fraction of 20-25%. Patient was treated medically and was discharged home yesterday, she returned today with worsening chest pain. She was evaluated in the emergency room vital examination on presentation revealed a temperature of 98.3 pulse 98 respiration 19 and blood pressure 130/76 pulse ox 95% on room air Laboratory data revealed a white blood count of 10.8 hemoglobin 12.4 platelet count 241 sodium 135 potassium 4.0 chloride 90 CO2 34 BUN 44 creatinine 1.51 troponin level was 0.0-2 AST and ALT are slightly elevated at 45 and 41 Testing in the emergency room revealed EKG done in the emergency room revealed sinus rhythm with left bundle branch block, chest x-ray done in the emergency room revealed cardiomegaly with small to moderate-sized left pleural effusion and associated left mid to lower lung atelectasis or infiltrate. Patient was admitted to medical floor for further evaluation and treatment. Past medical history is significant for recent history of non-ST elevation myocardial infarction, recent admission was acute systolic congestive heart failure exacerbation, cardiomyopathy with ejection fraction of 20-25%, underlying history of hypertension,, underlying history of hyperlipidemia, underlying history of osteoarthritis, underlying history of COPD, underlying history of esophageal stricture, underlying history of gastrointestinal bleeding, remote history of pulmonary embolism On review of systems patient was seen and examined in the emergency room she is alert and oriented 3 in no apparent distress there is no fever or chills no headache or dizziness she is still complaining of left sided chest pain no shortness of breath no cough no palpitation no nausea or vomiting no abdominal pain no diarrhea no blood in the stools no burning with urination no frequency or urgency and no hematuria. On 01/30/2023 patient was seen and examined in the ICU, she is alert and oriented 3 in no apparent distress, she is still complaining of chest pain and shortness of breath and occasional cough otherwise she denies any complaints there is no fever or chills no headache or dizziness no nausea or vomiting no abdominal pain no diarrhea no blood in the stools no burning with urination no frequency or urgency and no hematuria. She is scheduled for thoracentesis today. Prognosis is guarded will continue to follow closely. On 01/31/2023 patient currently in the ICU. Alert and oriented 3. Patient underwent thoracentesis yesterday 350 out. Per nursing staff patient went into atrial fibrillation this AM. This is new for patient. Per nursing staff cardiology was notified. Patient reports minimal improvement. Current signs temp 98.2. Heart rate 80, blood pressure 100/61 and a pulse ox of 96% on 2 L. Cardiology and pulmonary services are following On 02/01/2023 patient was seen and examined on the telemetry floor, she is alert and oriented 3 in no apparent distress, she is still complaining of cough and shortness of breath, she is also complaining of left sided drips pain otherwise she denies any complaints there is no fever or chills no headache or dizziness no chest pain, there is no nausea or vomiting no abdominal pain no diarrhea, no blood in the stools no burning with urination no frequency or urgency and no hematuria, there is no weakness or numbness in any of the extremities there is n o change in vision speech or gait. On 02/02/2023 patient is alert and oriented 3. Patient has been transitioned to oral Lasix. Respiratory rate 18, blood pressure 100/59. Will consult PT OT and social work services for discharge planning at this time patient denies chest pain or shortness breath. Patient denies nausea vomiting or diarrhea. Patient denies any urinary burning or frequency. On 02/03/2023 patient was seen and examined on the telemetry floor she is alert and oriented 3 in no apparent distress she is complaining of generalized weakness otherwise she denies any complaints shortness of breath improved at rest she is still having some shortness of breath with activity she is maintained on oxygen 2 L nasal cannula otherwise she denies any complaints there is no fever or chills no headache or dizziness no chest pain no cough no nausea or vomiting no abdominal pain no diarrhea and no urinary symptoms. Patient is improving gradually will assess possibility of discharge to rehab tomorrow versus going back to home. On 02/04/2023 patient was seen and examined on the medical floor she is alert and oriented in no distress she is still complaining of generalized weakness and complaining of occasional cough or shortness of breath has there is no fever or chills no headache or dizziness no chest pain no nausea or vomiting no abdominal pain no diarrhea and no urinary symptoms. White blood count is 16.5 with recheck chest x-ray, no clear evidence of infection at this time infectious disease consultation was requested. On 02/05/2023 patient is alert and oriented 3. Patient was started on Diflucan and nystatin per infectious disease. Labwork currently pending. Chest x-ray completed showing cardiomegaly with left pleural effusion findings modified 01/30/2023. Stool for C. diff negative. Cardiology pulmonary and infectious disease services are following. On 02/06/2023 patient was seen and examined on the telemetry floor she is alert and oriented 3 in no apparent distress there is no fever or chills no headache or dizziness no chest pain no shortness of breath no cough no nausea or vomiting no abdominal pain no diarrhea and no urinary symptoms. Her white blood count continues to increase, cause is not totally clear, infectious disease is following. Patient is not ready for discharge, will continue to follow closely. Potassium was elevated this morning, potassium supplement were discontinued and patient was given 1 dose of Kayexalate, will recheck labs in a.m. On 02/07/2023 patient is alert and oriented 3. Patient remains on IV cefepime. Labwork from today currently pending infectious disease services following. Patient denies chest pain or shortness of breath. Patient denies nausea vomiting or diarrhea. Patient denies any urinary burning or frequency. Current vital signs temp 96.8, heart rate 24th rest rate 16, blood pressure 109/56 and pulse ox 99% on 3 L On 02/08/2023 patient was seen and examined on the medical floor she is alert and oriented 3 in no apparent distress there is no fever or chills no headache or dizziness no chest pain no shortness of breath, she has occasional cough no nausea or vomiting no abdominal pain no diarrhea and no urinary symptoms. White blood count is down to 18,000, patient remains on Diflucan and cefepime, infectious disease following Objective - Vital Signs Vital signs: Vital Signs Temp 98.2 F 02/08/23 07:25 Pulse 74 02/08/23 07:25 Resp 18 02/08/23 07:25 BP 94/57 02/08/23 07:25 Pulse Ox 94 L 02/08/23 09:03 FiO2 Intake & Output 02/07/23 02/08/23 02/08/23 18:59 06:59 18:59 Output Total 1080 Balance -1080 Weight 50 kg Output: Urine 1080 Other: Voiding Method Incontinent Incontinent # Voids 1 2 - Exam In general patient is alert and oriented x 3 in no distress HEENT head normocephalic and atraumatic Neck is supple no JVD no goiter no lymphadenopathy no carotid bruit Chest examination is clear to auscultation no crackles no wheezing Cardiac exam reveals regular heart sounds S1 and S2 no gallops no murmurs Abdomen is soft nontender no organomegaly with normal bowel sounds Extremity exam reveals no edema no cyanosis or clubbing Neurological examination reveals no gross focal deficits - Labs CBC & Chem 7: 02/08/23 04:34 02/08/23 04:34 Labs: Abnormal Lab Results - Last 24 Hours (Table) 02/08/23 02/08/23 Range/Units 04:34 04:34 WBC 18.0 H (3.8-10.6) k/uL Hgb 10.1 L (11.4-16.0) gm/dL Hct 32.9 L (34.0-46.0) % MCHC 30.7 L (31.0-37.0) g/dL RDW 16.6 H (11.5-15.5) % Plt Count 546 H (150-450) k/uL Neutrophils # 15.7 H (1.3-7.7) k/uL Sodium 130 L (137-145) mmol/L Carbon Dioxide 18 L (22-30) mmol/L BUN 48 H (7-17) mg/dL Creatinine 1.25 H (0.52-1.04) mg/dL AST 84 H (14-36) U/L ALT 39 H (4-34) U/L Alkaline Phosphatase 226 H (38-126) U/L Total Protein 6.1 L (6.3-8.2) g/dL Albumin 2.3 L (3.5-5.0) g/dL Microbiology - Last 24 Hours (Table) 02/04/23 12:38 Blood Culture - Preliminary Blood Assessment and Plan Plan: New episodes of chest pain Recent non-ST elevation myocardial infarction Recent admission was acute exacerbation of congestive heart failure Cardiomyopathy likely ischemic, with ejection fraction of 20-25% Leukocytosis. Infectious disease service is consulted Thrush. Patient started on nystatin and Diflucan Small bilateral pleural effusion, patient was evaluated by pulmonary during the last admission, no intervention was necessary. New-onset atrial fibrillation Underlying history of COPD Underlying history of hypertension Underlying history of hyperlipidemia Underlying history of osteoarthritis Previous history of esophageal stricture with history of dilatation Previous history of gastrointestinal bleeding Remote history of pulmonary embolism At this time patient will be readmitted to telemetry floor Home medications reviewed and reordered Cardiology, pulmonary and infectious disease services following PT OT and social and political studies professor consulted For DVT prophylaxis subcu Lovenox Prognosis is guarded will follow closely
--- NOTE | 2023-02-08 19:53 | P.PN ---
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 patient also have a history of severe LV dysfunction with EF of 20-25% presenting to the hospital on 01/29/2023 for evaluation of left-sided chest pain,atient did have a chest x-ray with evidence of moderate left-sided effusion s/p thoracocentesis on 01/30/2023 , fluid culture had been negative so far did have elevated white count prompting this infectious disease consultation On today's evaluation her that is 02/08/2023 the patient is afebrile, the patient is breathing comfortably on 3 L nasal cannula oxygen, the patient denies chest pain did have cough but no sputum production, the patient denies any nausea no vomiting no abdominal pain or any worsening diarrhea Objective - Vital Signs Vital signs: Vital Signs Temp 98.2 F 02/08/23 07:25 Pulse 74 02/08/23 07:25 Resp 18 02/08/23 07:25 BP 94/57 02/08/23 07:25 Pulse Ox 94 L 02/08/23 09:03 FiO2 Intake & Output 02/07/23 02/08/23 02/08/23 18:59 06:59 18:59 Output Total 1080 Balance -1080 Weight 50 kg Output: Urine 1080 Other: Voiding Method Incontinent Incontinent # Voids 1 2 - Exam GENERAL DESCRIPTION: An elderly female lying in bed in no distress RESPIRATORY SYSTEM: Unlabored breathing , coarse breath sounds at bases HEART: S1 S2 regular rate and rhythm , ABDOMEN: Soft , no tenderness EXTREMITIES: No edema feet - Labs CBC & Chem 7: 02/08/23 04:34 02/08/23 04:34 Labs: Abnormal Lab Results - Last 24 Hours (Table) 02/07/23 02/07/23 02/08/23 Range/Units 06:20 06:20 04:34 WBC 20.99 H 18.0 H (4.50-10.00) X 10*3/uL Hgb 10.5 L 10.1 L (12.0-15.0) g/dL Hct 35.4 L 32.9 L (37.2-46.3) % MCH 24.6 L (27.0-32.0) pg MCHC 29.7 L 30.7 L (32.0-37.0) g/dL RDW 17.5 H 16.6 H (11.5-14.5) % Plt Count 564 H 546 H (140-440) X 10*3/uL Immature Gran # 0.27 H (0.00-0.04) X 10*3/uL Neutrophils # 17.91 H 15.7 H (1.80-7.70) X 10*3/uL Sodium 129 L (135-145) mmol/L Potassium 5.9 H (3.5-5.5) mmol/L Carbon Dioxide 19.4 L (20.0-27.5) mmol/L BUN 41.2 H (9.0-27.0) mg/dL Creatinine (0.52-1.04) mg/dL Est GFR (CKD-EPI)AfAm 47.7 L (60.0-200.0) Est GFR (CKD-EPI)NonAf 41.2 L (60.0-200.0) BUN/Creatinine Ratio 34.33 H (12.00-20.00) Ratio Glucose 64 L (70-110) mg/dL AST 167 H (13-35) U/L ALT 55 H (8-44) U/L Alkaline Phosphatase 276 H (41-126) U/L Total Protein (6.3-8.2) g/dL Albumin 2.3 L (3.8-4.9) g/dL Globulin 4.2 H (1.6-3.3) g/dL Albumin/Globulin Ratio 0.55 L (1.60-3.17) g/dL 02/08/23 Range/Units 04:34 WBC (4.50-10.00) X 10*3/uL Hgb (12.0-15.0) g/dL Hct (37.2-46.3) % MCH (27.0-32.0) pg MCHC (32.0-37.0) g/dL RDW (11.5-14.5) % Plt Count (140-440) X 10*3/uL Immature Gran # (0.00-0.04) X 10*3/uL Neutrophils # (1.80-7.70) X 10*3/uL Sodium 130 L (135-145) mmol/L Potassium (3.5-5.5) mmol/L Carbon Dioxide 18 L (20.0-27.5) mmol/L BUN 48 H (9.0-27.0) mg/dL Creatinine 1.25 H (0.52-1.04) mg/dL Est GFR (CKD-EPI)AfAm (60.0-200.0) Est GFR (CKD-EPI)NonAf (60.0-200.0) BUN/Creatinine Ratio (12.00-20.00) Ratio Glucose (70-110) mg/dL AST 84 H (13-35) U/L ALT 39 H (8-44) U/L Alkaline Phosphatase 226 H (41-126) U/L Total Protein 6.1 L (6.3-8.2) g/dL Albumin 2.3 L (3.8-4.9) g/dL Globulin (1.6-3.3) g/dL Albumin/Globulin Ratio (1.60-3.17) g/dL Microbiology - Last 24 Hours (Table) 02/04/23 12:38 Blood Culture - Preliminary Blood Assessment and Plan (1) Leukocytosis Current Visit: Yes Status: Acute Code(s): D72.829 - ELEVATED WHITE BLOOD CELL COUNT, UNSPECIFIED SNOMED Code(s): 220356210 Plan: 1patient with elevated white count and this patient presented to hospital about a week ago with left-sided chest pain noticed to have left-sided effusion status post thoracocentesis however does culture has been negative patient did not have any fever during this admission and has not received any steroids patient complaining of diarrhea source of elevated white count possible C. difficile versus thrush 2-patient stool for C. difficile came back negative 3Patient did have elevated CRP and a mildly elevated procalcitonin 4-patient to continue nystatin swish and swallow and Diflucan for thrush and possible oropharyngeal candidasis 5-patient white count is trending down, down to 18,000 today and concern for pneumonia/loculated fluid , to continue with cefepime and monitor clinical course closely Time with Patient: Less than 30
[2023-02-08] MEDS: ATORVASTATIN 40 MG TAB PO SCH (20:22)
[2023-02-09] MEDS: TOBRAMYCIN 0.3% OPHTH DROPS 5 ML BTL RIGHT EYE SCH ×7 (03:07→23:16)
[2023-02-09 06:32] LABS: Anisocytosis Slight; Basophils % (A) 0 %; Eosinophils # (A) 0.2 k/uL (0-0.7); Eosinophils % (A) 1 %; HCT 33.6 % (34.0-46.0); HGB 10.1 gm/dL (11.4-16.0); Hypochromasia Marked; Lymphocytes # (A) 1.3 k/uL (1.0-4.8); Lymphocytes % (A) 9 %; MCH 25.3 pg (25.0-35.0); MCHC 29.9 g/dL (31.0-37.0); MCV 84.6 fL (80.0-100.0); Mean Platelet Volume 8.1; Monocytes # (A) 0.5 k/uL (0-1.0); Monocytes % (A) 4 %; Neutrophils # (A) 11.1 k/uL (1.3-7.7); Neutrophils % (A) 84 %; Platelet Count 622 k/uL (150-450); RBC 3.98 m/uL (3.80-5.40); RDW 16.6 % (11.5-15.5); WBC 13.2 k/uL (3.8-10.6)
[2023-02-09 06:41] LABS: ALT 29 U/L (4-34); AST 47 U/L (14-36); African American GFR (CKD) 46 (>60 ml/min/1.73 sqM); Albumin 2.3 g/dL (3.5-5.0); Albumin/Globulin Ratio 0.6; Alkaline Phosphatase 215 U/L (38-126); Anion Gap 11 mmol/L; Blood Urea Nitrogen 55 mg/dL (7-17); Calcium 8.4 mg/dL (8.4-10.2); Carbon Dioxide 18 mmol/L (22-30); Chloride 102 mmol/L (98-107); Globulin 3.9 g/dL; Glucose 69 mg/dL (74-99); Non-African American GFR(CKD) 40 (>60 ml/min/1.73 sqM); Potassium 4.2 mmol/L (3.5-5.1); Sodium 131 mmol/L (137-145); Total Bilirubin 0.9 mg/dL (0.2-1.3); Total Protein 6.2 g/dL (6.3-8.2)
[2023-02-09] MEDS: SYMBICORT 160-4.5 MCG INHALER INHALATION SCH ×2 (08:50→21:14)
[2023-02-09] MEDS: IPRATROPIUM-ALBUTEROL 3 ML NEB INHALATION SCH ×4 (09:09→21:14)
[2023-02-09] MEDS: FLUCONAZOLE 100 MG TAB PO SCH (09:29)
[2023-02-09] MEDS: METOPROLOL TARTRATE 25 MG TAB PO SCH ×2 (09:30→21:36)
[2023-02-09] MEDS: NYSTATIN 100,000 UNIT/ML SUSP 500,000 UNIT/5 ML CUP PO SCH ×4 (09:30→21:36)
[2023-02-09] MEDS: FUROSEMIDE 40 MG TAB PO SCH ×2 (09:30→17:38)
[2023-02-09] MEDS: CEFEPIME 2 GM in SODIUM CHLORIDE 0.9% 100 ML IVPB SCH ×2 (09:30→21:35)
[2023-02-09] MEDS: APIXABAN 2.5 MG TABLET PO SCH ×2 (09:30→21:35)
[2023-02-09] MEDS: ASPIRIN 81 MG PO SCH (09:30)
--- NOTE | 2023-02-09 10:14 | P.PN ---
Subjective Progress Note Date: 02/09/23 Chase Min, is an 87-year-old female who presented to [facility] emergency room with a chief complaint of left-sided chest pain. Patient was admitted recently with similar symptoms on 01/23/2023, she was discharged on 01/28/2023. During that admission she had evidence of non-ST elevation myocardial infarction and evidence of acute exacerbation of systolic congestive heart failure, with evidence of cardiomyopathy with ejection fraction of 20-25%. Patient was treated medically and was discharged home yesterday, she returned today with worsening chest pain. She was evaluated in the emergency room vital examination on presentation revealed a temperature of 98.3 pulse 98 respiration 19 and blood pressure 130/76 pulse ox 95% on room air Laboratory data revealed a white blood count of 10.8 hemoglobin 12.4 platelet count 241 sodium 135 potassium 4.0 chloride 90 CO2 34 BUN 44 creatinine 1.51 troponin level was 0.0-2 AST and ALT are slightly elevated at 45 and 41 Testing in the emergency room revealed EKG done in the emergency room revealed sinus rhythm with left bundle branch block, chest x-ray done in the emergency room revealed cardiomegaly with small to moderate-sized left pleural effusion and associated left mid to lower lung atelectasis or infiltrate. Patient was admitted to medical floor for further evaluation and treatment. Past medical history is significant for recent history of non-ST elevation myocardial infarction, recent admission was acute systolic congestive heart failure exacerbation, cardiomyopathy with ejection fraction of 20-25%, underlying history of hypertension,, underlying history of hyperlipidemia, underlying history of osteoarthritis, underlying history of COPD, underlying history of esophageal stricture, underlying history of gastrointestinal bleeding, remote history of pulmonary embolism On review of systems patient was seen and examined in the emergency room she is alert and oriented 3 in no apparent distress there is no fever or chills no headache or dizziness she is still complaining of left sided chest pain no shortness of breath no cough no palpitation no nausea or vomiting no abdominal pain no diarrhea no blood in the stools no burning with urination no frequency or urgency and no hematuria. On 01/30/2023 patient was seen and examined in the ICU, she is alert and oriented 3 in no apparent distress, she is still complaining of chest pain and shortness of breath and occasional cough otherwise she denies any complaints there is no fever or chills no headache or dizziness no nausea or vomiting no abdominal pain no diarrhea no blood in the stools no burning with urination no frequency or urgency and no hematuria. She is scheduled for thoracentesis today. Prognosis is guarded will continue to follow closely. On 01/31/2023 patient currently in the ICU. Alert and oriented 3. Patient underwent thoracentesis yesterday 350 out. Per nursing staff patient went into atrial fibrillation this AM. This is new for patient. Per nursing staff cardiology was notified. Patient reports minimal improvement. Current signs temp 98.2. Heart rate 80, blood pressure 100/61 and a pulse ox of 96% on 2 L. Cardiology and pulmonary services are following On 02/01/2023 patient was seen and examined on the telemetry floor, she is alert and oriented 3 in no apparent distress, she is still complaining of cough and shortness of breath, she is also complaining of left sided drips pain otherwise she denies any complaints there is no fever or chills no headache or dizziness no chest pain, there is no nausea or vomiting no abdominal pain no diarrhea, no blood in the stools no burning with urination no frequency or urgency and no hematuria, there is no weakness or numbness in any of the extremities there is n o change in vision speech or gait. On 02/02/2023 patient is alert and oriented 3. Patient has been transitioned to oral Lasix. Respiratory rate 18, blood pressure 100/59. Will consult PT OT and social work services for discharge planning at this time patient denies chest pain or shortness breath. Patient denies nausea vomiting or diarrhea. Patient denies any urinary burning or frequency. On 02/03/2023 patient was seen and examined on the telemetry floor she is alert and oriented 3 in no apparent distress she is complaining of generalized weakness otherwise she denies any complaints shortness of breath improved at rest she is still having some shortness of breath with activity she is maintained on oxygen 2 L nasal cannula otherwise she denies any complaints there is no fever or chills no headache or dizziness no chest pain no cough no nausea or vomiting no abdominal pain no diarrhea and no urinary symptoms. Patient is improving gradually will assess possibility of discharge to rehab tomorrow versus going back to home. On 02/04/2023 patient was seen and examined on the medical floor she is alert and oriented in no distress she is still complaining of generalized weakness and complaining of occasional cough or shortness of breath has there is no fever or chills no headache or dizziness no chest pain no nausea or vomiting no abdominal pain no diarrhea and no urinary symptoms. White blood count is 16.5 with recheck chest x-ray, no clear evidence of infection at this time infectious disease consultation was requested. On 02/05/2023 patient is alert and oriented 3. Patient was started on Diflucan and nystatin per infectious disease. Labwork currently pending. Chest x-ray completed showing cardiomegaly with left pleural effusion findings modified 01/30/2023. Stool for C. diff negative. Cardiology pulmonary and infectious disease services are following. On 02/06/2023 patient was seen and examined on the telemetry floor she is alert and oriented 3 in no apparent distress there is no fever or chills no headache or dizziness no chest pain no shortness of breath no cough no nausea or vomiting no abdominal pain no diarrhea and no urinary symptoms. Her white blood count continues to increase, cause is not totally clear, infectious disease is following. Patient is not ready for discharge, will continue to follow closely. Potassium was elevated this morning, potassium supplement were discontinued and patient was given 1 dose of Kayexalate, will recheck labs in a.m. On 02/07/2023 patient is alert and oriented 3. Patient remains on IV cefepime. Labwork from today currently pending infectious disease services following. Patient denies chest pain or shortness of breath. Patient denies nausea vomiting or diarrhea. Patient denies any urinary burning or frequency. Current vital signs temp 96.8, heart rate 24th rest rate 16, blood pressure 109/56 and pulse ox 99% on 3 L On 02/08/2023 patient was seen and examined on the medical floor she is alert and oriented 3 in no apparent distress there is no fever or chills no headache or dizziness no chest pain no shortness of breath, she has occasional cough no nausea or vomiting no abdominal pain no diarrhea and no urinary symptoms. White blood count is down to 18,000, patient remains on Diflucan and cefepime, infectious disease following On 02/09/2023 patient is alert and oriented 3 patient is currently resting comfortably in bed denies chest pain. Denies any nausea vomiting or diarrhea. White blood cell improving to 13.2 discharge planning is in progress [facility] Current vital signs temp 97.5 and 65 respiratory rate 20, blood pressure 118/67 with a pulse ox of 100% on 3 L Objective - Vital Signs Vital signs: Vital Signs Temp 97.5 F L 02/09/23 07:55 Pulse 85 02/09/23 09:02 Resp 20 02/09/23 07:55 BP 118/67 02/09/23 07:55 Pulse Ox 92 L 02/09/23 08:54 FiO2 Intake & Output 02/08/23 02/09/23 02/09/23 18:59 06:59 18:59 Other: # Voids 2 2 - Exam In general patient is alert and oriented x 3 in no distress HEENT head normocephalic and atraumatic Neck is supple no JVD no goiter no lymphadenopathy no carotid bruit Chest examination is clear to auscultation no crackles no wheezing Cardiac exam reveals regular heart sounds S1 and S2 no gallops no murmurs Abdomen is soft nontender no organomegaly with normal bowel sounds Extremity exam reveals no edema no cyanosis or clubbing Neurological examination reveals no gross focal deficits - Labs CBC & Chem 7: 02/09/23 05:37 02/09/23 05:37 Labs: Abnormal Lab Results - Last 24 Hours (Table) 02/09/23 02/09/23 Range/Units 05:37 05:37 WBC 13.2 H (3.8-10.6) k/uL Hgb 10.1 L (11.4-16.0) gm/dL Hct 33.6 L (34.0-46.0) % MCHC 29.9 L (31.0-37.0) g/dL RDW 16.6 H (11.5-15.5) % Plt Count 622 H (150-450) k/uL Neutrophils # 11.1 H (1.3-7.7) k/uL Sodium 131 L (137-145) mmol/L Carbon Dioxide 18 L (22-30) mmol/L BUN 55 H (7-17) mg/dL Creatinine 1.24 H (0.52-1.04) mg/dL Glucose 69 L (74-99) mg/dL AST 47 H (14-36) U/L Alkaline Phosphatase 215 H (38-126) U/L Total Protein 6.2 L (6.3-8.2) g/dL Albumin 2.3 L (3.5-5.0) g/dL Microbiology - Last 24 Hours (Table) 02/04/23 12:38 Blood Culture - Preliminary Blood Assessment and Plan Plan: New episodes of chest pain Recent non-ST elevation myocardial infarction Recent admission was acute exacerbation of congestive heart failure Cardiomyopathy likely ischemic, with ejection fraction of 20-25% Leukocytosis. Infectious disease service is consulted Thrush. Patient started on nystatin and Diflucan Small bilateral pleural effusion, patient was evaluated by pulmonary during the last admission, no intervention was necessary. New-onset atrial fibrillation Underlying history of COPD Underlying history of hypertension Underlying history of hyperlipidemia Underlying history of osteoarthritis Previous history of esophageal stricture with history of dilatation Previous history of gastrointestinal bleeding Remote history of pulmonary embolism At this time patient will be readmitted to telemetry floor Home medications reviewed and reordered Cardiology, pulmonary and infectious disease services following PT OT and long term care social worker consulted For DVT prophylaxis subcu Lovenox Prognosis is guarded will follow closely
--- NOTE | 2023-02-09 12:14 | P.PN ---
Subjective Progress Note Date: 02/09/23 I am seeing this patient in new consultation today 01/30/2023 in the emergency room for left sided pleuritic chest pain and effusion. Patient is a 87-year-old white female with past medical history significant for moderate persistent chronic bronchial asthma, hypertension, hyperlipidemia, gastroesophageal reflux disease, pulmonary embolism, colitis, esophageal stricture with previous dilatations, and is a nonsmoker. Patient came back to the emergency room yesterday morning after being just discharged the day prior. Patient was admitted back on January 23 for a non-ST elevation [place] and exacerbation of systolic congestive heart failure. She did have a small to moderate left pleural effusion at that time measuring 7.7 cm, and no thoracentesis was performed due to the patient being on heparin. Her symptoms ultimately improved, and she was discharged back to her assisted living center. Apparently, the patient's chest pain worsened after discharge, and she came back to the emergency room. Patient is is currently sitting up on the stretcher, on 2 L nasal cannula, in no acute distress. The left-sided chest pain is painful to palpation and exacerbated by coughing. There is some associated shortness of breath especially on exertion. She denies any infectious symptoms such as fever, chills, cough, hemoptysis. Chest x-ray from yesterday shows persistent cardiomegaly with small to moderate size left pleural effusion and associated left mid to lower lung atelectasis and/or infiltrate, without significant change from previous chest x-ray. Patient's echocardiogram done on her recent admission showed a markedly decreased ejection fraction of 20-25% severe pulmonary hypertension with an RVSP of 75 mmHg, moderate to severe tricuspid regurgitation, and severe mitral regurgitation. CBC from yesterday shows a WBC count of 10.8, hemoglobin 12.4, hematocrit 39.8, platelets 241. BMP shows a sodium 135, potassium 4, chloride 90, serum CO2 34, BUN 44, creatinine 1.51, glucose 104. Troponin was low at 0.022. EKG shows sinus rhythm with a left bundle-branch block. Vital signs are stable at this time. The patient is seen today 01/31/2023 in follow-up in the intensive care unit. She is currently resting quite comfortably in bed. Awake and alert in no acute distress. Maintaining good O2 saturations in the 90s on 2 L/m per nasal cannula. No IV fluids. He did undergo an ultrasound-guided thoracentesis by interventional radiology yesterday with 350 ML's of clear yellow fluid removed. Follow-up chest x-ray revealed a repeat remaining small left pleural effusion. No pneumothorax. The fluid is exudative in nature with a total protein of 4.0 and LDH of 415. Cytology pending. She is continued on DuoNeb inhalations, Symbicort. Anticoagulated with Eliquis. Remains on oral diuretics. Progress note dated 02/01/2023. The patient is seen today in room 385. She was seen yesterday in the intensive care unit. She was recently discharged from the hospital, with chest pain and shortness of breath. He returned in less than a day, with similar symptoms. Interventional radiology did do a thoracentesis. Currently, she is on 3 L nasal cannula. She's not receiving any IV fluids. She feels much improved, and is hoping to be discharged soon. White count 14.4, hemoglobin 11.8, hematocrit 40.1, and platelet count is normal. Sodium 1:30, potassium 4.1, chlorides 90, CO2 33, BUN 44, and creatinine 1.65. Progress note dated 02/03/2023. The patient is seen today in room 385. She's been weaned down to 2 L. She's not receiving any IV fluids. Clinically, she's very stable. Labs reveal a white count of 16.3, hemoglobin 11.9, hematocrit 39.4, and a platelet count of 388,000. Sodium 132, potassium 4.8, chlorides 94, CO2 31, anion gap normal, BUN 40, creatinine 1.13. Albumin is 2.6. On today's evaluation of 02/05/2023, the patient's condition is stable. The [facility] ient is not having any specific complaints. She is alert and oriented 3. The patient is being treated for CHF and left sided pleural effusion. The patient underwent thoracentesis. The fluid cytology came back negative for malignancy. Meanwhile, the patient was having some limited diarrhea and stools for C. diff came back negative. Her overall respiratory status is stable. The patient is currently on 2 L of oxygen by nasal cannula with a pulse ox of 97%. No pleurisy. No hemoptysis. No chest pain. She is on long-term and cognition without liquids to 0.5 mg twice a day. Her baseline creatinine is at 1.4 with a BUN of 40 and his sodium level is at 132 and this is based on the blood work that was obtained on 02/03/2023. On today's evaluation of 02/06/2023, the patient is stable. Nevertheless, the white cell count remains elevated at 23. At the same time, the patient's potassium is up to 6.2 and the patient has been treated for his hyperkalemia by the primary care team. Clinically however the patient is stable. She has no specific complaints. Pro-calcitonin level was 0.4. Stool for C. diff was negative. She is known to have CHF and a left-sided pleural effusion was also noted and the patient has undergone diuresis and she also had a left-sided thoracentesis and the fluid cytology is negative for malignancy. She remains on 2 L of O2 nasal cannula. She is on long-term anticoagulants with Eliquis. She is currently on IV cefepime. On today's evaluation of 02.07.2022, the patient remains essentially unchanged. There is a concern of elevated white cell count. The patient's chest x-ray showing a recurrent left-sided pleural effusion and the patient was accompanied elevated at 20.9 with a hemoglobin of 10.5. Sodium level is at 129 potassium level is at 5.9 with a BUN of 41 and a creatinine of 1.2. The patient underwent a left-sided thoracentesis. The fluid was an exudate. The fluid cytology was negative. The patient remains on IV cefepime. Would order a noncontrast CAT scan of the chest to evaluate the left lung findings. The patient otherwise is resting comfortably in bed. No chest pain. No fever. No altered mentation. No other significant events overnight. No worsening in her oxygenation. On 02/08/2023 patient is being seen for a follow-up. The patient is stable clinically. A CAT scan of the chest was done yesterday and the patient had low. The pockets of effusion in the left lung base along with some area of infiltration/atelectasis. I suspect that the patient had a left lower lobe pneumonia with parapneumonic effusion. She continues to have some leukocytosis although the white cell count is improved and currently is down to 18. She remains on IV cefepime. Cultures are negative and she is afebrile. Hemoglobin is at 10 with a platelet count of 546. The serum bicarbs of 18 with a BUN of 48 and a creatinine 1.2 and the sodiumis 130. I reviewed the CAT scan of the chest and the patient has some focal areas of loculated pleural effusion left lung base. There is also underlying infiltrate. Based on her age and comorbidities, she may not be able to handle any further surgical interventions regarding this loculated small pockets of effusion. Decided to treat the patient conservatively with antibiotics. Case was discussed with infectious disease. On 02/09/2023, the patient is stable on room air oxygen. The patient remains on IV cefepime and there is interval improvement in the white cell count which is down to 13. BUN is at 65 the creatinine 1.20 sodium level is at 131. As mentioned, the patient has locally the pocket of pleural effusion parapneumonic and she is on a good candidate for any further thoracic intervention or chest tube intervention. She has a weak cough and poor ability to do pulmonary toileting. Nevertheless, she is improving while being on IV antibiotics. Objective - Vital Signs Vital signs: Vital Signs Temp 97.5 F L 02/09/23 07:55 Pulse 85 02/09/23 09:02 Resp 20 02/09/23 07:55 BP 118/67 02/09/23 07:55 Pulse Ox 92 L 02/09/23 08:54 FiO2 Intake & Output 02/08/23 02/09/23 02/09/23 18:59 06:59 18:59 Other: # Voids 2 2 - Exam No acute distress, oriented 3. No respiratory distress. No conversational dyspnea. Currently on room air oxygen HEENT examination is grossly unremarkable. Neck supple. Full range of motion. No adenopathy thyromegaly or neck vein distention. Cardiovascular examination reveals regular rhythm rate. S1-S2 normal. No S3 or S4. No discernible murmur noted. Heart rate 68 bpm. Lungs reveal slightly diminished breath sounds in the left chest. Minimal scattered rhonchi. No wheezes or crackles. 2 L saturation is 95%. Abdomen soft bowel sounds are heard. No masses or tenderness. Extremities are intact. No cyanosis clubbing or edema. Skin is without rash or lesion. Neurologic examination is brief but nonfocal. - Labs CBC & Chem 7: 02/09/23 05:37 02/09/23 05:37 Labs: Abnormal Lab Results - Last 24 Hours (Table) 02/09/23 02/09/23 Range/Units 05:37 05:37 WBC 13.2 H (3.8-10.6) k/uL Hgb 10.1 L (11.4-16.0) gm/dL Hct 33.6 L (34.0-46.0) % MCHC 29.9 L (31.0-37.0) g/dL RDW 16.6 H (11.5-15.5) % Plt Count 622 H (150-450) k/uL Neutrophils # 11.1 H (1.3-7.7) k/uL Sodium 131 L (137-145) mmol/L Carbon Dioxide 18 L (22-30) mmol/L BUN 55 H (7-17) mg/dL Creatinine 1.24 H (0.52-1.04) mg/dL Glucose 69 L (74-99) mg/dL AST 47 H (14-36) U/L Alkaline Phosphatase 215 H (38-126) U/L Total Protein 6.2 L (6.3-8.2) g/dL Albumin 2.3 L (3.5-5.0) g/dL Microbiology - Last 24 Hours (Table) 02/04/23 12:38 Blood Culture - Preliminary Blood Assessment and Plan Plan: Left lower lobe pneumonia with a parapneumonic effusion. The fluid was an exudate and a follow-up CAT scan of the chest is still showing some areas of loculated pockets of small effusion the left. Those effusions are not abdomen for thoracentesis. Not a good candidate for chest tube insertion or pigtail catheter insertion. Decided to treat this patient with antibiotics. The pleural fluid was an exudate. Cultures were negative. Respiratory status is very borderline and the patient's platelet is to pulmonary toileting because of her age and underlying comorbidities. Not a candidate for thoracic surgical intervention or chest tube intervention Chest pain subsided. Acute leukocytosis, consider parapneumonic effusion on the left and the patient is currently on IV cefepime. The white cell count is improving Acute hypoxic respiratory failure currently on 2 L O2 nasal cannula Acute exacerbation of systolic congestive heart failure, on recent echocardiogram found to have severely impaired left ventricular systolic fu nction ejection fraction of 20% along with severe mitral and tricuspid regurgitation with severe pulmonary hypertension with an RSVP of 75 mmHg. Acute hypoxic respiratory failure secondary to above, currently on 2 L nasal cannula. Acute kidney injury, creatinine is improved Recent non-ST elevation [place] . Moderate persistent chronic bronchial asthma, stable. Hyperlipidemia. Hypertension. Osteoarthritis. Previous history of bilateral pulmonary embolism in 2010. History of GI bleed and has been off anticoagulation since 2020 and declined to resume. History of esophageal strictures with previous dilatation. Plan White cell count is improving Continue IV antibiotics For ability to pulmonary toileting and a weak cough Reviewed the CAT scan of the chest Not a candidate for chest tube insertion or any other further surgical thoracic interventions Continue with antibiotics White cell count is improving Continue IV cefepime The pleural fluid cytology was negative for malignancy Patient is currently on room air oxygen Continue anticoagulation with Eliquis 2.5 mg twice a day Monitor electrolytes and repeat the blood work Diflucan for oropharyngeal candidiasis Continue same treatment
[2023-02-09] MEDS: ACETAMINOPHEN TAB 325 MG TAB PO PRN (13:08)
[2023-02-09] MEDS: ATORVASTATIN 40 MG TAB PO SCH (21:35)
--- NOTE | 2023-02-09 22:41 | P.PN ---
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 patient also have a history of severe LV dysfunction with EF of 20-25% presenting to the hospital on 01/29/2023 for evaluation of left-sided chest pain,atient did have a chest x-ray with evidence of moderate left-sided effusion s/p thoracocentesis on 01/30/2023 , fluid culture had been negative so far did have elevated white count prompting this infectious disease consultation On today's evaluation her that is 02/09/2023 the patient remains to be afebrile, the patient is breathing comfortably on 3 L nasal cannula oxygen, the patient denies chest pain , the pt did have cough but no sputum production, the patient denies any nausea no vomiting no abdominal pain and no diarrhea reported Objective - Vital Signs Vital signs: Vital Signs Temp 98.2 F 02/09/23 13:03 Pulse 59 L 02/09/23 13:03 Resp 18 02/09/23 13:03 BP 125/54 02/09/23 13:03 Pulse Ox 97 02/09/23 13:03 FiO2 Intake & Output 02/08/23 02/09/23 02/09/23 18:59 06:59 18:59 Other: # Voids 2 2 - Exam GENERAL DESCRIPTION: An elderly female lying in bed in no distress RESPIRATORY SYSTEM: Unlabored breathing , coarse breath sounds at bases HEART: S1 S2 regular rate and rhythm , ABDOMEN: Soft , no tenderness EXTREMITIES: No edema feet - Labs CBC & Chem 7: 02/09/23 05:37 02/09/23 05:37 Labs: Abnormal Lab Results - Last 24 Hours (Table) 02/09/23 02/09/23 Range/Units 05:37 05:37 WBC 13.2 H (3.8-10.6) k/uL Hgb 10.1 L (11.4-16.0) gm/dL Hct 33.6 L (34.0-46.0) % MCHC 29.9 L (31.0-37.0) g/dL RDW 16.6 H (11.5-15.5) % Plt Count 622 H (150-450) k/uL Neutrophils # 11.1 H (1.3-7.7) k/uL Sodium 131 L (137-145) mmol/L Carbon Dioxide 18 L (22-30) mmol/L BUN 55 H (7-17) mg/dL Creatinine 1.24 H (0.52-1.04) mg/dL Glucose 69 L (74-99) mg/dL AST 47 H (14-36) U/L Alkaline Phosphatase 215 H (38-126) U/L Total Protein 6.2 L (6.3-8.2) g/dL Albumin 2.3 L (3.5-5.0) g/dL Microbiology - Last 24 Hours (Table) 02/04/23 12:38 Blood Culture - Preliminary Blood Assessment and Plan (1) Leukocytosis Current Visit: Yes Status: Acute Code(s): D72.829 - ELEVATED WHITE BLOOD CELL COUNT, UNSPECIFIED SNOMED Code(s): 567372221 Plan: 1patient with elevated white count and this patient presented to hospital about a week ago with left-sided chest pain noticed to have left-sided effusion status post thoracocentesis however does culture has been negative patient did not have any fever during this admission and has not received any steroids patient complaining of diarrhea source of elevated white count possible C. difficile versus thrush 2-patient stool for C. difficile came back negative 3Patient did have elevated CRP and a mildly elevated procalcitonin 4-patient to continue nystatin swish and swallow and Diflucan for thrush and possible oropharyngeal candidasis 5-patient white count is trending down, down to 13,000 today and concern for pneumonia/loculated fluid , Pt will continue with cefepime and may need midline and short course of cefepime on dc
[2023-02-10] MEDS: TOBRAMYCIN 0.3% OPHTH DROPS 5 ML BTL RIGHT EYE SCH ×4 (03:00→16:37)
[2023-02-10] MEDS: METOPROLOL TARTRATE 25 MG TAB PO SCH ×2 (08:18→23:48)
[2023-02-10] MEDS: FLUCONAZOLE 100 MG TAB PO SCH (08:18)
[2023-02-10] MEDS: NYSTATIN 100,000 UNIT/ML SUSP 500,000 UNIT/5 ML CUP PO SCH ×4 (08:18→23:47)
[2023-02-10] MEDS: ASPIRIN 81 MG PO SCH (08:18)
[2023-02-10] MEDS: CEFEPIME 2 GM in SODIUM CHLORIDE 0.9% 100 ML IVPB SCH (08:18)
[2023-02-10] MEDS: FUROSEMIDE 40 MG TAB PO SCH ×2 (08:18→16:36)
[2023-02-10] MEDS: APIXABAN 2.5 MG TABLET PO SCH ×2 (08:24→23:46)
[2023-02-10 08:25] LABS: Anisocytosis Slight; Basophils % (A) 0 %; Eosinophils # (A) 0.1 k/uL (0-0.7); Eosinophils % (A) 1 %; HCT 37.8 % (34.0-46.0); HGB 11.3 gm/dL (11.4-16.0); Hypochromasia Marked; Lymphocytes # (A) 1.3 k/uL (1.0-4.8); Lymphocytes % (A) 10 %; MCH 25.1 pg (25.0-35.0); MCHC 29.9 g/dL (31.0-37.0); MCV 83.9 fL (80.0-100.0); Mean Platelet Volume 7.8; Monocytes # (A) 0.5 k/uL (0-1.0); Monocytes % (A) 4 %; Neutrophils # (A) 11.2 k/uL (1.3-7.7); Neutrophils % (A) 85 %; Platelet Count 674 k/uL (150-450); RDW 16.8 % (11.5-15.5); WBC 13.3 k/uL (3.8-10.6)
[2023-02-10] MEDS: SYMBICORT 160-4.5 MCG INHALER INHALATION SCH ×2 (08:58→21:09)
[2023-02-10] MEDS: IPRATROPIUM-ALBUTEROL 3 ML NEB INHALATION SCH ×4 (08:58→21:09)
[2023-02-10 09:11] LABS: ALT 26 U/L (4-34); AST 38 U/L (14-36); African American GFR (CKD) 53 (>60 ml/min/1.73 sqM); Albumin 2.5 g/dL (3.5-5.0); Albumin/Globulin Ratio 0.6; Alkaline Phosphatase 240 U/L (38-126); Anion Gap 15 mmol/L; Blood Urea Nitrogen 49 mg/dL (7-17); Calcium 8.6 mg/dL (8.4-10.2); Carbon Dioxide 17 mmol/L (22-30); Chloride 106 mmol/L (98-107); Globulin 4.2 g/dL; Glucose 71 mg/dL (74-99); Non-African American GFR(CKD) 46 (>60 ml/min/1.73 sqM); Potassium 3.9 mmol/L (3.5-5.1); Sodium 138 mmol/L (137-145); Total Bilirubin 0.8 mg/dL (0.2-1.3); Total Protein 6.7 g/dL (6.3-8.2)
--- NOTE | 2023-02-10 10:40 | CT ---
EXAMINATION TYPE: CT brain wo con DATE OF EXAM: 02/10/2023 HISTORY: Mental status change CT DLP: 1143.4 mGycm. Automated Exposure Control for Dose Reduction was Utilized. TECHNIQUE: CT scan of the head is performed without contrast. COMPARISON: CT brain March 26, 2022. FINDINGS: There is no acute intracranial hemorrhage or midline shift identified. There is mild diff use ventricular and sulcal prominence redemonstrated. There is severe low-attenuation in the deep an d periventricular white matter redemonstrated. The globes are intact and the visualized sinuses are clear. IMPRESSION: No acute intracranial hemorrhage or midline shift. There is mild diffuse cerebral atrop hy and severe probable chronic small vessel ischemic change redemonstrated. No significant change fr om most recent prior CT.
--- NOTE | 2023-02-10 13:05 | P.CNNES ---
History of Present Illness Consult date: 02/10/23 Requesting physician: Idalia Bowie Reason for Consult: ams History of Present Illness: This is an 87-year-old woman who presented emergency department for left-sided pleuritic chest pain and fusion. Neurologist consulted for altered mental status. History was obtained from medical record that. It seems the patient has history of moderate persistent chronic bronchial asthma, pulmonary aneurysm, colitis, esophageal stricture with previous dilation , recent non-STEMI and exacerbation of systolic heart failure. It seems the patient presented back to the hospital because of worsening chest pain with exacerbation by coughing and has some shortness of breath on exertion. Per the nurse the patient continues to be altered. Per the pulmonary team note is seems the patient has left lower lobe pneumonia with that. Pneumatic effusion. Patient has acute leukocytosis consider. Pneumatic effusion on the left and she is on cefepime. ID is on board. Patient has acute hypoxic respiratory failure and is on 2L oxygen. Later, I spoke with the patient's daughter who stated the patient has been confused for the past 4 days. She denies patient has history of stroke or seizures. Some other workup during his hospital visit consisted of: Patient is afebrile so far. Initial white blood cell is 10.8 thousand and got as high as 20 and 3000 and currently is 13,000. Late limits as trending up it's currently at 674,000. Sodium was as low as 129 and currently is 138. Then was as high as 1.25 currently is 1.10. Calcium as within normal limits. Patient has episode of hypoglycemia in the 60s. AST was in 167 currently is 38 and ALT was as high as an [address] of the head on 02/10/2023 is reported as no acute intracranial hemorrhage or midline shift. There is mild diffuse cerebral atrophy and severe probable chronic small vessel ischemic changes redemonstrated. No significant change from most recent prior CT. I personally reviewed the CT and I agree with the report in addition I feel the patient has very small lacunae is on the bilateral basal ganglia left more than the right that is appreciable. Review of Systems Review of system is limited but the prone positive and negative as per HPI. Past Medical History Past Medical History: Asthma, GERD/Reflux, GI Bleed, Hyperlipidemia, Hypertension, Liver Disease, Osteoarthritis (OA), Pneumonia, Pulmonary Embolus (PE) Additional Past Medical History / Comment(s): bilateral pulmonary embolism 2010, IBS, colitis, esophageal stricture, hepatitis B infection 1971, hiatal hernia, history of Chowdary's palsy, severe osteoarthritis, sinus problems. poor circulation in eliseo feet, GI bleed years ago History of Any Multi-Drug Resistant Organisms: None Reported Past Surgical History: Appendectomy, Section, Hernia Repair, Hysterectomy, Joint Replacement, Tonsillectomy, Tubal Ligation Additional Past Surgical History / Comment(s): Rt shoulder replacement, cataracts bilaterally, x 2, hiatal hernia repair, EGDs with esophageal dilations, colonoscopy, bronchoscopies Past Anesthesia/Blood Transfusion Reactions: Motion Sickness Past Psychological History: No Psychological Hx Reported Smoking Status: Never smoker - Past Family History Daughter(s) Family Medical History: Coronary Artery Disease (CAD), Diabetes Mellitus, Deep Vein Thrombosis (DVT) Brother(s) Family Medical History: CVA/TIA Mother Family Medical History: Deep Vein Thrombosis (DVT) Additional Family Medical History / Comment(s): . Father Family Medical History: No Reported History Medications and Allergies Home Medications Medication Instructions Recorded Confirmed Type Budesonide-Formot 160-4.5 Mcg 2 puff INHALATION RT-BID 09/04/18 01/29/23 History [Symbicort 160-4.5 Mcg Inhaler] Albuterol Inhaler [Ventolin Hfa 2 puff INHALATION RT-QID PRN 01/23/23 01/29/23 History Inhaler] Losartan/Hydrochlorothiazide 1 tab PO DAILY 01/23/23 01/29/23 History [Hyzaar 100-25 Tablet] Aspirin 81 mg PO DAILY tab 01/28/23 01/29/23 Rx Atorvastatin [Lipitor] 40 mg PO HS tab 01/28/23 01/29/23 Rx Furosemide [Lasix] 40 mg PO BID@0900,1600 tab 01/28/23 01/29/23 Rx Isosorbide Mononitrate ER [Imdur] 30 mg PO DAILY tab 01/28/23 01/29/23 Rx Metoprolol Tartrate [Lopressor] 12.5 mg PO BID tab 01/28/23 01/29/23 Rx Potassium Chloride ER [K-Dur 20] 20 meq PO Q8HR tab 01/28/23 01/29/23 Rx Allergies Allergy/AdvReac Type Severity Reaction Status Date / Time adhesive tape Allergy skin Verified 01/29/23 11:44 blisters iodine Allergy Anaphylaxis Verified 01/29/23 11:44 morphine AdvReac Hallucinati Verified 01/29/23 11:44 ons Physical Examination - Vital Signs Vital Signs: Vital Signs Temp Pulse Pulse Resp BP Pulse Ox 02/10/23 09:09 76 02/10/23 09:01 72 100 02/10/23 06:58 97.4 F L 79 21 142/75 95 02/10/23 02:00 98.3 F 74 18 131/75 96 02/09/23 20:00 97.6 F 72 17 132/63 95 02/09/23 16:01 84 02/09/23 15:49 85 02/09/23 13:03 98.2 F 59 L 18 125/54 97 02/09/23 13:01 84 02/09/23 12:51 80 Intake and Output 02/09/23 02/10/23 02/10/23 22:59 06:59 14:59 Output Total 400 Balance -400 Output: Urine 400 Other: Voiding Method Diaper GENERAL: The patient is lying in bed and does not appear in acute distress. LUNG: Not labored breathing. NEUROLOGICAL: Very limited. Higher mental function: The patient is severely drowsy and is awakeble to voice. She is follow minimal simple commands (thumbs up and lifting legs after multiple attempts). Otherwise very limited. Cranial nerves: The pupils are round, equal and reactive to light. Is tracking throughout the room. No facial weakness. Motor: The strength is moving uppers and lowers briefly above gravity. Otherwise strength is limited in assessment. Normal tone and bulk. Cerebellum: Unable to assess. Sensation: Unable to asses. Reflexes (right/left):1+ throughout. Plantars are mute bilaterally. Results - Laboratory Findings CBC and BMP: 02/10/23 07:07 02/10/23 07:07 Abnormal Lab Findings: Abnormal Labs 01/29/23 01/29/23 01/29/23 11:15 11:15 11:15 WBC 10.8 H Hgb Hct MCH MCHC RDW 16.0 H Plt Count Plt Count Comment Immature Gran # Neutrophils # 8.4 H Monocytes # APTT 19.8 L Sodium 135 L Potassium Chloride 90 L Carbon Dioxide 34 H BUN 44 H Creatinine 1.51 H Est GFR (CKD-EPI)AfAm Est GFR (CKD-EPI)NonAf BUN/Creatinine Ratio Glucose 104 H Magnesium 1.4 L AST 45 H ALT 41 H Alkaline Phosphatase C-Reactive Protein Total Protein Albumin 3.3 L Globulin Albumin/Globulin Ratio Procalcitonin 02/01/23 02/01/23 02/02/23 07:13 07:13 06:59 WBC 14.4 H 16.6 H Hgb Hct MCH 24.9 L MCHC 29.5 L 30.5 L RDW 16.0 H 16.1 H Plt Count Plt Count Comment Immature Gran # Neutrophils # 11.5 H 13.8 H Monocytes # APTT Sodium 130 L Potassium Chloride 90 L Carbon Dioxide 33 H BUN 44 H Creatinine 1.65 H Est GFR (CKD-EPI)AfAm Est GFR (CKD-EPI)NonAf BUN/Creatinine Ratio Glucose Magnesium AST ALT Alkaline Phosphatase 145 H C-Reactive Protein Total Protein 6.2 L Albumin 2.7 L Globulin Albumin/Globulin Ratio Procalcitonin 02/02/23 02/03/23 02/03/23 06:59 07:25 07:25 WBC 16.3 H Hgb Hct MCH MCHC 30.2 L RDW 16.0 H Plt Count Plt Count Comment Immature Gran # Neutrophils # 13.6 H Monocytes # APTT Sodium 131 L 132 L Potassium Chloride 90 L 94 L Carbon Dioxide 32 H 31 H BUN 41 H 40 H Creatinine 1.22 H 1.13 H Est GFR (CKD-EPI)AfAm Est GFR (CKD-EPI)NonAf BUN/Creatinine Ratio Glucose Magnesium AST 52 H ALT Alkaline Phosphatase 206 H 286 H C-Reactive Protein Total Protein 6.1 L Albumin 2.6 L 2.6 L Globulin Albumin/Globulin Ratio Procalcitonin 02/04/23 02/04/23 02/05/23 10:24 12:38 06:22 WBC 22.58 H Hgb 11.2 L Hct MCH 24.2 L MCHC 29.5 L RDW 17.2 H Plt Count 611 H Plt Count Comment Immature Gran # 0.26 H Neutrophils # 18.22 H Monocytes # 1.08 H APTT Sodium Potassium Chloride Carbon Dioxide BUN Creatinine Est GFR (CKD-EPI)AfAm Est GFR (CKD-EPI)NonAf BUN/Creatinine Ratio Glucose Magnesium AST ALT Alkaline Phosphatase C-Reactive Protein 40.4 H Total Protein Albumin Globulin Albumin/Globulin Ratio Procalcitonin 0.42 H 02/05/23 02/06/23 02/06/23 06:22 07:03 07:03 WBC 23.89 H Hgb 10.7 L Hct 35.6 L MCH 25.1 L MCHC 30.1 L RDW 17.4 H Plt Count 560 H Plt Count Comment INCREASED A Immature Gran # 0.22 H Neutrophils # 20.91 H Monocytes # APTT Sodium 131 L 129 L Potassium 5.7 H 6.2 H* Chloride 90 L Carbon Dioxide BUN 34.9 H 39.0 H Creatinine Est GFR (CKD-EPI)AfAm 59.5 L 53.0 L Est GFR (CKD-EPI)NonAf 51.3 L 45.7 L BUN/Creatinine Ratio 34.90 H 35.45 H Glucose Magnesium AST 145 H 167 H ALT 49 H 54 H Alkaline Phosphatase 354 H 300 H C-Reactive Protein Total Protein Albumin 2.7 L 2.5 L Globulin 4.2 H 4.1 H Albumin/Globulin Ratio 0.64 L 0.61 L Procalcitonin 02/07/23 02/07/23 02/08/23 06:20 06:20 04:34 WBC 20.99 H 18.0 H Hgb 10.5 L 10.1 L Hct 35.4 L 32.9 L MCH 24.6 L MCHC 29.7 L 30.7 L RDW 17.5 H 16.6 H Plt Count 564 H 546 H Plt Count Comment Immature Gran # 0.27 H Neutrophils # 17.91 H 15.7 H Monocytes # APTT Sodium 129 L Potassium 5.9 H Chloride Carbon Dioxide 19.4 L BUN 41.2 H Creatinine Est GFR (CKD-EPI)AfAm 47.7 L Est GFR (CKD-EPI)NonAf 41.2 L BUN/Creatinine Ratio 34.33 H Glucose 64 L Magnesium AST 167 H ALT 55 H Alkaline Phosphatase 276 H C-Reactive Protein Total Protein Albumin 2.3 L Globulin 4.2 H Albumin/Globulin Ratio 0.55 L Procalcitonin 02/08/23 02/09/23 02/09/23 04:34 05:37 05:37 WBC 13.2 H Hgb 10.1 L Hct 33.6 L MCH MCHC 29.9 L RDW 16.6 H Plt Count 622 H Plt Count Comment Immature Gran # Neutrophils # 11.1 H Monocytes # APTT Sodium 130 L 131 L Potassium Chloride Carbon Dioxide 18 L 18 L BUN 48 H 55 H Creatinine 1.25 H 1.24 H Est GFR (CKD-EPI)AfAm Est GFR (CKD-EPI)NonAf BUN/Creatinine Ratio Glucose 69 L Magnesium AST 84 H 47 H ALT 39 H Alkaline Phosphatase 226 H 215 H C-Reactive Protein Total Protein 6.1 L 6.2 L Albumin 2.3 L 2.3 L Globulin Albumin/Globulin Ratio Procalcitonin 02/10/23 02/10/23 07:07 07:07 WBC 13.3 H Hgb 11.3 L Hct MCH MCHC 29.9 L RDW 16.8 H Plt Count 674 H Plt Count Comment Immature Gran # Neutrophils # 11.2 H Monocytes # APTT Sodium Potassium Chloride Carbon Dioxide 17 L BUN 49 H Creatinine 1.10 H Est GFR (CKD-EPI)AfAm Est GFR (CKD-EPI)NonAf BUN/Creatinine Ratio Glucose 71 L Magnesium AST 38 H ALT Alkaline Phosphatase 240 H C-Reactive Protein Total Protein Albumin 2.5 L Globulin Albumin/Globulin Ratio Procalcitonin Assessment and Plan Assessment: Altered mental status due to metabolic encephalopathy (has episodes of hypoglycemia, elevated LFT's, had hyponatremia that resolved) and hypoxic enc ecphalopaty. Acute leukocytosis and the possibly due to. Pneumatic effusion on the left patient is on IV cefepime--leukocytosis is trending down Elevated liver function tests---trending Acute kidney injury--improving Acute hypoxic respiratory failure Recent non-STEMI Moderate persistent chronic asthma Hyperlipidemia Hypertension Previous history of bilateral pulmonary embolism History of GI bleed and has been off of anticoagulation since 2020 and declined to resume History of esophageal stricture with previous dilation Plan: I ordered a routine EEG rule out any underlying seizure or discharges Ordered ammonia level, vitamin B12, folate and TSH If mentation does not improve we'll pursue with MRI of the brain Daughter will like to pursue with PEG tube since patient not eating and not getting nutrition. ID and pulmonary team are on board We'll defer the rest of the medical management to primary team and other specialists The plan is discussed with her daughter who is at bedside. Thank you for the consultation Time with Patient: Greater than 30
--- NOTE | 2023-02-10 13:32 | P.PN ---
Subjective Progress Note Date: 02/10/23 I am seeing this patient in new consultation today 01/30/2023 in the emergency room for left sided pleuritic chest pain and effusion. Patient is a 87-year-old white female with past medical history significant for moderate persistent chronic bronchial asthma, hypertension, hyperlipidemia, gastroesophageal reflux disease, pulmonary embolism, colitis, esophageal stricture with previous dilatations, and is a nonsmoker. Patient came back to the emergency room yesterday morning after being just discharged the day prior. Patient was admitted back on January 23 for a non-ST elevation RI and exacerbation of systolic congestive heart failure. She did have a small to moderate left pleural effusion at that time measuring 7.7 cm, and no thoracentesis was performed due to the patient being on heparin. Her symptoms ultimately improved, and she was discharged back to her assisted living center. Apparently, the patient's chest pain worsened after discharge, and she came back to the emergency room. Patient is is currently sitting up on the stretcher, on 2 L nasal cannula, in no acute distress. The left-sided chest pain is painful to palpation and exacerbated by coughing. There is some associated shortness of breath especially on exertion. She denies any infectious symptoms such as fever, chills, cough, hemoptysis. Chest x-ray from yesterday shows persistent cardiomegaly with small to moderate size left pleural effusion and associated left mid to lower lung atelectasis and/or infiltrate, without significant change from previous chest x-ray. Patient's echocardiogram done on her recent admission showed a markedly decreased ejection fraction of 20-25% severe pulmonary hypertension with an RVSP of 75 mmHg, moderate to severe tricuspid regurgitation, and severe mitral regurgitation. CBC from yesterday shows a WBC count of 10.8, hemoglobin 12.4, hematocrit 39.8, platelets 241. BMP shows a sodium 135, potassium 4, chloride 90, serum CO2 34, BUN 44, creatinine 1.51, glucose 104. Troponin was low at 0.022. EKG shows sinus rhythm with a left bundle-branch block. Vital signs are stable at this time. The patient is seen today 01/31/2023 in follow-up in the intensive care unit. She is currently resting quite comfortably in bed. Awake and alert in no acute distress. Maintaining good O2 saturations in the 90s on 2 L/m per nasal cannula. No IV fluids. He did undergo an ultrasound-guided thoracentesis by interventional radiology yesterday with 350 ML's of clear yellow fluid removed. Follow-up chest x-ray revealed a repeat remaining small left pleural effusion. No pneumothorax. The fluid is exudative in nature with a total protein of 4.0 and LDH of 415. Cytology pending. She is continued on DuoNeb inhalations, Symbicort. Anticoagulated with Eliquis. Remains on oral diuretics. The patient is seen today 02/02/2023 in follow-up on selective care unit. She is awake and alert in no acute distress. Maintaining O2 saturations in the 90s on 2 L/m per nasal cannula. Afebrile. Hemodynamically stable. Denies any worsening shortness of breath, cough or congestion. Denies any chest pain. White count 16.6. Hemoglobin 11.8. Platelets 366. Sodium 131. Potassium 4.1. Bicarb 32. BUN 41. Creatinine 1.22. Glucose 83. Pleural fluid cultures pending. Cytology pending. She is continued on DuoNeb inhalations, Symbicort. Oral diuretics. Anticoagulated with Eliquis. The patient is seen today February 2023 in follow-up on the regular medical floor. She is quite obtunded today. Computed tomography scan of the brain without contrast revealed no acute intracranial hemorrhage or midline shift. There is mild diffuse cerebral atrophy and severe probable chronic small vessel ischemic changes redemonstrated. White count 13.3. Hemoglobin 11.3. Platelets 674. Sodium 138. Potassium 3.9. Bicarb 17. BUN 49. Creatinine 1.10. Glucose 71. AST 38. ALT 26. Ammonia level less than 9. She is continued on antibiotics in the form of cefepime. Remains on DuoNeb inhalations, Symbicort, remains on oral diuretics. Anticoagulated with Eliquis. Objective - Vital Signs Vital signs: Vital Signs Temp 97.4 F L 02/10/23 06:58 Pulse 76 02/10/23 09:09 Resp 21 02/10/23 06:58 BP 142/75 02/10/23 06:58 Pulse Ox 100 02/10/23 09:01 FiO2 Intake & Output 02/09/23 02/10/23 02/10/23 18:59 06:59 18:59 Output Total 400 Balance -400 Output: Urine 400 Other: Voiding Method Diaper External Catheter - Exam GENERAL EXAM: Arousable, altered frail 87-year-old female, on 2 L nasal cannula, in no apparent distress. HEAD: Normocephalic. EYES: Normal reaction of pupils, equal size. NOSE: Clear with pink turbinates. THROAT: No erythema or exudates. NECK: No masses, no JVD. CHEST: No chest wall deformity. LUNGS: Equal air entry with bilateral scattered rhonchi. CVS: S1 and S2 normal with no audible murmur, regular rhythm. ABDOMEN: No hepatosplenomegaly, normal bowel sounds, no guarding or rigidity. SPINE: No scoliosis or deformity SKIN: No rashes CENTRAL NERVOUS SYSTEM: Altered, arousable. No focal deficits, tone is normal in all 4 extremities. EXTREMITIES: There is no peripheral edema. No clubbing, no cyanosis. Peripheral pulses are intact. - Labs CBC & Chem 7: 02/10/23 07:07 02/10/23 07:07 Labs: Abnormal Lab Results - Last 24 Hours (Table) 02/10/23 02/10/23 Range/Units 07:07 07:07 WBC 13.3 H (3.8-10.6) k/uL Hgb 11.3 L (11.4-16.0) gm/dL MCHC 29.9 L (31.0-37.0) g/dL RDW 16.8 H (11.5-15.5) % Plt Count 674 H (150-450) k/uL Neutrophils # 11.2 H (1.3-7.7) k/uL Carbon Dioxide 17 L (22-30) mmol/L BUN 49 H (7-17) mg/dL Creatinine 1.10 H (0.52-1.04) mg/dL Glucose 71 L (74-99) mg/dL AST 38 H (14-36) U/L Alkaline Phosphatase 240 H (38-126) U/L Albumin 2.5 L (3.5-5.0) g/dL Microbiology - Last 24 Hours (Table) 02/04/23 12:38 Blood Culture - Final Blood Assessment and Plan Assessment: Altered mental status and poor oral intake. Computed tomography scan of the brain today 02/10/2023 revealed no acute intracranial processes. Neurology had been consulted. Suspect metabolic encephalopathy due to episodes of hypoglycemia, hyponatremia, elevated LFTs. Persistent left-sided pleural effusion. Status post ultrasound-guided thoracentesis 01/30/2023 with 350 ML's of yellow fluid return exudative with a protein of 4.0 and an LDH of 415. Cytology negative for malignancy. Acute exacerbation of systolic congestive heart failure, on recent echocardiogram found to have severely impaired left ventricular systolic function ejection fraction of 20% along with severe mitral and tricuspid regurgitation with severe pulmonary hypertension with an RSVP of 75 mmHg. Acute hypoxic respiratory failure secondary to above, currently on 2 L nasal cannula Atypical chest pain, possibly pleuritic in nature. ECG shows persistent left bundle branch block. Troponin 0.022. Acute kidney injury, creatinine improving currently 1.10 Recent non-ST elevation RI Moderate persistent chronic bronchial asthma, stable Hyperlipidemia Hypertension Osteoarthritis Previous history of bilateral pulmonary embolism in 2010 History of GI bleed and has been off anticoagulation since 2020 and declined to resume History of esophageal strictures with previous dilatation Plan: The patient was seen and evaluated Computed tomography scan of the brain, medications and labs reviewed Patient has become more altered and less responsive Neurology consulted Family considering PEG tube for nutritional support Prognosis is guarded Continue the current treatment plan We'll continue to follow I have personally seen and examined the patient, performed the documentation and the assessment and plan as written. Number of minutes spent on the visit: 10.
[2023-02-10] MEDS ORDERED: HYDROcodone/APAP 5-325MG 1 EACH TAB PO PRN (17:08)
--- NOTE | 2023-02-10 17:36 | P.PN ---
Subjective Progress Note Date: 02/10/23 Chase Min, is an 87-year-old female who presented to [facility] emergency room with a chief complaint of left-sided chest pain. Patient was admitted recently with similar symptoms on 01/23/2023, she was discharged on 01/28/2023. During that admission she had evidence of non-ST elevation myocardial infarction and evidence of acute exacerbation of systolic congestive heart failure, with evidence of cardiomyopathy with ejection fraction of 20-25%. Patient was treated medically and was discharged home yesterday, she returned today with worsening chest pain. She was evaluated in the emergency room vital examination on presentation revealed a temperature of 98.3 pulse 98 respiration 19 and blood pressure 130/76 pulse ox 95% on room air Laboratory data revealed a white blood count of 10.8 hemoglobin 12.4 platelet count 241 sodium 135 potassium 4.0 chloride 90 CO2 34 BUN 44 creatinine 1.51 troponin level was 0.0-2 AST and ALT are slightly elevated at 45 and 41 Testing in the emergency room revealed EKG done in the emergency room revealed sinus rhythm with left bundle branch block, chest x-ray done in the emergency room revealed cardiomegaly with small to moderate-sized left pleural effusion and associated left mid to lower lung atelectasis or infiltrate. Patient was admitted to medical floor for further evaluation and treatment. Past medical history is significant for recent history of non-ST elevation myocardial infarction, recent admission was acute systolic congestive heart failure exacerbation, cardiomyopathy with ejection fraction of 20-25%, underlying history of hypertension,, underlying history of hyperlipidemia, underlying history of osteoarthritis, underlying history of COPD, underlying history of esophageal stricture, underlying history of gastrointestinal bleeding, remote history of pulmonary embolism On review of systems patient was seen and examined in the emergency room she is alert and oriented 3 in no apparent distress there is no fever or chills no headache or dizziness she is still complaining of left sided chest pain no shortness of breath no cough no palpitation no nausea or vomiting no abdominal pain no diarrhea no blood in the stools no burning with urination no frequency or urgency and no hematuria. On 01/30/2023 patient was seen and examined in the ICU, she is alert and oriented 3 in no apparent distress, she is still complaining of chest pain and shortness of breath and occasional cough otherwise she denies any complaints there is no fever or chills no headache or dizziness no nausea or vomiting no abdominal pain no diarrhea no blood in the stools no burning with urination no frequency or urgency and no hematuria. She is scheduled for thoracentesis today. Prognosis is guarded will continue to follow closely. On 01/31/2023 patient currently in the ICU. Alert and oriented 3. Patient underwent thoracentesis yesterday 350 out. Per nursing staff patient went into atrial fibrillation this AM. This is new for patient. Per nursing staff cardiology was notified. Patient reports minimal improvement. Current signs temp 98.2. Heart rate 80, blood pressure 100/61 and a pulse ox of 96% on 2 L. Cardiology and pulmonary services are following On 02/01/2023 patient was seen and examined on the telemetry floor, she is alert and oriented 3 in no apparent distress, she is still complaining of cough and shortness of breath, she is also complaining of left sided drips pain otherwise she denies any complaints there is no fever or chills no headache or dizziness no chest pain, there is no nausea or vomiting no abdominal pain no diarrhea, no blood in the stools no burning with urination no frequency or urgency and no hematuria, there is no weakness or numbness in any of the extremities there is n o change in vision speech or gait. On 02/02/2023 patient is alert and oriented 3. Patient has been transitioned to oral Lasix. Respiratory rate 18, blood pressure 100/59. Will consult PT OT and social work services for discharge planning at this time patient denies chest pain or shortness breath. Patient denies nausea vomiting or diarrhea. Patient denies any urinary burning or frequency. On 02/03/2023 patient was seen and examined on the telemetry floor she is alert and oriented 3 in no apparent distress she is complaining of generalized weakness otherwise she denies any complaints shortness of breath improved at rest she is still having some shortness of breath with activity she is maintained on oxygen 2 L nasal cannula otherwise she denies any complaints there is no fever or chills no headache or dizziness no chest pain no cough no nausea or vomiting no abdominal pain no diarrhea and no urinary symptoms. Patient is improving gradually will assess possibility of discharge to rehab tomorrow versus going back to home. On 02/04/2023 patient was seen and examined on the medical floor she is alert and oriented in no distress she is still complaining of generalized weakness and complaining of occasional cough or shortness of breath has there is no fever or chills no headache or dizziness no chest pain no nausea or vomiting no abdominal pain no diarrhea and no urinary symptoms. White blood count is 16.5 with recheck chest x-ray, no clear evidence of infection at this time infectious disease consultation was requested. On 02/05/2023 patient is alert and oriented 3. Patient was started on Diflucan and nystatin per infectious disease. Labwork currently pending. Chest x-ray completed showing cardiomegaly with left pleural effusion findings modified 01/30/2023. Stool for C. diff negative. Cardiology pulmonary and infectious disease services are following. On 02/06/2023 patient was seen and examined on the telemetry floor she is alert and oriented 3 in no apparent distress there is no fever or chills no headache or dizziness no chest pain no shortness of breath no cough no nausea or vomiting no abdominal pain no diarrhea and no urinary symptoms. Her white blood count continues to increase, cause is not totally clear, infectious disease is following. Patient is not ready for discharge, will continue to follow closely. Potassium was elevated this morning, potassium supplement were discontinued and patient was given 1 dose of Kayexalate, will recheck labs in a.m. On 02/07/2023 patient is alert and oriented 3. Patient remains on IV cefepime. Labwork from today currently pending infectious disease services following. Patient denies chest pain or shortness of breath. Patient denies nausea vomiting or diarrhea. Patient denies any urinary burning or frequency. Current vital signs temp 96.8, heart rate 24th rest rate 16, blood pressure 109/56 and pulse ox 99% on 3 L On 02/08/2023 patient was seen and examined on the medical floor she is alert and oriented 3 in no apparent distress there is no fever or chills no headache or dizziness no chest pain no shortness of breath, she has occasional cough no nausea or vomiting no abdominal pain no diarrhea and no urinary symptoms. White blood count is down to 18,000, patient remains on Diflucan and cefepime, infectious disease following On 02/09/2023 patient is alert and oriented 3 patient is currently resting comfortably in bed denies chest pain. Denies any nausea vomiting or diarrhea. White blood cell improving to 13.2 discharge planning is in progress [facility]. Current vital signs temp 97.5 and 65 respiratory rate 20, blood pressure 118/67 with a pulse ox of 100% on 3 L On 02/10/2023 patient was seen and examined on the medical floor she is less alert today and nonverbal which is a significant change from her status yesterday, computed tomography scan of the brain was done and did not reveal any acute abnormality, neurology consultation was requested patient was seen by Dr. Kirkland, EEG was ordered, will repeat labs in a.m. Will follow closely. Patient is also followed by infectious disease she is maintained on IV antibiotics Objective - Vital Signs Vital signs: Vital Signs Temp 98.4 F 02/10/23 12:28 Pulse 61 02/10/23 12:28 Resp 17 02/10/23 12:28 BP 138/73 02/10/23 12:28 Pulse Ox 97 02/10/23 12:28 FiO2 Intake & Output 02/09/23 02/10/23 02/10/23 18:59 06:59 18:59 Output Total 400 300 Balance -400 -300 Output: Urine 400 300 Other: Voiding Method Diaper External Catheter - Exam In general patient is alert and oriented x 3 in no distress HEENT head normocephalic and atraumatic Neck is supple no JVD no goiter no lymphadenopathy no carotid bruit Chest examination is clear to auscultation no crackles no wheezing Cardiac exam reveals regular heart sounds S1 and S2 no gallops no murmurs Abdomen is soft nontender no organomegaly with normal bowel sounds Extremity exam reveals no edema no cyanosis or clubbing Neurological examination reveals no gross focal deficits - Labs CBC & Chem 7: 02/10/23 07:07 02/10/23 07:07 Labs: Abnormal Lab Results - Last 24 Hours (Table) 02/10/23 02/10/23 Range/Units 07:07 07:07 WBC 13.3 H (3.8-10.6) k/uL Hgb 11.3 L (11.4-16.0) gm/dL MCHC 29.9 L (31.0-37.0) g/dL RDW 16.8 H (11.5-15.5) % Plt Count 674 H (150-450) k/uL Neutrophils # 11.2 H (1.3-7.7) k/uL Carbon Dioxide 17 L (22-30) mmol/L BUN 49 H (7-17) mg/dL Creatinine 1.10 H (0.52-1.04) mg/dL Glucose 71 L (74-99) mg/dL AST 38 H (14-36) U/L Alkaline Phosphatase 240 H (38-126) U/L Albumin 2.5 L (3.5-5.0) g/dL Microbiology - Last 24 Hours (Table) 02/04/23 12:38 Blood Culture - Final Blood Assessment and Plan Plan: New episodes of chest pain Recent non-ST elevation myocardial infarction Recent admission was acute exacerbation of congestive heart failure Cardiomyopathy likely ischemic, with ejection fraction of 20-25% Leukocytosis. Infectious disease service is consulted Thrush. Patient started on nystatin and Diflucan Small bilateral pleural effusion, patient was evaluated by pulmonary during the last admission, no intervention was necessary. New-onset atrial fibrillation Underlying history of COPD Underlying history of hypertension Underlying history of hyperlipidemia Underlying history of osteoarthritis Previous history of esophageal stricture with history of dilatation Previous history of gastrointestinal bleeding Remote history of pulmonary embolism At this time patient will be readmitted to telemetry floor Home medications reviewed and reordered Cardiology, pulmonary and infectious disease services following PT OT and social and political studies professor consulted For DVT prophylaxis subcu Lovenox Prognosis is guarded will follow closely
--- NOTE | 2023-02-10 20:20 | EEG ---
ELECTROENCEPHALOGRAM REPORT CLINICAL HISTORY: This is an 87-year-old woman with altered mental status. The video EEG is obtained to evaluate for seizure and epileptiform activity. RELEVANT MEDICATION: The patient is not on any antiepileptic drugs. EEG TYPE: A routine 21-channel EEG is performed with video using the 10/20 electrode placement system. DESCRIPTION: The background consists of [id number] voltage predominantly of 2.5 to 3.5 nonrhythmic delta activity. At times, the background consists of diffuse theta activity. There is no physiological stage 2 sleep architecture. There is no focal slowing. There is diffuse anterior to posterior lag with triphasic morphology. Interictal and ictal is none. ACTIVATION PROCEDURE: Photic stimulation did not evoke a posterior driving response. There is no abnormality during the photic stimulation. Hyperventilation is not performed. CLINICAL INTERPRETATION: This is an abnormal routine EEG. The background slowing is suggestive of severe encephalopathy. The patient's background slowing and triphasic waves are likely due to toxic metabolic derangement. Otherwise, there is no focal slowing, epileptiform discharge, or seizure on the EEG. Clinical correlation is recommended. MMODL / IJN: [id number] / MTDD
[2023-02-10] MEDS: ATORVASTATIN 40 MG TAB PO SCH (23:39)
[2023-02-11] MEDS: CEFEPIME 2 GM in SODIUM CHLORIDE 0.9% 100 ML IVPB SCH ×3 (00:21→21:14)
[2023-02-11] MEDS: TOBRAMYCIN 0.3% OPHTH DROPS 5 ML BTL RIGHT EYE SCH ×6 (04:11→21:13)
[2023-02-11 07:57] LABS: Anisocytosis Slight; Basophils % (A) 0 %; Eosinophils # (A) 0.1 k/uL (0-0.7); Eosinophils % (A) 1 %; HGB 10.4 gm/dL (11.4-16.0); Hypochromasia Marked; Lymphocytes # (A) 1.4 k/uL (1.0-4.8); Lymphocytes % (A) 9 %; MCH 25.2 pg (25.0-35.0); MCHC 30.6 g/dL (31.0-37.0); MCV 82.4 fL (80.0-100.0); Mean Platelet Volume 7.8; Monocytes # (A) 0.5 k/uL (0-1.0); Monocytes % (A) 4 %; Neutrophils # (A) 12.5 k/uL (1.3-7.7); Neutrophils % (A) 86 %; Platelet Count 690 k/uL (150-450); RBC 4.12 m/uL (3.80-5.40); RDW 17.1 % (11.5-15.5); WBC 14.6 k/uL (3.8-10.6)
[2023-02-11 08:32] LABS: ALT 23 U/L (4-34); AST 32 U/L (14-36); African American GFR (CKD) 49 (>60 ml/min/1.73 sqM); Albumin 2.5 g/dL (3.5-5.0); Albumin/Globulin Ratio 0.6; Alkaline Phosphatase 223 U/L (38-126); Anion Gap 13 mmol/L; Blood Urea Nitrogen 50 mg/dL (7-17); Calcium 8.9 mg/dL (8.4-10.2); Carbon Dioxide 18 mmol/L (22-30); Chloride 109 mmol/L (98-107); Globulin 4.1 g/dL; Glucose 112 mg/dL (74-99); Non-African American GFR(CKD) 43 (>60 ml/min/1.73 sqM); Potassium 3.7 mmol/L (3.5-5.1); Sodium 140 mmol/L (137-145); Total Bilirubin 0.7 mg/dL (0.2-1.3); Total Protein 6.6 g/dL (6.3-8.2)
[2023-02-11] MEDS: FUROSEMIDE 40 MG TAB PO SCH (08:32)
[2023-02-11] MEDS: METOPROLOL TARTRATE 25 MG TAB PO SCH ×2 (08:32→21:09)
[2023-02-11] MEDS: FLUCONAZOLE 100 MG TAB PO SCH (08:32)
[2023-02-11] MEDS: NYSTATIN 100,000 UNIT/ML SUSP 500,000 UNIT/5 ML CUP PO SCH ×4 (08:32→21:12)
[2023-02-11] MEDS: APIXABAN 2.5 MG TABLET PO SCH (08:32)
[2023-02-11] MEDS: ASPIRIN 81 MG PO SCH (08:32)
[2023-02-11] MEDS: SYMBICORT 160-4.5 MCG INHALER INHALATION SCH ×2 (09:24→20:13)
[2023-02-11] MEDS: IPRATROPIUM-ALBUTEROL 3 ML NEB INHALATION SCH ×4 (09:24→20:13)
--- NOTE | 2023-02-11 14:11 | P.PN ---
Subjective Progress Note Date: 02/11/23 I am seeing this patient in new consultation today 01/30/2023 in the emergency room for left sided pleuritic chest pain and effusion. Patient is a 87-year-old white female with past medical history significant for moderate persistent chronic bronchial asthma, hypertension, hyperlipidemia, gastroesophageal reflux disease, pulmonary embolism, colitis, esophageal stricture with previous dilatations, and is a nonsmoker. Patient came back to the emergency room yesterday morning after being just discharged the day prior. Patient was admitted back on January 23 for a non-ST elevation LA and exacerbation of systolic congestive heart failure. She did have a small to moderate left pleural effusion at that time measuring 7.7 cm, and no thoracentesis was performed due to the patient being on heparin. Her symptoms ultimately improved, and she was discharged back to her assisted living center. Apparently, the patient's chest pain worsened after discharge, and she came back to the emergency room. Patient is is currently sitting up on the stretcher, on 2 L nasal cannula, in no acute distress. The left-sided chest pain is painful to palpation and exacerbated by coughing. There is some associated shortness of breath especially on exertion. She denies any infectious symptoms such as fever, chills, cough, hemoptysis. Chest x-ray from yesterday shows persistent cardiomegaly with small to moderate size left pleural effusion and associated left mid to lower lung atelectasis and/or infiltrate, without significant change from previous chest x-ray. Patient's echocardiogram done on her recent admission showed a markedly decreased ejection fraction of 20-25% severe pulmonary hypertension with an RVSP of 75 mmHg, moderate to severe tricuspid regurgitation, and severe mitral regurgitation. CBC from yesterday shows a WBC count of 10.8, hemoglobin 12.4, hematocrit 39.8, platelets 241. BMP shows a sodium 135, potassium 4, chloride 90, serum CO2 34, BUN 44, creatinine 1.51, glucose 104. Troponin was low at 0.022. EKG shows sinus rhythm with a left bundle-branch block. Vital signs are stable at this time. The patient is seen today 01/31/2023 in follow-up in the intensive care unit. She is currently resting quite comfortably in bed. Awake and alert in no acute distress. Maintaining good O2 saturations in the 90s on 2 L/m per nasal cannula. No IV fluids. He did undergo an ultrasound-guided thoracentesis by interventional radiology yesterday with 350 ML's of clear yellow fluid removed. Follow-up chest x-ray revealed a repeat remaining small left pleural effusion. No pneumothorax. The fluid is exudative in nature with a total protein of 4.0 and LDH of 415. Cytology pending. She is continued on DuoNeb inhalations, Symbicort. Anticoagulated with Eliquis. Remains on oral diuretics. The patient is seen today 02/02/2023 in follow-up on selective care unit. She is awake and alert in no acute distress. Maintaining O2 saturations in the 90s on 2 L/m per nasal cannula. Afebrile. Hemodynamically stable. Denies any worsening shortness of breath, cough or congestion. Denies any chest pain. White count 16.6. Hemoglobin 11.8. Platelets 366. Sodium 131. Potassium 4.1. Bicarb 32. BUN 41. Creatinine 1.22. Glucose 83. Pleural fluid cultures pending. Cytology pending. She is continued on DuoNeb inhalations, Symbicort. Oral diuretics. Anticoagulated with Eliquis. The patient is seen today February 2023 in follow-up on the regular medical floor. She is quite obtunded today. Computed tomography scan of the brain without contrast revealed no acute intracranial hemorrhage or midline shift. There is mild diffuse cerebral atrophy and severe probable chronic small vessel ischemic changes redemonstrated. White count 13.3. Hemoglobin 11.3. Platelets 674. Sodium 138. Potassium 3.9. Bicarb 17. BUN 49. Creatinine 1.10. Glucose 71. AST 38. ALT 26. Ammonia level less than 9. She is continued on antibiotics in the form of cefepime. Remains on DuoNeb inhalations, Symbicort, remains on oral diuretics. Anticoagulated with Eliquis. The patient is seen today 02/11/2023 in follow-up on the regular medical floor. She remains quite obtunded. Arousable but drifts back off easily. She was seen and evaluated by neurology yesterday who feels her symptoms are related to severe metabolic encephalopathy. EEG reveals background slowing is suggestive of severe encephalopathy. White count 14.6. Hemoglobin 10.4. Platelets 690. Sodium 140. Potassium 3.7. Bicarb 18. BUN 50. Creatinine 1.17. Glucose 112. She is continued on antibiotics in the form of cefepime. Remains on bronchodilators. Anticoagulated with Eliquis. Continued on oral diuretics. Minimal oral intake. Objective - Vital Signs Vital signs: Vital Signs Temp 97.9 F 02/11/23 07:11 Pulse 64 02/11/23 13:46 Resp 19 02/11/23 07:11 BP 132/71 02/11/23 07:11 Pulse Ox 98 02/11/23 09:27 FiO2 Intake & Output 02/10/23 02/11/23 02/11/23 18:59 06:59 18:59 Output Total 300 600 Balance -300 -600 Output: Urine 300 600 Other: Voiding Method External Catheter External Catheter - Exam GENERAL EXAM: Arousable, altered, frail, failing to thrive 87-year-old female, on 3 L nasal cannula, in no apparent distress. HEAD: Normocephalic. EYES: Normal reaction of pupils, equal size. NOSE: Clear with pink turbinates. THROAT: No erythema or exudates. NECK: No masses, no JVD. CHEST: No chest wall deformity. LUNGS: Equal air entry with bilateral scattered rhonchi. CVS: S1 and S2 normal with no audible murmur, regular rhythm. ABDOMEN: No hepatosplenomegaly, normal bowel sounds, no guarding or rigidity. SPINE: No scoliosis or deformity SKIN: No rashes CENTRAL NERVOUS SYSTEM: Altered, arousable. No focal deficits, tone is normal in all 4 extremities. EXTREMITIES: There is no peripheral edema. No clubbing, no cyanosis. Peripheral pulses are intact. - Labs CBC & Chem 7: 02/11/23 07:26 02/11/23 07:26 Labs: Abnormal Lab Results - Last 24 Hours (Table) 02/10/23 02/11/23 02/11/23 Range/Units 11:50 07:26 07:26 WBC 14.6 H (3.8-10.6) k/uL Hgb 10.4 L (11.4-16.0) gm/dL MCHC 30.6 L (31.0-37.0) g/dL RDW 17.1 H (11.5-15.5) % Plt Count 690 H (150-450) k/uL Neutrophils # 12.5 H (1.3-7.7) k/uL Chloride 109 H (98-107) mmol/L Carbon Dioxide 18 L (22-30) mmol/L BUN 50 H (7-17) mg/dL Creatinine 1.17 H (0.52-1.04) mg/dL Glucose 112 H (74-99) mg/dL Alkaline Phosphatase 223 H (38-126) U/L Albumin 2.5 L (3.5-5.0) g/dL Vitamin B12 1428.0 H pg/mL Microbiology - Last 24 Hours (Table) 02/04/23 12:38 Blood Culture - Final Blood Assessment and Plan Assessment: Altered mental status and poor oral intake. Failing to thrive. Computed tomography scan of the brain today 02/10/2023 revealed no acute intracranial processes. Neurology had been consulted. Suspect metabolic encephalopathy due to episodes of hypoglycemia, hyponatremia, elevated LFTs. EEG reveals background slowing secondary to severe encephalopathy. Persistent left-sided pleural effusion. Status post ultrasound-guided thoracentesis 01/30/2023 with 350 ML's of yellow fluid return exudative with a protein of 4.0 and an LDH of 415. Cytology negative for malignancy. Acute exacerbation of systolic congestive heart failure, on recent echocardiogram found to have severely impaired left ventricular systolic function ejection fraction of 20% along with severe mitral and tricuspid regurgitation with severe pulmonary hypertension with an RSVP of 75 mmHg. Acute hypoxic respiratory failure secondary to above, currently on 2 L nasal cannula Atypical chest pain, possibly pleuritic in nature. ECG shows persistent left bundle branch block. Troponin 0.022. Acute kidney injury, creatinine improving currently 1.17 Recent non-ST elevation LA Moderate persistent chronic bronchial asthma, stable Hyperlipidemia Hypertension Osteoarthritis Previous history of bilateral pulmonary embolism in 2010 History of GI bleed and has been off anticoagulation since 2020 and declined to resume History of esophageal strictures with previous dilatation Plan: The patient was seen and evaluated EEG, medications and labs reviewed Patient has become less responsive No oral intake, appearing dry Discontinue Lasix Add normal saline at 75 ML's per hour Family considering PEG tube for nutritional support Prognosis is guarded CODE STATUS should be addressed We'll continue to follow I have personally seen and examined the patient, performed the documentation and the assessment and plan as written. Number of minutes spent on the visit: 10.
[2023-02-11] MEDS: SODIUM CHLORIDE 0.9% 1,000 ML IV SCH ×2 (14:32→21:13)
--- NOTE | 2023-02-11 16:52 | P.PN ---
Subjective Progress Note Date: 02/11/23 Chase Min, is an 87-year-old female who presented to [facility] emergency room with a chief complaint of left-sided chest pain. Patient was admitted recently with similar symptoms on 01/23/2023, she was discharged on 01/28/2023. During that admission she had evidence of non-ST elevation myocardial infarction and evidence of acute exacerbation of systolic congestive heart failure, with evidence of cardiomyopathy with ejection fraction of 20-25%. Patient was treated medically and was discharged home yesterday, she returned today with worsening chest pain. She was evaluated in the emergency room vital examination on presentation revealed a temperature of 98.3 pulse 98 respiration 19 and blood pressure 130/76 pulse ox 95% on room air Laboratory data revealed a white blood count of 10.8 hemoglobin 12.4 platelet count 241 sodium 135 potassium 4.0 chloride 90 CO2 34 BUN 44 creatinine 1.51 troponin level was 0.0-2 AST and ALT are slightly elevated at 45 and 41 Testing in the emergency room revealed EKG done in the emergency room revealed sinus rhythm with left bundle branch block, chest x-ray done in the emergency room revealed cardiomegaly with small to moderate-sized left pleural effusion and associated left mid to lower lung atelectasis or infiltrate. Patient was admitted to medical floor for further evaluation and treatment. Past medical history is significant for recent history of non-ST elevation myocardial infarction, recent admission was acute systolic congestive heart failure exacerbation, cardiomyopathy with ejection fraction of 20-25%, underlying history of hypertension,, underlying history of hyperlipidemia, underlying history of osteoarthritis, underlying history of COPD, underlying history of esophageal stricture, underlying history of gastrointestinal bleeding, remote history of pulmonary embolism On review of systems patient was seen and examined in the emergency room she is alert and oriented 3 in no apparent distress there is no fever or chills no headache or dizziness she is still complaining of left sided chest pain no shortness of breath no cough no palpitation no nausea or vomiting no abdominal pain no diarrhea no blood in the stools no burning with urination no frequency or urgency and no hematuria. On 01/30/2023 patient was seen and examined in the ICU, she is alert and oriented 3 in no apparent distress, she is still complaining of chest pain and shortness of breath and occasional cough otherwise she denies any complaints there is no fever or chills no headache or dizziness no nausea or vomiting no abdominal pain no diarrhea no blood in the stools no burning with urination no frequency or urgency and no hematuria. She is scheduled for thoracentesis today. Prognosis is guarded will continue to follow closely. On 01/31/2023 patient currently in the ICU. Alert and oriented 3. Patient underwent thoracentesis yesterday 350 out. Per nursing staff patient went into atrial fibrillation this AM. This is new for patient. Per nursing staff cardiology was notified. Patient reports minimal improvement. Current signs temp 98.2. Heart rate 80, blood pressure 100/61 and a pulse ox of 96% on 2 L. Cardiology and pulmonary services are following On 02/01/2023 patient was seen and examined on the telemetry floor, she is alert and oriented 3 in no apparent distress, she is still complaining of cough and shortness of breath, she is also complaining of left sided drips pain otherwise she denies any complaints there is no fever or chills no headache or dizziness no chest pain, there is no nausea or vomiting no abdominal pain no diarrhea, no blood in the stools no burning with urination no frequency or urgency and no hematuria, there is no weakness or numbness in any of the extremities there is n o change in vision speech or gait. On 02/02/2023 patient is alert and oriented 3. Patient has been transitioned to oral Lasix. Respiratory rate 18, blood pressure 100/59. Will consult PT OT and social work services for discharge planning at this time patient denies chest pain or shortness breath. Patient denies nausea vomiting or diarrhea. Patient denies any urinary burning or frequency. On 02/03/2023 patient was seen and examined on the telemetry floor she is alert and oriented 3 in no apparent distress she is complaining of generalized weakness otherwise she denies any complaints shortness of breath improved at rest she is still having some shortness of breath with activity she is maintained on oxygen 2 L nasal cannula otherwise she denies any complaints there is no fever or chills no headache or dizziness no chest pain no cough no nausea or vomiting no abdominal pain no diarrhea and no urinary symptoms. Patient is improving gradually will assess possibility of discharge to rehab tomorrow versus going back to home. On 02/04/2023 patient was seen and examined on the medical floor she is alert and oriented in no distress she is still complaining of generalized weakness and complaining of occasional cough or shortness of breath has there is no fever or chills no headache or dizziness no chest pain no nausea or vomiting no abdominal pain no diarrhea and no urinary symptoms. White blood count is 16.5 with recheck chest x-ray, no clear evidence of infection at this time infectious disease consultation was requested. On 02/05/2023 patient is alert and oriented 3. Patient was started on Diflucan and nystatin per infectious disease. Labwork currently pending. Chest x-ray completed showing cardiomegaly with left pleural effusion findings modified 01/30/2023. Stool for C. diff negative. Cardiology pulmonary and infectious disease services are following. On 02/06/2023 patient was seen and examined on the telemetry floor she is alert and oriented 3 in no apparent distress there is no fever or chills no headache or dizziness no chest pain no shortness of breath no cough no nausea or vomiting no abdominal pain no diarrhea and no urinary symptoms. Her white blood count continues to increase, cause is not totally clear, infectious disease is following. Patient is not ready for discharge, will continue to follow closely. Potassium was elevated this morning, potassium supplement were discontinued and patient was given 1 dose of Kayexalate, will recheck labs in a.m. On 02/07/2023 patient is alert and oriented 3. Patient remains on IV cefepime. Labwork from today currently pending infectious disease services following. Patient denies chest pain or shortness of breath. Patient denies nausea vomiting or diarrhea. Patient denies any urinary burning or frequency. Current vital signs temp 96.8, heart rate 24th rest rate 16, blood pressure 109/56 and pulse ox 99% on 3 L On 02/08/2023 patient was seen and examined on the medical floor she is alert and oriented 3 in no apparent distress there is no fever or chills no headache or dizziness no chest pain no shortness of breath, she has occasional cough no nausea or vomiting no abdominal pain no diarrhea and no urinary symptoms. White blood count is down to 18,000, patient remains on Diflucan and cefepime, infectious disease following On 02/09/2023 patient is alert and oriented 3 patient is currently resting comfortably in bed denies chest pain. Denies any nausea vomiting or diarrhea. White blood cell improving to 13.2 discharge planning is in progress state [facility]. Current vital signs temp 97.5 and 65 respiratory rate 20, blood pressure 118/67 with a pulse ox of 100% on 3 L On 02/10/2023 patient was seen and examined on the medical floor she is less alert today and nonverbal which is a significant change from her status yesterday, computed tomography scan of the brain was done and did not reveal any acute abnormality, neurology consultation was requested patient was seen by Dr. Kirkland, EEG was ordered, will repeat labs in a.m. Will follow closely. Patient is also followed by infectious disease she is maintained on IV antibiotics On 02/11/2023 patient was seen and examined on the medical she is obtunded nonverbal in no apparent distress distress, she is unable to take any oral intake, she was started on IV fluid normal saline at 75 mL per hour, patient is not able to take anticoagulation pills, she will be switched to subcu Lovenox 1 mg/kg grams twice a day until she is able to take her medications, family showed interest in PEG tube for feeding, will consult surgery for tube placement, family will need to come in and signed consent form. Prognosis is guarded. Objective - Vital Signs Vital signs: Vital Signs Temp 97.6 F 02/11/23 13:06 Pulse 70 02/11/23 15:55 Resp 18 02/11/23 13:06 BP 137/72 02/11/23 13:06 Pulse Ox 99 02/11/23 13:06 FiO2 Intake & Output 02/10/23 02/11/23 02/11/23 18:59 06:59 18:59 Output Total 300 600 1 Balance -300 -600 -1 Weight 50 kg Output: Urine 300 600 Stool 1 Other: Voiding Method External Catheter External Catheter External Catheter - Exam In general patient is alert and oriented x 3 in no distress HEENT head normocephalic and atraumatic Neck is supple no JVD no goiter no lymphadenopathy no carotid bruit Chest examination is clear to auscultation no crackles no wheezing Cardiac exam reveals regular heart sounds S1 and S2 no gallops no murmurs Abdomen is soft nontender no organomegaly with normal bowel sounds Extremity exam reveals no edema no cyanosis or clubbing Neurological examination reveals no gross focal deficits - Labs CBC & Chem 7: 02/11/23 07:26 02/11/23 07:26 Labs: Abnormal Lab Results - Last 24 Hours (Table) 02/11/23 02/11/23 Range/Units 07:26 07:26 WBC 14.6 H (3.8-10.6) k/uL Hgb 10.4 L (11.4-16.0) gm/dL MCHC 30.6 L (31.0-37.0) g/dL RDW 17.1 H (11.5-15.5) % Plt Count 690 H (150-450) k/uL Neutrophils # 12.5 H (1.3-7.7) k/uL Chloride 109 H (98-107) mmol/L Carbon Dioxide 18 L (22-30) mmol/L BUN 50 H (7-17) mg/dL Creatinine 1.17 H (0.52-1.04) mg/dL Glucose 112 H (74-99) mg/dL Alkaline Phosphatase 223 H (38-126) U/L Albumin 2.5 L (3.5-5.0) g/dL Assessment and Plan Plan: New episodes of chest pain Recent non-ST elevation myocardial infarction Recent admission was acute exacerbation of congestive heart failure Cardiomyopathy likely ischemic, with ejection fraction of 20-25% Leukocytosis. Infectious disease service is consulted Mental status changes, neurology consultation requested, EEG done during this admission, likely metabolic encephalopathy Thrush. Patient started on nystatin and Diflucan Small bilateral pleural effusion, patient was evaluated by pulmonary during the last admission, no intervention was necessary. New-onset atrial fibrillation Underlying history of COPD Underlying history of hypertension Underlying history of hyperlipidemia Underlying history of osteoarthritis Previous history of esophageal stricture with history of dilatation Previous history of gastrointestinal bleeding Remote history of pulmonary embolism At this time patient will be readmitted to telemetry floor Home medications reviewed and reordered Cardiology, pulmonary and infectious disease services following PT OT and social media campaign manager consulted For DVT prophylaxis subcu Lovenox Prognosis is guarded will follow closely
--- NOTE | 2023-02-11 16:58 | P.PN ---
Subjective Progress Note Date: 02/11/23 The patient is seen at bedside and per her daughter she remains about the same. The daughter wants her to have PEG tube to have nutrition. Objective - Vital Signs Vital signs: Vital Signs Temp 97.6 F 02/11/23 13:06 Pulse 70 02/11/23 15:55 Resp 18 02/11/23 13:06 BP 137/72 02/11/23 13:06 Pulse Ox 99 02/11/23 13:06 FiO2 Intake & Output 02/10/23 02/11/23 02/11/23 18:59 06:59 18:59 Output Total 300 600 1 Balance -300 -600 -1 Weight 50 kg Output: Urine 300 600 Stool 1 Other: Voiding Method External Catheter External Catheter External Catheter - Exam Neuro: Limited because of her condition. Is drowsy but is awakeable to voice. No facial weakness. Not following commands or verbalizing. Moving bilateral extremities on own spontanously. Some other workup during his hospital visit consisted of: Patient is afebrile so far. Initial white blood cell is 10.8 thousand and got as high as 20 and 3000 and currently is 13,000. Then was as high as 1.25 currently is 1.10. Calcium as within normal limits. Patient has episode of hypoglycemia in the 60s. AST was in 167 currently is 38 and ALT was as high as an 55 currently is resolved Folate is 10.6 Vital B12 was 1428 Ammonia level is less than 9 CT of the head on 02/10/2023 is reported as no acute intracranial hemorrhage or midline shift. There is mild diffuse cerebral atrophy and severe probable chronic small vessel ischemic changes redemonstrated. No significant change from most recent prior CT. I personally reviewed the CT and I agree with the report in addition I feel the patient has very small lacunae is on the bilateral basal ganglia left more than the right that is appreciable. EEG is abnormal. The brachial slowing suggestive of severe encephalopathy. The patient background slowing and triphasic waves are likely due to toxic metabolic derangement. Otherwise there is no focal slowing, epileptiform discharges or seizure on the EEG. - Labs CBC & Chem 7: 02/11/23 07:26 02/11/23 07:26 Labs: Abnormal Lab Results - Last 24 Hours (Table) 02/11/23 02/11/23 Range/Units 07: 07:26 WBC 14.6 H (3.8-10.6) k/uL Hgb 10.4 L (11.4-16.0) gm/dL MCHC 30.6 L (31.0-37.0) g/dL RDW 17.1 H (11.5-15.5) % Plt Count 690 H (150-450) k/uL Neutrophils # 12.5 H (1.3-7.7) k/uL Chloride 109 H (98-107) mmol/L Carbon Dioxide 18 L (22-30) mmol/L BUN 50 H (7-17) mg/dL Creatinine 1.17 H (0.52-1.04) mg/dL Glucose 112 H (74-99) mg/dL Alkaline Phosphatase 223 H (38-126) U/L Albumin 2.5 L (3.5-5.0) g/dL Assessment and Plan Assessment: Altered mental status due to toxic-metabolic encephalopathy (has episodes of hypoglycemia, elevated LFT's, had hyponatremia that resolved) and hypoxic encecphalopaty. Acute leukocytosis and the possibly due to. Pneumatic effusion on the left sourav ent is on IV cefepime--leukocytosis is trending down Elevated liver function tests---trending Acute kidney injury--improving Acute hypoxic respiratory failure Recent non-STEMI Moderate persistent chronic asthma Hyperlipidemia Hypertension Previous history of bilateral pulmonary embolism History of GI bleed and has been off of anticoagulation since 2020 and declined to resume History of esophageal stricture with previous dilation Plan: EEG is abnormal. Has severe encephalopathy and triphasic waves due to toxic- metabolic derangement. Otherwise no focal slowing, epileptiform discharges or seizure. If mentation does not improve we'll pursue with MRI of the brain Daughter will like to pursue with PEG tube since patient not eating and not getting nutrition. ID and pulmonary team are on board We'll defer the rest of the medical management to primary team and other specialists The plan is discussed with her daughter who is at bedside. Time with Patient: Less than 30
[2023-02-11 20:34] LABS: Glucose,Whole Blood 123 mg/dL (70-110)
[2023-02-11] MEDS: ATORVASTATIN 40 MG TAB PO SCH (21:09)
[2023-02-11] MEDS: ENOXAPARIN 40 MG/0.4 ML SYRINGE SQ SCH (21:13)
--- NOTE | 2023-02-11 22:57 | P.PN ---
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 patient also have a history of severe LV dysfunction with EF of 20-25% presenting to the hospital on 01/29/2023 for evaluation of left-sided chest pain,atient did have a chest x-ray with evidence of moderate left-sided effusion s/p thoracocentesis on 01/30/2023 , fluid culture had been negative so far did have elevated white count prompting this infectious disease consultation On today's evaluation her that is 02/10/2023 the patient continues to be afebrile, the patient is breathing comfortably on 3 L nasal cannula oxygen, the patient is slightly lethargic today and not a good historian no vomiting or diarrhea has been reported by the nursing staff Objective - Vital Signs Vital signs: Vital Signs Temp 97.4 F L 02/10/23 06:58 Pulse 76 02/10/23 09:09 Resp 21 02/10/23 06:58 BP 142/75 02/10/23 06:58 Pulse Ox 100 02/10/23 09:01 FiO2 Intake & Output 02/09/23 02/10/23 02/10/23 18:59 06:59 18:59 Output Total 400 Balance -400 Output: Urine 400 Other: Voiding Method Diaper External Catheter - Exam GENERAL DESCRIPTION: An elderly female lying in bed in no distress RESPIRATORY SYSTEM: Unlabored breathing , coarse breath sounds at bases HEART: S1 S2 regular rate and rhythm , ABDOMEN: Soft , no tenderness EXTREMITIES: No edema feet - Labs CBC & Chem 7: 02/11/23 07:26 02/11/23 07:26 Labs: Abnormal Lab Results - Last 24 Hours (Table) 02/10/23 02/10/23 Range/Units 07:07 07:07 WBC 13.3 H (3.8-10.6) k/uL Hgb 11.3 L (11.4-16.0) gm/dL MCHC 29.9 L (31.0-37.0) g/dL RDW 16.8 H (11.5-15.5) % Plt Count 674 H (150-450) k/uL Neutrophils # 11.2 H (1.3-7.7) k/uL Carbon Dioxide 17 L (22-30) mmol/L BUN 49 H (7-17) mg/dL Creatinine 1.10 H (0.52-1.04) mg/dL Glucose 71 L (74-99) mg/dL AST 38 H (14-36) U/L Alkaline Phosphatase 240 H (38-126) U/L Albumin 2.5 L (3.5-5.0) g/dL Microbiology - Last 24 Hours (Table) 02/04/23 12:38 Blood Culture - Final Blood Assessment and Plan (1) Leukocytosis Current Visit: Yes Status: Acute Code(s): D72.829 - ELEVATED WHITE BLOOD CELL COUNT, UNSPECIFIED SNOMED Code(s): 311682986 Plan: 1patient with elevated white count and this patient presented to hospital about a week ago with left-sided chest pain noticed to have left-sided effusion status post thoracocentesis however does culture has been negative patient did not have any fever during this admission and has not received any steroids patient complaining of diarrhea source of elevated white count possible C. difficile versus thrush 2-patient stool for C. difficile came back negative 3Patient did have elevated CRP and a mildly elevated procalcitonin 4-patient did have a CT of the chest concerning for possible loculated effusion on the left-sided 5-patient white count is currently at 13,000 Pt will continue with cefepime and monitor clinical course closely Time with Patient: Less than 30
--- NOTE | 2023-02-11 22:58 | P.PN ---
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 patient also have a history of severe LV dysfunction with EF of 20-25% presenting to the hospital on 01/29/2023 for evaluation of left-sided chest pain,atient did have a chest x-ray with evidence of moderate left-sided effusion s/p thoracocentesis on 01/30/2023 , fluid culture had been negative so far did have elevated white count prompting this infectious disease consultation On today's evaluation her that is 02/11/2023 the patient remains to be afebrile, the patient is breathing comfortably on 3 L nasal cannula oxygen, the patient is lethargic and did not answer any question, no vomiting or diarrhea has been reported by the nursing staff Objective - Vital Signs Vital signs: Vital Signs Temp 97.9 F 02/11/23 07:11 Pulse 72 02/11/23 09:35 Resp 19 02/11/23 07:11 BP 132/71 02/11/23 07:11 Pulse Ox 98 02/11/23 09:27 FiO2 Intake & Output 02/10/23 02/11/23 02/11/23 18:59 06:59 18:59 Output Total 300 600 Balance -300 -600 Output: Urine 300 600 Other: Voiding Method External Catheter External Catheter - Exam GENERAL DESCRIPTION: An elderly female lying in bed in no distress RESPIRATORY SYSTEM: Unlabored breathing , coarse breath sounds at bases HEART: S1 S2 regular rate and rhythm , ABDOMEN: Soft , no tenderness EXTREMITIES: No edema feet - Labs CBC & Chem 7: 02/11/23 07:26 02/11/23 07:26 Labs: Abnormal Lab Results - Last 24 Hours (Table) 02/10/23 02/11/23 02/11/23 Range/Units 11:50 07:26 07:26 WBC 14.6 H (3.8-10.6) k/uL Hgb 10.4 L (11.4-16.0) gm/dL MCHC 30.6 L (31.0-37.0) g/dL RDW 17.1 H (11.5-15.5) % Plt Count 690 H (150-450) k/uL Neutrophils # 12.5 H (1.3-7.7) k/uL Chloride 109 H (98-107) mmol/L Carbon Dioxide 18 L (22-30) mmol/L BUN 50 H (7-17) mg/dL Creatinine 1.17 H (0.52-1.04) mg/dL Glucose 112 H (74-99) mg/dL Alkaline Phosphatase 223 H (38-126) U/L Albumin 2.5 L (3.5-5.0) g/dL Vitamin B12 1428.0 H pg/mL Microbiology - Last 24 Hours (Table) 02/04/23 12:38 Blood Culture - Final Blood Assessment and Plan (1) Leukocytosis Current Visit: Yes Status: Acute Code(s): D72.829 - ELEVATED WHITE BLOOD CELL COUNT, UNSPECIFIED SNOMED Code(s): 927653985 Plan: 1patient with elevated white count and this patient presented to hospital about a week ago with left-sided chest pain noticed to have left-sided effusion status post thoracocentesis however does culture has been negative patient did not have any fever during this admission and has not received any steroids patient complaining of diarrhea source of elevated white count possible C. difficile versus thrush 2-patient stool for C. difficile came back negative 3Patient did have elevated CRP and a mildly elevated procalcitonin 4-patient did have a CT of the chest concerning for possible loculated effusion on the left-sided 5-patient white count is currently at slightly up to 14,000 today, the patient will continue with cefepime , daughter at the bedside and multiple questions were answered Time with Patient: Less than 30
[2023-02-12] MEDS: TOBRAMYCIN 0.3% OPHTH DROPS 5 ML BTL RIGHT EYE SCH ×6 (00:05→20:42)
[2023-02-12 01:46] LABS: Glucose,Whole Blood 113 mg/dL (70-110)
[2023-02-12 06:04] LABS: Glucose,Whole Blood 113 mg/dL (70-110)
[2023-02-12] MEDS: IPRATROPIUM-ALBUTEROL 3 ML NEB INHALATION SCH ×4 (07:55→21:36)
[2023-02-12] MEDS: SYMBICORT 160-4.5 MCG INHALER INHALATION SCH ×2 (07:56→21:36)
[2023-02-12] MEDS: METOPROLOL TARTRATE 25 MG TAB PO SCH ×2 (09:07→20:45)
[2023-02-12] MEDS: FLUCONAZOLE 100 MG TAB PO SCH (09:07)
[2023-02-12] MEDS: CEFEPIME 2 GM in SODIUM CHLORIDE 0.9% 100 ML IVPB SCH ×2 (09:07→20:43)
[2023-02-12] MEDS: ASPIRIN 81 MG PO SCH (09:07)
[2023-02-12] MEDS: NYSTATIN 100,000 UNIT/ML SUSP 500,000 UNIT/5 ML CUP PO SCH ×4 (09:07→20:46)
[2023-02-12] MEDS: ENOXAPARIN 40 MG/0.4 ML SYRINGE SQ SCH (09:07)
[2023-02-12 09:43] LABS: ALT 22 U/L (4-34); AST 30 U/L (14-36); African American GFR (CKD) 51 (>60 ml/min/1.73 sqM); Albumin 2.6 g/dL (3.5-5.0); Albumin/Globulin Ratio 0.6; Alkaline Phosphatase 213 U/L (38-126); Anion Gap 9 mmol/L; Blood Urea Nitrogen 53 mg/dL (7-17); Carbon Dioxide 21 mmol/L (22-30); Chloride 114 mmol/L (98-107); Globulin 4.4 g/dL; Glucose 109 mg/dL (74-99); Non-African American GFR(CKD) 44 (>60 ml/min/1.73 sqM); Potassium 3.8 mmol/L (3.5-5.1); Sodium 144 mmol/L (137-145); Total Bilirubin 0.6 mg/dL (0.2-1.3)
[2023-02-12 09:53] LABS: Anisocytosis Slight; Basophils % (A) 0 %; Eosinophils # (A) 0.1 k/uL (0-0.7); Eosinophils % (A) 1 %; HCT 35.3 % (34.0-46.0); HGB 10.3 gm/dL (11.4-16.0); Hypochromasia Marked; Lymphocytes # (A) 1.4 k/uL (1.0-4.8); Lymphocytes % (A) 11 %; MCH 24.4 pg (25.0-35.0); MCHC 29.2 g/dL (31.0-37.0); MCV 83.5 fL (80.0-100.0); Mean Platelet Volume 8.8; Monocytes # (A) 0.5 k/uL (0-1.0); Monocytes % (A) 4 %; Neutrophils % (A) 83 %; Platelet Count 613 k/uL (150-450); RBC 4.23 m/uL (3.80-5.40); RDW 17.3 % (11.5-15.5); WBC 13.4 k/uL (3.8-10.6)
[2023-02-12 10:06] LABS: C Reactive Protein 8.9 mg/dL (<1.0)
--- NOTE | 2023-02-12 10:37 | MR ---
EXAMINATION TYPE: MR brain wo con DATE OF EXAM: 02/12/2023 COMPARISON: CT scan 02/10/2023 HISTORY: Altered mental status. TECHNIQUE: T1-weighted sagittal, T2, FLAIR, and diffusion axial, and T2 coronal coronal views of the brain are submitted. FINDINGS: There is no evidence of acute ischemia. The ventricles, basal cisterns, and sulci overlying the conv exities are consistent with moderate degenerative change. Diffuse areas of abnormal signal throughout the white matter are nonspecific. There is no mass effect. Areas of abnormal signal involving the basal ganglia compatible with ischemic change. Craniocervical junction maintained. Sella turcica has a normal appearance. Orbits are symmetric. Sinuses are clear. Mastoid air cells are clear. No cerebellopontine angle mass. There is a nodular area of signal void in the right and a bifurcation measuring 3.6 mm. IMPRESSION: 1. No acute intracranial process. 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 2. There is moderate degenerative rather extensive nonspecific white matter change most low as ischem ia.
--- NOTE | 2023-02-12 11:17 | P.PN ---
Subjective Progress Note Date: 02/12/23 Chase Min, is an 87-year-old female who presented to [facility] emergency room with a chief complaint of left-sided chest pain. Patient was admitted recently with similar symptoms on 01/23/2023, she was discharged on 01/28/2023. During that admission she had evidence of non-ST elevation myocardial infarction and evidence of acute exacerbation of systolic congestive heart failure, with evidence of cardiomyopathy with ejection fraction of 20-25%. Patient was treated medically and was discharged home yesterday, she returned today with worsening chest pain. She was evaluated in the emergency room vital examination on presentation revealed a temperature of 98.3 pulse 98 respiration 19 and blood pressure 130/76 pulse ox 95% on room air Laboratory data revealed a white blood count of 10.8 hemoglobin 12.4 platelet count 241 sodium 135 potassium 4.0 chloride 90 CO2 34 BUN 44 creatinine 1.51 troponin level was 0.0-2 AST and ALT are slightly elevated at 45 and 41 Testing in the emergency room revealed EKG done in the emergency room revealed sinus rhythm with left bundle branch block, chest x-ray done in the emergency room revealed cardiomegaly with small to moderate-sized left pleural effusion and associated left mid to lower lung atelectasis or infiltrate. Patient was admitted to medical floor for further evaluation and treatment. Past medical history is significant for recent history of non-ST elevation myocardial infarction, recent admission was acute systolic congestive heart failure exacerbation, cardiomyopathy with ejection fraction of 20-25%, underlying history of hypertension,, underlying history of hyperlipidemia, underlying history of osteoarthritis, underlying history of COPD, underlying history of esophageal stricture, underlying history of gastrointestinal bleeding, remote history of pulmonary embolism On review of systems patient was seen and examined in the emergency room she is alert and oriented 3 in no apparent distress there is no fever or chills no headache or dizziness she is still complaining of left sided chest pain no shortness of breath no cough no palpitation no nausea or vomiting no abdominal pain no diarrhea no blood in the stools no burning with urination no frequency or urgency and no hematuria. On 01/30/2023 patient was seen and examined in the ICU, she is alert and oriented 3 in no apparent distress, she is still complaining of chest pain and shortness of breath and occasional cough otherwise she denies any complaints there is no fever or chills no headache or dizziness no nausea or vomiting no abdominal pain no diarrhea no blood in the stools no burning with urination no frequency or urgency and no hematuria. She is scheduled for thoracentesis today. Prognosis is guarded will continue to follow closely. On 01/31/2023 patient currently in the ICU. Alert and oriented 3. Patient underwent thoracentesis yesterday 350 out. Per nursing staff patient went into atrial fibrillation this AM. This is new for patient. Per nursing staff cardiology was notified. Patient reports minimal improvement. Current signs temp 98.2. Heart rate 80, blood pressure 100/61 and a pulse ox of 96% on 2 L. Cardiology and pulmonary services are following On 02/01/2023 patient was seen and examined on the telemetry floor, she is alert and oriented 3 in no apparent distress, she is still complaining of cough and shortness of breath, she is also complaining of left sided drips pain otherwise she denies any complaints there is no fever or chills no headache or dizziness no chest pain, there is no nausea or vomiting no abdominal pain no diarrhea, no blood in the stools no burning with urination no frequency or urgency and no hematuria, there is no weakness or numbness in any of the extremities there is n o change in vision speech or gait. On 02/02/2023 patient is alert and oriented 3. Patient has been transitioned to oral Lasix. Respiratory rate 18, blood pressure 100/59. Will consult PT OT and social work services for discharge planning at this time patient denies chest pain or shortness breath. Patient denies nausea vomiting or diarrhea. Patient denies any urinary burning or frequency. On 02/03/2023 patient was seen and examined on the telemetry floor she is alert and oriented 3 in no apparent distress she is complaining of generalized weakness otherwise she denies any complaints shortness of breath improved at rest she is still having some shortness of breath with activity she is maintained on oxygen 2 L nasal cannula otherwise she denies any complaints there is no fever or chills no headache or dizziness no chest pain no cough no nausea or vomiting no abdominal pain no diarrhea and no urinary symptoms. Patient is improving gradually will assess possibility of discharge to rehab tomorrow versus going back to home. On 02/04/2023 patient was seen and examined on the medical floor she is alert and oriented in no distress she is still complaining of generalized weakness and complaining of occasional cough or shortness of breath has there is no fever or chills no headache or dizziness no chest pain no nausea or vomiting no abdominal pain no diarrhea and no urinary symptoms. White blood count is 16.5 with recheck chest x-ray, no clear evidence of infection at this time infectious disease consultation was requested. On 02/05/2023 patient is alert and oriented 3. Patient was started on Diflucan and nystatin per infectious disease. Labwork currently pending. Chest x-ray completed showing cardiomegaly with left pleural effusion findings modified 01/30/2023. Stool for C. diff negative. Cardiology pulmonary and infectious disease services are following. On 02/06/2023 patient was seen and examined on the telemetry floor she is alert and oriented 3 in no apparent distress there is no fever or chills no headache or dizziness no chest pain no shortness of breath no cough no nausea or vomiting no abdominal pain no diarrhea and no urinary symptoms. Her white blood count continues to increase, cause is not totally clear, infectious disease is following. Patient is not ready for discharge, will continue to follow closely. Potassium was elevated this morning, potassium supplement were discontinued and patient was given 1 dose of Kayexalate, will recheck labs in a.m. On 02/07/2023 patient is alert and oriented 3. Patient remains on IV cefepime. Labwork from today currently pending infectious disease services following. Patient denies chest pain or shortness of breath. Patient denies nausea vomiting or diarrhea. Patient denies any urinary burning or frequency. Current vital signs temp 96.8, heart rate 24th rest rate 16, blood pressure 109/56 and pulse ox 99% on 3 L On 02/08/2023 patient was seen and examined on the medical floor she is alert and oriented 3 in no apparent distress there is no fever or chills no headache or dizziness no chest pain no shortness of breath, she has occasional cough no nausea or vomiting no abdominal pain no diarrhea and no urinary symptoms. White blood count is down to 18,000, patient remains on Diflucan and cefepime, infectious disease following On 02/09/2023 patient is alert and oriented 3 patient is currently resting comfortably in bed denies chest pain. Denies any nausea vomiting or diarrhea. White blood cell improving to 13.2 discharge planning is in progress state [facility]. Current vital signs temp 97.5 and 65 respiratory rate 20, blood pressure 118/67 with a pulse ox of 100% on 3 L On 02/10/2023 patient was seen and examined on the medical floor she is less alert today and nonverbal which is a significant change from her status yesterday, computed tomography scan of the brain was done and did not reveal any acute abnormality, neurology consultation was requested patient was seen by Dr. Kirkland, EEG was ordered, will repeat labs in a.m. Will follow closely. Patient is also followed by infectious disease she is maintained on IV antibiotics On 02/11/2023 patient was seen and examined on the medical she is obtunded nonverbal in no apparent distress distress, she is unable to take any oral intake, she was started on IV fluid normal saline at 75 mL per hour, patient is not able to take anticoagulation pills, she will be switched to subcu Lovenox 1 mg/kg grams twice a day until she is able to take her medications, family showed interest in PEG tube for feeding, will consult surgery for tube placement, family will need to come in and signed consent form. Prognosis is guarded. On 02/12/2023 patient remains tender nonverbal in no apparent distress. MRI of the brain has been ordered per neurology services. Family to decide about PEG tube placement apparently per nursing staff the refused NG placement. Patient remains on cefepime and Diflucan white blood cell slightly improved patient remains on subcu Lovenox. Objective - Vital Signs Vital signs: Vital Signs Temp 97.8 F 02/12/23 07:21 Pulse 88 02/12/23 08:09 Resp 18 02/12/23 07:21 BP 129/80 02/12/23 07:21 Pulse Ox 98 02/12/23 08:00 FiO2 Intake & Output 02/11/23 02/12/23 02/12/23 18:59 06:59 18:59 Output Total 1 400 Balance -1 -400 Weight 50 kg 49 kg Output: Urine 400 Stool 1 Other: Voiding Method External Catheter External Catheter - Exam In general patient is alert and oriented x 3 in no distress HEENT head normocephalic and atraumatic Neck is supple no JVD no goiter no lymphadenopathy no carotid bruit Chest examination is clear to auscultation no crackles no wheezing Cardiac exam reveals regular heart sounds S1 and S2 no gallops no murmurs Abdomen is soft nontender no organomegaly with normal bowel sounds Extremity exam reveals no edema no cyanosis or clubbing Neurological examination reveals no gross focal deficits - Labs CBC & Chem 7: 02/12/23 08:11 02/12/23 08:11 Labs: Abnormal Lab Results - Last 24 Hours (Table) 02/11/23 02/12/23 02/12/23 Range/Units 20:33 01:44 06:02 WBC (3.8-10.6) k/uL Hgb (11.4-16.0) gm/dL MCH (25.0-35.0) pg MCHC (31.0-37.0) g/dL RDW (11.5-15.5) % Plt Count (150-450) k/uL Neutrophils # (1.3-7.7) k/uL Chloride (98-107) mmol/L Carbon Dioxide (22-30) mmol/L BUN (7-17) mg/dL Creatinine (0.52-1.04) mg/dL Glucose (74-99) mg/dL POC Glucose (mg/dL) 123 H 113 H 113 H (70-110) mg/dL Alkaline Phosphatase (38-126) U/L C-Reactive Protein (<1.0) mg/dL Albumin (3.5-5.0) g/dL 02/12/23 02/12/23 Range/Units 08:11 08:11 WBC 13.4 H (3.8-10.6) k/uL Hgb 10.3 L (11.4-16.0) gm/dL MCH 24.4 L (25.0-35.0) pg MCHC 29.2 L (31.0-37.0) g/dL RDW 17.3 H (11.5-15.5) % Plt Count 613 H (150-450) k/uL Neutrophils # 11.0 H (1.3-7.7) k/uL Chloride 114 H (98-107) mmol/L Carbon Dioxide 21 L (22-30) mmol/L BUN 53 H (7-17) mg/dL Creatinine 1.14 H (0.52-1.04) mg/dL Glucose 109 H (74-99) mg/dL POC Glucose (mg/dL) (70-110) mg/dL Alkaline Phosphatase 213 H (38-126) U/L C-Reactive Protein 8.9 H (<1.0) mg/dL Albumin 2.6 L (3.5-5.0) g/dL Assessment and Plan Plan: New episodes of chest pain Recent non-ST elevation myocardial infarction Recent admission was acute exacerbation of congestive heart failure Cardiomyopathy likely ischemic, with ejection fraction of 20-25% Leukocytosis. Infectious disease service is consulted Mental status changes, neurology consultation requested, EEG done during this admission, likely metabolic encephalopathy Thrush. Patient started on nystatin and Diflucan Small bilateral pleural effusion, patient was evaluated by pulmonary during the last admission, no intervention was necessary. New-onset atrial fibrillation Underlying history of COPD Underlying history of hypertension Underlying history of hyperlipidemia Underlying history of osteoarthritis Previous history of esophageal stricture with history of dilatation Previous history of gastrointestinal bleeding Remote history of pulmonary embolism At this time patient will be readmitted to telemetry floor Home medications reviewed and reordered Cardiology, pulmonary and infectious disease services following PT OT and social work coordinator consulted For DVT prophylaxis subcu Lovenox MRI of the brain ordered per Prognosis is guarded will follow closely
[2023-02-12 11:43] LABS: Glucose,Whole Blood 111 mg/dL (70-110)
--- NOTE | 2023-02-12 13:20 | US ---
EXAMINATION TYPE: US chest DATE OF EXAM: 02/12/2023 COMPARISON: Chest CT 5 days ago CLINICAL INDICATION: Female, 87 years old with history of left pleural effusion; Effusion left TECHNIQUE: Targeted ultrasound of the posterior lower left hemithorax EXAM MEASUREMENTS: Left Pleural Effusion pocket size: 6.4 cm Left side NOT marked for possible thoracentesis- fluid appeared thick with some loculations Persistent small nonsimple left-sided pleural fluid collection on images saved. Findings correlate wi th most recent CT. IMPRESSIONS: As above.
--- NOTE | 2023-02-12 13:44 | P.GSCN ---
History of Present Illness Consult date: 02/12/23 History of present illness: CHIEF COMPLAINT: Chest pain Reason for consult PEG tube placement HISTORY OF PRESENT ILLNESS: This is a 87-year-old female who initially presented with complaints of chest pain. Patient had recent hospitalization in January with non-ST elevated [place] and acute CHF exacerbation with cardiomyopathy and EF of 20- 25%. Patient has had new altered mental status and is now nonverbal. She is not following commands. Patient seen by speech therapy. Patient made no attempt to orally manipulate bolus feeds per dietitian. They recommended to keep her nothing by mouth. Due to patient's nothing by mouth status and poor oral intake surgical service was consulted for PEG tube placement. She has been seen by neurology service. They completed MRI of the brain no evidence of stroke. PAST MEDICAL HISTORY: See below PAST SURGICAL HISTORY: See below MEDICATIONS: See below ALLERGIES: See below SOCIAL HISTORY: No illicit drug use. REVIEW OF SYSTEMS: CONSTITUTIONAL: Denies fever or chills. HEENT: Denies blurred vision, vision changes, or eye pain. Denies hemoptysis CARDIOVASCULAR: Denies chest pain or pressure. RESPIRATORY: No shortness of breath. GASTROINTESTINAL: See HPI for pertinent findings HEMATOLOGIC: Denies bleeding disorders. GENITOURINARY: Denies any blood in urine or increased urinary frequency. SKIN: Denies pruitis. Denies rash. PHYSICAL EXAM: VITAL SIGNS: Reviewed GENERAL: no acute distress. ABDOMEN: Soft. Nondistended. Nontender NEUROLOGIC: Awake unable to follow commands. LABORATORY DATA: WBC is 13.4 Hgb 10.3 platelets 613 Sodium 144 potassium 3.8 creatinine 1.14 Albumin 2.6 IMAGING: Chest x-ray there is moderate left lower lobe pleural parenchymal opacity of the focal areas of nonloculated and possibly likely pleural effusion Chest ultrasound shows left pleural effusion with loculations ASSESSMENT: 1. Severe protein calorie malnutrition and dysphagia 2. Altered mental status PLAN: -Patient scheduled for PEG tube placement tomorrow, 02/13/[address] Posadas -Nothing by mouth after midnight -Hold lovenox tonight and tomorrow for procedure Physician Systems Accountant note has been reviewed by physician. Signing provider agrees with the documented findings, assessment, and plan of care. I have personally seen and examined the patient, reviewed the [employer] /PAs history, exam and MDM and agree with the assessment and plan as written. Based on total visit time, I have performed more than 50% of the visit. As above: Patient with confusion and lack of oral intake. No definite stroke on recent MRI. Spoke with patient's daughter at length by phone. She is interested in PEG tube placement to see if improve nutrition can improve the patient's overall health status. I think this is reasonable. We'll proceed with EGD and PEG tube placement tomorrow. Risks of bleeding, infection, catheter misplacement, bowel injury reviewed. She understands and wishes to proceed. Past Medical History Past Medical History: Asthma, GERD/Reflux, GI Bleed, Hyperlipidemia, Hypertension, Liver Disease, Osteoarthritis (OA), Pneumonia, Pulmonary Embolus (PE) Additional Past Medical History / Comment(s): bilateral pulmonary embolism 2010, IBS, colitis, esophageal stricture, hepatitis B infection 1971, hiatal hernia, history of Chowdary's palsy, severe osteoarthritis, sinus problems. poor circulation in eliseo feet, GI bleed years ago History of Any Multi-Drug Resistant Organisms: None Reported Past Surgical History: Appendectomy, Section, Hernia Repair, Hysterectomy, Joint Replacement, Tonsillectomy, Tubal Ligation Additional Past Surgical History / Comment(s): Rt shoulder replacement, cataracts bilaterally, x 2, hiatal hernia repair, EGDs with esophageal dilations, colonoscopy, bronchoscopies Past Anesthesia/Blood Transfusion Reactions: Motion Sickness Past Psychological History: No Psychological Hx Reported Smoking Status: Never smoker - Past Family History Daughter(s) Family Medical History: Coronary Artery Disease (CAD), Diabetes Mellitus, Deep Vein Thrombosis (DVT) Brother(s) Family Medical History: CVA/TIA Mother Family Medical History: Deep Vein Thrombosis (DVT) Additional Family Medical History / Comment(s): . Father Family Medical History: No Reported History Medications and Allergies Home Medications Medication Instructions Recorded Confirmed Type Budesonide-Formot 160-4.5 Mcg 2 puff INHALATION RT-BID 09/04/18 01/29/23 History [Symbicort 160-4.5 Mcg Inhaler] Albuterol Inhaler [Ventolin Hfa 2 puff INHALATION RT-QID PRN 01/23/23 01/29/23 History Inhaler] Losartan/Hydrochlorothiazide 1 tab PO DAILY 01/23/23 01/29/23 History [Hyzaar 100-25 Tablet] Aspirin 81 mg PO DAILY tab 01/28/23 01/29/23 Rx Atorvastatin [Lipitor] 40 mg PO HS tab 01/28/23 01/29/23 Rx Furosemide [Lasix] 40 mg PO BID@0900,1600 tab 01/28/23 01/29/23 Rx Isosorbide Mononitrate ER [Imdur] 30 mg PO DAILY tab 01/28/23 01/29/23 Rx Metoprolol Tartrate [Lopressor] 12.5 mg PO BID tab 01/28/23 01/29/23 Rx Potassium Chloride ER [K-Dur 20] 20 meq PO Q8HR tab 01/28/23 01/29/23 Rx Allergies Allergy/AdvReac Type Severity Reaction Status Date / Time adhesive tape Allergy skin Verified 01/29/23 11:44 blisters iodine Allergy Anaphylaxis Verified 01/29/23 11:44 morphine AdvReac Hallucinati Verified 01/29/23 11:44 ons Surgical - Exam Vital Signs Temp Pulse Resp BP Pulse Ox 98.3 F 98 19 130/76 95 01/29/23 09:44 01/29/23 09:44 01/29/23 09:44 01/29/23 09:44 01/29/23 09:44 Results - Labs 02/12/23 08:11 02/12/23 08:11 Abnormal Lab Results - Last 24 Hours (Table) 02/11/23 02/12/23 02/12/23 Range/Units 20:33 01:44 06:02 WBC (3.8-10.6) k/uL Hgb (11.4-16.0) gm/dL MCH (25.0-35.0) pg MCHC (31.0-37.0) g/dL RDW (11.5-15.5) % Plt Count (150-450) k/uL Neutrophils # (1.3-7.7) k/uL Chloride (98-107) mmol/L Carbon Dioxide (22-30) mmol/L BUN (7-17) mg/dL Creatinine (0.52-1.04) mg/dL Glucose (74-99) mg/dL POC Glucose (mg/dL) 123 H 113 H 113 H (70-110) mg/dL Alkaline Phosphatase (38-126) U/L C-Reactive Protein (<1.0) mg/dL Albumin (3.5-5.0) g/dL 02/12/23 02/12/23 Range/Units 08:11 08:11 WBC 13.4 H (3.8-10.6) k/uL Hgb 10.3 L (11.4-16.0) gm/dL MCH 24.4 L (25.0-35.0) pg MCHC 29.2 L (31.0-37.0) g/dL RDW 17.3 H (11.5-15.5) % Plt Count 613 H (150-450) k/uL Neutrophils # 11.0 H (1.3-7.7) k/uL Chloride 114 H (98-107) mmol/L Carbon Dioxide 21 L (22-30) mmol/L BUN 53 H (7-17) mg/dL Creatinine 1.14 H (0.52-1.04) mg/dL Glucose 109 H (74-99) mg/dL POC Glucose (mg/dL) (70-110) mg/dL Alkaline Phosphatase 213 H (38-126) U/L C-Reactive Protein 8.9 H (<1.0) mg/dL Albumin 2.6 L (3.5-5.0) g/dL Diabetes panel 02/12/23 Range/Units 08:11 Sodium 144 (137-145) mmol/L Potassium 3.8 (3.5-5.1) mmol/L Chloride 114 H (98-107) mmol/L Carbon Dioxide 21 L (22-30) mmol/L BUN 53 H (7-17) mg/dL Creatinine 1.14 H (0.52-1.04) mg/dL Glucose 109 H (74-99) mg/dL Calcium 9.0 (8.4-10.2) mg/dL AST 30 (14-36) U/L ALT 22 (4-34) U/L Alkaline Phosphatase 213 H (38-126) U/L Total Protein 7.0 (6.3-8.2) g/dL Albumin 2.6 L (3.5-5.0) g/dL Calcium panel 02/12/23 Range/Units 08:11 Calcium 9.0 (8.4-10.2) mg/dL Albumin 2.6 L (3.5-5.0) g/dL Pituitary panel 02/12/23 Range/Units 08:11 Sodium 144 (137-145) mmol/L Potassium 3.8 (3.5-5.1) mmol/L Chloride 114 H (98-107) mmol/L Carbon Dioxide 21 L (22-30) mmol/L BUN 53 H (7-17) mg/dL Creatinine 1.14 H (0.52-1.04) mg/dL Glucose 109 H (74-99) mg/dL Calcium 9.0 (8.4-10.2) mg/dL Adrenal panel 02/12/23 Range/Units 08:11 Sodium 144 (137-145) mmol/L Potassium 3.8 (3.5-5.1) mmol/L Chloride 114 H (98-107) mmol/L Carbon Dioxide 21 L (22-30) mmol/L BUN 53 H (7-17) mg/dL Creatinine 1.14 H (0.52-1.04) mg/dL Glucose 109 H (74-99) mg/dL Calcium 9.0 (8.4-10.2) mg/dL Total Bilirubin 0.6 (0.2-1.3) mg/dL AST 30 (14-36) U/L ALT 22 (4-34) U/L Alkaline Phosphatase 213 H (38-126) U/L Total Protein 7.0 (6.3-8.2) g/dL Albumin 2.6 L (3.5-5.0) g/dL
--- NOTE | 2023-02-12 14:21 | P.PN ---
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 patient also have a history of severe LV dysfunction with EF of 20-25% presenting to the hospital on 01/29/2023 for evaluation of left-sided chest pain,atient did have a chest x-ray with evidence of moderate left-sided effusion s/p thoracocentesis on 01/30/2023 , fluid culture had been negative so far did have elevated white count prompting this infectious disease consultation On today's evaluation her that is 02/12/2023 the patient continues to be afebrile, the patient is breathing comfortably down to 2 L nasal cannula oxygen, the patient is lethargic and arousable however did not answer any question, no vomiting or diarrhea has been reported by the nursing staff Objective - Vital Signs Vital signs: Vital Signs Temp 97.8 F 02/12/23 07:21 Pulse 88 02/12/23 08:09 Resp 18 02/12/23 07:21 BP 129/80 02/12/23 07:21 Pulse Ox 98 02/12/23 08:00 FiO2 Intake & Output 02/11/23 02/12/23 02/12/23 18:59 06:59 18:59 Output Total 1 400 Balance -1 -400 Weight 50 kg 49 kg Output: Urine 400 Stool 1 Other: Voiding Method External Catheter External Catheter - Exam GENERAL DESCRIPTION: An elderly female lying in bed in no distress RESPIRATORY SYSTEM: Unlabored breathing , coarse breath sounds at bases HEART: S1 S2 regular rate and rhythm , ABDOMEN: Soft , no tenderness EXTREMITIES: No edema feet - Labs CBC & Chem 7: 02/12/23 08:11 02/12/23 08:11 Labs: Abnormal Lab Results - Last 24 Hours (Table) 02/11/23 02/12/23 02/12/23 Range/Units 20:33 01:44 06:02 WBC (3.8-10.6) k/uL Hgb (11.4-16.0) gm/dL MCH (25.0-35.0) pg MCHC (31.0-37.0) g/dL RDW (11.5-15.5) % Plt Count (150-450) k/uL Neutrophils # (1.3-7.7) k/uL Chloride (98-107) mmol/L Carbon Dioxide (22-30) mmol/L BUN (7-17) mg/dL Creatinine (0.52-1.04) mg/dL Glucose (74-99) mg/dL POC Glucose (mg/dL) 123 H 113 H 113 H (70-110) mg/dL Alkaline Phosphatase (38-126) U/L C-Reactive Protein (<1.0) mg/dL Albumin (3.5-5.0) g/dL 02/12/23 02/12/23 Range/Units 08:11 08:11 WBC 13.4 H (3.8-10.6) k/uL Hgb 10.3 L (11.4-16.0) gm/dL MCH 24.4 L (25.0-35.0) pg MCHC 29.2 L (31.0-37.0) g/dL RDW 17.3 H (11.5-15.5) % Plt Count 613 H (150-450) k/uL Neutrophils # 11.0 H (1.3-7.7) k/uL Chloride 114 H (98-107) mmol/L Carbon Dioxide 21 L (22-30) mmol/L BUN 53 H (7-17) mg/dL Creatinine 1.14 H (0.52-1.04) mg/dL Glucose 109 H (74-99) mg/dL POC Glucose (mg/dL) (70-110) mg/dL Alkaline Phosphatase 213 H (38-126) U/L C-Reactive Protein 8.9 H (<1.0) mg/dL Albumin 2.6 L (3.5-5.0) g/dL Assessment and Plan (1) Leukocytosis Current Visit: Yes Status: Acute Code(s): D72.829 - ELEVATED WHITE BLOOD CELL COUNT, UNSPECIFIED SNOMED Code(s): 942834812 Plan: 1patient with elevated white count and this patient presented to hospital about a week ago with left-sided chest pain noticed to have left-sided effusion status post thoracocentesis however does culture has been negative patient did not have any fever during this admission and has not received any steroids patient complaining of diarrhea source of elevated white count possible C. difficile versus thrush 2-patient stool for C. difficile came back negative 3Patient did have elevated CRP and a mildly elevated procalcitonin 4-patient did have a CT of the chest concerning for possible loculated effusion on the left-sided 5-patient white count is down to 13.4 today, the patient will continue with cefepime , and monitor clinical course closely Time with Patient: Less than 30
--- NOTE | 2023-02-12 15:12 | P.PN ---
Subjective Progress Note Date: 02/12/23 I am seeing this patient in new consultation today 01/30/2023 in the emergency room for left sided pleuritic chest pain and effusion. Patient is a 87-year-old white female with past medical history significant for moderate persistent chronic bronchial asthma, hypertension, hyperlipidemia, gastroesophageal reflux disease, pulmonary embolism, colitis, esophageal stricture with previous dilatations, and is a nonsmoker. Patient came back to the emergency room yesterday morning after being just discharged the day prior. Patient was admitted back on January 23 for a non-ST elevation UT and exacerbation of systolic congestive heart failure. She did have a small to moderate left pleural effusion at that time measuring 7.7 cm, and no thoracentesis was performed due to the patient being on heparin. Her symptoms ultimately improved, and she was discharged back to her assisted living center. Apparently, the patient's chest pain worsened after discharge, and she came back to the emergency room. Patient is is currently sitting up on the stretcher, on 2 L nasal cannula, in no acute distress. The left-sided chest pain is painful to palpation and exacerbated by coughing. There is some associated shortness of breath especially on exertion. She denies any infectious symptoms such as fever, chills, cough, hemoptysis. Chest x-ray from yesterday shows persistent cardiomegaly with small to moderate size left pleural effusion and associated left mid to lower lung atelectasis and/or infiltrate, without significant change from previous chest x-ray. Patient's echocardiogram done on her recent admission showed a markedly decreased ejection fraction of 20-25% severe pulmonary hypertension with an RVSP of 75 mmHg, moderate to severe tricuspid regurgitation, and severe mitral regurgitation. CBC from yesterday shows a WBC count of 10.8, hemoglobin 12.4, hematocrit 39.8, platelets 241. BMP shows a sodium 135, potassium 4, chloride 90, serum CO2 34, BUN 44, creatinine 1.51, glucose 104. Troponin was low at 0.022. EKG shows sinus rhythm with a left bundle-branch block. Vital signs are stable at this time. The patient is seen today 01/31/2023 in follow-up in the intensive care unit. She is currently resting quite comfortably in bed. Awake and alert in no acute distress. Maintaining good O2 saturations in the 90s on 2 L/m per nasal cannula. No IV fluids. He did undergo an ultrasound-guided thoracentesis by interventional radiology yesterday with 350 ML's of clear yellow fluid removed. Follow-up chest x-ray revealed a repeat remaining small left pleural effusion. No pneumothorax. The fluid is exudative in nature with a total protein of 4.0 and LDH of 415. Cytology pending. She is continued on DuoNeb inhalations, Symbicort. Anticoagulated with Eliquis. Remains on oral diuretics. The patient is seen today 02/02/2023 in follow-up on selective care unit. She is awake and alert in no acute distress. Maintaining O2 saturations in the 90s on 2 L/m per nasal cannula. Afebrile. Hemodynamically stable. Denies any worsening shortness of breath, cough or congestion. Denies any chest pain. White count 16.6. Hemoglobin 11.8. Platelets 366. Sodium 131. Potassium 4.1. Bicarb 32. BUN 41. Creatinine 1.22. Glucose 83. Pleural fluid cultures pending. Cytology pending. She is continued on DuoNeb inhalations, Symbicort. Oral diuretics. Anticoagulated with Eliquis. The patient is seen today February 2023 in follow-up on the regular medical floor. She is quite obtunded today. Computed tomography scan of the brain without contrast revealed no acute intracranial hemorrhage or midline shift. There is mild diffuse cerebral atrophy and severe probable chronic small vessel ischemic changes redemonstrated. White count 13.3. Hemoglobin 11.3. Platelets 674. Sodium 138. Potassium 3.9. Bicarb 17. BUN 49. Creatinine 1.10. Glucose 71. AST 38. ALT 26. Ammonia level less than 9. She is continued on antibiotics in the form of cefepime. Remains on DuoNeb inhalations, Symbicort, remains on oral diuretics. Anticoagulated with Eliquis. The patient is seen today 02/11/2023 in follow-up on the regular medical floor. She remains quite obtunded. Arousable but drifts back off easily. She was seen and evaluated by neurology yesterday who feels her symptoms are related to severe metabolic encephalopathy. EEG reveals background slowing is suggestive of severe encephalopathy. White count 14.6. Hemoglobin 10.4. Platelets 690. Sodium 140. Potassium 3.7. Bicarb 18. BUN 50. Creatinine 1.17. Glucose 112. She is continued on antibiotics in the form of cefepime. Remains on bronchodilators. Anticoagulated with Eliquis. Continued on oral diuretics. Minimal oral intake. The patient is seen today 02/12/2023 in follow-up on the regular medical floor. She is currently awake. Still not much communication. She is getting quite dehydrated. Continues on normal saline at 75 ML's per hour. Plan is for PEG tube placement for nutritional support. Recovered 13.4. Hemodynamically 3. Platelets 613. Sodium 144. Potassium 3.8. Bicarb 21. BUN 53. Creatinine 1.14. Glucose 109. MRI of the brain revealed no acute intracranial process. 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 There is moderate degenerative rather extensive nonspecific white matter changes. Ultrasound of the left chest reveals a 6.4 cm pocket with persistent small non-simple left- sided pleural fluid collection. Objective - Vital Signs Vital signs: Vital Signs Temp 97.8 F 02/12/23 07:21 Pulse 84 02/12/23 12:17 Resp 18 02/12/23 09:07 BP 129/80 02/12/23 07:21 Pulse Ox 98 02/12/23 08:00 FiO2 Intake & Output 02/11/23 02/12/23 02/12/23 18:59 06:59 18:59 Output Total 1 400 Balance -1 -400 Weight 50 kg 49 kg Output: Urine 400 Stool 1 Other: Voiding Method External Catheter External Catheter External Catheter - Exam GENERAL EXAM: Arousable,frail, 87-year-old female, on 2 L nasal cannula, in no apparent distress. HEAD: Normocephalic. EYES: Normal reaction of pupils, equal size. NOSE: Clear with pink turbinates. THROAT: No erythema or exudates. NECK: No masses, no JVD. CHEST: No chest wall deformity. LUNGS: Equal air entry with bilateral scattered rhonchi. Crackles in the left base. CVS: S1 and S2 normal with no audible murmur, regular rhythm. ABDOMEN: No hepatosplenomegaly, normal bowel sounds, no guarding or rigidity. SPINE: No scoliosis or deformity SKIN: No rashes CENTRAL NERVOUS SYSTEM: Altered, arousable. No focal deficits, tone is normal in all 4 extremities. EXTREMITIES: There is no peripheral edema. No clubbing, no cyanosis. Peripheral pulses are intact. - Labs CBC & Chem 7: 02/12/23 08:11 02/12/23 08:11 Labs: Abnormal Lab Results - Last 24 Hours (Table) 02/11/23 02/12/23 02/12/23 Range/Units 20:33 01:44 06:02 WBC (3.8-10.6) k/uL Hgb (11.4-16.0) gm/dL MCH (25.0-35.0) pg MCHC (31.0-37.0) g/dL RDW (11.5-15.5) % Plt Count (150-450) k/uL Neutrophils # (1.3-7.7) k/uL Chloride (98-107) mmol/L Carbon Dioxide (22-30) mmol/L BUN (7-17) mg/dL Creatinine (0.52-1.04) mg/dL Glucose (74-99) mg/dL POC Glucose (mg/dL) 123 H 113 H 113 H (70-110) mg/dL Alkaline Phosphatase (38-126) U/L C-Reactive Protein (<1.0) mg/dL Albumin (3.5-5.0) g/dL 02/12/23 02/12/23 02/12/23 Range/Units 08:11 08:11 11:39 WBC 13.4 H (3.8-10.6) k/uL Hgb 10.3 L (11.4-16.0) gm/dL MCH 24.4 L (25.0-35.0) pg MCHC 29.2 L (31.0-37.0) g/dL RDW 17.3 H (11.5-15.5) % Plt Count 613 H (150-450) k/uL Neutrophils # 11.0 H (1.3-7.7) k/uL Chloride 114 H (98-107) mmol/L Carbon Dioxide 21 L (22-30) mmol/L BUN 53 H (7-17) mg/dL Creatinine 1.14 H (0.52-1.04) mg/dL Glucose 109 H (74-99) mg/dL POC Glucose (mg/dL) 111 H (70-110) mg/dL Alkaline Phosphatase 213 H (38-126) U/L C-Reactive Protein 8.9 H (<1.0) mg/dL Albumin 2.6 L (3.5-5.0) g/dL Assessment and Plan Assessment: Altered mental status and poor oral intake. Failing to thrive. Computed tomography scan of the brain today 02/10/2023 revealed no acute intracranial processes. Neurology had been consulted. Suspect metabolic encephalopathy due to episodes of hypoglycemia, hyponatremia, elevated LFTs. EEG reveals background slowing secondary to severe encephalopathy. Persistent left-sided pleural effusion. Status post ultrasound-guided thoracentesis 01/30/2023 with 350 ML's of yellow fluid return exudative with a protein of 4.0 and an LDH of 415. Cytology negative for malignancy. Still with some concerns regarding possible empyema. We have requested interventional rad iology to place a pigtail catheter if possible on 02/12/2023 Acute exacerbation of systolic congestive heart failure, on recent echocardiogram found to have severely impaired left ventricular systolic function ejection fraction of 20% along with severe mitral and tricuspid regurgitation with severe pulmonary hypertension with an RSVP of 75 mmHg. Acute hypoxic respiratory failure secondary to above, currently on 2 L nasal cannula Atypical chest pain, possibly pleuritic in nature. ECG shows persistent left bundle branch block. Troponin 0.022. Acute kidney injury, creatinine improving currently 1.14 Recent non-ST elevation UT Moderate persistent chronic bronchial asthma, stable Hyperlipidemia Hypertension Osteoarthritis Previous history of bilateral pulmonary embolism in 2010 History of GI bleed and has been off anticoagulation since 2020 and declined to resume History of esophageal strictures with previous dilatation Plan: The patient was seen and evaluated MRI of the brain, medications and labs reviewed Continue normal saline at 75 ML's per hour Ultrasound of the chest reviewed, still concerns regarding possible empyema Requested IR for possible pigtail catheter placement if tolerated Plan is for PEG tube placement for nutritional support Dr. Andersen did discuss the patient's current clinical status with her daughter in detail Aware of her poor prognosis Now a DO NOT RESUSCITATE/DO NOT INTUBATE CODE STATUS We'll continue to follow I have personally seen and examined the patient, performed the documentation and the assessment and plan as written. Number of minutes spent on the visit: 10.
--- NOTE | 2023-02-12 15:41 | P.PN ---
Subjective Progress Note Date: 02/12/23 Patient is seen at be bedside and per nurse is more awake today. Objective - Vital Signs Vital signs: Vital Signs Temp 97.5 F L 02/12/23 14:00 Pulse 94 02/12/23 14:00 Resp 20 02/12/23 14:00 BP 145/72 02/12/23 14:00 Pulse Ox 98 02/12/23 14:00 FiO2 Intake & Output 02/11/23 02/12/23 02/12/23 18:59 06:59 18:59 Output Total 1 400 Balance -1 -400 Weight 50 kg 49 kg Output: Urine 400 Stool 1 Other: Voiding Method External Catheter External Catheter External Catheter - Exam Neuro: Limited because of her condition. Is drowsy but is awakeable to voice. She is following simple commands (smiling, showing thumbs up and sticking tongue out). No facial weakness. Moving bilateral extremities on own spontanously. Some other workup during his hospital visit consisted of: Patient is afebrile so far. Initial white blood cell is 10.8 thousand and got as high as 20 and 3000 and currently is 13,000. Then was as high as 1.25 currently is 1.10. Calcium as within normal limits. Patient has episode of hypoglycemia in the 60s. AST was in 167 currently is 38 and ALT was as high as an 55 currently is resolved Folate is 10.6 Vital B12 was 1428 Ammonia level is less than 9 CT of the head on 02/10/2023 is reported as no acute intracranial hemorrhage or midline shift. There is mild diffuse cerebral atrophy and severe probable chronic small vessel ischemic changes redemonstrated. No significant change from most recent prior CT. I personally reviewed the CT and I agree with the report in addition I feel the patient has very small lacunae is on the bilateral basal ganglia left more than the right that is appreciable. EEG is abnormal. The brachial slowing suggestive of severe encephalopathy. The patient background slowing and triphasic waves are likely due to toxic metabolic derangement. Otherwise there is no focal slowing, epileptiform discharges or seizure on the EEG. MRI the brain is reported as no acute intracranial process. Finding are compatible with 3.6 mm right MCA bifurcation aneurysm. There is moderate degenerative Henry then extensive nonspecific white matter changes. - Labs CBC & Chem 7: 02/12/23 08:11 02/12/23 08:11 Labs: Abnormal Lab Results - Last 24 Hours (Table) 02/11/23 02/12/23 02/12/23 Range/Units 20:33 01:44 06:02 WBC (3.8-10.6) k/uL Hgb (11.4-16.0) gm/dL MCH (25.0-35.0) pg MCHC (31.0-37.0) g/dL RDW (11.5-15.5) % Plt Count (150-450) k/uL Neutrophils # (1.3-7.7) k/uL Chloride (98-107) mmol/L Carbon Dioxide (22-30) mmol/L BUN (7-17) mg/dL Creatinine (0.52-1.04) mg/dL Glucose (74-99) mg/dL POC Glucose (mg/dL) 123 H 113 H 113 H (70-110) mg/dL Alkaline Phosphatase (38-126) U/L C-Reactive Protein (<1.0) mg/dL Albumin (3.5-5.0) g/dL 02/12/23 02/12/23 02/12/23 Range/Units 08:11 08:11 11:39 WBC 13.4 H (3.8-10.6) k/uL Hgb 10.3 L (11.4-16.0) gm/dL MCH 24.4 L (25.0-35.0) pg MCHC 29.2 L (31.0-37.0) g/dL RDW 17.3 H (11.5-15.5) % Plt Count 613 H (150-450) k/uL Neutrophils # 11.0 H (1.3-7.7) k/uL Chloride 114 H (98-107) mmol/L Carbon Dioxide 21 L (22-30) mmol/L BUN 53 H (7-17) mg/dL Creatinine 1.14 H (0.52-1.04) mg/dL Glucose 109 H (74-99) mg/dL POC Glucose (mg/dL) 111 H (70-110) mg/dL Alkaline Phosphatase 213 H (38-126) U/L C-Reactive Protein 8.9 H (<1.0) mg/dL Albumin 2.6 L (3.5-5.0) g/dL Assessment and Plan Assessment: Altered mental status due to toxic-metabolic encephalopathy (has episodes of hypoglycemia, elevated LFT's, had hyponatremia that resolved) and hypoxic encecphalopaty. MRI Brain w/o is negative for acute/subacute ischemia. EEG is severe encephalopathy and triphasic waves but no seizure or discharges--mentati on is minimal improving. Acute leukocytosis and the possibly due to. Pneumatic effusion on the left patient is on IV cefepime--leukocytosis is trending down Elevated liver function tests---trending Acute kidney injury--improving Acute hypoxic respiratory failure Recent non-STEMI Moderate persistent chronic asthma Hyperlipidemia Hypertension Previous history of bilateral pulmonary embolism History of GI bleed and has been off of anticoagulation since 2020 and declined to resume History of esophageal stricture with previous dilation Plan: EEG is abnormal. Has severe encephalopathy and triphasic waves due to toxic- metabolic derangement. Otherwise no focal slowing, epileptiform discharges or seizure. MRI Brain is negative for acute or subacute ischemia. Daughter will like to pursue with PEG tube since patient not eating and not getting nutrition. ID and pulmonary team are on board We'll defer the rest of the medical management to primary team and other speci alists The plan is discussed with her nurse. Dr. Manzo will start neurology service tomorrow A.M. Time with Patient: Less than 30
[2023-02-12] MEDS: ATORVASTATIN 40 MG TAB PO SCH (20:47)
[2023-02-12 21:29] VITALS: RESP 18
[2023-02-13] MEDS: TOBRAMYCIN 0.3% OPHTH DROPS 5 ML BTL RIGHT EYE SCH (00:22)
[2023-02-13] MEDS: SODIUM CHLORIDE 0.9% 1,000 ML IV SCH ×2 (00:24→08:47)
[2023-02-13 02:14] VITALS: BP 158/84; PULSE 104; TEMP 98.1
[2023-02-13] MEDS ORDERED: AMIODARONE 360 MG in DEXTROSE 5% IN WATER 200 ML IV ONE ×2 (05:43)
[2023-02-13] MEDS ORDERED: DEXTROSE 5% IN WATER 100 ML with AMIODARONE 150 MG IV ONE (05:43)
[2023-02-13 06:24] LABS: Anisocytosis Slight; Basophils % (A) 0 %; Eosinophils # (A) 0.1 k/uL (0-0.7); Eosinophils % (A) 1 %; HCT 36.7 % (34.0-46.0); HGB 10.9 gm/dL (11.4-16.0); Hypochromasia Marked; Lymphocytes # (A) 3.9 k/uL (1.0-4.8); Lymphocytes % (A) 21 %; MCH 24.9 pg (25.0-35.0); MCHC 29.8 g/dL (31.0-37.0); MCV 83.5 fL (80.0-100.0); Monocytes # (A) 0.5 k/uL (0-1.0); Monocytes % (A) 3 %; Neutrophils # (A) 13.4 k/uL (1.3-7.7); Neutrophils % (A) 74 %; Platelet Count 636 k/uL (150-450); RDW 17.5 % (11.5-15.5); WBC 18.2 k/uL (3.8-10.6)
[2023-02-13 06:47] LABS: ALT 24 U/L (4-34); AST 35 U/L (14-36); African American GFR (CKD) 44 (>60 ml/min/1.73 sqM); Albumin 2.7 g/dL (3.5-5.0); Albumin/Globulin Ratio 0.6; Alkaline Phosphatase 198 U/L (38-126); Anion Gap 15 mmol/L; Blood Urea Nitrogen 53 mg/dL (7-17); Calcium 9.7 mg/dL (8.4-10.2); Carbon Dioxide 16 mmol/L (22-30); Chloride 118 mmol/L (98-107); Globulin 4.8 g/dL; Glucose 133 mg/dL (74-99); Non-African American GFR(CKD) 38 (>60 ml/min/1.73 sqM); Potassium 4.5 mmol/L (3.5-5.1); Sodium 149 mmol/L (137-145); Total Bilirubin 0.8 mg/dL (0.2-1.3); Total Protein 7.5 g/dL (6.3-8.2)
[2023-02-13] MEDS ORDERED: MORPHINE SULFATE 2 MG/ML SYRINGE IV PRN (06:56)
[2023-02-13] MEDS ORDERED: ATROPINE OPHTH SOLN 1% 5ML BTL SUBLINGUAL PRN (06:56)
[2023-02-13] MEDS ORDERED: MORPHINE SULFATE (100 MG/2 ML) 100 MG in SODIUM CHLORIDE 0.9% 100 ML IV SCH (07:00)
--- NOTE | 2023-02-13 07:08 | XR ---
EXAMINATION TYPE: XR chest 1V portable DATE OF EXAM: 02/13/2023 Comparison: 02/06/2023 Clinical History: 87 year-old female shortness of breath, dyspnea Findings: Severe degenerative changes left shoulder. Underlying right shoulder arthroplasty. Surgical clips tj r the GE junction. Heart borderline enlarged. A left-sided pleural catheter is not demonstrated. Ther e is residual moderate left pleural effusion though decreased from prior exam. Prominent patchy left mid and lower lung opacities persist but now with new patchy densities in the left upper lobe. Persis tent patchy opacity medial right base as well. No appreciable pneumothorax. Impression: Left-sided pleural catheter now noted. A moderate left pleural effusion persists but has decreased in the interval. However, patchy airspace disease throughout the left lung has increased. Patchy opacit y medial right base is similar.
--- NOTE | 2023-02-13 08:30 | CT ---
EXAMINATION TYPE: CT chest tube insertion DATE OF EXAM: 02/12/2023 COMPARISON: Ultrasound 02/12/2023, chest CT 2022 HISTORY: CHEST TUBE INSERTION, LEFT PLEURAL EFFUSION CT DLP: 989 mGycm The procedure is discussed with the patient, the risks, complications, benefits and alternatives, wer e discussed and any questions were answered. Informed consent was obtained. The patient is placed p tamika on the CT table, prepped and draped in the usual sterile fashion. Utilizing a 22-gauge Ch[place] needle access into the right pleural space was achieved with passage of an 0.018 guidewire. Conversion to a 0.035 system and placement of a 8 0.5 [place] drainage catheter with repeat imaging demonstrated ideal placement of 8.5 [place] drainage catheter. Small sample was obtain ed and sent to pathology for analysis. Pathology pending. All elements of maximal barrier and sterile technique were utilized. The patient remained stable thr oughout the procedure with no immediate postprocedural complication. IMPRESSION: 1. Successful CT guided right-sided pigtail chest tube insertion.
[2023-02-13 11:27] VITALS: BMI 18.5
[2023-02-13] MEDS ORDERED: AMIODARONE 450 MG in DEXTROSE 5% IN WATER 250 ML IV SCH ×2 (11:45)
--- NOTE | 2023-02-13 12:46 | P.PN ---
Subjective Progress Note Date: 02/13/23 Principal diagnosis: Altered mental status and failure to thrive he patient is seen today February 2023 in follow-up on the regular medical floor. She is quite obtunded today. Computed tomography scan of the brain without contrast revealed no acute intracranial hemorrhage or midline shift. There is mild diffuse cerebral atrophy and severe probable chronic small vessel ischemic changes redemonstrated. White count 13.3. Hemoglobin 11.3. Platelets 674. Sodium 138. Potassium 3.9. Bicarb 17. BUN 49. Creatinine 1.10. Glucose 71. AST 38. ALT 26. Ammonia level less than 9. She is continued on antibiotics in the form of cefepime. Remains on DuoNeb inhalations, Symbicort, remains on oral diuretics. Anticoagulated with Eliquis. The patient is seen today 02/11/2023 in follow-up on the regular medical floor. She remains quite obtunded. Arousable but drifts back off easily. She was seen and evaluated by neurology yesterday who feels her symptoms are related to s evere metabolic encephalopathy. EEG reveals background slowing is suggestive of severe encephalopathy. White count 14.6. Hemoglobin 10.4. Platelets 690. Sodium 140. Potassium 3.7. Bicarb 18. BUN 50. Creatinine 1.17. Glucose 112. She is continued on antibiotics in the form of cefepime. Remains on bronchodilators. Anticoagulated with Eliquis. Continued on oral diuretics. Minimal oral intake. The patient is seen today 02/12/2023 in follow-up on the regular medical floor. She is currently awake. Still not much communication. She is getting quite dehydrated. Continues on normal saline at 75 ML's per hour. Plan is for PEG tube placement for nutritional support. Recovered 13.4. Hemodynamically 3. Platelets 613. Sodium 144. Potassium 3.8. Bicarb 21. BUN 53. Creatinine 1 .14. Glucose 109. MRI of the brain revealed no acute intracranial process. 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 There is moderate degenerative rather extensive nonspecific white matter changes. Ultrasound of the left chest reveals a 6.4 cm pocket with persistent small non-simple left- sided pleural fluid collection. Reevaluated today on 02/13/2023, patient had a pigtail catheter placement yesterday. This was uneventful, however last night the patient developed atrial fibrillation with RVR and worsening pulmonary status. Patient was transferred to the ICU as an overflow from the cardiac floor, and apparently her family was updated on her condition again by the nurses from the ICU, family wished to proceed with comfort care measures. I have already touch bases with the nathaniel mccullough earlier yesterday before she had the pigtail catheter placement. And she was admitted to inclined to consider comfort care but that decision was not made at the time. At any rate the patient out of the ICU, she is on morphine drip, she is on comfort care measures and I think that is very appropriate. All labs were reviewed from today, and I had a long discussion with the daughter at [facility] regarding her condition. Objective - Vital Signs Vital signs: Vital Signs Temp 98.1 F 02/13/23 01:12 Pulse 104 H 02/13/23 01:12 Resp 18 02/13/23 01:12 BP 158/84 02/13/23 01:12 Pulse Ox 96 02/13/23 01:12 FiO2 Intake & Output 02/12/23 02/13/23 02/13/23 18:59 06:59 18:59 Intake Total 1000 22.525 Output Total 200 300 Balance 800 -300 22.525 Weight 47.5 kg 47.5 kg Intake: Intake, IV Titration 1000 22.525 Amount Cefepime 2 gm In Sodium 100 Chloride 0.9% 100 ml @ 25 mls/hr IVPB Q12HR [facility] Rx #:[id number] Morphine Sulfate (100 mg/ 22.525 2 ml) 100 mg In Sodium Chloride 0.9% 100 ml @ 1 MG/HR 1.02 mls/hr IV . Q24H [facility] Rx#:[id number] Sodium Chloride 0.9% 1, 900 000 ml @ 75 mls/hr IV . [id number] [facility] Rx#:[id number] Output: Urine 200 300 Other: Voiding Method External Catheter External Catheter External Catheter # Voids 1 1 - Exam Physical Exam: Revealed an 87-year-old female, unresponsive, on morphine drip. HEENT:[Neck is supple.] [No neck masses.] [No thyromegaly.] [No JVD.] Chest: [Crackles at the base. Cardiac Exam: Irregular irregular rhythm, 2/6 systolic murmur thought the precordium. Abdomen: [Soft, nontender, no megaly, no rebound, no guarding, normal bowel sounds.] Extremities: [No clubbing, no edema, no cyanosis.] Neurological Exam: Not assessed, patient is a morphine drip psychiatric: Could not assess. - Labs CBC & Chem 7: 02/13/23 06:15 02/13/23 06:15 Labs: Abnormal Lab Results - Last 24 Hours (Table) 02/12/23 02/13/23 02/13/23 Range/Units 08:11 06:15 06:15 WBC 18.2 H (3.8-10.6) k/uL Hgb 10.9 L (11.4-16.0) gm/dL MCH 24.9 L (25.0-35.0) pg MCHC 29.8 L (31.0-37.0) g/dL RDW 17.5 H (11.5-15.5) % Plt Count 636 H (150-450) k/uL Neutrophils # 13.4 H (1.3-7.7) k/uL Sodium 149 H (137-145) mmol/L Chloride 118 H (98-107) mmol/L Carbon Dioxide 16 L (22-30) mmol/L BUN 53 H (7-17) mg/dL Creatinine 1.28 H (0.52-1.04) mg/dL Glucose 133 H (74-99) mg/dL Alkaline Phosphatase 198 H (38-126) U/L Albumin 2.7 L (3.5-5.0) g/dL Procalcitonin 0.23 H (0.02-0.09) ng/mL Assessment and Plan Assessment: Impression: Altered mental status and poor oral intake. Failing to thrive. Computed tomography scan of the brain today 02/10/2023 revealed no acute intracranial processes. Neurology had been consulted. Suspect metabolic encephalopathy due to episodes of hypoglycemia, hyponatremia, elevated LFTs. EEG reveals background slowing secondary to severe encephalopathy. Persistent left-sided pleural effusion. Status post ultrasound-guided thoracentesis 01/30/2023 with 350 ML's of yellow fluid return exudative with a protein of 4.0 and an LDH of 415. Cytology negative for malignancy. Still with some concerns regarding possible empyema. We have requested interventional radiology to place a pigtail catheter if possible on 02/12/2023 Acute exacerbation of systolic congestive heart failure, on recent echocardiogram found to have severely impaired left ventricular systolic function ejection fraction of 20% along with severe mitral and tricuspid regurgitation with severe pulmonary hypertension with an RSVP of 75 mmHg. Acute hypoxic respiratory failure secondary to above, currently on 2 L nasal cannula Atypical chest pain, possibly pleuritic in nature. ECG shows persistent left bundle branch block. Troponin 0.022. Acute kidney injury, creatinine improving currently 1.14 Recent non-ST elevation [place] Moderate persistent chronic bronchial asthma, stable Hyperlipidemia Hypertension Osteoarthritis Previous history of bilateral pulmonary embolism in 2010 History of GI bleed and has been off anticoagulation since 2020 and declined to resume History of esophageal strictures with previous dilatation Status post pigtail catheter placement in left loculated pleural effusion dated on 02/12/2023 Recommendation: Agree with comfort care measures Discussed her condition with daughter at bedside. Prognosis is extremely poor Time with Patient: Less than 30
[2023-02-13 14:53] LABS: Appearance,BF #BL
[2023-02-15 19:22] LABS: Glucose, BF Source Pleural fluid; Glucose, Body Fluid 59 mg/dL
== END 2023-02-13 14:13 | disposition expired ==
LOC: EC 09:40 → 3SCARD 15:52 → 2SICU 01-30 05:24 → 3SCARD 01-31 15:24 → 4SSUR 02-03 21:21 → 2SICU 02-13 06:14
PROVIDERS: ADMIT Internal Medicine; ATTEND Internal Medicine
PROC: 0W9B3ZX Drainage of Left Pleural Cavity, Percutaneous Approach, Diagnostic (ICD-10-PCS; principal; 2023-01-30)
PROC: 0W9930Z Drainage of Right Pleural Cavity with Drainage Device, Percutaneous Approach (ICD-10-PCS; 2023-02-13)
DX: I13.0 Hypertensive heart and chronic kidney disease with heart failure and stage 1 through stage 4 chronic kidney disease, or unspecified chronic kidney disease (principal); E43 Unspecified severe protein-calorie malnutrition; I21.4 Non-ST elevation (NSTEMI) myocardial infarction; J96.21 Acute and chronic respiratory failure with hypoxia; J18.9 Pneumonia, unspecified organism; G92.8 Other toxic encephalopathy; I50.23 Acute on chronic systolic (congestive) heart failure; J86.9 Pyothorax without fistula; J90 Pleural effusion, not elsewhere classified; N17.9 Acute kidney failure, unspecified; J44.0 Chronic obstructive pulmonary disease with (acute) lower respiratory infection; Z68.1 Body mass index [BMI] 19.9 or less, adult; E87.1 Hypo-osmolality and hyponatremia; B37.0 Candidal stomatitis; Z51.5 Encounter for palliative care; Z66 Do not resuscitate; N18.9 Chronic kidney disease, unspecified; J45.40 Moderate persistent asthma, uncomplicated; I67.1 Cerebral aneurysm, nonruptured; E78.5 Hyperlipidemia, unspecified; K21.9 Gastro-esophageal reflux disease without esophagitis; E16.2 Hypoglycemia, unspecified; R13.10 Dysphagia, unspecified; E86.0 Dehydration; I27.22 Pulmonary hypertension due to left heart disease; E87.5 Hyperkalemia; M19.90 Unspecified osteoarthritis, unspecified site; I08.1 Rheumatic disorders of both mitral and tricuspid valves; Z96.611 Presence of right artificial shoulder joint; I25.5 Ischemic cardiomyopathy; R53.81 Other malaise; I44.7 Left bundle-branch block, unspecified; I48.0 Paroxysmal atrial fibrillation; R74.01 Elevation of levels of liver transaminase levels; K44.9 Diaphragmatic hernia without obstruction or gangrene; R19.7 Diarrhea, unspecified; Z86.711 Personal history of pulmonary embolism; Z79.899 Other long term (current) drug therapy; Z79.82 Long term (current) use of aspirin; Z79.51 Long term (current) use of inhaled steroids; Z87.19 Personal history of other diseases of the digestive system; Z91.041 Radiographic dye allergy status; Z88.5 Allergy status to narcotic agent; Z71.3 Dietary counseling and surveillance; Z87.01 Personal history of pneumonia (recurrent); Z86.19 Personal history of other infectious and parasitic diseases
CPT/HCPCS: 32551; 32555; 36415; 70450; 70551; 71045; 71046; 71250; 76604; 77012; 80053; 82140; 82607; 82746; 82945; 83615; 83735; 84145; 84157; 84443; 84484; 85025; 85610; 85730; 86140; 87040; 87070; 87075; 87205; 87324; 88108; 88305; 89050; 93005; 93306; 94640; 94760; 95816; 96365; 96366; 96375; 99285